=== PATIENT | male | born 1935 | race Caucasian/White ===

== ENCOUNTER 2023-03-10 18:19 | Outpatient (RCR) | payer MEDICARE, SELFPAY | END 2023-04-03 23:59 | disposition home or self-care (01) | LOC: MM 18:19 | PROVIDERS: PCP Internal Medicine; Visit Provider Internal Medicine | DX: Z51.81 Encounter for therapeutic drug level monitoring (principal); Z79.01 Long term (current) use of anticoagulants; I25.2 Old myocardial infarction | CPT/HCPCS: 85610; G0463 ==

== ENCOUNTER 2023-04-08 10:19 | Outpatient (RCR) | payer MEDICARE, SELFPAY | END 2023-05-04 17:11 | disposition home or self-care (01) | LOC: MM 10:19 | PROVIDERS: PCP Internal Medicine; Visit Provider Internal Medicine | DX: Z51.81 Encounter for therapeutic drug level monitoring (principal); Z79.01 Long term (current) use of anticoagulants; I25.2 Old myocardial infarction | CPT/HCPCS: 85610; G0463 ==

== ENCOUNTER 2023-04-20 10:55 | Emergency (ER) | payer MEDICARE, SELFPAY ==
[2023-04-20] VITALS (8 sets, daily range): BP systolic 141–191; BP diastolic 65–91; PULSE 61–67; RESP 9–20; TEMP 36.6; O2SAT 96–99; BMI 28.8
--- NOTE | 2023-04-20 11:10 | ECG_ITS ---
The [facility] Test Date: 2023-04-20 Pat Name: PURA DÍAZ Department: Room: - Gender: Male Service Member: : 1935 Requested By: SHAIKH CALISTA Order Number: [id number] Reading MD: KIRA MENDENHALL Measurements Intervals [place] Rate: 67 P: -[id number] [place]: 280 QRS: 133 QRSD: 142 T: 47 QT: 444 QTc: 459 Interpretive Statements Sinus rhythm with first degree AV block 2330 Nonspecific intraventricular conduction block 3534 Lateral myocardial infarction, age undetermined 5120 Possible right ventricular hypertrophy 9150 abnormal ECG No previous ECG available for comparison Electronically Signed On 04-21-2023 7:02:23 EDT by KIRA MENDENHALL
--- NOTE | 2023-04-20 11:10 | XR_ITS ---
The [address] [address] Patient Name: PURA DÍAZ MRN: [id number] date: 1935 Sex: M Assigned Patient Location: ER Current Patient Location: ER Accession/Order Number: [id number] Exam Date: 04/20/2023 12:28 Report Date: 04/20/2023 12:51 At the request of: BERYL MUSA Procedure: XR chest 1V EXAMINATION: XR chest 1V HISTORY: edema COMPARISON: 11/04/2022 TECHNIQUE: AP portable FINDINGS: LUNGS: No significant pulmonary parenchymal abnormalities. VASCULATURE: No increased pulmonary vasculature. PLEURA: No pneumothorax, effusion, or pleural thickening. Elevation the right hemidiaphragm CARDIAC: No cardiomegaly or cardiac silhouette abnormality. MEDIASTINUM: No visible mass or adenopathy. Left pacemaker. Aortic atherosclerosis BONES: No fracture or visible bone lesion. OTHER: Negative. XR/XR chest 1V IMPRESSION: No acute cardiopulmonary process. Electronically authenticated by: ANT SHAIKH Date: 04/20/2023 12:51
[2023-04-20 11:31] LABS: Basophils Absolute Auto 0.1 10^3/uL (0.0-0.1); Basophils Percent Auto 0.9 % (0.2-2.0); Eosinophils Absolute Auto 0.1 10^3/uL (0.0-0.7); Eosinophils Percent Auto 1.8 % (0.9-7.0); Hematocrit 49.8 % (42.0-54.0); Hemoglobin 15.6 g/dL (14.0-18.0); Immature Granulocytes Abs Auto 0.03 10^3/uL (0.00-0.03); Immature Granulocytes Pct Auto 0.4 % (0.0-0.5); Lymphocytes Absolute Auto 1.5 10^3/uL (1.2-3.8); Lymphocytes Percent Auto 20.2 % (20.5-60.0); Mean Corpuscular HGB Conc 31.3 g/dL (29.9-35.2); Mean Corpuscular Hemoglobin 24.7 pg (25.9-34.0); Mean Corpuscular Volume 78.8 fL (80.0-94.0); Mean Platelet Volume 8.9 fL (9.5-13.5); Monocytes Absolute Auto 0.6 10^3/uL (0.3-0.8); Monocytes Percent Auto 7.4 % (1.7-12.0); Neutrophils Absolute Auto 5.1 10^3/uL (1.4-6.5); Neutrophils Percent Auto 69.3 % (43.0-75.0); Platelet Count 183 10^3/uL (150-450); Red Blood Count 6.32 10^6/uL (4.70-6.10); Red Cell Distribution Width 19.9 % (11.0-15.0); White Blood Count 7.4 10^3/uL (4.0-11.0)
--- NOTE | 2023-04-20 11:38 | ED_ITS ---
HPI - General Adult General Chief complaint: Extremity Problem, Nontraumatic Stated complaint: R ARM SWOLLEN Time Seen by Provider: 04/20/23 11:07 Source: patient and family Mode of arrival: Wheelchair Limitations: no limitations History of Present Illness HPI narrative: last night the patient noticed that his right arm was a little more swollen that the left. It was much more swollen when he woke this morning. No injury to the right UE and he has no pain. he told us that his right chest, right abdomen and right leg are also more swollen than the left. PMHx includes PVD, atrial fibrillation, CHF Related Data Home Medications Medication Instructions Recorded Confirmed aspirin 81 mg capsule 81 mg PO DAILY 04/20/23 04/20/23 atorvastatin 10 mg tablet 10 mg PO DAILY 04/20/23 04/20/23 bisoprolol fumarate 10 mg tablet 10 mg PO DAILY 04/20/23 04/20/23 cholecalciferol (vitamin D3) 25 2,000 unit PO DAILY 04/20/23 04/20/23 mcg (1,000 unit) capsule cyanocobalamin (vitamin B-12) 1,000 mcg PO .3 times week 04/20/23 04/20/23 1,000 mcg capsule dapagliflozin 10 mg tablet 10 mg PO DAILY 04/20/23 04/20/23 (Farxiga) insulin aspart U-100 100 unit/mL 1 sliding scale dose subcut 04/20/23 04/20/23 (3 mL) subcutaneous pen (Novolog USEASDIRECTD FlexPen U-100 Insulin aspart) insulin detemir U-100 100 unit/mL 36 unit subcut QPM 04/20/23 04/20/23 (3 mL) subcutaneous pen (Levemir FlexPen) levothyroxine 112 mcg capsule 112 mcg PO DAILY 04/20/23 04/20/23 levothyroxine 125 mcg tablet 125 mcg PO DAILY 04/20/23 04/20/23 (Euthyrox) loratadine 10 mg tablet 10 mg PO DAILY 04/20/23 04/20/23 multivitamin 1 tab PO DAILY 04/20/23 04/20/23 primidone 50 mg tablet 50 mg PO .QHS 04/20/23 04/20/23 sacubitril 24 mg-valsartan 26 mg 1 tab PO BID 04/20/23 04/20/23 tablet (Entresto) sacubitril 97 mg-valsartan 103 mg 1 tab PO BID 04/20/23 04/20/23 tablet (Entresto) warfarin 5 mg tablet 5 mg PO .QD 04/20/23 04/20/23 Previous Rx's Medication Instructions Recorded furosemide 40 mg tablet 40 mg PO DAILY #7 tabs 04/20/23 Allergies Allergy/AdvReac Type Severity Reaction Status Date / Time iodine Allergy Intermediate Verified 04/20/23 11:13 Penicillins Allergy Intermediate Verified 04/20/23 11:13 Exam Narrative Exam Narrative: Nurses notes and vital signs reviewed and patient is not hypoxic. afebrile General: Well-appearing and in no apparent distress. Skin: Warm, dry, no pallor noted. No rash. Head: Normocephalic, atraumatic. Neck: Supple, non-tender. Eye: Pupils are equal, round and EOMI. No scleral icterus. Ears, Nose, Mouth, and Throat: Oral mucosa is moist Cardiovascular: Regular Rate and Rhythm without murmur, gallop or rub. Respiratory: No accessory muscle use or respiratory distress. Lungs are clear to auscultation, no wheezing, rales or rhonchi Musculoskeletal: normal ROM, no calf or popliteal tenderness, mild right lower extremity edema/swelling GI: Abdomen is soft, non-distended. Normal bowel sounds. No masses appreciated. No tenderness to palpation. No rebound, guarding, or rigidity noted. Neurological: A&O x4. No cranial nerve dysfunction observed. No truncal ataxia. Moves all extremities. Sensation intact. Psychiatric: Cooperative and interactive. Normal mood and affect. Constitutional Vital Signs, click to edit/add: Last Vital Signs Temp 98 F 04/20/23 11:04 Pulse 64 04/20/23 13:30 Resp 9 L 04/20/23 13:30 BP 177/89 H 04/20/23 13:50 Pulse Ox 98 04/20/23 13:30 O2 Del Method Room Air 04/20/23 11:04 Course Vital Signs Vital signs: Vital Signs Temperature 98 F 04/20/23 11:04 Pulse Rate 67 04/20/23 11:04 Respiratory Rate 18 04/20/23 11:04 Blood Pressure 141/80 H 04/20/23 11:04 Pulse Oximetry 99 04/20/23 11:04 Oxygen Delivery Method Room Air 04/20/23 11:04 Temperature 98 F 04/20/23 11:04 Pulse Rate 64 04/20/23 13:30 Respiratory Rate 9 L 04/20/23 13:30 Blood Pressure 177/89 H 04/20/23 13:50 Pulse Oximetry 98 04/20/23 13:30 Oxygen Delivery Method Room Air 04/20/23 11:04 Medical Decision Making MDM Narrative Medical decision making narrative: Patient was placed on playground monitor and EKG obtained. Blood drawn and sent for evaluation. US right UE obtained. side from an elevated BNP, the workup was unremarkable. No cephalization or central changes noted on chest x-ray. Ultrasound of the right upper extremity is without deep vein thrombosis. The case is discussed the patient's primary care provider. Dr. Haro informed me that the patient as well as taking Lasix every other day. This is not on his medication list. He will follow-up with patient on outpatient basis and asked me to prescribe seven days of Lasix 40 mg daily. Patient informed of results and discharged home. Lab Data Lab results reviewed: Yes I reviewed the patient's lab results Labs: Lab Results 04/20/23 Range/Units 11:24 WBC 7.4 (4.0-11.0) 10^3/uL RBC 6.32 H (4.70-6.10) 10^6/uL Hgb 15.6 (14.0-18.0) g/dL Hct 49.8 (42.0-54.0) % MCV 78.8 L (80.0-94.0) fL MCH 24.7 L (25.9-34.0) pg MCHC 31.3 (29.9-35.2) g/dL RDW 19.9 H (11.0-15.0) % Plt Count 183 (150-450) 10^3/uL MPV 8.9 L (9.5-13.5) fL Neut % (Auto) 69.3 (43.0-75.0) % Lymph % (Auto) 20.2 L (20.5-60.0) % [place] % (Auto) 7.4 (1.7-12.0) % Eos % (Auto) 1.8 (0.9-7.0) % Baso % (Auto) 0.9 (0.2-2.0) % Neut # (Auto) 5.1 (1.4-6.5) 10^3/uL Lymph # (Auto) 1.5 (1.2-3.8) 10^3/uL [place] # (Auto) 0.6 (0.3-0.8) 10^3/uL Eos # (Auto) 0.1 (0.0-0.7) 10^3/uL Baso # (Auto) 0.1 (0.0-0.1) 10^3/uL Abs Immat Gran (auto) 0.03 (0.00-0.03) 10^3/uL Imm/Tot Granulo (auto) 0.4 (0.0-0.5) % Sodium 142 (136-145) mmol/L Potassium 4.4 (3.5-5.1) mmol/L Chloride 107 (98-107) mmol/L Carbon Dioxide 26.1 (21.0-32.0) mmol/L Anion Gap 13.3 BUN 24.0 H (7.0-18.0) mg/dL Creatinine 1.39 H (0.70-1.30) mg/dL Est GFR ( Amer) 59 L (>=60) Est GFR (Non-Af Amer) 48 L (>=60) BUN/Creatinine Ratio 17.3 Glucose 166 H (74-106) mg/dL Calcium 8.8 (8.5-10.1) mg/dL Total Bilirubin 0.7 (0.2-1.0) mg/dL AST 18 (15-37) U/L ALT 19 (16-63) U/L Alkaline Phosphatase 93 (46-116) U/L Troponin I High Sens 10.5 (4.0-76.1) pg/mL NT-Pro-B Natriuret Pep 2027.0 H* (<=1800.0) pg/mL Total Protein 7.0 (6.4-8.2) g/dL Albumin 3.2 L (3.4-5.0) g/dL Globulin 3.8 g/dL Albumin/Globulin Ratio 0.8 Imaging Data Chest x-ray: Radiologist's impression: Patient Name: PURA DÍAZ MRN: [facility]:[id number] date: 1935 Sex: M Assigned Patient Location: ER Current Patient Location: ER Accession/Order Number: [id number] Exam Date: 04/20/2023 12:28 Report Date: 04/20/2023 12:51 At the request of: BERYL MUSA Procedure: XR chest 1V EXAMINATION: XR chest 1V HISTORY: edema COMPARISON: 11/04/2022 TECHNIQUE: AP portable FINDINGS: LUNGS: No significant pulmonary parenchymal abnormalities. VASCULATURE: No increased pulmonary vasculature. PLEURA: No pneumothorax, effusion, or pleural thickening. Elevation the right hemidiaphragm CARDIAC: No cardiomegaly or cardiac silhouette abnormality. MEDIASTINUM: No visible mass or adenopathy. Left pacemaker. Aortic atherosclerosis BONES: No fracture or visible bone lesion. OTHER: Negative. IMPRESSION: No acute cardiopulmonary process. Electronically authenticated by: ANT SHAIKH Date: 04/20/2023 12:51 us right UE: Radiologist's impression: Patient Name: PURA DÍAZ MRN: [facility]:[id number] date: 1935 Sex: M Assigned Patient Location: ED.MAIN Current Patient Location: ER Accession/Order Number: [id number] Exam Date: 04/20/2023 12:00 Report Date: 04/20/2023 12:48 At the request of: BERYL MUSA Procedure: US venous doppler UE RT EXAMINATION: US venous doppler UE RT HISTORY: right UE swelling COMPARISON: No relevant comparison available. TECHNIQUE: FINDINGS: Region: Right arm Thrombus: None Flow: Normal Augmentation: Normal Compressibility: Normal IMPRESSION: No deep or superficial vein thrombus in the right arm *Exam performed in accordance with [facility] practice guidelines- Peripheral venous ultrasound, December 29, 2009. Electronically authenticated by: ANT SHAIKH Date: 04/20/2023 12:48 ECG Data Prior ECG tracings: available for review (prior EKG 11/04/22 was similar) Interpretation: EKG interpretation: Emergency Department physician interpretation. atrial fibrillation at 67bpm. IV conduction delay, RVH. No ST segment elevation or depression. Discharge Plan Discharge Chief Complaint: Extremity Problem, Nontraumatic Clinical Impression: Edema, peripheral, Congestive heart failure Patient Disposition: Home, Self-Care Time of Disposition Decision: 13:22 Prescriptions / Home Meds: New furosemide 40 mg tablet 40 mg PO DAILY Qty: 7 0RF No Action aspirin 81 mg capsule 81 mg PO DAILY atorvastatin 10 mg tablet 10 mg PO DAILY bisoprolol fumarate 10 mg tablet 10 mg PO DAILY cholecalciferol (vitamin D3) 25 mcg (1,000 unit) capsule 2,000 unit PO DAILY Farxiga 10 mg tablet 10 mg PO DAILY Entresto 97-103 mg tablet 1 tab PO BID Levemir FlexPen 100 unit/mL (3 mL) insulin pen 36 unit subcut QPM levothyroxine 112 mcg capsule 112 mcg PO DAILY loratadine 10 mg tablet 10 mg PO DAILY multivitamin Tablet 1 tab PO DAILY primidone 50 mg tablet 50 mg PO .QHS cyanocobalamin (vitamin B-12) 1,000 mcg capsule 1,000 mcg PO .3 times week warfarin 5 mg tablet 5 mg PO .QD insulin aspart U-100 [Novolog FlexPen U-100 Insulin] 100 unit/mL (3 mL) insulin pen 1 sliding scale dose subcut USEASDIRECTD levothyroxine [Euthyrox] 125 mcg tablet 125 mcg PO DAILY Entresto 24-26 mg tablet 1 tab PO BID Instructions: Edema (ED) Stand Alone Forms: Portal Instructions Referrals: Shaikh Almazan MD [Primary Care Provider] - 1 week Discharge Date/Time: 04/20/23 14:02
[2023-04-20 11:55] LABS: Alanine Aminotransferase 19 U/L (16-63); Albumin Globulin Ratio 0.8; Albumin Level 3.2 g/dL (3.4-5.0); Alkaline Phosphatase 93 U/L (46-116); Anion Gap 13.3; Aspartate Amino Transferase 18 U/L (15-37); BUN Creatinine Ratio 17.3; Bilirubin Total 0.7 mg/dL (0.2-1.0); Calcium 8.8 mg/dL (8.5-10.1); Carbon Dioxide 26.1 mmol/L (21.0-32.0); Chloride 107 mmol/L (98-107); Estimated GFR (African America 59 (>=60); Estimated GFR (Non-African Ame 48 (>=60); Globulin 3.8 g/dL; Glucose 166 mg/dL (74-106); Potassium 4.4 mmol/L (3.5-5.1); Sodium 142 mmol/L (136-145); Troponin I High Sensitivity 10.5 pg/mL (4.0-76.1)
--- NOTE | 2023-04-20 11:55 | US_ITS ---
[place] [id number] Patient Name: PURA DÍAZ MRN: [id number] date: 1935 Sex: M Assigned Patient Location: ED.MAIN Current Patient Location: ER Accession/Order Number: [id number] Exam Date: 04/20/2023 12:00 Report Date: 04/20/2023 12:48 At the request of: BERYL MUSA Procedure: US venous doppler UE RT EXAMINATION: US venous doppler UE RT HISTORY: right UE swelling COMPARISON: No relevant comparison available. TECHNIQUE: FINDINGS: Region: Right arm Thrombus: None Flow: Normal Augmentation: Normal Compressibility: Normal US/US venous doppler UE RT IMPRESSION: No deep or superficial vein thrombus in the right arm *Exam performed in accordance with [facility] practice guidelines- Peripheral venous ultrasound, December 29, 2009. Electronically authenticated by: ANT SHAIKH Date: 04/20/2023 12:48
== END 2023-04-20 14:02 | disposition home or self-care (01) ==
PROVIDERS: Emergency Provider Emergency Medicine; PCP Internal Medicine
DX: R60.9 Edema, unspecified (principal); I50.9 Heart failure, unspecified; I48.91 Unspecified atrial fibrillation; I73.9 Peripheral vascular disease, unspecified; Z79.82 Long term (current) use of aspirin; Z79.4 Long term (current) use of insulin; Z79.899 Other long term (current) drug therapy; Z79.890 Hormone replacement therapy
CPT/HCPCS: 36415; 71045; 80053; 83880; 84484; 85025; 93005; 93971; 99285

== ENCOUNTER 2023-05-03 00:24 | Emergency (ER) | payer MEDICARE, SELFPAY ==
[2023-05-03 00:15] VITALS: BP 158/91; PULSE 64; RESP 16; TEMP 36.4; O2SAT 99; BMI 28.8
--- NOTE | 2023-05-03 00:18 | ECG_ITS ---
The 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
--- NOTE | 2023-05-03 00:28 | PC.NURSE ---
pt presents to ED because pt states that he was at home and went to stand up out of chair. pt states he fell foward and hit his head and then his glucometer alarmed him that his bs was low. was 71. ate a fig sam and juice. bs up to 120's. pt wanted to be evaluated because he is on blood thinner. small abrasion to top of head. no loc
--- NOTE | 2023-05-03 00:36 | ED_ITS ---
HPI - Fall General Chief Complaint: Fall Time Seen by Provider: 05/03/23 00:34 Source: patient Mode of arrival: ambulance History of Present Illness HPI Narrative: patient fell out of his chair and struck his forehead. No LOC. He denies other injury. Does take ASA and coumadin. Brought to the ER by squad. Denies weakness of his extremities . Has diabetic neuropathy of his feet and they are numb MD complaint: Reports fall Onset (ago): hour(s) Fall from: Reports chair Related Data Home Medications Medication Instructions Recorded Confirmed aspirin 81 mg capsule 81 mg PO DAILY 04/20/23 04/20/23 atorvastatin 10 mg tablet 10 mg PO DAILY 04/20/23 04/20/23 bisoprolol fumarate 10 mg tablet 10 mg PO DAILY 04/20/23 04/20/23 cholecalciferol (vitamin D3) 25 2,000 unit PO DAILY 04/20/23 04/20/23 mcg (1,000 unit) capsule cyanocobalamin (vitamin B-12) 1,000 mcg PO .3 times week 04/20/23 04/20/23 1,000 mcg capsule dapagliflozin propanediol 10 mg 10 mg PO DAILY 04/20/23 04/20/23 tablet (Farxiga) insulin aspart U-100 100 unit/mL 1 sliding scale dose subcut 04/20/23 04/20/23 (3 mL) subcutaneous pen (Novolog USEASDIRECTD FlexPen U-100 Insulin aspart) insulin detemir U-100 100 unit/mL 36 unit subcut QPM 04/20/23 04/20/23 (3 mL) subcutaneous pen (Levemir FlexPen) levothyroxine 112 mcg capsule 112 mcg PO DAILY 04/20/23 04/20/23 levothyroxine 125 mcg tablet 125 mcg PO DAILY 04/20/23 04/20/23 (Euthyrox) loratadine 10 mg tablet 10 mg PO DAILY 04/20/23 04/20/23 multivitamin 1 tab PO DAILY 04/20/23 04/20/23 primidone 50 mg tablet 50 mg PO .QHS 04/20/23 04/20/23 sacubitril 24 mg-valsartan 26 mg 1 tab PO BID 04/20/23 04/20/23 tablet (Entresto) warfarin 5 mg tablet 5 mg PO .QD 04/20/23 04/20/23 Previous Rx's Medication Instructions Recorded furosemide 40 mg tablet 40 mg PO DAILY #7 tabs 04/20/23 Allergies Allergy/AdvReac Type Severity Reaction Status Date / Time iodine Allergy Intermediate Verified 05/03/23 00:17 Penicillins Allergy Intermediate Verified 05/03/23 00:17 Review of Systems ROS Status of ROS 10 or more systems reviewed and unremarkable except as noted in history and below [facility] Social History Smoking status: Former smoker Exam Constitutional Vital Signs, click to edit/add: Last Vital Signs Temp 97.6 F 05/03/23 00:15 Pulse 64 05/03/23 00:15 Resp 16 05/03/23 00:15 BP 158/91 H 05/03/23 00:15 Pulse Ox 99 05/03/23 00:15 O2 Del Method Room Air 05/03/23 00:15 Common normals: no apparent distress, oriented x3, healthy appearing, alert and well nourished HENMT Other: superficial abrasion mid forehead. No swelling Eye Common normals: EOMs intact bilaterally and conjunctivae normal Neck & C-Spine Common normals: full ROM and supple Respiratory Common normals: normal respiratory effort, no retractions and no use of accessory muscles Cardio Common normals: regular rate, regular rhythm, S1 normal heart sound and S2 normal heart sound GI Common normals: soft to palpation and non-tender Extremity Other: bilat lower ext swelling(chronic per patient and family) Neuro Common normals: oriented x3, CN's II-XII intact bilaterally, moves all extremities and no focal motor deficits Psych Appearance: grossly normal Course Vital Signs Vital signs: Vital Signs Temperature 97.6 F 05/03/23 00:15 Pulse Rate 64 05/03/23 00:15 Respiratory Rate 16 05/03/23 00:15 Blood Pressure 158/91 H 05/03/23 00:15 Pulse Oximetry 99 05/03/23 00:15 Oxygen Delivery Method Room Air 05/03/23 00:15 Temperature 97.6 F 05/03/23 00:15 Pulse Rate 64 05/03/23 00:15 Respiratory Rate 16 05/03/23 00:15 Blood Pressure 158/91 H 05/03/23 00:15 Pulse Oximetry 99 05/03/23 00:15 Oxygen Delivery Method Room Air 05/03/23 00:15 MDM - Fall MDM Narrative Medical decision making narrative: patient fell out of a chair at home and struck the top of his head. No LOC. He is on blood thinners. Brought in to be checked. He states he feels ok. Exam with minor abrasion of his forehead. CTs without acute findings. Discharged home Lab Data Labs: Lab Results 05/03/23 Range/Units 00:45 WBC 6.4 (4.0-11.0) 10^3/uL RBC 6.09 (4.70-6.10) 10^6/uL Hgb 14.9 (14.0-18.0) g/dL Hct 48.0 (42.0-54.0) % MCV 78.8 L (80.0-94.0) fL MCH 24.5 L (25.9-34.0) pg MCHC 31.0 (29.9-35.2) g/dL RDW 19.9 H (11.0-15.0) % Plt Count 167 (150-450) 10^3/uL MPV 9.2 L (9.5-13.5) fL Neut % (Auto) 63.1 (43.0-75.0) % Lymph % (Auto) 23.7 (20.5-60.0) % [place] % (Auto) 9.1 (1.7-12.0) % Eos % (Auto) 2.7 (0.9-7.0) % Baso % (Auto) 1.1 (0.2-2.0) % Neut # (Auto) 4.0 (1.4-6.5) 10^3/uL Lymph # (Auto) 1.5 (1.2-3.8) 10^3/uL [place] # (Auto) 0.6 (0.3-0.8) 10^3/uL Eos # (Auto) 0.2 (0.0-0.7) 10^3/uL Baso # (Auto) 0.1 (0.0-0.1) 10^3/uL Abs Immat Gran (auto) 0.02 (0.00-0.03) 10^3/uL Imm/Tot Granulo (auto) 0.3 (0.0-0.5) % PT 21.7 H (9.0-11.6) sec INR 2.14 Sodium 140 (136-145) mmol/L Potassium 4.5 (3.5-5.1) mmol/L Chloride 109 H (98-107) mmol/L Carbon Dioxide 25.5 (21.0-32.0) mmol/L Anion Gap 10.0 BUN 25.0 H (7.0-18.0) mg/dL Creatinine 1.44 H (0.70-1.30) mg/dL Est GFR ( Amer) 56 L (>=60) Est GFR (Non-Af Amer) 47 L (>=60) BUN/Creatinine Ratio 17.4 Glucose 110 H (74-106) mg/dL Calcium 8.2 L (8.5-10.1) mg/dL Discharge Plan Discharge Chief Complaint: Fall Clinical Impression: Minor head injury Prescriptions / Home Meds: No Action aspirin 81 mg capsule 81 mg PO DAILY atorvastatin 10 mg tablet 10 mg PO DAILY bisoprolol fumarate 10 mg tablet 10 mg PO DAILY cholecalciferol (vitamin D3) 25 mcg (1,000 unit) capsule 2,000 unit PO DAILY Farxiga 10 mg tablet 10 mg PO DAILY Levemir FlexPen 100 unit/mL (3 mL) insulin pen 36 unit subcut QPM levothyroxine 112 mcg capsule 112 mcg PO DAILY loratadine 10 mg tablet 10 mg PO DAILY multivitamin Tablet 1 tab PO DAILY primidone 50 mg tablet 50 mg PO .QHS cyanocobalamin (vitamin B-12) 1,000 mcg capsule 1,000 mcg PO .3 times week warfarin 5 mg tablet 5 mg PO .QD insulin aspart U-100 [Novolog FlexPen U-100 Insulin] 100 unit/mL (3 mL) insulin pen 1 sliding scale dose subcut USEASDIRECTD levothyroxine [Euthyrox] 125 mcg tablet 125 mcg PO DAILY Entresto 24-26 mg tablet 1 tab PO BID furosemide 40 mg tablet 40 mg PO DAILY Qty: 7 0RF Instructions: Head Injury (ED) Stand Alone Forms: Portal Instructions Referrals: Shaikh Almazan MD [Primary Care Provider] - 1 week
--- NOTE | 2023-05-03 00:39 | CT_ITS ---
The [address] [address] Patient Name: PURA DÍAZ MRN: [id number] date: 1935 Sex: M Assigned Patient Location: ER Current Patient Location: Accession/Order Number: [id number] Exam Date: 05/03/2023 01:15 Report Date: 05/03/2023 01:51 At the request of: GABRIELA BACA Procedure: CT cervical spine wo con EXAM: NONCONTRAST CT HEAD EXAM: NONCONTRAST CT CERVICAL SPINE HISTORY: Trauma. 87-year-old male who fell forward hitting his head. No loss of consciousness. Small abrasion to the forehead. Complaining of headache above the left eye. TECHNIQUE: CT HEAD: Multiple axial images are taken from the level the vertex down to the base of the skull without the use of IV contrast. Images were then reconstructed in the sagittal and coronal planes. This exam was performed according to our departmental dose-optimization program which includes use of Automated Exposure Control, adjustment of the mA and/or kV according to patient size and/or use of iterative reconstruction technique. CT CERVICAL SPine: Multiple axial images are taken of the cervical spine without the use of IV contrast. Images were then reconstructed in the sagittal and coronal planes. ALARA as low as reasonably achievable CT dose technique was performed. These exams performed according to our departmental dose-optimization program which includes use of Automated Exposure Control, adjustment of the mA and/or kV according to patient size and/or use of iterative reconstruction technique. COMPARISON: None. FINDINGS: CT HEAD: Brain Parenchyma: There is global, diffuse atrophy with periventricular decreased white matter attenuation. No intracranial mass. No intracranial hemorrhage. Posterior fossa: Normal. Midline shift: None Extra-axial fluid collection: None Ventricles: Normal. Mastoid air cells: Normal. Sinuses: Normal. Cranium: No depressed skull fracture. Soft tissues: Normal. Orbits: Orbits demonstrate postoperative changes from prior cataract resection with prosthetic lens implant. CT CERVICAL SPINE: Cervical lordosis is maintained. There are large flowing syndesmophytes which is seen anterior to C4-C5 and C6. Vacuum disc phenomenon is demonstrated. Vertebral body heights are maintained. Multilevel degenerative disc disease is demonstrated. The portions of the lung apices included in the field of view are grossly unremarkable. There is no evidence for acute fracture. CT/CT cervical spine wo con IMPRESSION: CT HEAD: 1. Chronic small vessel ischemic change. If patient continues to have symptoms, or if there remains any further clinical concern, MRI may help better delineate. CT CERVICAL SPINE: 1. No CT evidence for acute fracture to the cervical spine. 2. Multilevel degenerative disc disease. If symptoms continue, an MRI would help better delineate. Electronically authenticated by: IAN LUEVANO Date: 05/03/2023 01:51
--- NOTE | 2023-05-03 00:39 | CT_ITS ---
The [address] [address] Patient Name: PURA DÍAZ MRN: [id number] date: 1935 Sex: M Assigned Patient Location: ER Current Patient Location: ER Accession/Order Number: [id number] Exam Date: 05/03/2023 01:15 Report Date: 05/03/2023 01:51 At the request of: GABRIELA BACA Procedure: CT head/brain wo con EXAM: NONCONTRAST CT HEAD EXAM: NONCONTRAST CT CERVICAL SPINE HISTORY: Trauma. 87-year-old male who fell forward hitting his head. No loss of consciousness. Small abrasion to the forehead. Complaining of headache above the left eye. TECHNIQUE: CT HEAD: Multiple axial images are taken from the level the vertex down to the base of the skull without the use of IV contrast. Images were then reconstructed in the sagittal and coronal planes. This exam was performed according to our departmental dose-optimization program which includes use of Automated Exposure Control, adjustment of the mA and/or kV according to patient size and/or use of iterative reconstruction technique. CT CERVICAL SPine: Multiple axial images are taken of the cervical spine without the use of IV contrast. Images were then reconstructed in the sagittal and coronal planes. ALARA as low as reasonably achievable CT dose technique was performed. These exams performed according to our departmental dose-optimization program which includes use of Automated Exposure Control, adjustment of the mA and/or kV according to patient size and/or use of iterative reconstruction technique. COMPARISON: None. FINDINGS: CT HEAD: Brain Parenchyma: There is global, diffuse atrophy with periventricular decreased white matter attenuation. No intracranial mass. No intracranial hemorrhage. Posterior fossa: Normal. Midline shift: None Extra-axial fluid collection: None Ventricles: Normal. Mastoid air cells: Normal. Sinuses: Normal. Cranium: No depressed skull fracture. Soft tissues: Normal. Orbits: Orbits demonstrate postoperative changes from prior cataract resection with prosthetic lens implant. CT CERVICAL SPINE: Cervical lordosis is maintained. There are large flowing syndesmophytes which is seen anterior to C4-C5 and C6. Vacuum disc phenomenon is demonstrated. Vertebral body heights are maintained. Multilevel degenerative disc disease is demonstrated. The portions of the lung apices included in the field of view are grossly unremarkable. There is no evidence for acute fracture. CT/CT head/brain wo con IMPRESSION: CT HEAD: 1. Chronic small vessel ischemic change. If patient continues to have symptoms, or if there remains any further clinical concern, MRI may help better delineate. CT CERVICAL SPINE: 1. No CT evidence for acute fracture to the cervical spine. 2. Multilevel degenerative disc disease. If symptoms continue, an MRI would help better delineate. Electronically authenticated by: IAN LUEVANO Date: 05/03/2023 01:51
[2023-05-03 00:52] LABS: Basophils Absolute Auto 0.1 10^3/uL (0.0-0.1); Basophils Percent Auto 1.1 % (0.2-2.0); Eosinophils Absolute Auto 0.2 10^3/uL (0.0-0.7); Eosinophils Percent Auto 2.7 % (0.9-7.0); Hemoglobin 14.9 g/dL (14.0-18.0); Immature Granulocytes Abs Auto 0.02 10^3/uL (0.00-0.03); Immature Granulocytes Pct Auto 0.3 % (0.0-0.5); Lymphocytes Absolute Auto 1.5 10^3/uL (1.2-3.8); Lymphocytes Percent Auto 23.7 % (20.5-60.0); Mean Corpuscular Hemoglobin 24.5 pg (25.9-34.0); Mean Corpuscular Volume 78.8 fL (80.0-94.0); Mean Platelet Volume 9.2 fL (9.5-13.5); Monocytes Absolute Auto 0.6 10^3/uL (0.3-0.8); Monocytes Percent Auto 9.1 % (1.7-12.0); Neutrophils Percent Auto 63.1 % (43.0-75.0); Platelet Count 167 10^3/uL (150-450); Red Blood Count 6.09 10^6/uL (4.70-6.10); Red Cell Distribution Width 19.9 % (11.0-15.0); White Blood Count 6.4 10^3/uL (4.0-11.0)
[2023-05-03 01:00] LABS: BUN Creatinine Ratio 17.4; Calcium 8.2 mg/dL (8.5-10.1); Carbon Dioxide 25.5 mmol/L (21.0-32.0); Chloride 109 mmol/L (98-107); Estimated GFR (African America 56 (>=60); Estimated GFR (Non-African Ame 47 (>=60); Glucose 110 mg/dL (74-106); Potassium 4.5 mmol/L (3.5-5.1); Sodium 140 mmol/L (136-145)
[2023-05-03 01:06] LABS: INR 2.14; Prothrombin Time 21.7 sec (9.0-11.6)
== END 2023-05-03 03:00 | disposition home or self-care (01) ==
PROVIDERS: Emergency Provider Internal Medicine; PCP Internal Medicine
DX: S09.90XA Unspecified injury of head, initial encounter (principal); W07.XXXA Fall from chair, initial encounter; Z79.82 Long term (current) use of aspirin; Z79.4 Long term (current) use of insulin; Z79.899 Other long term (current) drug therapy; Z79.890 Hormone replacement therapy; Z79.01 Long term (current) use of anticoagulants; Z87.891 Personal history of nicotine dependence
CPT/HCPCS: 36415; 70450; 72125; 80048; 85025; 85610; 93005; 99285

== ENCOUNTER 2023-05-05 09:52 | Outpatient (RCR) | payer MEDICARE, SELFPAY | END 2023-06-04 17:45 | disposition home or self-care (01) | LOC: MM 09:52 | PROVIDERS: PCP Internal Medicine; Visit Provider Internal Medicine | DX: Z51.81 Encounter for therapeutic drug level monitoring (principal); Z79.01 Long term (current) use of anticoagulants; I25.2 Old myocardial infarction | CPT/HCPCS: 85610; G0463 ==

== ENCOUNTER 2023-06-05 10:39 | Outpatient (RCR) | payer MEDICARE, SELFPAY | END 2023-07-03 17:04 | disposition home or self-care (01) | LOC: MM 10:39 | PROVIDERS: PCP Internal Medicine; Visit Provider Internal Medicine | DX: Z51.81 Encounter for therapeutic drug level monitoring (principal); Z79.01 Long term (current) use of anticoagulants; I25.2 Old myocardial infarction ==

== ENCOUNTER 2023-06-12 08:26 | Outpatient (OUT) | payer MEDICARE, SELFPAY ==
[2023-06-12 09:39] LABS: Anion Gap 10.2; Carbon Dioxide 27.4 mmol/L (21.0-32.0); Chloride 106 mmol/L (98-107); Glucose 156 mg/dL (74-106); Potassium 4.6 mmol/L (3.5-5.1); Sodium 139 mmol/L (136-145)
[2023-06-12 09:40] LABS: BUN Creatinine Ratio 19.5; Calcium 9.1 mg/dL (8.5-10.1); Estimated GFR (African America 54 (>=60); Estimated GFR (Non-African Ame 45 (>=60)
== END 2023-06-12 08:27 | disposition home or self-care (01) ==
LOC: LAB 08:28
PROVIDERS: PCP Internal Medicine; Visit Provider Internal Medicine
DX: I50.23 Acute on chronic systolic (congestive) heart failure (principal)
CPT/HCPCS: 36415; 80048; 83880

== ENCOUNTER 2023-07-06 03:40 | Outpatient (RCR) | payer MEDICARE, SELFPAY | END 2023-08-04 17:47 | disposition home or self-care (01) | LOC: MM 03:40 | PROVIDERS: PCP Internal Medicine; Visit Provider Internal Medicine | DX: Z51.81 Encounter for therapeutic drug level monitoring (principal); Z79.01 Long term (current) use of anticoagulants; I25.2 Old myocardial infarction ==

== ENCOUNTER 2023-08-05 00:31 | Outpatient (RCR) | payer MEDICARE, SELFPAY | END 2023-09-03 16:52 | disposition home or self-care (01) | LOC: MM 00:31 | PROVIDERS: PCP Internal Medicine; Visit Provider Internal Medicine | DX: Z51.81 Encounter for therapeutic drug level monitoring (principal); Z79.01 Long term (current) use of anticoagulants; I25.2 Old myocardial infarction | CPT/HCPCS: 85610; G0463 ==

== ENCOUNTER 2023-08-14 08:23 | Outpatient (OUT) | payer MEDICARE, SELFPAY ==
[2023-08-14 09:11] LABS: Chol HDL Ratio 2.8; Cholesterol 121 mg/dL (<=200); HDL Cholesterol 43 mg/dL (40-60); LDL Cholesterol Calculated 63.6 mg/dL; Triglycerides 72 mg/dL (<=150); VLDL CHOLESTEROL 14.4 mg/dL
== END 2023-08-14 08:24 | disposition home or self-care (01) ==
LOC: LAB 08:25
PROVIDERS: PCP Internal Medicine
DX: E11.21 Type 2 diabetes mellitus with diabetic nephropathy (principal); E78.5 Hyperlipidemia, unspecified
CPT/HCPCS: 36415; 80061

== ENCOUNTER 2023-09-04 09:38 | Outpatient (RCR) | payer MEDICARE, SELFPAY | END 2023-10-02 15:21 | disposition home or self-care (01) | LOC: MM 09:38 | PROVIDERS: PCP Internal Medicine; Visit Provider Internal Medicine | DX: Z51.81 Encounter for therapeutic drug level monitoring (principal); Z79.01 Long term (current) use of anticoagulants; I25.2 Old myocardial infarction ==

== ENCOUNTER 2023-09-24 14:27 | Inpatient (IN) | payer MEDICARE, SELFPAY ==
[2023-09-24] VITALS (29 sets, daily range): BP systolic 99–146; BP diastolic 55–82; PULSE 60–70; RESP 17–30; TEMP 36.6–39.2; O2SAT 92–99; BMI 28.8; BMI 29.4
--- OUTSIDE RECORDS SUMMARY | 2023-09-24 14:37 | XMS_ITS | CCD ---
Author Name Unknown Address [address] [place] [address] Organization [facility] Care Team Providers Care Voice Systems Engineer Name Role Phone Mapus, Tondra Unavailable Kandice, Alexa Unavailable FAWWAD, BORDEN H Primary Care Unavailable BEKAH PARKER Admitting Unavailable BEKAH PARKER Attending Unavailable FAWWAD, BORDEN H Primary Care Unavailable MISC, DR LORENZO Admitting Unavailable MISC, DR LORENZO Attending Unavailable MAPUS, TONDRA Consulting Unavailable FAWWAD, BORDEN H Primary Care Unavailable FAWWAD, BORDEN H Attending Unavailable DR BEATRIS JEAN BAPTISTE Consulting Unavailable FAWWAD, BORDEN H Admitting Unavailable GRECHNY .LEÓN Consulting Unavailabl e FAWWAD, BORDEN H Consulting Unavailable GRAZYNA PULIDO Consulting Unavaila ble KANDICE, ALEXA Attending Unavailable KANDICE, ALEXA Admitting Unavailable FAWWAD, BORDEN H Primary Care Unavailable KANDICE, ALEXA Consulting Unavailable FAWWAD, BORDEN H Primary Care Unavailable FAWWAD, BORDEN H Attending Unavailable FAWWAD, BORDEN H Admitting Unavailable FAWWAD, BORDEN H Consulting Unavailable FAWWAD, BORDEN H Primary Care Unavailable BEN RONQUILLO Admitting Unavailable BEN RONQUILLO Attending Unavailable FAWWAD, BORDEN H Primary Care Unavailable ALIRIO MARQUEZ Admitting Unavailable MONIE .LEÓN Consulting Unavailabl e ALIRIO MARQUEZ Attending Unavailable ANT SANCHEZ Consulting Unavailable BASIA YUEN Consulting Unavailable FAWWAD, BORDEN H Admitting Unavailable FAWWAD, BORDEN H Primary Care Unavailable FAWWAD, BORDEN H Attending Unavailable FAWWAD, BORDEN H Admitting Unavailable FAWWAD, BORDEN H Primary Care Unavailable FAWWAD, BORDEN H Attending Unavailable FAWWAD, BORDEN H Admitting Unavailable FAWWAD, BORDEN H Primary Care Unavailable FAWWAD, BORDEN H Attending Unavailable FAWWAD, BORDEN H Admitting Unavailable FAWWAD, BORDEN H Attending Unavailable FAWWAD, BORDEN H Primary Care Unavailable FAWWAD, BORDEN H Admitting Unavailable FAWWAD, BORDEN H Primary Care Unavailable FAWWAD, BORDEN H Attending Unavailable FAWWAD, BORDEN H Admitting Unavailable FAWWAD, BORDEN H Primary Care Unavailable FAWWAD, BORDEN H Attending Unavailable FAWWAD, BORDEN H Attending Unavailable FAWWAD, BORDEN H Primary Care Unavailable FAWWAD, BORDEN H Admitting Unavailable FAWWAD, BORDEN H Admitting Unavailable FAWWAD, BORDEN H Primary Care Unavailable FAWWAD, BORDEN H Attending Unavailable FAWWAD, BORDEN H Admitting Unavailable MISC, DR LORENZO Primary Care Unavailable FAWWAD, BORDEN H Attending Unavailable FAWWAD, BORDEN H Primary Care Unavailable FAWWAD, BORDEN H Attending Unavailable FAWWAD, BORDEN H Admitting Unavailable FAWWAD, BORDEN H Primary Care Unavailable KANDICE, ALEXA Attending Unavailable KANDICE, ALEXA Admitting Unavailable KANDICE, ALEXA Consulting Unavailable FAWWAD, BORDEN H Primary Care Unavailable MISC, DR LORENZO Consulting Unavailable MISC, DR LORENZO Attending Unavailable MISC, DR LORENZO Admitting Unavailable FAWWAD, BORDEN H Admitting Unavailable MISC, DR LORENZO Primary Care Unavailable FAWWAD, BORDEN H Attending Unavailable MISC, DR LORENZO Primary Care Unavailable [place], DR ANT Reynolds Consulting Unavailable NADERER, DR GERARD Bauman Admitting Unavailable NADERER, DR GERARD Bauman Attending Unavailable NADERER, DR GERARD Bauman Consulting Unavailable TROTTI, GIROLAMO Consulting Unavailable CRYSTAL ., ALIRIO Consulting Unavailable NO FAMILY, PHYSICIAN Primary Care Unavailable Mapus, Tondra K Admitting Unavailable Mapus, Tondra K Attending Unavailable Allergies Allergy Classification Reported Allergen(s) Allergy Type Date of Onset Reaction(s) Facility (12 sources) Linagliptin Drug Allergy vivid bad dreams [employer] [facility] Other (12 sources) Penicillins (Antibiotic) Propensity to adverse reactions hives [employer] [facility] Other (12 sources) seasonal fall allergy Propensity to adverse reactions nasal congestion, [facility] Other (12 sources) shrimp/ Propensity to adverse reactions anaphylaxis/vo miting [facility] Other (1 source) Iodine Drug Allergy 6 [facility] (1 source) Penicillins Drug allergy (disorder) 4 [facility] (1 source) Linagliptin Drug Allergy 2 [facility] (1 source) Penicillins Drug allergy (disorder) 2 [facility] (1 source) Shrimp product Drug allergy (disorder) 2 [facility] Medications Current Medications Medication Drug Class(es) Dates Sig (Normalized) Sig (Original) aspirin 81 mg chewable tablet (12 sources) Platelet Aggregation Inhibitor, Nonsteroidal Anti-inflammatory Drug take 1 tablet by mouth every twenty-four hours Aspirin 81 MG 1 tablet Orally Once a day Active atorvastatin 10 mg oral tablet (12 sources) HMG-CoA Reductase Inhibitor take 1 tablet by mouth every twenty-four hours Lipitor 10 MG 1 tablet Orally Once a day Active bisoprolol fumarate 10 mg oral tablet (12 sources) beta-Adrenergic Brooks take 1 tablet by mouth every twenty-four hours Bisoprolol Fumarate 10 MG 1 tablet Orally Once a day for 30 day(s) Active dapagliflozin 10 mg oral tablet (17 sources) Sodium-Glucose Cotransporter 2 Inhibitor take 1 tablet by mouth every twenty-four hours Farxiga 10 MG 1 tablet Orally Once a day Active fenofibrate 145 mg oral tablet (12 sources) Peroxisome Proliferator Receptor alpha Agonist take 1 tablet by mouth every twenty-four hours Fenofibrate 145 MG 1 tablet with food Orally Once a day for 30 day(s) Active furosemide 40 mg oral tablet (12 sources) Loop Diuretic Lasix 40 MG 1 tablet Orally PRN ONLY Active 3 ml insulin aspart, human 100 unt/ml pen injector (12 sources) Insulin Analog NovoLOG FlexPen 100 UNIT/ML 16-18-20-22 units ac according to meal size plus ISS 1-30 ac tid SQ As Directed for 90 day(s) (expect 80 units a day.) Active 3 ml insulin detemir 100 unt/ml pen injector (11 sources) Insulin Analog Levemir FlexTouc h 100 UNIT/ML 34 units SQ in the morning for 90 day(s) (titrate up to 50/day) Active Levemir FlexTouc h 100 UNIT/ML 34 units SQ qhs for 90 day(s) (titrate up to 50/day) Active 24 hr isosorbide mononitrate 60 mg extended release oral tablet (12 sources) Nitrate Vasodilator take 1 tablet by mouth every twenty-four hours Isosorbide Mononitrate ER 60 MG 1 tablet in the morning Orally Once a day Active Levemir FlexTouch 100 UNIT/ML (1 source) Levemir FlexTouc h 100 UNIT/ML 34 units SQ in the morning for 90 day(s) (titrate up to 50/day) Active levothyroxine sodium 0.112 mg oral tablet (12 sources) l-Thyroxine take 1 tablet by mouth once daily in the morning Levothyroxine Sodium 112 MCG 1 tablet on an empty stomach in the morning Orally Once a day Active loratadine 10 mg oral tablet (12 sources) take 1 tablet by mouth every twenty-four hours Allergy Relief 10 MG 1 tablet Orally Once a day Active Multi Vitamin/Minerals one (12 sources) Multi Vitamin/Minerals one daily Orally Active sacubitril 97 mg / valsartan 103 mg oral tablet (12 sources) Angiotensin 2 Receptor Brooks take 1 tablet by mouth every twelve hours Entresto 97-103 MG 1 tablet Orally Twice a day Active Vitamin B-12 1000 MCG (10 sources) take 1 tablet under the tongue once daily Vitamin B-12 1000 MCG 1 tablet under the tongue and allow to dissolve Sublingual Once a day for 30 day(s) Active vitamin b12 1 mg sublingual tablet (2 sources) Vitamin B12 take 1 tablet by mouth every twenty-four hours Vitamin B-12 1000 MCG 1 tablet under the tongue and allow to dissolve Sublingual Once a day for 30 day(s) Active Vitamin D (Cholecalciferol) 50 MCG (2000 UT) (12 sources) take 1 capsule by mouth once daily Vitamin D (Cholecalciferol) 50 MCG (2000 UT) 1 capsule Orally Once a day Active warfarin sodium 5 mg oral tablet (12 sources) Vitamin K Antagonist Coumadin 5 mg 1 tablet Orally Once a day and 7.5 three days a week Active Completed/Discontinued Medications Medication Drug Class(es) Dates Sig (Normalized) Sig (Original) FreeStyle Kyaw 14 Day Sensor - (1 source) Start: 06-29-2019 FreeStyle Kyaw 14 Day Sensor - 1 sensor 14 days for 60 days E11.21 25 Jun, 2019 Not-Taking Problems Active Problems Problem Classification Problem Date Documented Date Episodic/Chronic Administrative/socia l admission (20 sources) Financial problem; Translations: [Other problems related to housing and economic circumstances] Onset: 2 Resolved: 2 Episodic Cardiac dysrhythmias (2 sources) Unspecified atrial fibrillation; Translations: [Paroxysmal atrial fibrillation] Onset: 2 Chronic Chronic kidney disease (20 sources) Chronic kidney disease stage 3; Translations: [Chronic kidney disease, stage 3 (moderate)] Chronic Chronic kidney disease (9 sources) Chronic kidney disease; Translations: [Chronic kidney disease, stage 3b] Onset: 2 Resolved: 2 Conduction disorders (2 sources) Presence of automatic (implantable) cardiac defibrillator; Translations: [Presence of cardiac pacemaker] Onset: 2 Chronic Congestive heart failure; nonhypertensive (3 sources) Heart failure, unspecified; Translations: [Unspecified systolic (congestive) heart failure] Onset: 2 Chronic Coronary atherosclerosis and other heart disease (14 sources) Coronary arteriosclerosis; Translations: [CAD - Coronary Artery Disease] Onset: 3 Chronic Diabetes mellitus with complications (20 sources) Disorder of kidney due to diabetes mellitus; Translations: [Type 2 diabetes mellitus with diabetic nephropathy] Onset: 2 Resolved: 2 Chronic Diabetes mellitus without complication (1 source) Type 2 diabetes mellitus without complications; Translations: [TYPE 2 DM WITHOUT COMPLICATIONS] Onset: 2 Chronic Disorders of lipid metabolism (20 sources) Hyperlipidemia; Translations: [Hyperlipidemia, unspecified] Onset: 2 Resolved: 2 Chronic Diverticulosis and diverticulitis (12 sources) Diverticular disease of colon; Translations: [Diverticulosis of colon] Chronic Essential hypertension (19 sources) Hypertensive disorder; Translations: [Essential (primary) hypertension] Onset: 2 Resolved: 2 Chronic Gangrene (12 sources) Gangrenous disorder; Translations: [Gangrene, not elsewhere classified] Episodic Heart valve disorders (1 source) Presence of prosthetic heart valve; Translations: [PRESENCE OF PROSTHETIC HEART VALVE] Onset: 2 Chronic Hypertension with complications and secondary hypertension (20 sources) Chronic kidney disease due to hypertension; Translations: [Hypertensive chronic kidney disease with stage 1 through stage 4 chronic kidney disease, or unspecified chronic kidney disease] Onset: 2 Resolved: 2 Chronic Nutritional deficiencies (16 sources) Vitamin D deficiency; Translations: [Vitamin D deficiency, unspecified] Onset: 2 Resolved: 2 Chronic Open wounds of extremities (8 sources) Unspecified open wound, unspecified foot, initial encounter; Translations: [Open wound of toe without complication] Onset: 2 Resolved: 2 Episodic Other aftercare (20 sources) Long-term current use of insulin; Translations: [snf (current) use of insulin] Episodic Other aftercare (7 sources) 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; Translations: [HALF-WAY CURRENT USE OF INSULIN] Onset: 2 Resolved: 2 Episodic Other aftercare (1 source) intermediate school teacher (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) use of anticoagulants; Translations: [OFFICE 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 CURRNT USE ANTICOAGULANTS] Onset: 3 Episodic Other aftercare (4 sources) Encounter for therapeutic drug level monitoring; Translations: [ENC THERAPEUTC DRUG LEVL MONITORING] Onset: 3 Episodic Other diseases of kidney and ureters (12 sources) Secondary hyperparathyroidism; Translations: [Secondary hyperparathyroidism of renal origin] Chronic Other diseases of kidney and ureters (4 sources) Secondary hyperparathyroidism of renal origin; Translations: [SEC HYPERPARATHYROIDISM RENAL ORIGN] Onset: 2 Resolved: 2 Chronic Other ear and sense organ disorders (1 source) Unspecified hearing loss, unspecified ear; Translations: [UNS HEARING LOSS UNSPECIFIED EAR] Onset: 2 Chronic Other endocrine disorders (12 sources) Hypoglycemia; Translations: [Hypoglycemia, unspecified] Chronic Other endocrine disorders (3 sources) Hypoglycemia, unspecified Onset: 2 Resolved: 2 Chronic Other hereditary and degenerative nervous system conditions (1 source) Other idiopathic peripheral autonomic neuropathy; Translations: [OTH IDIO PERIPH AUTONOM NEUROPATHY] Onset: 3 Chronic Other nervous system disorders (1 source) Difficulty in walking, not elsewhere classified; Translations: [DIFFICULTY IN WALKING NEC] Onset: 3 Chronic Other nervous system disorders (1 source) Polyneuropathy, unspecified; Translations: [POLYNEUROPATHY UNSPECIFIED] Onset: 2 Chronic Other nutritional; endocrine; and metabolic disorders (20 sources) Obese class II; Translations: [Body mass index (BMI) 36.0-36.9, adult] Chronic Other nutritional; endocrine; and metabolic disorders (12 sources) Obesity; Translations: [Obesity, unspecified] Chronic Other nutritional; endocrine; and metabolic disorders (20 sources) Obese class I; Translations: [Body mass index (BMI) 33.0-33.9, adult] Chronic Other nutritional; endocrine; and metabolic disorders (3 sources) Body mass index (BMI) 33.0-33.9, adult Onset: 2 Resolved: 2 Chronic Other nutritional; endocrine; and metabolic disorders (7 sources) Body mass index 30+ - obesity; Translations: [Body mass index (BMI) 32.0-32.9, adult] Chronic Other nutritional; endocrine; and metabolic disorders (1 source) Body mass index (BMI) 32.0-32.9, adult Chronic Other nutritional; endocrine; and metabolic disorders (1 source) Body mass index (BMI) 31.0-31.9, adult Chronic Other nutritional; endocrine; and metabolic disorders (1 source) Body mass index (BMI) 30.0-30.9, adult Chronic Bozena-; endo-; and myocarditis; cardiomyopathy (except that caused by tuberculosis or sexually transmitted disease) (4 sources) Cardiomyopathy, unspecified; Translations: [CARDIOMYOPATHY UNSPECIFIED] Onset: 2 Chronic Peripheral and visceral atherosclerosis (15 sources) Peripheral vascular disease; Translations: [Peripheral vascular disease, unspecified] Onset: 3 Chronic Thyroid disorders (1 source) Hypothyroidism, unspecified; Translations: [HYPOTHYROIDISM UNSPECIFIED] Onset: 3 Chronic Unclassified (1 source) CHRN KIDNEY DISEASE STG 3 UNSP; Translations: [CHRN KIDNEY DISEASE STG 3 UNSP] Onset: 3 Unclassified (1 source) CONTACT W/AND (SUSP) EXPOS COVID-19; Translations: [CONTACT W/AND (SUSP) EXPOS COVID-19] Onset: 3 Viral infection (1 source) COVID-19; Translations: [COVID-19] Onset: 2 Past or Other Problems Problem Classification Problem Date Documented Da te Episodic/Chronic Acute and unspecified renal failure (1 source) Acute kidney failure, unspecified; Translations: [ACUTE KIDNEY FAILURE UNSPECIFIED] Onset: 11-10-2022 Episodic E Codes: Fall (1 source) Fall on same level from slipping, tripping and stumbling with subsequent striking against unspecified object, initial encounter; Translations: [FALL SAME LVL SLIP STRK UNS OBJ INT] Onset: 07-29-2022 Episodic Immunizations and screening for infectious disease (1 source) Encounter for immunization; Translations: [ENCOUNTER FOR IMMUNIZATION] Onset: 07-29-2022 Episodic Malaise and fatigue (1 source) Weakness; Translations: [WEAKNESS] Onset: 05-19-2022 Episodic Mycoses (4 sources) Tinea unguium; Translations: [TINEA UNGUIUM] Onset: 11-24-2022 Episodic Other aftercare (1 source) snf (current) use of aspirin; Translations: [HALF-WAY CURRENT USE OF ASPIRIN] Onset: 11-10-2022 Episodic Other aftercare (1 source) Other snf (current) drug therapy; Translations: [OTH OFFICE WORKFORCE PLANNER CURRENT DRUG THERAPY] Onset: 11-10-2022 Episodic Other injuries and conditions due to external causes (3 sources) Unspecified injury of head, initial encounter; Translations: [UNSPECIFIED INJURY HEAD INITIAL ENC] Onset: 07-25-2022 Episodic Other injuries and conditions due to external causes (1 source) Other specified injuries of head, initial encounter; Translations: [OTH SPEC INJURIES HEAD INITIAL ENC] Onset: 07-29-2022 Episodic Other injuries and conditions due to external causes (1 source) Other injury of unspecified body region, initial encounter; Translations: [OTHER INJURY UNS BODY REGION INIT] Onset: 07-29-2022 Episodic Other lower respiratory disease (3 sources) Shortness of breath; Translations: [SHORTNESS OF BREATH] Onset: 05-13-2022 Episodic Other non-traumatic joint disorders (1 source) Pain in left shoulder; Translations: [PAIN IN LEFT SHOULDER] Onset: 07-29-2022 Episodic Other non-traumatic joint disorders (1 source) Pain in right shoulder; Translations: [PAIN IN RIGHT SHOULDER] Onset: 07-29-2022 Episodic Other screening for suspected conditions (not mental disorders or infectious disease) (1 source) Abnormal coagulation profile; Translations: [ABNORMAL COAGULATION PROFILE] Onset: 11-10-2022 Episodic Other skin disorders (1 source) Nail dystrophy; Translations: [NAIL DYSTROPHY] Onset: 11-28-2022 Episodic Other skin disorders (1 source) Other nail disorders; Translations: [OTHER NAIL DISORDERS] Onset: 11-28-2022 Episodic Residual codes; unclassified (1 source) Acquired absence of other specified parts of digestive tract; Translations: [ACQ ABSENCE OTH PART DIGESTV TRACT] Onset: 11-10-2022 Episodic Screening and history of mental health and substance abuse codes (1 source) Personal history of nicotine dependence; Translations: [PERSONAL HISTORY OF NICOTINE DEPEND] Onset: 11-10-2022 Episodic Superficial injury; contusion (1 source) Contusion of other part of head, initial encounter; Translations: [CONTUS OTH PRT HEAD INITIAL ENCNTR] Onset: 07-29-2022 Episodic Syncope (4 sources) Syncope and collapse; Translations: [SYNCOPE AND COLLAPSE] Onset: 11-04-2022 Episodic Results Test Name Value Interpretation Reference Range Facility [facility] HEMOGLOBINon 08-18-2023 HbA1c (Bld) [Mass fraction] 7.2 % [facility] Other Glucose - FINGER STICKon Glucose [Mass/Vol] 187 mg/dL [facility] Other HbA1c (Bld) [Mass fraction]o n 08-18-2023 A1C HEMOGLOBIN [facility] Other A1C HEMOGLOBINon 05-12-2023 HbA1c (Bld) [Mass fraction] 6.9 % [facility] Other Glucose - FINGER STICKon Glucose [Mass/Vol] 142 mg/dL [facility] Other HbA1c (Bld) [Mass fraction]o n 05-12-2023 A1C HEMOGLOBIN [facility] Other PTH INTACTon 12-12-2022 PTH, Intact 60 pg/mL Normal 15-65 [facility] Comment on above: Performed By: #### L ACT #### [facility] [address] [place] [address] Dr. Katlin Ignacio HEMOGRAM AND PLATELon 2022 Hematocrit (Bld) [Volume fraction] 51.9 % Normal 42.0-54.0 [facility] Comment on above: Performed By: #### L ACT #### [facility] [address] [place] [address] Dr. Katlin Ignacio Hemoglobin (Bld) [Mass/Vol] 16.1 g/dL Normal 14.0-18.0 [facility] Comment on above: Performed By: #### L ACT #### [facility] [address] [place] [address] Dr. Katlin Ignacio MCH (RBC) [Entitic mass] 24.7 pg Critically low 25.9-34.0 [facility] Comment on above: Performed By: #### L ACT #### [facility] [address] [place] [address] Dr. Katlin Ignacio MCHC (RBC) [Mass/Vol] 31.0 g/dL Normal 29.9-35.2 [facility] Comment on above: Performed By: #### L ACT #### [facility] [address] [place] [address] Dr. Katlin Ignacio MCV (RBC) [Entitic vol] 79.6 fL Critically low 80.0-94.0 [facility] Comment on above: Performed By: #### L ACT #### [facility] [address] [place] [address] Dr. Katlin Ignacio PLT 197 103/ul Normal 150-450 [facility] Comment on above: Performed By: #### L ACT #### [facility] [address] [place] [address] Dr. Katlin Ignacio RBC 6.52 106/ul Critically high 4.70-6.10 [facility] Comment on above: Performed By: #### L ACT #### [facility] [address] [place] [address] Dr. Katlin Ignacio WBC 8.5 103/ul Normal 4.0-11.0 [facility] Comment on above: Performed By: #### L ACT #### [facility] [address] [place] [address] Dr. Katlin Ignacio MAGNESIUMon 12-11-2022 Magnesium [Mass/Vol] 1.8 mg/dL Normal 1.8-2.4 [facility] Comment on above: Performed By: #### U KATARINA, MG, RENAL #### [facility] [address] [place] [address] Dr. Katlin Ignacio RENAL FUNCTION PANELon 12-11 Albumin [Mass/Vol] 3.6 g/dL Normal 3.4-5.0 [facility] Comment on above: Performed By: #### U KATARINA, MG, RENAL #### [facility] [address] [place] [address] Dr. Katlin Ignacio Calcium [Mass/Vol] 9.1 mg/dL Normal 8.5-10.1 [facility] Comment on above: Performed By: #### U KATARINA, MG, RENAL #### [facility] [address] [place] [address] Dr. Katlin Ignacio Chloride [Moles/Vol] 107 mmol/L Normal 98-107 [facility] Comment on above: Performed By: #### U KATARINA, MG, RENAL #### [facility] [address] [place] [address] Dr. Katlin Ignacio CO2 [Moles/Vol] 26.8 mmol/L Normal 21.0-32.0 [facility] Comment on above: Performed By: #### U KATARINA, MG, RENAL #### [facility] [address] [address] [address] Katlin Ignacio Creatinine [Mass/Vol] 1.26 mg/dL Normal 0.70-1.30 [facility] Comment on above: Performed By: #### U KATARINA, MG, RENAL #### [facility] [address] [address] [address] Katlin Ignacio EGFR-AF IRISH >60 Normal >=60 [facility] Comment on above: Performed By: #### U KATARINA, MG, RENAL #### [facility] [address] [address] [address] Katlin Ignacio EGFR-NON AF IRISH 54 mL/min/1.73m2 Critically low >=60 [facility] Comment on above: Performed By: #### U KATARINA, MG, RENAL #### [facility] [address] [address] [address] Katlin Ignacio Glucose [Mass/Vol] 151 mg/dL Critically high 74-106 [facility] Comment on above: Performed By: #### U KATARINA, MG, RENAL #### [facility] [address] [address] [address] Katlin Ignacio Phosphate [Mass/Vol] 3.8 mg/dL Normal 2.6-4.7 [facility] Comment on above: Performed By: #### U KATARINA, MG, RENAL #### [facility] [address] [address] [address] Katlin Ignacio Potassium [Moles/Vol] 4.5 mmol/L Normal 3.5-5.1 [facility] Comment on above: Performed By: #### U KATARINA, MG, RENAL #### [facility] [address] [address] [address] Katlin Ignacio Sodium [Moles/Vol] 144 mmol/L Normal 136-145 [facility] Comment on above: Performed By: #### U KATARINA, MG, RENAL #### [facility] [address] [address] [address] Katlin Ignacio Urea nitrogen [Mass/Vol] 19.0 mg/dL Critically high 7.0-18.0 [facility] Comment on above: Performed By: #### U KATARINA, MG, RENAL #### [facility] [address] [address] [address] Katlin Ignacio UA RANDOM W/MICROSCOPICon BACTERIA TRACE Abnormal NONE SEEN [facility] Comment on above: Performed By: #### L ACT #### [facility] [address] [place] [address] Dr. Katlin Ignacio Bilirubin Ql (U) Negative Normal NEGATIVE [facility] Comment on above: Performed By: #### L ACT #### [facility] [address] [address] [address] Katlin Ignacio CAST NONE SEEN Normal NONE SEEN [facility] Comment on above: Performed By: #### L ACT #### [facility] [address] [place] [address] Dr. Katlin Ignacio Clarity (U) CLEAR Normal CLEAR [facility] Comment on above: Performed By: #### L ACT #### [facility] [address] [address] [address] Katlin Ignacio Color (U) YELLOW Normal YELLOW [facility] Comment on above: Performed By: #### L ACT #### [facility] [address] [place] [address] Dr. Katlin Ignacio Crystals LM Nom (Urine sed) NONE SEEN Normal NONE SEEN [facility] Comment on above: Performed By: #### L ACT #### [facility] [facility] [address] [place] [address] Dr. Katlin Ignacio Epithelial cells LM Ql (Urine sed) RARE Normal NONE SEEN /RARE [facility] Comment on above: Performed By: #### L ACT #### [facility] [address] [place] [address] Dr. Katlin Ignacio Glucose Ql (U) >1000 Abnormal NEGATIVE [facility] Comment on above: Performed By: #### L ACT #### [facility] [address] [place] [address] Dr. Katlin Ignacio Hemoglobin Ql (U) TRACE-LYSED Abnormal NEGATIVE [facility] Comment on above: Performed By: #### L ACT #### [facility] [address] [place] [address] Dr. Katlin Ignacio Ketones Ql (U) Negative Normal NEGATIVE [facility] Comment on above: Performed By: #### L ACT #### [facility] [address] [place] [address] Dr. Katlin Ignacio LEUKOCYTES SMALL Abnormal NEGATIVE [facility] Comment on above: Performed By: #### L ACT #### [facility] [address] [place] [address] Dr. Katlin Ignacio MUCOUS NONE SEEN Normal NONE SEEN [facility] Comment on above: Performed By: #### L ACT #### [facility] [address] [place] [address] Dr. Katlin Ignacio Nitrite Ql (U) Negative Normal NEGATIVE [facility] Comment on above: Performed By: #### L ACT #### [facility] [address] [place] [address] Dr. Katlin Ignacio pH (U) 6.0 [pH] Normal 5-9 [facility] Comment on above: Performed By: #### L ACT #### [facility] [address] [place] [address] Dr. Katlin Ignacio RBC 2-5 Abnormal 0-2 [facility] Comment on above: Performed By: #### L ACT #### [facility] [address] [place] [address] Dr. Katlin Ignacio SPEC GRAVITY 1.015 Normal 1.005-<=1.025 [facility] Comment on above: Performed By: #### L ACT #### [facility] [address] [place] [address] Dr. Katlin Ignacio UA PROTEIN 30 mg/dl Abnormal NEGATIVE/ TRACE [facility] Comment on above: Performed By: #### L ACT #### [facility] [address] [place] [address] Dr. Katlin Ignacio Urobilinogen Qn (U) 0.2 {Yang'U}/dL Normal 0.2 - 1.0 [facility] Comment on above: Performed By: #### L ACT #### [facility] [address] [place] [address] Dr. Katlin Ignacio WBC 10-20 Abnormal NONE SEEN [facility] Comment on above: Performed By: #### L ACT #### [facility] [address] [address] [address] Katlin Ignacio URIC ACID SERUMon 12-11-2022 Urate [Mass/Vol] 5.9 mg/dL Normal 3.5-7.2 [facility] Comment on above: Performed By: #### U KATARINA, MG, RENAL #### [facility] [address] [address] [address] Katlin Ignacio URINE T PROTEIN CREAT RATIOo n 12-11-2022 Protein (U) [Mass/Vol] 53.7 mg/dL Critically high <=12.0 [facility] Comment on above: Performed By: #### L ACT #### [facility] [address] [place] [address] Dr. Katlin Ignacio UR PROT CREAT RAT 1.04 Normal [facility] Comment on above: Performed By: #### L ACT #### [facility] [address] [place] [address] Dr. Katlin Ignacio URINE CREAT 51.68 mg/dL Normal 20.00-300.00 [facility] Comment on above: Performed By: #### L ACT #### [facility] [address] [place] [address] Dr. Katlin Ignacio VITAMIN D 25 OHon 12-11-2022 VIT D 25-OH 58.2 ng/mL Normal [facility] Comment on above: Performed By: #### U KATARINA, MG, RENAL #### [facility] [address] [place] [address] Dr. Katlin Ignacio VIT D RANGES SEE BELOW Normal [facility] Comment on above: Result Comment: <20 ng/mL Vit D deficient 20 - <30 ng/mL Vit D insufficient 30 - 100 ng/mL Vit D sufficient >100 ng/mL Potential Toxicity Performed By: #### U KATARINA, MG, RENAL #### [facility] [address] [place] [address] Dr. Katlin Ignacio ECHOCARDIO M/2D COMPLETEon 0 11-05-2022 ECHOCARDIO M/2D COMPLETE Patient: PURA DÍAZ Exam Date: 11/05/2022 : 1935 Gender:M Ordering : SHAIKH Kaycee GRIGSBY . Admission #: [id number] Family : Order #: [id number] CLICK HERE TO VIEW EXAM ECHOCARDIOGRAM REPORT PROCEDURE: CARDIO PULMONARY ECHOCARDIO M/2D COMP INDICATIONS: Syncope, pacemaker/defibrillat or, aortic valve replacement, congestive heart failure, [place] COMPARISON: None. DESCRIPTION: COMPLETE ECHOCARDIOGRAM Real-time transthoracic echocardiography with 2D, M-mode, spectral and color flow Doppler performed. QUALITY: Technical quality was fair. 72 240# BP 123/69 LEFT VENTRICLE: Normal chamber size. Thickened septal wall. Normal systolic function. Segmental wall motion cannot be accurately assessed due to poor endocardial border definition. LV EF: Normal left ventricular ejection fraction, (>55%). DIASTOLIC: ATRIAL SEPTUM: LEFT ATRIUM: Mild dilatation. RIGHT ATRIUM: Mild dilatation. RIGHT VENTRICLE: Normal chamber size. Systolic function. Pacer wire present. TRICUSPID VALVE: Normal mobility and thickness. No stenosis with trivial regurgitation. Doppler studies reveal mildly (35-45) elevated right sided pressures. RVSP 43 mmHg MITRAL VALVE: Moderately thickened with normal mobility. Moderate mitral annular calcification. No mitral regurgitation. AORTIC VALVE: Bio-Prosthetic valve appears well seated in the aortic position with normal doppler flow. No aortic regurgitation. AORTIC ROOT: Normal diameter and appearance. PULMONIC VALVE: Not well visualized. No stenosis. No regurgitation. PERICARDIUM: No evidence of pericardial effusion. IVC: Not well visualized. PLEURA: CONCLUSION: 1. Normal ventricular systolic function. LVEF is 55 to 60%. Segmental wall motion cannot be accurately assessed due to poor endocardial border definition. 2. Bioprosthetic aortic valve is well-seated in aortic position with normal Doppler flows. 3. Mildly elevated right-sided pressures. 4. Mild biatrial dilatation. 5. No significant valvular dysfunction. 6. No pericardial effusion. 7. Technically difficult study with poor sound transmission. Adult Echocardiography Procedure Report Left Ventricle LVEDD (3.7 - 5.6 cm): 5.16 cm LVESD (2.2 - 4.0 cm): 3.42 cm LVIVS thickness (0.6 - 1.2 cm): 1.28 cm LVPW thickness (0.5 - 1.0 cm): 0.97 cm e': 0.04 m/s E - e': 28.98 LVOT Max Gradient: 0.80 mm[Hg] Peak Velocity (LVOT): 0.45 m/s LVOT Diameter 2.21 cm Left Ventricular Ejection Fraction: 55-60 % Left Atrium LA Volume Index (2D A2C): 85.51 ml, 85.51 ml Left Atrium Systolic Dimension: 4.68 cm Mitral Valve MV E to A Ratio: 3.63 Mitral Valve A-Wave Peak Velocity: 0.31 m/s Mitral Valve E-Wave Peak Velocity: 1.14 m/s Right Ventricle Aorta AO Root Diam: 3.64 cm Aortic Valve AoV Area (Peak Venu): 1.60 cm2, 1.60 cm2 Peak Velocity(Antegrade Flow): 1.08 m/s Peak Gradient(Antegrade Flow): 4.64 mm[Hg] Tricuspid Valve Peak Velocity (Regurgitant Flow): 2.36 m/s, 3.17 m/s Peak Velocity: 0.42 m/s Pulmonic Valve Peak Velocity: 0.76 m/s, 0.73 m/s Peak Gradient: 2.31 mm[Hg], 2.15 mm[Hg] Right Atrium Right Atrium Systolic Pressure: 59.50 ml, 59.50 ml Dictated by: Ga Mendez M.D. on 11/05/2022 at 17:41 Approved by: Ga Mendez M.D. on 11/05/2022 at 17:46 Normal [facility] PROF CHEM 8 (BAS METB)on Anion gap [Moles/Vol] 12.5 mmol/L Normal [facility] Comment on above: Performed By: #### B MP #### [facility] [address] [address] [address] Katlin Ignacio Calcium [Mass/Vol] 8.8 mg/dL Normal 8.5-10.1 [facility] Comment on above: Performed By: #### B MP #### [facility] [address] [address] [address] Katlin Ignacio Chloride [Moles/Vol] 106 mmol/L Normal 98-107 [facility] Comment on above: Performed By: #### B MP #### [facility] [address] [address] [address] Katlin Ignacio CO2 [Moles/Vol] 23.3 mmol/L Normal 21.0-32.0 [facility] Comment on above: Performed By: #### B MP #### [facility] [address] [address] [address] Katlin Ignacio Creatinine [Mass/Vol] 1.46 mg/dL Critically high 0.70-1.30 [facility] Comment on above: Performed By: #### B MP #### [facility] [address] [address] [address] Katlin Ignacio EGFR-AF IRISH 55 mL/min/1.73m2 Critically low >=60 [facility] Comment on above: Performed By: #### B MP #### [facility] [address] [address] [address] Katlin Ignacio EGFR-NON AF IRISH 46 mL/min/1.73m2 Critically low >=60 [facility] Comment on above: Performed By: #### B MP #### [facility] [address] [address] [address] Katlin Ignacio Glucose [Mass/Vol] 129 mg/dL Critically high 74-106 [facility] Comment on above: Performed By: #### B MP #### [facility] [address] [address] [address] Katlin Ignacio Potassium [Moles/Vol] 4.8 mmol/L Normal 3.5-5.1 [facility] Comment on above: Performed By: #### B MP #### [facility] [address] [address] [address] Katlin Ignacio Sodium [Moles/Vol] 137 mmol/L Normal 136-145 [facility] Comment on above: Performed By: #### B MP #### [facility] [address] [address] [address] Katlin Ignacio Urea nitrogen [Mass/Vol] 27.0 mg/dL Critically high 7.0-18.0 [facility] Comment on above: Performed By: #### B MP #### [facility] [address] [place] [address] Dr. Katlin Ignacio Urea nitrogen/Creatini ne [Mass ratio] 18.5 mg/mg Normal [facility] Comment on above: Performed By: #### B MP #### [facility] [address] [place] [address] Dr. Katlin Ignacio PROTIMEon 11-05-2022 INR Coag (PPP) [Relative time] 2.65 {INR} Normal [facility] Comment on above: Performed By: #### U KATARINA, MG, RENAL #### [facility] [address] [place] [address] Dr. Katlin Ignacio INR GUIDELINES SEE BELOW Normal [facility] Comment on above: Result Comment: KARMA RED INR: 2.0 - 3.0 CONDITIONS NOT LISTED BELOW 2.5 - 3.5 FOR PROSTHETIC HEART VALVE REPLACEMENT 2.5 - 3.5 RECURRENT THROMBOSIS Performed By: #### U KATARINA, MG, RENAL #### [facility] [address] [place] [address] Dr. Katlin Ignacio PT Coag (PPP) [Time] 26.6 s Critically high 9.0-11.6 [facility] Comment on above: Performed By: #### U KATARINA, MG, RENAL #### [facility] [address] [place] [address] Dr. Katlin Ignacio ACETONE SERUMon 11-04-2022 ACETONE Negative Normal NEGATIVE [facility] Comment on above: Performed By: #### U KATARINA, MG, RENAL #### [facility] [address] [place] [address] Dr. Katlin Ignacio BNPon 11-04-2022 Natriuretic peptide B (Bld) [Mass/Vol] 1633.0 pg/mL Normal <=1,800.0 [facility] Comment on above: Performed By: #### L ACT #### [facility] [address] [place] [address] Dr. Katlin Ignacio CBC AUTO DIFFon 11-04-2022 BASO # 0.1 103/ul Normal 0.0-0.1 [facility] Comment on above: Performed By: #### C BC #### [facility] [address] [address] [address] Katlin Ignacio Basophils/100 WBC (Bld) 0.9 % Normal 0.2-2.0 [facility] Comment on above: Performed By: #### C BC #### [facility] [address] [address] [address] Katlin Ignacio EO # 0.1 103/ul Normal 0.0-0.7 [facility] Comment on above: Performed By: #### C BC #### [facility] [address] [address] [address] Katlin Ignacio Eosinophils/100 WBC (Bld) 1.7 % Normal 0.9-7.0 [facility] Comment on above: Performed By: #### C BC #### [facility] [address] [address] [address] Katlin Ignacio Erythrocyte distribution width (RBC) [Ratio] 19.7 % Critically high 11.0-15.0 [facility] Comment on above: Performed By: #### C BC #### [facility] [address] [place] [address] Dr. Katlin Ignacio Hematocrit (Bld) [Volume fraction] 50.6 % Normal 42.0-54.0 [facility] Comment on above: Performed By: #### C BC #### [facility] [address] [place] [address] Dr. Katlin Ignacio Hemoglobin (Bld) [Mass/Vol] 15.5 g/dL Normal 14.0-18.0 [facility] Comment on above: Performed By: #### C BC #### [facility] [address] [address] [address] Katlin Ignacio IG # 0.04 10e3/ul Critically high 0.00-0.03 [facility] Comment on above: Performed By: #### C BC #### [facility] [address] [address] [address] Katlin Ignacio IG % 0.5 % Normal 0.0-0.5 [facility] Comment on above: Performed By: #### C BC #### [facility] [address] [address] [address] Katlin Ignacio LYMPH # 1.6 103/ul Normal 1.2-3.8 [facility] Comment on above: Performed By: #### C BC #### [facility] [address] [place] [address] Dr. Katlin Ignacio Lymphocytes/100 WBC (Bld) 19.1 % Critically low 20.5-60.0 [facility] Comment on above: Performed By: #### C BC #### [facility] [address] [place] [address] Dr. Katlin Ignacio MANUAL DIFF REQ NO Normal [facility] Comment on above: Performed By: #### C BC #### [facility] [address] [place] [address] Dr. Katlin Ignacio MCH (RBC) [Entitic mass] 24.3 pg Critically low 25.9-34.0 [facility] Comment on above: Performed By: #### C BC #### [facility] [address] [place] [address] Dr. Katlin Ignacio MCHC (RBC) [Mass/Vol] 30.6 g/dL Normal 29.9-35.2 [facility] Comment on above: Performed By: #### C BC #### [facility] [address] [place] [address] Dr. Katlin Ignacio MCV (RBC) [Entitic vol] 79.3 fL Critically low 80.0-94.0 [facility] Comment on above: Performed By: #### C BC #### [facility] [address] [place] [address] Dr. Katlin Ignacio MONO # 0.6 103/ul Normal 0.3-0.8 [facility] Comment on above: Performed By: #### C BC #### [facility] [address] [place] [address] Dr. Katlin Ignacio Monocytes/100 WBC (Bld) 7.1 % Normal 1.7-12.0 [facility] Comment on above: Performed By: #### C BC #### [facility] [address] [address] [address] Katlin Ignacio NEUT # 5.8 103/ul Normal 1.4-6.5 [facility] Comment on above: Performed By: #### C BC #### [facility] [address] [address] [address] Katlin Ignacio Neutrophils/100 WBC (Bld) 70.7 % Normal 43.0-75.0 [facility] Comment on above: Performed By: #### C BC #### [facility] [address] [place] [address] Dr. Katlin Ignacio Platelet mean volume (Bld) [Entitic vol] 9.2 fL Critically low 9.5-13.5 [facility] Comment on above: Performed By: #### C BC #### [facility] [address] [place] [address] Dr. Katlin Ignacio PLT 217 103/ul Normal 150-450 [facility] Comment on above: Performed By: #### C BC #### [facility] [address] [place] [address] Dr. Katlin Ignacio RBC 6.38 106/ul Critically high 4.70-6.10 [facility] Comment on above: Performed By: #### C BC #### [facility] [address] [place] [address] Dr. Katlin Ignacio WBC 8.2 103/ul Normal 4.0-11.0 [facility] Comment on above: Performed By: #### C BC #### [facility] [address] [place] [address] HEAD WO CONon 11-04-2022 CT HEAD WO CON EXAMINATION: CT HEAD WO CON HISTORY: Syncope COMPARISON: CT head 07/25/2022. TECHNIQUE: CT examination of the head without IV contrast. Dose reduction techniques were achieved by using automated exposure control and/or adjustment of mA and/or kV according to patient size and/or use of iterative reconstruction technique. FINDINGS: Calvarium/skull base: No evidence of acute fracture or destructive lesion. Partial right mastoid effusion. Bilateral [place] ocular lens replacements. Paranasal sinuses: No air fluid levels. Brain: No acute intracranial hemorrhage. No acute large vascular territory infarct. Mild generalized parenchymal volume loss with shift prominence of the ventricular system and sulci. Similar slight asymmetric prominence of left posterior fossa extra-axial spaces unchanged from prior. No mass lesion or mass effect. No hydrocephalus. IMPRESSION: No acute intracranial process. Electronically authenticated by: GRAZYNA PULIDO Date: 2022-11-04 15:23 Normal [facility] Covid-19 PCR (CVDTBH)on 10-07 SARS-CoV-2 (COVID-19) RNA JOHN+probe Ql (Unsp spec) Not detected Normal NOT DETECTED [facility] Comment on above: Result Comment: When diagnostic testing is negative, the possibility of a false negative should be considered in the context of a patient's recent exposures and the presence of clinical signs and symptoms consistent with SARS-CoV-2. This test is not yet approved or cleared by the [place] FDA. When there are no FDA-approved or cleared tests available, and other criteria are met, FDA can make tests available under an emergency access mechanism called an Emergency Use Authorization (EUA). The EUA for this test is supported by the [employer] Specialist of Health and Human Service's declaration that circumstances exist to justify the emergency use of in vitro diagnostics for the detection and/or diagnosis of the virus that causes COVID-19. This EUA will remain in effect for the duration of the COVID-19 declaration justifying emergency of IVDs, unless it is terminated or revoked by the FDA (after which the test may no longer be used). Performed By: #### C VDTBH #### [facility] [address] [place] [address] Dr. Katlin Ignacio ER URINE PROFILEon 3 Bilirubin Ql (U) Negative Normal NEGATIVE [facility] Comment on above: Performed By: #### U KATARINA, MG, RENAL #### [facility] [address] [place] [address] Dr. Katlin Ignacio Clarity (U) CLEAR Normal CLEAR [facility] Comment on above: Performed By: #### U KATARINA, MG, RENAL #### [facility] [address] [place] [address] Dr. Katlin Ignacio Color (U) LT. YELLOW Normal YELLOW [facility] Comment on above: Performed By: #### U KATARINA, MG, RENAL #### [facility] [address] [address] [address] Katlin GRANADOS A micrscopic examination will be performed if indicated. Normal [facility] Comment on above: Performed By: #### U KATARINA, MG, RENAL #### [facility] [address] [address] [address] Katlin Ignacio Glucose Ql (U) 1000 mg/dl Abnormal NEGATIVE [facility] Comment on above: Performed By: #### U KATARINA, MG, RENAL #### [facility] [address] [address] [address] Katlin Ignacio Hemoglobin Ql (U) Negative Normal NEGATIVE [facility] Comment on above: Performed By: #### U KATARINA, MG, RENAL #### [facility] [address] [place] [address] Dr. Katlin Ignacio Ketones Ql (U) Negative Normal NEGATIVE [facility] Comment on above: Performed By: #### U KATARINA, MG, RENAL #### [facility] [address] [address] [address] Katlin Ignacio LEUKOCYTES Negative Normal NEGATIVE [facility] Comment on above: Performed By: #### U KATARINA, MG, RENAL #### [facility] [address] [place] [address] Dr. Katlin Ignacio Nitrite Ql (U) Negative Normal NEGATIVE [facility] Comment on above: Performed By: #### U KATARINA, MG, RENAL #### [facility] [address] [address] [address] Katlin Ignacio pH (U) 6.5 [pH] Normal 5-9 [facility] Comment on above: Performed By: #### U KATARINA, MG, RENAL #### [facility] [address] [address] [address] Katlin Ignacio SPEC GRAVITY 1.015 Normal 1.005-<=1.025 [facility] Comment on above: Performed By: #### U KATARINA, MG, RENAL #### [facility] [address] [place] [address] Dr. Katlin Ignacio UA PROTEIN Negative Normal NEGATIVE/ TRACE [facility] Comment on above: Performed By: #### U KATARINA, MG, RENAL #### [facility] [address] [place] [address] Dr. Katlin Ignacio UR MICRO IND NOT INDICATED Normal [facility] Comment on above: Performed By: #### U KATARINA, MG, RENAL #### [facility] [address] [place] [address] Dr. Katlin Ignacio Urobilinogen Qn (U) 1.0 {Yang'U}/dL Normal 0.2 - 1.0 [facility] Comment on above: Performed By: #### U KATARINA, MG, RENAL #### [facility] [address] [place] [address] Dr. Katlin Ignacio POINT OF CARE GLUCOSEon 10-07 Glucose [Mass/Vol] 200 mg/dL Critically high 74-106 [facility] Comment on above: Performed By: #### U AMIC #### [facility] [address] [place] [address] Dr. Katlin Ignacio PROF 14(COMP METB)on 023 Albumin [Mass/Vol] 3.4 g/dL Normal 3.4-5.0 [facility] Comment on above: Performed By: #### L ACT #### [facility] [address] [place] [address] Dr. Katlin Ignacio Albumin/Globulin [Mass ratio] 0.9 {ratio} Normal [facility] Comment on above: Performed By: #### L ACT #### [facility] [address] [place] [address] Dr. Katlin Ignacio ALP [Catalytic activity/Vol] 102 U/L Normal 46-116 [facility] Comment on above: Performed By: #### L ACT #### [facility] [address] [place] [address] Dr. Katlin Ignacio ALT [Catalytic activity/Vol] 23 U/L Normal 16-63 [facility] Comment on above: Performed By: #### L ACT #### [facility] [address] [place] [address] Dr. Katlin Ignacio Anion gap [Moles/Vol] 15.0 mmol/L Normal [facility] Comment on above: Performed By: #### L ACT #### [facility] [address] [address] [address] Katlin Ignacio AST [Catalytic activity/Vol] 26 U/L Normal 15-37 [facility] Comment on above: Performed By: #### L ACT #### [facility] [address] [address] [address] Katlin Ignacio Bilirubin [Mass/Vol] 0.6 mg/dL Normal 0.2-1.0 [facility] Comment on above: Performed By: #### L ACT #### [facility] [address] [place] [address] Dr. Katlin Ignacio Calcium [Mass/Vol] 9.0 mg/dL Normal 8.5-10.1 [facility] Comment on above: Performed By: #### L ACT #### [facility] [address] [address] [address] Katlin Ignacio Chloride [Moles/Vol] 104 mmol/L Normal 98-107 [facility] Comment on above: Performed By: #### L ACT #### [facility] [address] [place] [address] Dr. Katlin Ignacio CO2 [Moles/Vol] 24.4 mmol/L Normal 21.0-32.0 [facility] Comment on above: Performed By: #### L ACT #### [facility] [address] [address] [address] Katlin Ignacio Creatinine [Mass/Vol] 1.86 mg/dL Critically high 0.70-1.30 [facility] Comment on above: Performed By: #### L ACT #### [facility] [address] [place] [address] Dr. Katlin Ignacio EGFR-AF IRISH 42 mL/min/1.73m2 Critically low >=60 [facility] Comment on above: Performed By: #### L ACT #### [facility] [address] [address] [address] Katlin Ignacio EGFR-NON AF IRISH 35 mL/min/1.73m2 Critically low >=60 [facility] Comment on above: Performed By: #### L ACT #### [facility] [address] [address] [address] Katlin Ignacio Globulin (S) [Mass/Vol] 3.8 g/dL Normal [facility] Comment on above: Performed By: #### L ACT #### [facility] [address] [address] [address] Katlin Ignacio Glucose [Mass/Vol] 131 mg/dL Critically high 74-106 [facility] Comment on above: Performed By: #### L ACT #### [facility] [address] [address] [address] Katlin Ignacio Potassium [Moles/Vol] 5.4 mmol/L Critically high 3.5-5.1 [facility] Comment on above: Performed By: #### L ACT #### [facility] [address] [place] [address] Dr. Katlin Ignacio Protein [Mass/Vol] 7.2 g/dL Normal 6.4-8.2 [facility] Comment on above: Performed By: #### L ACT #### [facility] [address] [place] [address] Dr. Katlin Ignacio Sodium [Moles/Vol] 138 mmol/L Normal 136-145 [facility] Comment on above: Performed By: #### L ACT #### [facility] [address] [place] [address] Dr. Katlin Ignacio Urea nitrogen [Mass/Vol] 30.0 mg/dL Critically high 7.0-18.0 [facility] Comment on above: Performed By: #### L ACT #### [facility] [address] [place] [address] Dr. Katlin Ignacio Urea nitrogen/Creatini ne [Mass ratio] 16.1 mg/mg Normal [facility] Comment on above: Performed By: #### L ACT #### [facility] [address] [place], [place] [id number] Dr. Katlin Ignacio PROTIMEon 11-04-2022 INR Coag (PPP) [Relative time] 3.79 {INR} Normal [facility] Comment on above: Performed By: #### L ACT #### [facility] [address] [place] [address] Dr. Katlin Ignacio INR GUIDELINES SEE BELOW Normal [facility] Comment on above: Result Comment: KARMA RED INR: 2.0 - 3.0 CONDITIONS NOT LISTED BELOW 2.5 - 3.5 FOR PROSTHETIC HEART VALVE REPLACEMENT 2.5 - 3.5 RECURRENT THROMBOSIS Performed By: #### L ACT #### [facility] [address] [place] [address] Dr. Katlin Ignacio PT Coag (PPP) [Time] 37.3 s Critically high 9.0-11.6 [facility] Comment on above: Performed By: #### L ACT #### [facility] [address] [place] [address] Dr. Katlin Ignacio PTTon 11-04-2022 aPTT Coag (Bld) [Time] 41.8 s Critically high 22.3-36.2 [facility] Comment on above: Performed By: #### L ACT #### [facility] [address] [place] [address] Dr. Katlin Ignacio TROPONIN, HIGH SENSITIVITYon 11-04-2022 HSTROP 11.9 pg/mL Normal 4.0-76.1 [facility] Comment on above: Result Comment: CUT- OFF POINTS HAVE BEEN ESTABLISHED BASED ON THE FOURTH UNIVERSAL DEFINITIONS OF MYOCARDIAL INFARCTION. THE UPPER REFERENCE LIMIT (URL) OF TROPONIN, DEFINED THE 99TH PERCENTILE OF cTnI DISTRIBUTION IN A REFERENCE POPULATION, HAS BEEN CONFIRMED THE DECISION THRESHOLD FOR [place] DIAGNOSIS. Performed By: #### L ACT #### [facility] [address] [place] [address] Dr. Katlin Ignacio TSHon 11-04-2022 TSH 4.488 uIU/mL Critically high 0.358-3.740 [facility] Comment on above: Performed By: #### L ACT #### [facility] [address] [place] [address] Dr. Katlin Ignacio XR CHEST 2 Von 11-04-2022 XR CHEST 2 V EXAMINATION: XR CHES T 2 V HISTORY: Syncope COMPARISON: XR chest 07/25/2022 FINDINGS: LUNGS: No significant pulmonary parenchymal abnormalities. VASCULATURE: No increased pulmonary vasculature. PLEURA: No pneumothorax, effusion, or pleural thickening. CARDIAC: No cardiomegaly or cardiac silhouette abnormality. MEDIASTINUM: No visible mass or adenopathy. BONES: Marked degenerative changes of the shoulder joints. No appreciable acute abnormality. OTHER: Cardiac pacer with intact leads. IMPRESSION: 1. No acute cardiopulmonary process. Electronically authenticated by: BEATRIS JEAN BAPTISTE Date: 2022-11-04 15:26 Normal [facility] PROF CHEM 8 (BAS METB)on Anion gap [Moles/Vol] 12.1 mmol/L Normal [facility] Comment on above: Performed By: #### U AMIC #### [facility] [address] [address] [address] Katlin Ignacio Calcium [Mass/Vol] 9.3 mg/dL Normal 8.5-10.1 [facility] Comment on above: Performed By: #### U AMIC #### [facility] [address] [address] [address] Katlin Ignacio Chloride [Moles/Vol] 103 mmol/L Normal 98-107 [facility] Comment on above: Performed By: #### U AMIC #### [facility] [address] [address] [address] Katlin Ignacio CO2 [Moles/Vol] 28.7 mmol/L Normal 21.0-32.0 [facility] Comment on above: Performed By: #### U AMIC #### [facility] [address] [address] [address] Katlin Ignacio Creatinine [Mass/Vol] 2.15 mg/dL Critically high 0.70-1.30 [facility] Comment on above: Performed By: #### U AMIC #### [facility] [address] [address] [address] Katlin Ignacio EGFR-AF IRISH 35 mL/min/1.73m2 Critically low >=60 [facility] Comment on above: Performed By: #### U AMIC #### [facility] [address] [place], [place] [address] Dr. Katlin Ignacio EGFR-NON AF IRISH 29 mL/min/1.73m2 Critically low >=60 [facility] Comment on above: Performed By: #### U AMIC #### [facility] [id number] Katlin Ignacio Glucose [Mass/Vol] 81 mg/dL Normal 74-106 [facility] Comment on above: Performed By: #### U AMIC #### [facility] [address] [place], [place] [address] Dr. Katlin Ignacio Potassium [Moles/Vol] 4.8 mmol/L Normal 3.5-5.1 [facility] Comment on above: Performed By: #### U AMIC #### [facility] [address] [address] [address] Katlin Ignacio Sodium [Moles/Vol] 139 mmol/L Normal 136-145 [facility] Comment on above: Performed By: #### U AMIC #### [facility] [address] [address] [address] Katlin Ignacio Urea nitrogen [Mass/Vol] 27.0 mg/dL Critically high 7.0-18.0 [facility] Comment on above: Performed By: #### U AMIC #### [facility] [id number] Katlin Ignacio Urea nitrogen/Creatini ne [Mass ratio] 12.6 mg/mg Normal [facility] Comment on above: Performed By: #### U AMIC #### [facility] [address] [place], [place] [address] Dr. Katlin Igncaio TSHon 10-30-2022 TSH 5.069 uIU/mL Critically high 0.358-3.740 [facility] Comment on above: Performed By: #### U AMIC #### [facility] [address] [place], [place] [address] Dr. Katlin Ignacio A1C HEMOGLOBINon 10-21-2022 HbA1c (Bld) [Mass fraction] 7.3 % [facility] Other Glucose - FINGER STICKon Glucose [Mass/Vol] 87 mg/dL [facility] Other HbA1c (Bld) [Mass fraction]o n 10-21-2022 A1C HEMOGLOBIN [facility] Other LIPID PROFILEon 10-20-2022 CHOL-HDL RATIO NORM SEE BELOW Normal [facility] Comment on above: Result Comment: 3.3 - 4.4 LOW RISK 4.4 - 7.1 AVERAGE RISK 7.1 - 11.0 MODERATE RISK >11.0 HIGH RISK Performed By: #### L IPID #### [facility] [address] [address] [address] Katlin Ignacio Cholesterol [Mass/Vol] 108 mg/dL Normal <=200 [facility] Comment on above: Performed By: #### L IPID #### [facility] [address] [address] [address] Katlin Ignacio Cholesterol in HDL [Mass/Vol] 40 mg/dL Normal 40-60 [facility] Comment on above: Performed By: #### L IPID #### [facility] [address] [address] [address] Katlin Ignacio Cholesterol in LDL [Mass/Vol] 45.8 mg/dL Normal [facility] Comment on above: Performed By: #### L IPID #### [facility] [address] [address] [address] Katlin Ignacio Cholesterol.total /Cholesterol in HDL [Mass ratio] 2.7 {ratio} Normal [facility] Comment on above: Performed By: #### L IPID #### [facility] [address] [address] [address] Katlin Ignacio HDL NORMAL > or = 60 mg/dl - LO W CARDIOVASCULAR RISK <40 mg/dl - HIGH CARDIOVASCULAR RISK Normal [facility] Comment on above: Performed By: #### L IPID #### [facility] [address] [address] [address] Katlin Ignacio LDL CALC NORMAL SEE BELOW Normal [facility] Comment on above: Result Comment: <100 mg/dl OPTIMAL 100 - 129 mg/dl NEAR OR ABOVE OPTIMAL 130 - 159 mg/dl BORDERLINE HIGH 160 - 189 mg/dl HIGH >190 mg/dl VERY HIGH Performed By: #### L IPID #### [facility] [address] [place] [address] Dr. Katlin Ignacio Triglyceride [Mass/Vol] 111 mg/dL Normal <=150 [facility] Comment on above: Performed By: #### L IPID #### [facility] [address] [place] [address] Dr. Katlin Ignacio VLDL CALC 22.2 mg/dL Normal [facility] Comment on above: Performed By: #### L IPID #### [facility] [address] [place] [address] Dr. Katlin Ignacio CBC AUTO DIFFon 07-25-2022 BASO # 0.1 103/ul Normal 0.0-0.1 [facility] Comment on above: Performed By: #### L ACT #### [facility] [address] [place] [address] Dr. Katlin Ignacio Basophils/100 WBC (Bld) 1.0 % Normal 0.2-2.0 [facility] Comment on above: Performed By: #### L ACT #### [facility] [address] [place] [address] Dr. Katlin Ignacio EO # 0.1 103/ul Normal 0.0-0.7 [facility] Comment on above: Performed By: #### L ACT #### [facility] [address] [place] [address] Dr. Katlin Ignacio Eosinophils/100 WBC (Bld) 1.0 % Normal 0.9-7.0 [facility] Comment on above: Performed By: #### L ACT #### [facility] [address] [place] [address] Dr. Katlin Ignacio Erythrocyte distribution width (RBC) [Ratio] 19.9 % Critically high 11.0-15.0 [facility] Comment on above: Performed By: #### L ACT #### [facility] [address] [place] [address] Dr. Katlin Ignacio Hematocrit (Bld) [Volume fraction] 53.7 % Normal 42.0-54.0 [facility] Comment on above: Performed By: #### L ACT #### [facility] [address] [address] [address] Katlin Ignacio Hemoglobin (Bld) [Mass/Vol] 16.4 g/dL Normal 14.0-18.0 [facility] Comment on above: Performed By: #### L ACT #### [facility] [address] [address] [address] Katlin Ignacio IG # 0.04 10e3/ul Critically high 0.00-0.03 [facility] Comment on above: Performed By: #### L ACT #### [facility] [address] [place] [address] Dr. Katlin Ignacio IG % 0.4 % Normal 0.0-0.5 [facility] Comment on above: Performed By: #### L ACT #### [facility] [address] [address] [address] Katlin Ignacio LYMPH # 1.7 103/ul Normal 1.2-3.8 [facility] Comment on above: Performed By: #### L ACT #### [facility] [address] [place] [address] Dr. Katlin Ignacio Lymphocytes/100 WBC (Bld) 18.7 % Critically low 20.5-60.0 [facility] Comment on above: Performed By: #### L ACT #### [facility] [address] [address] [address] Katlin Ignacio MANUAL DIFF REQ NO Normal [facility] Comment on above: Performed By: #### L ACT #### [facility] [address] [address] [address] Katlin Ignacio MCH (RBC) [Entitic mass] 24.2 pg Critically low 25.9-34.0 [facility] Comment on above: Performed By: #### L ACT #### [facility] [address] [address] [address] Katlin Ignacio MCHC (RBC) [Mass/Vol] 30.5 g/dL Normal 29.9-35.2 [facility] Comment on above: Performed By: #### L ACT #### [facility] [address] [place] [address] Dr. Katlin Ignacio MCV (RBC) [Entitic vol] 79.2 fL Critically low 80.0-94.0 [facility] Comment on above: Performed By: #### L ACT #### [facility] [address] [place] [address] Dr. Katlin Ignacio MONO # 0.6 103/ul Normal 0.3-0.8 [facility] Comment on above: Performed By: #### L ACT #### [facility] [address] [place] [address] Dr. Katlin Ignacio Monocytes/100 WBC (Bld) 6.7 % Normal 1.7-12.0 [facility] Comment on above: Performed By: #### L ACT #### [facility] [address] [place] [address] Dr. Katlin Ignacio NEUT # 6.5 103/ul Normal 1.4-6.5 [facility] Comment on above: Performed By: #### L ACT #### [facility] [address] [place] [address] Dr. Katlin Ignacio Neutrophils/100 WBC (Bld) 72.2 % Normal 43.0-75.0 [facility] Comment on above: Performed By: #### L ACT #### [facility] [address] [place] [address] Dr. Katlin Ignacio Platelet mean volume (Bld) [Entitic vol] 9.5 fL Normal 9.5-13.5 [facility] Comment on above: Performed By: #### L ACT #### [facility] [address] [place] [address] Dr. Katlin Ignacio PLT 186 103/ul Normal 150-450 [facility] Comment on above: Performed By: #### L ACT #### [facility] [address] [place] [address] Dr. Katiln Ignacio RBC 6.78 106/ul Critically high 4.70-6.10 [facility] Comment on above: Performed By: #### L ACT #### [facility] [address] [place], [place] [address] Dr. Katlin Ignacio WBC 9.0 103/ul Normal 4.0-11.0 [facility] Comment on above: Performed By: #### L ACT #### [facility] [address] [place], [place] [address] [facility] WO CON CT CERVICAL SPINE WITHOUT IV CONTRAST. INDICATION: Unspecified fall COMPARISON: 12/20/2021 TECHNIQUE: CT of the cervical spine without contrast. Orthogonal sagittal and coronal multiplanar reformatted images were created. . FINDINGS: BONY ALIGNMENT: There is normal cervical lordosis. No spondylolisthesis. VERTEBRAL BODY: No acute fracture of the cervical spine. Moderate multilevel degenerative spondylosis. There are multiple flowing anterior syndesmophytes which can be seen with diffuse idiopathic skeletal hyperostosis. CENTRAL CANAL/NEURAL FORAMINA: No high-grade central canal stenosis. 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 There is severe left C3-C4, bilateral C4-C5, left C5-C6 and bilateral C6-C7 neural foraminal stenosis. SOFT TISSUE: No mass or inflammation. UPPER LUNGS: No acute findings. IMPRESSION: No acute cervical spinal fracture. Electronically authenticated by: BASIA YUEN Date: 2022-07-25 17:28 Normal [facility] CT [facility] BONES WO CON CT MAXILLOFACIAL WITHOUT CONTRAST. CLINICAL HISTORY: Unspecified fall COMPARISON: None. TECHNIQUE: Multidetector maxillofacial CT without contrast. Coronal and sagittal reformatted images were obtained. FINDINGS: OSSEOUS STRUCTURES: No acute fracture is seen. ORBITS: Normal orbits. No inflammation or fluid collection. ORAL CAVITY: No inflammation or fluid collection. No periapical lucency. SOFT TISSUES: No contusion or hematoma. No inflammation. VISUALIZED INTRACRANIAL CONTENTS: No acute findings. MASTOID AIR CELLS: There is mild mucosal thickening of the maxillary sinuses. PARANASAL SINUSES: Clear.. IMPRESSION: No acute maxillofacial fracture. Electronically authenticated by: BASIA YUEN Date: 2022-07-25 17:33 Normal [facility] CT HEAD WO CONon 07-25-[address] CT [address] WO CON CT HEAD WITHOUT CONTRAST. INDICATION: Unspecified fall COMPARISON: 03/28/2021 TECHNIQUE: Axial CT head images from the skull base to the vertex without IV contrast were acquired. Coronal and sagittal reformats were also obtained. FINDINGS: EXTRA-AXIAL SPACE: Age-appropriate ventricles. No acute extra-axial collection. No extra-axial mass. No midline shift. CEREBRUM: There are areas of periventricular and deep white matter low-attenuation, which is nonspecific but likely reflective of chronic microvascular ischemic disease.. No CT evidence of acute large territorial cortical infarct, hemorrhage or mass effect. CEREBELLUM: No focal abnormality. No CT evidence of acute infarct, hemorrhage or mass effect. BRAINSTEM: No focal abnormality. No CT evidence of acute infarct, hemorrhage or mass effect. EXTRACRANIAL STRUCTURES. The paranasal sinuses are clear. Mastoid air cells are clear. Orbits are unremarkable. No discrete pituitary mass. Intact calvarium. IMPRESSION: No acute intracranial abnormality. Electronically authenticated by: BASIA YUEN Date: 2022-07-25 17:25 Normal [facility] PROF CHEM 8 (BAS METB)on Anion gap [Moles/Vol] 10.5 mmol/L Normal [facility] Comment on above: Performed By: #### L ACT #### [facility] [address] [place] [address] Dr. Katlin Ignacio Calcium [Mass/Vol] 8.5 mg/dL Normal 8.5-10.1 [facility] Comment on above: Performed By: #### L ACT #### [facility] [address] [place] [address] Dr. Katlin Ignacio Chloride [Moles/Vol] 105 mmol/L Normal 98-107 [facility] Comment on above: Performed By: #### L ACT #### [facility] [address] [address] [address] Katlin Ignacio CO2 [Moles/Vol] 27.2 mmol/L Normal 21.0-32.0 [facility] Comment on above: Performed By: #### L ACT #### [facility] [address] [address] [address] Katlin Ignacio Creatinine [Mass/Vol] 1.62 mg/dL Critically high 0.70-1.30 [facility] Comment on above: Performed By: #### L ACT #### [facility] [address] [address] [address] Katlin Ignacio EGFR-AF IRISH 49 mL/min/1.73m2 Critically low >=60 [facility] Comment on above: Performed By: #### L ACT #### [facility] [address] [address] [address] Katlni Ignacio EGFR-NON AF IRISH 41 mL/min/1.73m2 Critically low >=60 [facility] Comment on above: Performed By: #### L ACT #### [facility] [address] [place] [address] Dr. Katlin gInacio Glucose [Mass/Vol] 178 mg/dL Critically high 74-106 [facility] Comment on above: Performed By: #### L ACT #### [facility] [address] [place] [address] Dr. Katlin Ignacio Potassium [Moles/Vol] 4.7 mmol/L Normal 3.5-5.1 [facility] Comment on above: Performed By: #### L ACT #### [facility] [address] [place] [address] Dr. Katlin Ignacio Sodium [Moles/Vol] 138 mmol/L Normal 136-145 [facility] Comment on above: Performed By: #### L ACT #### [facility] [address] [place] [address] Dr. Katlin Ignacio Urea nitrogen [Mass/Vol] 29.0 mg/dL Critically high 7.0-18.0 [facility] Comment on above: Performed By: #### L ACT #### [facility] [address] [place] [address] Dr. Katlin Ignacio Urea nitrogen/Creatini ne [Mass ratio] 17.9 mg/mg Normal [facility] Comment on above: Performed By: #### L ACT #### [facility] [address] [place] [address] Dr. Katlin Ignacio PROTIMEon 07-25-2022 INR Coag (PPP) [Relative time] 2.12 {INR} Normal [facility] Comment on above: Performed By: #### U AMIC #### [facility] [address] [address] [address] Katlin Ignacio INR GUIDELINES SEE BELOW Normal [facility] Comment on above: Result Comment: KARMA RED INR: 2.0 - 3.0 CONDITIONS NOT LISTED BELOW 2.5 - 3.5 FOR PROSTHETIC HEART VALVE REPLACEMENT 2.5 - 3.5 RECURRENT THROMBOSIS Performed By: #### U AMIC #### [facility] [address] [address] [address] Katlin Ignacio PT Coag (PPP) [Time] 21.8 s Critically high 9.0-11.6 [facility] Comment on above: Performed By: #### U AMIC #### [facility] [address] [address] [address] Katlin Ignacio PTTon 07-25-2022 aPTT Coag (Bld) [Time] 34.1 s Normal 22.3-36.2 [facility] Comment on above: Performed By: #### L ACT #### [facility] [address] [address] [address] Katlin Ignacio XR CHEST 1 Von 07-25-2022 XR CHEST 1 V EXAMINATION: XR CHES T 1 V HISTORY: Fall COMPARISON: 05/13/2022 portable chest TECHNIQUE: Portable chest FINDINGS: The lung parenchyma is free of consolidation or infiltrate. No pneumothorax or pleural effusion. Left-sided cardiac pacemaker. The cardiac, mediastinal and hilar contours are normal. The visualized osseous structures exhibit no gross abnormality. IMPRESSION: No acute cardiopulmonary abnormality. Electronically authenticated by: ANT SANCHEZ Date: 2022-07-25 17:46 Normal [facility] XR SHOULDER LACY 2V or >on XR SHOULDER LACY 2V or > EXAM: XR SHOULDER LACY 2V or > HISTORY: Unspecified fall COMPARISON: None. TECHNIQUE: 2 views of each shoulder respectively. FINDINGS: No fracture, dislocation or subluxation. Degenerative changes of both acromioclavicular and glenohumeral joints. No osseous lesion. IMPRESSION: Bilateral acromioclavicular and glenohumeral joint degenerative changes with no visualized acute abnormality. Electronically authenticated by: ANT SANCHEZ Date: 2022-07-25 17:48 Normal [facility] A1C HEMOGLOBINon 07-08-2022 HbA1c (Bld) [Mass fraction] 7.1 % [facility] Other Glucose - FINGER STICKon Glucose [Mass/Vol] 98 mg/dL [facility] Other HbA1c (Bld) [Mass fraction]o n 07-08-2022 A1C HEMOGLOBIN [facility] Other PTH INTACTon 06-17-2022 PTH, Intact 40 pg/mL Normal 15-65 [facility] Comment on above: Performed By: #### U KATARINA, MG, RENAL #### [facility] [address] [place], [place] [address] Dr. Katlin Ignacio VIT D 25-OH [facility] 2021 Vitamin D, 25-Hydroxy 38.3 ng/mL Normal 30.0-100.0 [facility] Comment on above: Result Comment: Lexis min D deficiency has been defined by the Indian of Medicine and an Endocrine Society practice guideline as a level of serum 25-OH vitamin D less than 20 ng/mL (1,2). The Endocrine Society went on to further define vitamin D insufficiency as a level between 21 and 29 ng/mL (2). 1. IOM ([employer] of Medicine). 2010. Dietary reference intakes for calcium and D. [place]: The National Academies Press. 2. Bismark MF, Jess NC, Dana GIBBNOS, et al. Evaluation, treatment, and prevention of vitamin D deficiency: an Endocrine Society clinical practice guideline. JCEM. 2010; 96(7):1911-30. Performed By: #### U AMIC #### [facility] [address] [place], [place] [address] Dr. Katlin Ignacio HEMOGRAM AND PLATELon 2021 Hematocrit (Bld) [Volume fraction] 55.1 % Critically high 42.0-54.0 [facility] Comment on above: Performed By: #### U KATARINA, MG, RENAL #### [facility] [address] [place] [address] Dr. Katlin Ignacio Hemoglobin (Bld) [Mass/Vol] 16.7 g/dL Normal 14.0-18.0 [facility] Comment on above: Performed By: #### U KATARINA, MG, RENAL #### [facility] [address] [place] [address] Dr. Katlin Ignacio MCH (RBC) [Entitic mass] 24.1 pg Critically low 25.9-34.0 [facility] Comment on above: Performed By: #### U KATARINA, MG, RENAL #### [facility] [address] [place] [address] Dr. Katlin Ignacio MCHC (RBC) [Mass/Vol] 30.3 g/dL Normal 29.9-35.2 [facility] Comment on above: Performed By: #### U KATARINA, MG, RENAL #### [facility] [address] [place] [address] Dr. Katlin Ignacio MCV (RBC) [Entitic vol] 79.5 fL Critically low 80.0-94.0 [facility] Comment on above: Performed By: #### U KATARINA, MG, RENAL #### [facility] [address] [place] [address] Dr. Katlin Ignacio PLT 201 103/ul Normal 150-450 [facility] Comment on above: Performed By: #### U KATARINA, MG, RENAL #### [facility] [address] [place] [address] Dr. Katlin Ignacio RBC 6.93 106/ul Critically high 4.70-6.10 [facility] Comment on above: Performed By: #### U KATARINA, MG, RENAL #### [facility] [address] [place] [address] Dr. Katlin Ignacio WBC 10.1 103/ul Normal 4.0-11.0 [facility] Comment on above: Performed By: #### U KATARINA, MG, RENAL #### [facility] [address] [place] [address] Dr. Katlin Ignacio MAGNESIUMon 06-16-2022 Magnesium [Mass/Vol] 2.2 mg/dL Normal 1.8-2.4 [facility] Comment on above: Performed By: #### U KATARINA, MG, RENAL #### [facility] [address] [address] [address] Katlin Ignacio RENAL FUNCTION PANELon 06-16 Albumin [Mass/Vol] 3.5 g/dL Normal 3.4-5.0 [facility] Comment on above: Performed By: #### U KATARINA, MG, RENAL #### [facility] [address] [place] [address] Dr. Katlin Ignacio Calcium [Mass/Vol] 9.3 mg/dL Normal 8.5-10.1 [facility] Comment on above: Performed By: #### U KATARINA, MG, RENAL #### [facility] [address] [place] [address] Dr. Katlin Ignacio Chloride [Moles/Vol] 104 mmol/L Normal 98-107 [facility] Comment on above: Performed By: #### U KATARINA, MG, RENAL #### [facility] [address] [place] [address] Dr. Katlin Ignacio CO2 [Moles/Vol] 26.8 mmol/L Normal 21.0-32.0 [facility] Comment on above: Performed By: #### U KATARINA, MG, RENAL #### [facility] [address] [place] [address] Dr. Katlin Ignacio Creatinine [Mass/Vol] 1.44 mg/dL Critically high 0.70-1.30 [facility] Comment on above: Performed By: #### U KATARINA, MG, RENAL #### [facility] [address] [place] [address] Dr. Katlin Ignacio EGFR-AF IRISH 57 mL/min/1.73m2 Critically low >=60 [facility] Comment on above: Performed By: #### U KATARINA, MG, RENAL #### [facility] [address] [place] [address] Dr. Katlin Ignacio EGFR-NON AF IRISH 47 mL/min/1.73m2 Critically low >=60 [facility] Comment on above: Performed By: #### U KATARINA, MG, RENAL #### [facility] [address] [address] [address] Katlin Ignacio Glucose [Mass/Vol] 227 mg/dL Critically high 74-106 [facility] Comment on above: Performed By: #### U KATARINA, MG, RENAL #### [facility] [address] [place] [address] Dr. Katlin Ignacio Phosphate [Mass/Vol] 3.5 mg/dL Normal 2.6-4.7 [facility] Comment on above: Performed By: #### U KATARINA, MG, RENAL #### [facility] [address] [place] [address] Dr. Katlin Ignacio Potassium [Moles/Vol] 4.7 mmol/L Normal 3.5-5.1 [facility] Comment on above: Performed By: #### U KATARINA, MG, RENAL #### [facility] [address] [place] [address] Dr. Katlin Ignacio Sodium [Moles/Vol] 141 mmol/L Normal 136-145 [facility] Comment on above: Performed By: #### U KATARINA, MG, RENAL #### [facility] [address] [place] [address] Dr. Katlin Ignacio Urea nitrogen [Mass/Vol] 23.0 mg/dL Critically high 7.0-18.0 [facility] Comment on above: Performed By: #### U KATARINA, MG, RENAL #### [facility] [address] [place] [address] Dr. Katlin Ignacio UA RANDOM W/MICROSCOPICon AMORPHOUS CRYSTALS RARE Normal [facility] Comment on above: Performed By: #### U AMIC #### [facility] [address] [place] [address] Dr. Katlin Ignacio BACTERIA TRACE Abnormal NONE SEEN [facility] Comment on above: Performed By: #### U AMIC #### [facility] [address] [place] [address] Dr. Katlin Ignacio Bilirubin Ql (U) Negative Normal NEGATIVE [facility] Comment on above: Performed By: #### U AMIC #### [facility] [address] [address] [address] Katlin Ignacio CAST NONE SEEN Normal NONE SEEN [facility] Comment on above: Performed By: #### U AMIC #### [facility] [address] [address] [address] Katlin Ignacio Clarity (U) SL CLOUDY Abnormal CLEAR [facility] Comment on above: Performed By: #### U AMIC #### [facility] [address] [address] [address] Katlin Ignacio Color (U) YELLOW Normal YELLOW [facility] Comment on above: Performed By: #### U AMIC #### [facility] [address] [address] [address] Katlin Ignacio Crystals LM Nom (Urine sed) SEEN Abnormal NONE SEEN [facility] Comment on above: Performed By: #### U AMIC #### [facility] [address] [address] [address] Katlin Ignacio Epithelial cells LM Ql (Urine sed) FEW Abnormal NONE SEEN /RARE [facility] Comment on above: Performed By: #### U AMIC #### [facility] [address] [address] [address] Katlin Ignacio Glucose Ql (U) 1000 mg/dl Abnormal NEGATIVE [facility] Comment on above: Performed By: #### U AMIC #### [facility] [address] [address] [address] Katlin Ignacio Hemoglobin Ql (U) Negative Normal NEGATIVE [facility] Comment on above: Performed By: #### U AMIC #### [facility] [address] [address] [address] Katlin Ignacio Ketones Ql (U) TRACE Abnormal NEGATIVE [facility] Comment on above: Performed By: #### U AMIC #### [facility] [address] [address] [address] Katlin Ignacio LEUKOCYTES Negative Normal NEGATIVE [facility] Comment on above: Performed By: #### U AMIC #### [facility] [address] [address] [address] Katlin Ignacio MUCOUS NONE SEEN Normal NONE SEEN [facility] Comment on above: Performed By: #### U AMIC #### [facility] [address] [address] [address] Katlin Ignacio Nitrite Ql (U) Negative Normal NEGATIVE [facility] Comment on above: Performed By: #### U AMIC #### [facility] [address] [address] [address] Katlin Ignacio pH (U) 6.0 [pH] Normal 5-9 [facility] Comment on above: Performed By: #### U AMIC #### [facility] [address] [place] [address] Dr. Katlin gInacio RBC 0-2 Normal 0-2 [facility] Comment on above: Performed By: #### U AMIC #### [facility] [address] [place] [address] Dr. Katlin Ignacio SPEC GRAVITY 1.010 Normal 1.005-<=1.025 [facility] Comment on above: Performed By: #### U AMIC #### [facility] [address] [place] [address] Dr. Katlin Ignacio UA PROTEIN Negative Normal NEGATIVE/ TRACE [facility] Comment on above: Performed By: #### U AMIC #### [facility] [address] [place] [address] Dr. Katlin Ignacio Urobilinogen Qn (U) 1.0 {Yang'U}/dL Normal 0.2 - 1.0 [facility] Comment on above: Performed By: #### U AMIC #### [facility] [address] [place] [address] Dr. Katlin Ignacio WBC 0-2 Abnormal NONE SEEN [facility] Comment on above: Performed By: #### U AMIC #### [facility] [address] [place] [address] Dr. Katlin Ignacio URIC ACID SERUMon 06-16-2022 Urate [Mass/Vol] 5.9 mg/dL Normal 3.5-7.2 [facility] Comment on above: Performed By: #### U KATARINA, MG, RENAL #### [facility] [address] [place] [address] Dr. Katlin Ignacio URINE T PROTEIN CREAT RATIOo n 06-16-2022 Protein (U) [Mass/Vol] 23.2 mg/dL Critically high <=12.0 [facility] Comment on above: Performed By: #### U KATARINA, MG, RENAL #### [facility] [address] [place] [address] Dr. Katlin Ignacio UR PROT CREAT RAT 0.38 Normal [facility] Comment on above: Performed By: #### U KATARINA, MG, RENAL #### [facility] [address] [place] [address] Dr. Katlin Ignacio URINE CREAT 61.73 mg/dL Normal 20.00-300.00 [facility] Comment on above: Performed By: #### U KATARINA, MG, RENAL #### [facility] [address] [place] [address] Dr. Katlin Ignacio CBC AUTO DIFFon 06-06-2022 BASO # 0.1 103/ul Normal 0.0-0.1 [facility] Comment on above: Performed By: #### U KATARINA, MG, RENAL #### [facility] [address] [place] [address] Dr. Katlin Ignacio Basophils/100 WBC (Bld) 0.7 % Normal 0.2-2.0 [facility] Comment on above: Performed By: #### U KATARINA, MG, RENAL #### [facility] [address] [place] [address] Dr. Katlin Ignacio EO # 0.2 103/ul Normal 0.0-0.7 [facility] Comment on above: Performed By: #### U KATARINA, MG, RENAL #### [facility] [address] [place] [address] Dr. Katlin Ignacio Eosinophils/100 WBC (Bld) 2.4 % Normal 0.9-7.0 [facility] Comment on above: Performed By: #### U KATARINA, MG, RENAL #### [facility] [address] [place] [address] Dr. Katlin Ignacio Erythrocyte distribution width (RBC) [Ratio] 19.4 % Critically high 11.0-15.0 [facility] Comment on above: Performed By: #### U KATARINA, MG, RENAL #### [facility] [address] [place] [address] Dr. Katlin Ignacio Hematocrit (Bld) [Volume fraction] 52.4 % Normal 42.0-54.0 [facility] Comment on above: Performed By: #### U KATARINA, MG, RENAL #### [facility] [address] [place] [address] Dr. Katlin Ignacio Hemoglobin (Bld) [Mass/Vol] 15.9 g/dL Normal 14.0-18.0 [facility] Comment on above: Performed By: #### U KATARINA, MG, RENAL #### [facility] [address] [place] [address] Dr. Katlin Ignacio IG # 0.03 10e3/ul Normal 0.00-0.03 [facility] Comment on above: Performed By: #### U KATARINA, MG, RENAL #### [facility] [address] [place] [address] Dr. Katlin Ignacio IG % 0.4 % Normal 0.0-0.5 [facility] Comment on above: Performed By: #### U KATARINA, MG, RENAL #### [facility] [address] [place] [address] Dr. Katlin Ignacio LYMPH # 1.8 103/ul Normal 1.2-3.8 [facility] Comment on above: Performed By: #### U KATARINA, MG, RENAL #### [facility] [address] [place] [address] Dr. Katlin Ignacio Lymphocytes/100 WBC (Bld) 23.4 % Normal 20.5-60.0 [facility] Comment on above: Performed By: #### U KATARINA, MG, RENAL #### [facility] [address] [place] [address] Dr. Katlin Ignacio MANUAL DIFF REQ NO Normal [facility] Comment on above: Performed By: #### U KATARINA, MG, RENAL #### [facility] [address] [address] [address] Katlin Ignacio MCH (RBC) [Entitic mass] 24.0 pg Critically low 25.9-34.0 [facility] Comment on above: Performed By: #### U KATARINA, MG, RENAL #### [facility] [address] [place] [address] Dr. Katlin Ignacio MCHC (RBC) [Mass/Vol] 30.3 g/dL Normal 29.9-35.2 [facility] Comment on above: Performed By: #### U KATARINA, MG, RENAL #### [facility] [address] [place] [address] Dr. Katlin Ignacio MCV (RBC) [Entitic vol] 79.2 fL Critically low 80.0-94.0 [facility] Comment on above: Performed By: #### U KATARINA, MG, RENAL #### [facility] [address] [place] [address] Dr. Katlin Ignacio MONO # 0.6 103/ul Normal 0.3-0.8 [facility] Comment on above: Performed By: #### U KATARINA, MG, RENAL #### [facility] [address] [place] [address] Dr. Katlin Ignacio Monocytes/100 WBC (Bld) 7.7 % Normal 1.7-12.0 [facility] Comment on above: Performed By: #### U KATARINA, MG, RENAL #### [facility] [address] [place] [address] Dr. Katlin Ignacio NEUT # 5.0 103/ul Normal 1.4-6.5 [facility] Comment on above: Performed By: #### U KATARINA, MG, RENAL #### [facility] [address] [place] [address] Dr. Katlin Ignacio Neutrophils/100 WBC (Bld) 65.4 % Normal 43.0-75.0 [facility] Comment on above: Performed By: #### U KATARINA, MG, RENAL #### [facility] [address] [place] [address] Dr. Katlin Ignacio Platelet mean volume (Bld) [Entitic vol] 9.3 fL Critically low 9.5-13.5 [facility] Comment on above: Performed By: #### U KATARINA, MG, RENAL #### [facility] [address] [address] [address] Katlin Ignacio PLT 184 103/ul Normal 150-450 [facility] Comment on above: Performed By: #### U KATARINA, MG, RENAL #### [facility] [address] [address] [address] Katlin Ignacio RBC 6.62 106/ul Critically high 4.70-6.10 [facility] Comment on above: Performed By: #### U KATARINA, MG, RENAL #### [facility] [address] [address] [address] Katlin Ignacio WBC 7.6 103/ul Normal 4.0-11.0 [facility] Comment on above: Performed By: #### U KATARINA, MG, RENAL #### [facility] [address] [address] [address] Katlin Ignacio LIPID PROFILEon 06-06-2022 CHOL-HDL RATIO NORM SEE BELOW Normal [facility] Comment on above: Result Comment: 3.3 - 4.4 LOW RISK 4.4 - 7.1 AVERAGE RISK 7.1 - 11.0 MODERATE RISK >11.0 HIGH RISK Performed By: #### U AMIC #### [facility] [address] [address] [address] Katlin Ignacio Cholesterol [Mass/Vol] 122 mg/dL Normal <=200 [facility] Comment on above: Performed By: #### U AMIC #### [facility] [address] [address] [address] Katlin Ignacio Cholesterol in HDL [Mass/Vol] 34 mg/dL Critically low 40-60 [facility] Comment on above: Performed By: #### U AMIC #### [facility] [address] [address] [address] Katlin Ignacio Cholesterol in LDL [Mass/Vol] 69.6 mg/dL Normal [facility] Comment on above: Performed By: #### U AMIC #### [facility] [address] [address] [address] Katlin Ignacio Cholesterol.total /Cholesterol in HDL [Mass ratio] 3.6 {ratio} Normal [facility] Comment on above: Performed By: #### U AMIC #### [facility] [address] [address] [address] Katlin Ignacio HDL NORMAL > or = 60 mg/dl - LO W CARDIOVASCULAR RISK <40 mg/dl - HIGH CARDIOVASCULAR RISK Normal [facility] Comment on above: Performed By: #### U AMIC #### [facility] [address] [address] [address] Katlin Ignacio LDL CALC NORMAL SEE BELOW Normal [facility] Comment on above: Result Comment: <100 mg/dl OPTIMAL 100 - 129 mg/dl NEAR OR ABOVE OPTIMAL 130 - 159 mg/dl BORDERLINE HIGH 160 - 189 mg/dl HIGH >190 mg/dl VERY HIGH Performed By: #### U AMIC #### [facility] [address] [address] [address] Katlin Ignacio Triglyceride [Mass/Vol] 92 mg/dL Normal <=150 [facility] Comment on above: Performed By: #### U AMIC #### [facility] [address] [address] [address] Katlin Ignacio VLDL CALC 18.4 mg/dL Normal [facility] Comment on above: Performed By: #### U AMIC #### [facility] [address] [address] [address] Katlin Ignacio MAGNESIUMon 06-06-2022 Magnesium [Mass/Vol] 2.0 mg/dL Normal 1.8-2.4 [facility] Comment on above: Performed By: #### U AMIC #### [facility] [address] [address] [address] Katlin Ignacio PROF 14(COMP METB)on 022 Albumin [Mass/Vol] 3.1 g/dL Critically low 3.4-5.0 [facility] Comment on above: Performed By: #### U AMIC #### [facility] [address] [address] [address] Katlin Ignacio Albumin/Globulin [Mass ratio] 0.8 {ratio} Normal [facility] Comment on above: Performed By: #### U AMIC #### [facility] [address] [place] [address] Dr. Katlin Ignacio ALP [Catalytic activity/Vol] 93 U/L Normal 46-116 [facility] Comment on above: Performed By: #### U AMIC #### [facility] [address] [address] [address] Katlin Ignacio ALT [Catalytic activity/Vol] 20 U/L Normal 16-63 [facility] Comment on above: Performed By: #### U AMIC #### [facility] [address] [place] [address] Dr. Katlin Ignacio Anion gap [Moles/Vol] 13.5 mmol/L Normal [facility] Comment on above: Performed By: #### U AMIC #### [facility] [address] [place] [address] Dr. Katlin Ignacio AST [Catalytic activity/Vol] 16 U/L Normal 15-37 [facility] Comment on above: Performed By: #### U AMIC #### [facility] [address] [place] [address] Dr. Katlin Ignacio Bilirubin [Mass/Vol] 0.6 mg/dL Normal 0.2-1.0 [facility] Comment on above: Performed By: #### U AMIC #### [facility] [address] [place] [address] Dr. Katlin Ignacio Calcium [Mass/Vol] 8.8 mg/dL Normal 8.5-10.1 [facility] Comment on above: Performed By: #### U AMIC #### [facility] [address] [place] [address] Dr. Katlin Ignacio Chloride [Moles/Vol] 105 mmol/L Normal 98-107 [facility] Comment on above: Performed By: #### U AMIC #### [facility] [address] [place] [address] Dr. Katlin Ignacio CO2 [Moles/Vol] 27.8 mmol/L Normal 21.0-32.0 [facility] Comment on above: Performed By: #### U AMIC #### [facility] [address] [address] [address] Katlin Ignacio Creatinine [Mass/Vol] 1.37 mg/dL Critically high 0.70-1.30 [facility] Comment on above: Performed By: #### U AMIC #### [facility] [address] [address] [address] Katlin Ignacio EGFR-AF IRISH =60 Normal >=60 [facility] Comment on above: Performed By: #### U AMIC #### [facility] [address] [address] [address] Katlin Ignacio EGFR-NON AF IRISH 49 mL/min/1.73m2 Critically low >=60 [facility] Comment on above: Performed By: #### U AMIC #### [facility] [address] [address] [address] Katlin Ignacio Globulin (S) [Mass/Vol] 3.7 g/dL Normal [facility] Comment on above: Performed By: #### U AMIC #### [facility] [address] [address] [address] Katlin Ignacio Glucose [Mass/Vol] 105 mg/dL Normal 74-106 [facility] Comment on above: Performed By: #### U AMIC #### [facility] [address] [address] [address] Katlin Ignacio Potassium [Moles/Vol] 4.3 mmol/L Normal 3.5-5.1 [facility] Comment on above: Performed By: #### U AMIC #### [facility] [address] [address] [address] Katlin Ignacio Protein [Mass/Vol] 6.8 g/dL Normal 6.4-8.2 [facility] Comment on above: Performed By: #### U AMIC #### [facility] [address] [address] [address] Katlin Ignacio Sodium [Moles/Vol] 142 mmol/L Normal 136-145 [facility] Comment on above: Performed By: #### U AMIC #### [facility] [address] [address] [address] Katlin Ignacio Urea nitrogen [Mass/Vol] 28.0 mg/dL Critically high 7.0-18.0 [facility] Comment on above: Performed By: #### U AMIC #### [facility] [address] [address] [address] Katlin Ignacio Urea nitrogen/Creatini ne [Mass ratio] 20.4 mg/mg Normal [facility] Comment on above: Performed By: #### U AMIC #### [facility] [address] [address] [address] Katlin Ignacio CBC AUTO DIFFon 05-14-2022 BASO # 0.0 103/ul Normal 0.0-0.1 [facility] Comment on above: Performed By: #### U KATARINA, MG, RENAL #### [facility] [address] [place] [address] Dr. Katlin Ignacio Basophils/100 WBC (Bld) 0.2 % Normal 0.2-2.0 [facility] Comment on above: Performed By: #### U KATARINA, MG, RENAL #### [facility] [address] [place] [address] Dr. Katlin Ignacio EO # 0.0 103/ul Normal 0.0-0.7 [facility] Comment on above: Performed By: #### U KATARINA, MG, RENAL #### [facility] [address] [address] [address] Katlin Ignacio Eosinophils/100 WBC (Bld) 0.0 % Critically low 0.9-7.0 [facility] Comment on above: Performed By: #### U KATARINA, MG, RENAL #### [facility] [address] [place] [address] Dr. Katlin Ignacio Erythrocyte distribution width (RBC) [Ratio] 19.7 % Critically high 11.0-15.0 [facility] Comment on above: Performed By: #### U KATARINA, MG, RENAL #### [facility] [address] [place] [address] Dr. Katlin Ignacio Hematocrit (Bld) [Volume fraction] 53.2 % Normal 42.0-54.0 [facility] Comment on above: Performed By: #### U KATARINA, MG, RENAL #### [facility] [address] [place] [address] Dr. Katlin Ignacio Hemoglobin (Bld) [Mass/Vol] 15.9 g/dL Normal 14.0-18.0 [facility] Comment on above: Performed By: #### U KATARINA, MG, RENAL #### [facility] [address] [place] [address] Dr. Katlin Ignacio IG # 0.05 10e3/ul Critically high 0.00-0.03 [facility] Comment on above: Performed By: #### U KATARINA, MG, RENAL #### [facility] [address] [place] [address] Dr. Katlin Ignacio IG % 0.9 % Critically high 0.0-0.5 [facility] Comment on above: Performed By: #### U KATARINA, MG, RENAL #### [facility] [address] [place] [address] Dr. Katlin Ignacio LYMPH # 0.9 103/ul Critically low 1.2-3.8 [facility] Comment on above: Performed By: #### U KATARINA, MG, RENAL #### [facility] [address] [place] [address] Dr. Katlin Ignacio Lymphocytes/100 WBC (Bld) 17.1 % Critically low 20.5-60.0 [facility] Comment on above: Performed By: #### U KATARINA, MG, RENAL #### [facility] [address] [place] [address] Dr. Katlin Ignacio MANUAL DIFF REQ NO Normal [facility] Comment on above: Performed By: #### U KATARINA, MG, RENAL #### [facility] [address] [place] [address] Dr. Katlin Ignacio MCH (RBC) [Entitic mass] 23.9 pg Critically low 25.9-34.0 [facility] Comment on above: Performed By: #### U KATARINA, MG, RENAL #### [facility] [address] [place] [address] Dr. Katlin Ignacio MCHC (RBC) [Mass/Vol] 29.9 g/dL Normal 29.9-35.2 [facility] Comment on above: Performed By: #### U KATARINA, MG, RENAL #### [facility] [address] [place] [address] Dr. Katlin Ignacio MCV (RBC) [Entitic vol] 80.0 fL Normal 80.0-94.0 [facility] Comment on above: Performed By: #### U KATARINA, MG, RENAL #### [facility] [address] [place] [address] Dr. Katlin Ignacio MONO # 0.2 103/ul Critically low 0.3-0.8 [facility] Comment on above: Performed By: #### U KATARINA, MG, RENAL #### [facility] [address] [place] [address] Dr. Katlin Ignacio Monocytes/100 WBC (Bld) 3.0 % Normal 1.7-12.0 [facility] Comment on above: Performed By: #### U KATARINA, MG, RENAL #### [facility] [address] [place] [address] Dr. Katlin Ignacio NEUT # 4.2 103/ul Normal 1.4-6.5 [facility] Comment on above: Performed By: #### U KATARINA, MG, RENAL #### [facility] [address] [place] [address] Dr. Katlin Ignacio Neutrophils/100 WBC (Bld) 78.8 % Critically high 43.0-75.0 [facility] Comment on above: Performed By: #### U KATARINA, MG, RENAL #### [facility] [address] [place] [address] Dr. Katlin Ignacio Platelet mean volume (Bld) [Entitic vol] 9.2 fL Critically low 9.5-13.5 [facility] Comment on above: Performed By: #### U KATARINA, MG, RENAL #### [facility] [address] [place] [address] Dr. Katlin Ignacio PLT 141 103/ul Critically low 150-450 [facility] Comment on above: Performed By: #### U KATARINA, MG, RENAL #### [facility] [address] [address] [address] Katlin Ignacio RBC 6.65 106/ul Critically high 4.70-6.10 [facility] Comment on above: Performed By: #### U KATARINA, MG, RENAL #### [facility] [address] [address] [address] Katlin Ignacio WBC 5.3 103/ul Normal 4.0-11.0 [facility] Comment on above: Performed By: #### U KATARINA, MG, RENAL #### [facility] [address] [place] [address] Dr. Katlin Ignacio PROF CHEM 8 (BAS METB)on Anion gap [Moles/Vol] 17.2 mmol/L Normal [facility] Comment on above: Performed By: #### U AMIC #### [facility] [address] [place] [address] Dr. Katlin Ignacio Calcium [Mass/Vol] 8.6 mg/dL Normal 8.5-10.1 [facility] Comment on above: Result Comment: resu lt to follow Previously reported as: 8.9 On 05/14/2022 09:12 By [email or web address] Performed By: #### U AMIC #### [facility] [address] [place] [address] Dr. Katlin Ignacio Chloride [Moles/Vol] 105 mmol/L Normal 98-107 [facility] Comment on above: Performed By: #### U AMIC #### [facility] [address] [place] [address] Dr. Katlin Ignacio CO2 [Moles/Vol] 23.1 mmol/L Normal 21.0-32.0 [facility] Comment on above: Performed By: #### U AMIC #### [facility] [address] [place] [address] Dr. Katlin Ignacio Creatinine [Mass/Vol] 1.59 mg/dL Critically high 0.70-1.30 [facility] Comment on above: Performed By: #### U AMIC #### [facility] [address] [address] [address] Katlin Ignacio EGFR-AF IRISH 50 mL/min/1.73m2 Critically low >=60 [facility] Comment on above: Performed By: #### U AMIC #### [facility] [address] [address] [address] Katlin Ignacio EGFR-NON AF IRISH 42 mL/min/1.73m2 Critically low >=60 [facility] Comment on above: Performed By: #### U AMIC #### [facility] [address] [address] [address] Katlin Ignacio Glucose [Mass/Vol] 271 mg/dL Critically high 74-106 [facility] Comment on above: Performed By: #### U AMIC #### [facility] [address] [address] [address] Katlin Ignacio Potassium [Moles/Vol] 5.3 mmol/L Critically high 3.5-5.1 [facility] Comment on above: Performed By: #### U AMIC #### [facility] [address] [address] [address] Katlin Ignacio Sodium [Moles/Vol] 140 mmol/L Normal 136-145 [facility] Comment on above: Performed By: #### U AMIC #### [facility] [address] [address] [address] Katlin Ignacio Urea nitrogen [Mass/Vol] 34.0 mg/dL Critically high 7.0-18.0 [facility] Comment on above: Performed By: #### U AMIC #### [facility] [address] [address] [address] Katlin Ignacio Urea nitrogen/Creatini ne [Mass ratio] 21.4 mg/mg Normal [facility] Comment on above: Performed By: #### U AMIC #### [facility] [address] [address] [address] Katlin Ignacio BNPon 05-13-2022 Natriuretic peptide B (Bld) [Mass/Vol] 2170.0 pg/mL Critically high <=1,800.0 [facility] Comment on above: Performed By: #### L ACT #### [facility] [address] [place] [address] Dr. Katlin Ignacio CARDIAC CARMEN ADMITon 022 CK [Catalytic activity/Vol] 64 U/L Normal 39-308 [facility] Comment on above: Performed By: #### L ACT #### [facility] [address] [address] [address] Katlin Ignacio CK.MB [Mass/Vol] 1.69 ng/mL Normal <=3.60 [facility] Comment on above: Performed By: #### L ACT #### [facility] [address] [place] [address] Dr. Katlin Ignacio HSTROP 29.2 pg/mL Normal 4.0-76.1 [facility] Comment on above: Result Comment: CUT- OFF POINTS HAVE BEEN ESTABLISHED BASED ON THE FOURTH UNIVERSAL DEFINITIONS OF MYOCARDIAL INFARCTION. THE UPPER REFERENCE LIMIT (URL) OF TROPONIN, DEFINED THE 99TH PERCENTILE OF cTnI DISTRIBUTION IN A REFERENCE POPULATION, HAS BEEN CONFIRMED THE DECISION THRESHOLD FOR [place] DIAGNOSIS. Performed By: #### L ACT #### [facility] [address] [place] [address] Dr. Katlin Ignacio SHAY 98 ng/mL Critically high 16-96 [facility] Comment on above: Performed By: #### L ACT #### [facility] [address] [place], [place] [id number] Dr. Katlin Ignacio CBC AUTO DIFFon 05-13-2022 BASO # 0.1 103/ul Normal 0.0-0.1 [facility] Comment on above: Performed By: #### U AMIC #### [facility] [address] [place] [address] Dr. Katlin Ignacio Basophils/100 WBC (Bld) 0.5 % Normal 0.2-2.0 [facility] Comment on above: Performed By: #### U AMIC #### [facility] [address] [place] [address] Dr. Katlin Ignacio EO # 0.0 103/ul Normal 0.0-0.7 [facility] Comment on above: Performed By: #### U AMIC #### [facility] [address] [place] [address] Dr. Katlin Ignacio Eosinophils/100 WBC (Bld) 0.4 % Critically low 0.9-7.0 [facility] Comment on above: Performed By: #### U AMIC #### [facility] [address] [place] [address] Dr. Katlin Ignacio Erythrocyte distribution width (RBC) [Ratio] 20.1 % Critically high 11.0-15.0 [facility] Comment on above: Performed By: #### U AMIC #### [facility] [address] [place] [address] Dr. Katlin Ignacio Hematocrit (Bld) [Volume fraction] 56.2 % Critically high 42.0-54.0 [facility] Comment on above: Performed By: #### U AMIC #### [facility] [address] [place] [address] Dr. Katlin Ignacio Hemoglobin (Bld) [Mass/Vol] 17.1 g/dL Normal 14.0-18.0 [facility] Comment on above: Performed By: #### U AMIC #### [facility] [address] [place] [address] Dr. Katlin Ignacio IG # 0.06 10e3/ul Critically high 0.00-0.03 [facility] Comment on above: Performed By: #### U AMIC #### [facility] [address] [place] [address] Dr. Katlin Ignacio IG % 0.6 % Critically high 0.0-0.5 [facility] Comment on above: Performed By: #### U AMIC #### [facility] [address] [place] [address] Dr. Katlin Ignacio LYMPH # 1.2 103/ul Normal 1.2-3.8 [facility] Comment on above: Performed By: #### U AMIC #### [facility] [address] [place] [address] Dr. Katlin Ignacio Lymphocytes/100 WBC (Bld) 11.5 % Critically low 20.5-60.0 [facility] Comment on above: Performed By: #### U AMIC #### [facility] [address] [place] [address] Dr. Katlin Ignacio MANUAL DIFF REQ NO Normal [facility] Comment on above: Performed By: #### U AMIC #### [facility] [address] [place] [address] Dr. Katlin Ignacio MCH (RBC) [Entitic mass] 23.9 pg Critically low 25.9-34.0 [facility] Comment on above: Performed By: #### U AMIC #### [facility] [address] [place] [address] Dr. Katlin Ignacio MCHC (RBC) [Mass/Vol] 30.4 g/dL Normal 29.9-35.2 [facility] Comment on above: Performed By: #### U AMIC #### [facility] [address] [place] [address] Dr. Katlin Ignacio MCV (RBC) [Entitic vol] 78.6 fL Critically low 80.0-94.0 [facility] Comment on above: Performed By: #### U AMIC #### [facility] [address] [place] [address] Dr. Katlin Ignacio MONO # 0.6 103/ul Normal 0.3-0.8 [facility] Comment on above: Performed By: #### U AMIC #### [facility] [address] [place] [address] Dr. Katlin Ignacio Monocytes/100 WBC (Bld) 5.8 % Normal 1.7-12.0 [facility] Comment on above: Performed By: #### U AMIC #### [facility] [address] [place] [address] Dr. Katlin Ignacio NEUT # 8.2 103/ul Critically high 1.4-6.5 [facility] Comment on above: Performed By: #### U AMIC #### [facility] [address] [place] [address] Dr. Katlin Ignacio Neutrophils/100 WBC (Bld) 81.2 % Critically high 43.0-75.0 [facility] Comment on above: Performed By: #### U AMIC #### [facility] [address] [address] [address] Katlin Ignacio Platelet mean volume (Bld) [Entitic vol] 9.5 fL Normal 9.5-13.5 [facility] Comment on above: Performed By: #### U AMIC #### [facility] [address] [place] [address] Dr. Katlin Ignacio PLT 173 103/ul Normal 150-450 [facility] Comment on above: Performed By: #### U AMIC #### [facility] [address] [place] [address] Dr. Katlin Ignacio RBC 7.15 106/ul Critically high 4.70-6.10 [facility] Comment on above: Performed By: #### U AMIC #### [facility] [address] [place] [address] Dr. Katlin Ignacio WBC 10.1 103/ul Normal 4.0-11.0 [facility] Comment on above: Performed By: #### U AMIC #### [facility] [address] [place] [address] Dr. Katlin Ignacio CTA CHEST WO W CONon 05-13-2 022 CTA CHEST WO W CON CT SCAN OF THE CHEST WITH CONTRAST FOR CT PULMONARY ANGIOGRAPHY, 05/13/2022 2:14 PM EDT: COMPARISON: None. CLINICAL HISTORY: SHORTNESS OF BREATH with elevated d-dimer and positive Covid. TECHNIQUE: 3 mm axial images performed through the chest following intravenous administration of 5 mL of Isovue-300. 8 mm sagittal and coronal MPR and coronal and sagittal MIP (maximum intensity projection) CTA reconstructions performed through the chest. 3D coronal reconstructions also performed. Dose reduction techniques were achieved by using automated exposure control and/or adjustment of mA and/or kV according to patient size and/or use of iterative reconstruction technique. FINDINGS: Patient was unable to elevate their arms over the head resulting in some bony streaking artifacts over the chest and upper abdomen. Slight motion is also present especially over the lower lung zone. No acute PE is identified. Main pulmonary artery is distended measuring 3.6 cm in largest diameter. Fusiform aneurysmal dilatation of descending thoracic aorta measuring 3.1 x 3 cm (image #50, series 4). Cardiomegaly with severe atherosclerotic calcific changes of coronary arterial vasculature. Patient has had TAVR. Pacing leads are present. No significant pericardial effusion. Bronchial wall thickening seen bilaterally with some mild subtle mucoid impaction suspected in the lower lobes bilaterally. Minimal atelectasis in the lower lung zones bilaterally. Prior cholecystectomy. Age-related visualized pancreatic atrophy. No acute osseous abnormality. Diffuse idiopathic skeletal hyperostosis of the thoracic spinal multilevel degenerative changes present. IMPRESSION: 1. No clear acute PE is identified. Main pulmonary artery is distended raising possibly pulmonary hypertension. 2. Cardiomegaly with severe atherosclerotic calcific changes of coronary arterial vasculature. TAVR. Pacing leads present. 3. Borderline fusiform aneurysmal dilatation of descending thoracic aorta measuring 3.1 x 3 cm. 4. Some mild bronchial wall thickening seen bilaterally with some minimal distal mucoid impaction suspected in the lower lobes bilaterally. Minimal bibasilar atelectasis. Electronically authenticated by: Rigo JANSEN Date: 2022-05-13 17:00 Normal [facility] CULTURE BLOODon 05-13-2022 Microscopic examination of blood, culture Culture Observations: NO GROWTH AT 5 DAYS. Normal [facility] Comment on above: Performed By: #### L ACT #### [facility] [address] [address] [address] Katlin Ignacio Microscopic examination of blood, culture Culture Observations: NO GROWTH AT 5 DAYS. Normal [facility] Comment on above: Performed By: #### L ACT #### [facility] [id number] Katlin Ignacio [facility]on SARS-CoV-2 (COVID-19) RNA JOHN+probe Ql (Unsp spec) Detected Critically abnormal NOT DETECTED [facility] Comment on above: Result Comment: This test is not yet approved or cleared by the [place] FDA. When there are no FDA-approved or cleared tests available, and other criteria are met, FDA can make tests available under an emergency access mechanism called an Emergency Use Authorization (EUA). The EUA for this test is supported by the [employer] Specialist of Health and Human Service's declaration that circumstances exist to justify the emergency use of in vitro diagnostics for the detection and/or diagnosis of the virus that causes COVID-19. This EUA will remain in effect for the duration of the COVID-19 declaration justifying emergency of IVDs, unless it is terminated or revoked by the FDA (after which the test may no longer be used). Performed By: #### U KATARINA, MG, RENAL #### [facility] [address] [place] [address] Dr. Katlin Ignacio D-DIMERon 05-13-2022 D-DIMER 1.53 mg/L FEU Critically high <=0.59 [facility] Comment on above: Performed By: #### U KATARINA, MG, RENAL #### [facility] [address] [place] [address] Dr. Katlin Ignacio D-DIMER COMMENTS SEE BELOW Normal [facility] Comment on above: Result Comment: Incr eases in D-Dimer concentration observed with thromboembolic events can be variable due to localization, size, and age of the thrombus. Therefore, a thromboembolic event cannot be diagnosed with certainty on the basis of the reference range. D-Dimers may also be elevated for a variety of disorders including: advanced age, , coronary disease, cancer, liver disease, infection, inflammation, hematoma, DIC, trauma, post-surgery, diabetes, thrombolytic or anticoagulant therapy, stress, and generalized hospitalization. Performed By: #### U KATARINA, MG, RENAL #### [facility] [address] [place] [address] Dr. Katlin Ignacio LACTATE/LACTIC ACIDon 2021 Lactate [Moles/Vol] 1.4 mmol/L Normal 0.4-1.9 [facility] Comment on above: Performed By: #### L ACT #### [facility] [address] [place] [address] Dr. Katlin Ignacio Lactate [Moles/Vol] 2.3 mmol/L Critically high 0.4-1.9 [facility] Comment on above: Result Comment: repe ated Performed By: #### L ACT #### [facility] [address] [place], [place] [id number] Dr. Katlin Ignacio Lactate [Moles/Vol] 2.3 mmol/L Critically high 0.4-1.9 [facility] Comment on above: Performed By: #### L ACT #### [facility] [address] [place] [address] Dr. Katlin Ignacio POINT OF CARE GLUCOSEon 080 Glucose [Mass/Vol] 233 mg/dL Critically high 74-106 [facility] Comment on above: Performed By: #### U KATARINA, MG, RENAL #### [facility] [address] [place] [address] Dr. Katlin Ignacio PROF 14(COMP METB)on 022 Albumin [Mass/Vol] 3.7 g/dL Normal 3.4-5.0 [facility] Comment on above: Performed By: #### L ACT #### [facility] [address] [place] [address] Dr. Katlin Ignacio Albumin/Globulin [Mass ratio] 0.9 {ratio} Normal [facility] Comment on above: Performed By: #### L ACT #### [facility] [address] [place] [address] Dr. Katlin Ignacio ALP [Catalytic activity/Vol] 108 U/L Normal 46-116 [facility] Comment on above: Performed By: #### L ACT #### [facility] [address] [place] [address] Dr. Katlin Ignacio ALT [Catalytic activity/Vol] 20 U/L Normal 16-63 [facility] Comment on above: Performed By: #### L ACT #### [facility] [address] [place] [address] Dr. Katlin Ignacio Anion gap [Moles/Vol] 11.6 mmol/L Normal [facility] Comment on above: Performed By: #### L ACT #### [facility] [address] [place] [address] Dr. Katlin Ignacio AST [Catalytic activity/Vol] 20 U/L Normal 15-37 [facility] Comment on above: Performed By: #### L ACT #### [facility] [address] [address] [address] Katlin Ignacio Bilirubin [Mass/Vol] 1.5 mg/dL Critically high 0.2-1.0 [facility] Comment on above: Performed By: #### L ACT #### [facility] [address] [address] [address] Katlin Ignacio Calcium [Mass/Vol] 8.9 mg/dL Normal 8.5-10.1 [facility] Comment on above: Performed By: #### L ACT #### [facility] [address] [address] [address] Katlin Ignacio Chloride [Moles/Vol] 103 mmol/L Normal 98-107 [facility] Comment on above: Performed By: #### L ACT #### [facility] [address] [address] [address] Katlin Ignacio CO2 [Moles/Vol] 26.8 mmol/L Normal 21.0-32.0 [facility] Comment on above: Performed By: #### L ACT #### [facility] [address] [address] [address] Katlin Ignacio Creatinine [Mass/Vol] 1.63 mg/dL Critically high 0.70-1.30 [facility] Comment on above: Performed By: #### L ACT #### [facility] [address] [address] [address] Katlin Ignacio EGFR-AF IRISH 49 mL/min/1.73m2 Critically low >=60 [facility] Comment on above: Performed By: #### L ACT #### [facility] [address] [address] [address] Katlin Ignacio EGFR-NON AF IRISH 40 mL/min/1.73m2 Critically low >=60 [facility] Comment on above: Performed By: #### L ACT #### [facility] [address] [address] [address] Katlin Ignacio Globulin (S) [Mass/Vol] 3.9 g/dL Normal [facility] Comment on above: Performed By: #### L ACT #### [facility] [address] [address] [address] Katlin Ignacio Glucose [Mass/Vol] 229 mg/dL Critically high 74-106 [facility] Comment on above: Performed By: #### L ACT #### [facility] [address] [address] [address] Katlin Ignacio Potassium [Moles/Vol] 4.4 mmol/L Normal 3.5-5.1 [facility] Comment on above: Performed By: #### L ACT #### [facility] [address] [address] [address] Katlin Ignacio Protein [Mass/Vol] 7.6 g/dL Normal 6.4-8.2 [facility] Comment on above: Performed By: #### L ACT #### [facility] [address] [address] [address] Katlin Ignacio Sodium [Moles/Vol] 137 mmol/L Normal 136-145 [facility] Comment on above: Performed By: #### L ACT #### [facility] [address] [address] [address] Katlin Ignacio Urea nitrogen [Mass/Vol] 27.0 mg/dL Critically high 7.0-18.0 [facility] Comment on above: Performed By: #### L ACT #### [facility] [address] [address] [address] Katlin Ignacio Urea nitrogen/Creatini ne [Mass ratio] 16.6 mg/mg Normal [facility] Comment on above: Performed By: #### L ACT #### [facility] [address] [address] [address] Katlin Ignacio PROTIMEon 05-13-2022 INR Coag (PPP) [Relative time] 1.14 {INR} Normal [facility] Comment on above: Performed By: #### U KATARINA, MG, RENAL #### [facility] [address] [address] [address] Katlin Ignacio INR GUIDELINES SEE BELOW Normal [facility] Comment on above: Result Comment: KARMA RED INR: 2.0 - 3.0 CONDITIONS NOT LISTED BELOW 2.5 - 3.5 FOR PROSTHETIC HEART VALVE REPLACEMENT 2.5 - 3.5 RECURRENT THROMBOSIS Performed By: #### U KATARINA, MG, RENAL #### [facility] [address] [address] [address] Katlin Ignacio PT Coag (PPP) [Time] 12.2 s Critically high 9.0-11.6 [facility] Comment on above: Performed By: #### U KATARINA, MG, RENAL #### [facility] [id number] Katlin Ignacio PTTon 05-13-2022 aPTT Coag (Bld) [Time] 28.5 s Normal 22.3-36.2 [facility] Comment on above: Performed By: #### U KATARINA, MG, RENAL #### [facility] [address] [address] [address] Katlin Ignacio XR CHEST 1 Von 05-13-2022 XR CHEST 1 V EXAMINATION: XR CHES T 1 V HISTORY: SHORTNESS OF BREATH COMPARISON: 02/01/2021 TECHNIQUE: AP portable erect FINDINGS: LUNGS: No significant pulmonary parenchymal abnormalities. VASCULATURE: No increased pulmonary vasculature. PLEURA: Elevated right hemidiaphragm CARDIAC: Prominent cardiac silhouette possibly related to portable technique MEDIASTINUM: No visible mass or adenopathy. Left pacemaker BONES: No fracture or visible bone lesion. OTHER: Negative. IMPRESSION: Clear lungs Electronically authenticated by: ANT SHAIKH Date: 2022-05-13 12:52 Normal [facility] A1C HEMOGLOBINon 04-01-2022 HbA1c (Bld) [Mass fraction] 7.5 % [facility] Glucose - FINGER ST[facility]on Glucose [Mass/Vol] 181 mg/dL [facility] Other HbA1c (Bld) [Mass fraction]o n 04-01-2022 A1C HEMOGLOBIN [facility] Other A1C HEMOGLOBINon 12-11-2021 HbA1c (Bld) [Mass fraction] 7.2 % [facility] Glucose - FINGER STICKon Glucose [Mass/Vol] 150 mg/dL [facility] Other HbA1c (Bld) [Mass fraction]o n 12-11-2021 A1C HEMOGLOBIN [facility] Other Vital Signs Date Time Vital Sign Value Performing Clinician Facility 08-18-2023 10:45-0500 Body height 182.88 cm Tondra Mapus Other [facility] Other 08-18-2023 10:45-0500 Body mass index (BMI) [Ratio] 30.8 kg/m2 Tondra Mapus Other [facility] Other 08-18-2023 10:45-0500 Body weight 103.01 kg Tondra Mapus Other [facility] Other 08-18-2023 10:45-0500 Diastolic blood pressure 49 mm[Hg] Tondra Mapus Other [facility] Other 08-18-2023 10:45-0500 Respiratory rate 18 /min Tondra Mapus Other [facility] Other 08-18-2023 10:45-0500 SaO2% (BldA) [Mass fraction] 95 % Tondra Mapus Other [facility] Other 08-18-2023 10:45-0500 Systolic blood pressure 117 mm[Hg] Tondra Mapus Other [facility] Other 05-12-2023 09:15-0400 Body height 182.88 cm Tondra Mapus Other [facility] Other 05-12-2023 09:15-0400 Body mass index (BMI) [Ratio] 31.58 kg/m2 Tondra Mapus Other [facility] Other 05-12-2023 09:15-0400 Body weight 105.64 kg Tondra Mapus Other [facility] Other 05-12-2023 09:15-0400 Diastolic blood pressure 77 mm[Hg] Tondra Mapus Other [facility] Other 05-12-2023 09:15-0400 Respiratory rate 18 /min Tondra Mapus Other [facility] Other 05-12-2023 09:15-0400 SaO2% (BldA) [Mass fraction] 97 % Tondra Mapus Other [facility] Other 05-12-2023 09:15-0400 Systolic blood pressure 144 mm[Hg] Tondra Mapus Other [facility] Other 12-23-2022 11:20-0400 Body height 182.88 cm Alexa Kandice Other [facility] Other 12-23-2022 11:20-0400 Body mass index (BMI) [Ratio] 32.57 kg/m2 Alexa Kandice Other [facility] Other 12-23-2022 11:20-0400 Body temperature 97.7 [degF] Alexa Kandice Other [facility] Other 12-23-2022 11:20-0400 Body weight 108.95 kg Alexa Kandice Other [facility] Other 12-23-2022 11:20-0400 Diastolic blood pressure 75 mm[Hg] Alexa Kandice Other [facility] 12-23-2022 11:20-0400 Respiratory rate 18 /min Alexa Kandice Other [facility] 12-23-2022 11:20-0400 SaO2% (BldA) [Mass fraction] 97 % Alexa Kandice Other [facility] 12-23-2022 11:20-0400 Systolic blood pressure 135 mm[Hg] Alexa Kandice Other [facility] 10-21-2022 12:30-0500 Body height 182.88 cm Tondra Mapus Other [facility] 10-21-2022 12:30-0500 Body mass index (BMI) [Ratio] 32.65 kg/m2 Tondra Mapus Other [facility] 10-21-2022 12:30-0500 Body weight 109.23 kg Tondra Mapus Other [facility] 10-21-2022 12:30-0500 Diastolic blood pressure 48 mm[Hg] Tondra Mapus Other [facility] 10-21-2022 12:30-0500 Respiratory rate 18 /min Tondra Mapus Other [facility] 10-21-2022 12:30-0500 SaO2% (BldA) [Mass fraction] 96 % Tondra Map[facility] Other [facility] 10-21-2022 12:30-0500 Systolic blood pressure 96 mm[Hg] Tondra Mapus Other [facility] 07-08-2022 10:15-0400 Body height 182.88 cm Tondra Mapus Other [facility] 07-08-2022 10:15-0400 Body mass index (BMI) [Ratio] 33.22 kg/m2 Tondra Mapus Other [facility] 07-08-2022 10:15-0400 Body weight 111.13 kg Tondra Mapus Other [facility] 07-08-2022 10:15-0400 Diastolic blood pressure 78 mm[Hg] Tondra Mapus Other [facility] 07-08-2022 10:15-0400 Respiratory rate 20 /min Tondra Mapus Other [facility] 07-08-2022 10:15-0400 SaO2% (BldA) [Mass fraction] 98 % Tondra Mapus Other [facility] 07-08-2022 10:15-0400 Systolic blood pressure 113 mm[Hg] Tondra Mapus Other [facility] 06-17-2022 10:20-0400 Body height 182.88 cm Alexa Kandice Other [facility] 06-17-2022 10:20-0400 Body mass index (BMI) [Ratio] 33.12 kg/m2 Alexa Kandice Other [facility] 06-17-2022 10:20-0400 Body temperature 96.7 [degF] Alexa Kandice Other [facility] 06-17-2022 10:20-0400 Body weight 110.77 kg Aleax Kandice Other [facility] 06-17-2022 10:20-0400 Diastolic blood pressure 79 mm[Hg] Alexa Kandice Other [facility] 06-17-2022 10:20-0400 Respiratory rate 20 /min Alexa Kandice Other [facility] 06-17-2022 10:20-0400 SaO2% (BldA) [Mass fraction] 98 % Alexa Kandice Other [facility] 06-17-2022 10:20-0400 Systolic blood pressure 124 mm[Hg] Alexa Kandice Other [facility] 04-01-2022 09:15-0400 Body height 182.88 cm Tondra Mapus Other [facility] 04-01-2022 09:15-0400 Body mass index (BMI) [Ratio] 33.63 kg/m2 Tondra Mapus Other [facility] 04-01-2022 09:15-0400 Body weight 112.49 kg Tondra Mapus Other [facility] 04-01-2022 09:15-0400 Diastolic blood pressure 80 mm[Hg] Tondra Mapus Other [facility] 04-01-2022 09:15-0400 Respiratory rate 20 /min Tondra Mapus Other [facility] 04-01-2022 09:15-0400 SaO2% (BldA) [Mass fraction] 99 % Tondra Mapus Other [facility] 04-01-2022 09:15-0400 Systolic blood pressure 129 mm[Hg] Tondra Mapus Other [facility] 12-11-2021 10:20-0500 Body height 182.88 cm Alexa Kandice Other [facility] 12-11-2021 10:20-0500 Body mass index (BMI) [Ratio] 33.77 kg/m2 Alexa Kandice Other [facility] 12-11-2021 10:20-0500 Body temperature 97 [degF] Alexa Kandice Other [facility] 12-11-2021 10:20-0500 Body weight 112.95 kg Alexa Kandice Other [facility] 12-11-2021 10:20-0500 Diastolic blood pressure 60 mm[Hg] Alexa Kandice Other [facility] 12-11-2021 10:20-0500 Respiratory rate 20 /min Alexa Kandice Other [facility] 12-11-2021 10:20-0500 SaO2% (BldA) [Mass fraction] 94 % Alexa Kandice Other [facility] 12-11-2021 10:20-0500 Systolic blood pressure 90 mm[Hg] Alexa Kandice Other [facility] 12-11-2021 08:45-0500 Body height 182.88 cm Tondra Mapus Other [facility] 12-11-2021 08:45-0500 Body mass index (BMI) [Ratio] 33.77 kg/m2 Tondra Mapus Other [facility] 12-11-2021 08:45-0500 Body weight 112.95 kg Tondra Mapus Other [facility] 12-11-2021 08:45-0500 Diastolic blood pressure 70 mm[Hg] Tondra Mapus Other [facility] 12-11-2021 08:45-0500 Respiratory rate 20 /min Tondra Mapus Other [facility] 12-11-2021 08:45-0500 SaO2% (BldA) [Mass fraction] 99 % Tondra Mapus Other [facility] 12-11-2021 08:45-0500 Systolic blood pressure 106 mm[Hg] Tondra Mapus Other [facility] Other Encounters Encounter Date Encounter Type Care Provider Facility Start: 08-18-2023 (DM) Diabetes Tondra Mapus [facility] Start: 08-18-2023 End: 08-18-2023 ambulatory PHYSICIAN [facility] Other Start: 05-12-2023 (DM) Diabetes Tondra Sandhyaus [facility] Start: 05-12-2023 End: 05-12-2023 ambulatory Tondra Mapus Other [facility] Other Start: 02-02-2023 End: 03-04-2023 ambulatory BORDEN H FAWWAD Facility:[facility] Start: 01-05-2023 End: 01-30-2023 ambulatory BORDEN H FAWWAD Facility:[facility] Start: 12-23-2022 End: 12-23-2022 ambulatory Alexa Kandice Other [facility] Other Start: 12-23-2022 Office outpatient visit 25 minutes Alexa Kandice [facility] Start: 12-11-2022 End: 12-12-2022 ambulatory ALEXA KANDICE Facility:[facility] Start: 12-10-2022 End: 12-10-2022 ambulatory Tondra Mapus Other [facility] Other Start: 12-10-2022 Telephone encounter Tondra Mapus [facility] Start: 12-03-2022 End: 01-02-2023 ambulatory BORDEN H FAWWAD Facility:[facility] Start: 11-24-2022 End: 11-25-2022 ambulatory BORDEN H FAWWAD Facility:[facility] Start: 11-13-2022 End: 11-13-2022 ambulatory Alexa Kandice Other [facility] Other Start: 11-13-2022 Telephone encounter Alexa Kandice [facility] Start: 11-10-2022 End: 11-11-2022 ambulatory BORDEN H FAWWAD Facility:[facility] Start: 11-05-2022 End: 12-03-2022 ambulatory BORDEN H FAWWAD Facility:[facility] Start: 11-04-2022 End: 11-05-2022 ambulatory BORDEN H FAWWAD Facility:[facility] Start: 10-30-2022 End: 10-31-2022 ambulatory BORDEN H FAWWAD Facility:[facility] Start: 10-21-2022 (DM) Diabetes Tondra Mapus [facility] Start: 10-21-2022 End: 10-21-2022 ambulatory Tondra Mapus Other [facility] Start: 10-20-2022 End: 10-21-2022 ambulatory BORDEN H FAWWAD Facility:[facility] Start: 10-06-2022 End: 11-05-2022 ambulatory BORDEN H FAWWAD Facility:[facility] Start: 09-04-2022 End: 10-05-2022 ambulatory BORDEN H FAWWAD Facility:[facility] Start: 08-05-2022 End: 09-03-2022 ambulatory BORDEN H FAWWAD Facility:[facility] Start: 07-25-2022 End: 07-25-2022 ambulatory BORDEN H FAWWAD Facility:[facility] Start: 07-08-2022 (DM) [facility] Start: 07-08-2022 End: 07-08-2022 ambulatory Tondra Mapus Other [facility] Start: 07-06-2022 End: 08-04-2022 ambulatory BORDEN H FAWWAD Facility:[facility] Start: 06-17-2022 End: 06-17-2022 ambulatory Alexa Kandice Other [facility] Other Start: 06-17-2022 Office outpatient visit 25 minutes Alexa Kandice [facility] Start: 06-16-2022 End: 06-17-2022 ambulatory BORDEN H FAWWAD Facility:[facility] Start: 06-06-2022 End: 06-07-2022 ambulatory BORDEN H FAWWAD Facility:[facility] Start: 06-05-2022 End: 07-05-2022 ambulatory SHAIKH Homer GRIGSBY Facility:[facility] Start: 05-13-2022 End: 05-14-[address] DOCTOR APONTE Facility:[facility] Start: 05-05-2022 End: 06-04-2022 ambulatory SHAIKH Homer FAElizabethWAD Facility:[facility] Start: 04-04-2022 End: 05-02-2022 ambulatory SHAIKH Homer FAFRANKLIND Facility:[facility] Start: 04-01-2022 (DM) Diabetes Tondra Mapus [facility] Start: 04-01-2022 End: 04-01-2022 ambulatory Tondra Mapus Other [facility] Other Start: 12-11-2021 (DM) Diabetes Tondra Mapus [facility] Start: 12-11-2021 End: 12-11-2021 ambulatory Tondra Mapus Other [facility] Other Start: 12-11-2021 Office outpatient visit 25 minutes Alexa Lozada [facility] Start: 09-04-2021 End: 09-04-2021 ambulatory Tondra Mapus Other [facility] Other Start: 09-04-2021 Telephone encounter Tondra Mapus [facility] Payers Date Payer Category Payer Self-pay 1958 Medicare [id number] 2.1 [id number] 1958 Unknown [id number] 2.1 [id number] 1936 Unknown [id number] 2.16.84 0.1.201818.3.579.2.593 1936 Unknown [id number] 2.16.84 0.1.106379.3.579.2.593 1936 Unknown [id number] 2.16.84 0.1.113049.3.579.2.593 1936 Unknown [id number] 2.16.84 0.1.905824.3.579.2.593 1936 Unknown [id number] 2.16.84 0.1.961197.3.579.2.593 1936 Unknown [id number] 2.16.84 0.1.039730.3.579.2.593 1936 Unknown [id number] 2.16.84 0.1.215490.3.579.2.593 1936 Unknown [id number] 2.16.84 0.1.562041.3.579.2.593 1936 Unknown [id number] 2.16.84 0.1.769740.3.579.2.593 1936 Unknown [id number] 2.16.84 0.1.973602.3.579.2.593 1936 Unknown [id number] 2.16.84 0.1.595114.3.579.2.593 1936 Unknown [id number] 2.16.84 0.1.064307.3.579.2.593 1936 Unknown [id number] 2.16.84 0.1.819893.3.579.2.593 1936 Unknown [id number] 2.16.84 0.1.197986.3.579.2.593 1936 Unknown [id number] 2.16.84 0.1.360576.3.579.2.593 1936 Unknown [id number] 2.16.84 0.1.506951.3.579.2.593 1936 Unknown [id number] 2.16.84 0.1.969972.3.579.2.593 1936 Unknown [id number] 2.16.84 0.1.897667.3.579.2.593 1936 Unknown [id number] 2.16.84 0.1.742160.3.579.2.593 1936 Unknown [id number] 2.16.84 0.1.736078.3.579.2.593 1936 Unknown [id number] 2.16.84 0.1.118515.3.579.2.593 Unknown [id number] 2.16.8 40.1.290358.3.579.2.531 Social History Date Type Detail Facility Unknown if ever smoked [facility] Other Sex Assigned At Sex Assigned At Bir th [facility] Other Medical Equipment Procedure Code Equipment Code Equipment Original Text Equi pment Identifier Dates Pen [place] 12/18 31G X 5 MM Clinical Notes 12-11-2021 to 08-18-2023 Note Date & Type Note Facility 08-18-2023 Evaluation note Encounter Date Diagnosis Assessment Notes Aug, Dietary counseling and surveillance (ICD-10 - Z71.3) Eat well, exercise well, be well: dietary and fitness guidelines material was printed see above Aug, 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 Hypoglycemia material was printed 1. Controlled, Type 2 diabetes with A1c of 7.2% for age/comorbiditie s. 2. Blood glucose levels slightly higher. According to [facility] cgm download 08/05/2023-2022: Average glucose 156. >250-1%, >180-27%, 70-180-71%, <70-1%, <54-0%. CV 27.2%. Reviewed download with pt, infrequent incidence of hypoglcyemia from overestimation of insulin for carb load. Reviewed with pt if meal to meal glucose <100 would recommend he reduce meal dose by 2 units. Reviewed how to titrate basal insulin according to fasting am glucose. Pt verbalizes understanding. 3. Patient is alert, oriented and receptive to making changes or counseling. Notes: Seen for an assessment of current glucose pattern, changes in treatment plan, counseling and coordination of care related to diabetes, risks, and benefits of treatment, medications, and side effects. TOPICS REVIEWED: 1. Time was spent reviewing: a. Basic concepts of diabetes, progressive beta cell , concepts of basal/bolus/durga ective insulin requirements. Basal: The goal is fasting blood glucose of 100-150mg. IF fasting blood glucose starts to run under 100mg 3x's/ week, decrease dose by 10%. Bolus: The goal is to hold the blood glucose level steady meal to meal. If pt. is going to have increased physical activity after a meal, decrease the schedule meal dose prior to the activity by 30-50%. If pt. skips a meal do not take this dose. Correction: The goal is to correct an elevated glucose back into the 100-150mg range b. Nutrition: Concepts of healthy diet, encouraged to decrease saturated fat in diet and increase non-starchy vegetables and fruits in diet. BMI: Pt. needs to select one small change to decrease caloric intake or increase physical activity to help decrease weight. c. Correct treatment of hypoglycemia, carry a glucose source at all times on your person, in vehicles, and at bedside. Can use glucose tablets/4, four ounces of pop or juice equal to 15 G of carbohydrate. Blood glucose should be 100 mg/dl or higher when driving. d. ADA glucose goals for age and medical complexity reviewed e. Patient questions addressed 2. Activity/exercis e: Encouraged to start any form of physical activity. Start low level and increase slowly to a minimal goal of 150 minutes/week. Limit activity to what is allowed by other issues such as cardiac, pulmonary or orthopedic restrictions. 3. Standards of care: Reminded to have an annual dilated eye exam, A1C every 3 months, urine testing for microalbumin once/year, check feet daily and report any cuts or sores that do not appear to be healing. 4. Meter: Plan to check blood glucose: Please check blood glucose levels 4 times/day. Back to back meals reveal effectiveness of bolus dosing. 5. [facility] Contact office if any issues or concerns with patterns of hypoglycemia, hyperglycemia, or diabetes medication issues. 6. Prescriptions: None at this time. 7. Prescriptions will not be filled unless you are compliant with follow up appointments or have a follow up appointment scheduled as ordered by your provider. Refills should be requested at the time of your visit. 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 Hypoglycemia material was printed 1. Controlled, Type 2 diabetes with A1c of 6.9% 2. Blood glucose levels improved from last visit. According to [facility] cgm download 04/29/2023-05/12/2023: Average glucose 144. >250-0%, >180-15%, 70-180-84%, <70-1%, <54-0%. CV 24.7%. Reviewed download with pt, infrequent incidence of hypoglcyemia from overestimation of insulin for carb load. Reviewed with pt if meal to meal glucose <100 would recommend he reduce meal dose by 2 units. Reviewed how to titrate basal insulin according to fasting am glucose. Pt verbalizes understanding. 3. Patient is alert, oriented and receptive to making changes or counseling. Notes: Seen for an assessment of current glucose pattern, changes in treatment plan, counseling and coordination of care related to diabetes, risks, and benefits of treatment, medications, and side effects. TOPICS REVIEWED: 1. Time was spent reviewing: a. Basic concepts of diabetes, progressive beta cell , concepts of basal/bolus/correct christian insulin requirements. Basal: The goal is fasting blood glucose of 100-150mg. IF fasting blood glucose starts to run under 100mg 3x's/ week, decrease dose by 10%. Bolus: The goal is to hold the blood glucose level steady meal to meal. If pt. is going to have increased physical activity after a meal, decrease the schedule meal dose prior to the activity by 30-50%. If pt. skips a meal do not take this dose. Correction: The goal is to correct an elevated glucose back into the 100-150mg range b. Nutrition: Concepts of healthy diet, encouraged to decrease saturated fat in diet and increase non-starchy vegetables and fruits in diet. BMI: Pt. needs to select one small change to decrease caloric intake or increase physical activity to help decrease weight. c. Correct treatment of hypoglycemia, carry a glucose source at all times on your person, in vehicles, and at bedside. Can use glucose tablets/4, four ounces of pop or juice equal to 15 G of carbohydrate. Blood glucose should be 100 mg/dl or higher when driving. d. ADA glucose goals for age and medical complexity reviewed e. Patient questions addressed 2. Activity/exercise: Encouraged to start any form of physical activity. Start low level and increase slowly to a minimal goal of 150 minutes/week. Limit activity to what is allowed by other issues such as cardiac, pulmonary or orthopedic restrictions. 3. Standards of care: Reminded to have an annual dilated eye exam, A1C every 3 months, urine testing for microalbumin once/year, check feet daily and report any cuts or sores that do not appear to be healing. 4. Meter: Plan to check blood glucose: Please check blood glucose levels 4 times/day. Back to back meals reveal effectiveness of bolus dosing. 5. [facility]. Contact office if any issues or concerns with patterns of hypoglycemia, hyperglycemia, or diabetes medication issues. 6. Prescriptions: None at this time. 7. Prescriptions will not be filled unless you are compliant with follow up appointments or have a follow up appointment scheduled as ordered by your provider. Refills should be requested at the time of your visit. 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 He appears to be euvolemic. Continue current dose of the Entresto, Lasix and bisoprolol. I have advised him to monitor his weight and if he gains more than 2 pounds in 24 hours or 5 pounds in a week he should call our office. Dec, Chronic kidney disea se, stage III (moderate) (ICD-10 - N18.30) He has a CKD due to longstanding diabetes mellitus with hypertension. His baseline serum creatinine is 1.2-1.4 mg/dL and has microalbuminuria. His renal US showed mild trophy. I have discussed with the importance of good DM and HTN control to slow down the progression of CKD. Dec, Diabetes mellitus wi th chronic kidney disease (ICD-10 - E11.22) His blood sugars are controlled. Continue to follow with the DM clinic for his DM management. He has microalbuminuria likely due to the diabetic nephropathy. He has unremarkable work-up for paraproteinemia.He is on Entresto for renal protection. We'll continue that. Dec, Vitamin D deficiency (ICD-10 - E55.9) His calcium and vitamin D are within normal limit.Continue oral vitamin D . Dec, Secondary hyperparathyroidism (ICD-10 - N25.81) MBD parameters including PTH, calcium, phosphorus are within the goal. 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 Hypoglycemia material was printed Jessica Ashford 10/21/2022 11:30:24 AM >4oz apple juice provided for blood sugar of 87 Jessica Ashford 10/21/2022 11:51:35 AM >4oz orange juice provided for repeat blood sugar of 77 Jessica Ashford 10/21/2022 12:08:25 PM >Repeat blood sugar 97 1. Controlled, Type 2 diabetes with A1c of 7.3% for age/comorbidities 2. Blood glucose levels improved from last visit. According to [facility] cgm download 10/08/2022-10/21/2022 : Average glucose 166. >250-3%, >180-29%, 70-180-68%, <70-0%, <54-0%. CV 24.7%. Reviewed download with pt, overall glucose pattern stable. Glucose 87 during visit, pt reports he had taken novolog 18 units for breakfast sandwhich a couple of tator tots- reviewed with pt if meal to meal glucose <100 would recommend he reduce meal dose by 2 units. Pt verbalizes understanding. 3. Patient is alert, oriented and receptive to making changes or counseling. Notes: Seen for an assessment of current glucose pattern, changes in treatment plan, counseling and coordination of care related to diabetes, risks, and benefits of treatment, medications, and side effects. TOPICS REVIEWED: 1. Time was spent reviewing: a. Basic concepts of diabetes, progressive beta cell , concepts of basal/bolus/correc tive insulin requirements. Basal: The goal is fasting blood glucose of 90-130mg. IF fasting blood glucose starts to run under 100mg 3x's/ week, decrease dose by 10%. Bolus: The goal is to hold the blood glucose level steady meal to meal. If pt. is going to have increased physical activity after a meal, decrease the schedule meal dose prior to the activity by 30-50%. If pt. skips a meal do not take this dose. Correction: The goal is to correct an elevated glucose back into the 100-150mg range b. Nutrition: Concepts of healthy diet, encouraged to decrease saturated fat in diet and increase non-starchy vegetables and fruits in diet. BMI: Pt. needs to select one small change to decrease caloric intake or increase physical activity to help decrease weight. c. Correct treatment of hypoglycemia, carry a glucose source at all times on your person, in vehicles, and at bedside. Can use glucose tablets/4, four ounces of pop or juice equal to 15 G of carbohydrate. Blood glucose should be 100 mg/dl or higher when driving. d. ADA glucose goals for age and medical complexity reviewed e. Patient questions addressed 2. Activity/exercise: Encouraged to start any form of physical activity. Start low level and increase slowly to a minimal goal of 150 minutes/week. Limit activity to what is allowed by other issues such as cardiac, pulmonary or orthopedic restrictions. 3. Standards of care: Reminded to have an annual dilated eye exam, A1C every 3 months, urine testing for microalbumin once/year, check feet daily and report any cuts or sores that do not appear to be healing. 4. Meter: Plan to check blood glucose: Please check blood glucose levels 4 times/day. Back to back meals reveal effectiveness of bolus dosing. 5. [facility]. Contact office if any issues or concerns with patterns of hypoglycemia, hyperglycemia, or diabetes medication issues. 6. Prescriptions: None at this time. 7. Prescriptions will not be filled unless you are compliant with follow up appointments or have a follow up appointment scheduled as ordered by your provider. Refills should be requested at the time of your visit. Oct, Hyperlipidemia (ICD-10 - E78.5) High cholesterol material was printed 10/2022 ldl 45.8 at target- on statin Oct, HTN (hypertension) (ICD-10 - I10) About hypertension material was printed Oct, snf current use of insulin (ICD-10 - Z79.4) Oct, BMI 32.0-32.9,adult (ICD-10 - Z68.32) Deciphering the nutrition facts label material was printed 5 pound weight loss from last visit, continue with weight loss efforts Oct, Nail avulsion of toe (ICD-10 - S91.209A) referral to podiatry [facility] 10-04-2022 Evaluation note* Encounter Date Diagnosis Assessment Notes Treatment Notes Treatment Clinical Notes Jul, Dietary counseling and surveillance (ICD-10 - Z71.3) Eat well, exercise well, be well: dietary and fitness guidelines material was printed see above Jul, 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 Controlled, Type 2 diabetes with A1c of 7.1% for age/comorbidities 2. Blood glucose levels improved from last visit. According to [facility] cgm download 06/25/2022- 2: Average glucose 151. >250-2%, >180-22%, 70-180-75%, <70-1%, <54-0%. CV 28.1%. Reviewed download with pt, noted incidence of hypoglcyemia early am from using correction insulin at bedtime. Recommend he not use correction insulin at bedtime to reduce risk of hypoglycemia. Will modify levemir change from bedtime to am. Recommend he increase meal insulin at supper 1-2 units for target hs glucose 150/180. Pt verbalizes understanding. 3. Patient is alert, oriented and receptive to making changes or counseling. Notes: Seen for an assessment of current glucose pattern, changes in treatment plan, counseling and coordination of care related to diabetes, risks, and benefits of treatment, medications, and side effects. TOPICS REVIEWED: 1. Time was spent reviewing: a. Basic concepts of diabetes, progressive beta cell , concepts of basal/bolus/correc tive insulin requirements. Basal: The goal is fasting blood glucose of 90-130mg. IF fasting blood glucose starts to run under 100mg 3x's/ week, decrease dose by 10%. Bolus: The goal is to hold the blood glucose level steady meal to meal. If pt. is going to have increased physical activity after a meal, decrease the schedule meal dose prior to the activity by 30-50%. If pt. skips a meal do not take this dose. Correction: The goal is to correct an elevated glucose back into the 100-150mg range b. Nutrition: Concepts of healthy diet, encouraged to decrease saturated fat in diet and increase non-starchy vegetables and fruits in diet. BMI: Pt. needs to select one small change to decrease caloric intake or increase physical activity to help decrease weight. c. Correct treatment of hypoglycemia, carry a glucose source at all times on your person, in vehicles, and at bedside. Can use glucose tablets/4, four ounces of pop or juice equal to 15 G of carbohydrate. Blood glucose should be 100 mg/dl or higher when driving. d. ADA glucose goals for age and medical complexity reviewed e. Patient questions addressed 2. Activity/exercise: Encouraged to start any form of physical activity. Start low level and increase slowly to a minimal goal of 150 minutes/week. Limit activity to what is allowed by other issues such as cardiac, pulmonary or orthopedic restrictions. 3. Standards of care: Reminded to have an annual dilated eye exam, A1C every 3 months, urine testing for microalbumin once/year, check feet daily and report any cuts or sores that do not appear to be healing. 4. Meter: Plan to check blood glucose: Please check blood glucose levels 4 times/day. Back to back meals reveal effectiveness of bolus dosing. 5. [facility] Contact office if any issues or concerns with patterns of hypoglycemia, hyperglycemia, or diabetes medication issues. 6. Prescriptions: Will call when needed. 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 His baseline serum creatinine is 1.4-1.7 mg/dL and has microalbuminuria. His renal US showed mild trophy. I have discussed with the importance of good DM and HTN control to slow down the progression of CKD. 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 He appears to be euvolemic. Continue current dose of the Entresto, Lasix and bisoprolol. I have advised him to monitor his weight and if he gains more than 2 pounds in 24 hours or 5 pounds in a week he should call our office. Jun, Diabetes mellitus wi th chronic kidney disease (ICD-10 - E11.22) His blood sugars are controlled. Continue to follow with the DM clinic for his DM management. He has microalbuminuria likely due to the diabetic nephropathy. He has unremarkable work-up for paraproteinemia.He is on Entresto for renal protection. We'll continue that. Jun, Vitamin D deficiency (ICD-10 - E55.9) His calcium and vitamin D are within normal limit.Continue oral vitamin D . Jun, Secondary hyperparathyroidism (ICD-10 - N25.81) MBD parameters including PTH, calcium, phosphorus are within the goal. 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 Controlled, Type 2 diabetes with A1c of 7.5% for age/comorbidities 2. Blood glucose levels improved from last visit. According to [facility] cgm download 03/19/2022-04/01/2022 : Average glucose 158. >250-2%, >180-27%, 70-180-71%, <70-0%, <54-0%. CV 25.4%. Reviewed download with pt, overall glucose pattern stable. Infrequent incidence of hypoglcyemia after overestimation of insulin for carbs. Reviewed if eating smaller meal reduce meal insulin dose by 2 units. Pt verbalizes understanding. 3. Patient is alert, oriented and receptive to making changes or counseling. Notes: Seen for an assessment of current glucose pattern, changes in treatment plan, counseling and coordination of care related to diabetes, risks, and benefits of treatment, medications, and side effects. TOPICS REVIEWED: 1. Time was spent reviewing: a. Basic concepts of diabetes, progressive beta cell , concepts of basal/bolus/correct christian insulin requirements. Basal: The goal is fasting blood glucose of 90-130mg. IF fasting blood glucose starts to run under 100mg 3x's/ week, decrease dose by 10%. Bolus: The goal is to hold the blood glucose level steady meal to meal. If pt. is going to have increased physical activity after a meal, decrease the schedule meal dose prior to the activity by 30-50%. If pt. skips a meal do not take this dose. Correction: The goal is to correct an elevated glucose back into the 100-150mg range b. Nutrition: Concepts of healthy diet, encouraged to decrease saturated fat in diet and increase non-starchy vegetables and fruits in diet. BMI: Pt. needs to select one small change to decrease caloric intake or increase physical activity to help decrease weight. c. Correct treatment of hypoglycemia, carry a glucose source at all times on your person, in vehicles, and at bedside. Can use glucose tablets/4, four ounces of pop or juice equal to 15 G of carbohydrate. Blood glucose should be 100 mg/dl or higher when driving. d. ADA glucose goals for age and medical complexity reviewed e. Patient questions addressed 2. Activity/exercise: Encouraged to start any form of physical activity. Start low level and increase slowly to a minimal goal of 150 minutes/week. Limit activity to what is allowed by other issues such as cardiac, pulmonary or orthopedic restrictions. 3. Standards of care: Reminded to have an annual dilated eye exam, A1C every 3 months, urine testing for microalbumin once/year, check feet daily and report any cuts or sores that do not appear to be healing. 4. Meter: Plan to check blood glucose: Please check blood glucose levels 4 times/day. Back to back meals reveal effectiveness of bolus dosing. 5. [facility]. Contact office if any issues or concerns with patterns of hypoglycemia, hyperglycemia, or diabetes medication issues. 6. Prescriptions: Will call when needed. Mar, Hyperlipidemia (ICD-10 - E78.5) High cholesterol material was printed 09/2021 ldl 86- on statin Mar, HTN (hypertension) (ICD-10 - I10) About hypertension material was printed Mar, snf current use of insulin (ICD-10 - Z79.4) Mar, Hypoglycemia (ICD-10 - E16.2) Hypoglycemia material was printed see above Mar, BMI 33.0-33.9,adult (ICD-10 - Z68.33) Deciphering the nutrition facts label material was printed 1 pound weight loss from last visit, continue with weight loss efforts Mar, Wound of foot (ICD-10 - S91.309A) apt with [facility] 04/03/2022 at 10am [facility] Other 03-09-2022 Evaluation note* Encounter Date Diagnosis Assessment Notes Treatment Notes Treatment Clinical Notes Dec, Chronic kidney disea se, stage 3b (ICD-10 - N18.32) He has a CKD due to longstanding diabetes mellitus with hypertension. His baseline serum creatinine is 1.7-1.9 mg/dL and has microalbuminuria. His renal US showed mild trophy. I have discussed with the importance of good DM and HTN control to slow down the progression of CKD. 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 He appears to be euvolemic. Continue current dose of the Entresto, Lasix and bisoprolol. I have advised him to monitor his weight and if he gains more than 2 pounds in 24 hours or 5 pounds in a week he should call our office. Dec, Diabetes mellitus wi th chronic kidney disease (ICD-10 - E11.22) His blood sugars are controlled. Continue to follow with the DM clinic for his DM management. He has microalbuminuria likely due to the diabetic nephropathy. He has unremarkable work-up for paraproteinemia.He is on Entresto for renal protection. We'll continue that. Dec, Vitamin D deficiency (ICD-10 - E55.9) His calcium and vitamin D are within normal limit.Continue oral vitamin D . Dec, Secondary hyperparathyroidism (ICD-10 - N25.81) MBD parameters including PTH, calcium, phosphorus are within the goal. 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 Controlled, Type 2 diabetes with A1c of 7.2% for age/comorbidities 2. Blood glucose levels improved from last visit. According to [facility] cgm download 11/28/2021-12/11/2021 : Average glucose 155. >250-1%, >180-26%, 70-180-73%, <70-0%, <54-0%. CV 25.4%. Reviewed download with pt, overall glucose pattern stable. Isolated incident of hypoglcyemia after overestimation of insulin for carbs. Reviewed if eating smaller meal reduce meal insulin dose by 2 units. Pt verbalizes understanding. 3. Patient is alert, oriented and receptive to making changes or counseling. Notes: Seen for an assessment of current glucose pattern, changes in treatment plan, counseling and coordination of care related to diabetes, risks, and benefits of treatment, medications, and side effects. TOPICS REVIEWED: 1. Time was spent reviewing: a. Basic concepts of diabetes, progressive beta cell , concepts of basal/bolus/correc tive insulin requirements. Basal: The goal is fasting blood glucose of 90-130mg. IF fasting blood glucose starts to run under 100mg 3x's/ week, decrease dose by 10%. Bolus: The goal is to hold the blood glucose level steady meal to meal. If pt. is going to have increased physical activity after a meal, decrease the schedule meal dose prior to the activity by 30-50%. If pt. skips a meal do not take this dose. Correction: The goal is to correct an elevated glucose back into the 100-150mg range b. Nutrition: Concepts of healthy diet, encouraged to decrease saturated fat in diet and increase non-starchy vegetables and fruits in diet. BMI: Pt. needs to select one small change to decrease caloric intake or increase physical activity to help decrease weight. c. Correct treatment of hypoglycemia, carry a glucose source at all times on your person, in vehicles, and at bedside. Can use glucose tablets/4, four ounces of pop or juice equal to 15 G of carbohydrate. Blood glucose should be 100 mg/dl or higher when driving. d. ADA glucose goals for age and medical complexity reviewed e. Patient questions addressed 2. Activity/exercise: Encouraged to start any form of physical activity. Start low level and increase slowly to a minimal goal of 150 minutes/week. Limit activity to what is allowed by other issues such as cardiac, pulmonary or orthopedic restrictions. 3. Standards of care: Reminded to have an annual dilated eye exam, A1C every 3 months, urine testing for microalbumin once/year, check feet daily and report any cuts or sores that do not appear to be healing. 4. Meter: Plan to check blood glucose: Please check blood glucose levels 4 times/day. Back to back meals reveal effectiveness of bolus dosing. 5. [facility]. Contact office if any issues or concerns with patterns of hypoglycemia, hyperglycemia, or diabetes medication issues. 6. Prescriptions: Will call when needed. 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) Dec, Hypoglycemia (ICD-10 - E16.2) Hypoglycemia material was printed see above Dec, BMI 33.0-33.9,adult (ICD-10 - Z68.33) Deciphering the nutrition facts label material was printed 3 pound weight loss from last visit, continue with weight loss efforts Mar[facility] Other Evaluation noteNo InformationNort [email or web address] Other Hisjfvu general Narrative - Reported* Type Description Date Medical History Hyperlipedemia ,mixed Medical History W[place] Medical History Pacemaker inserted Medical History HTN Medical History DM2 Medical History vit d dif Medical History CHF Medical History 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 Medical History 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 Medical History Valve Replacement Medical History atrial fibrillation Medical History cellulitis right lower leg Surgical History Cardiac Stents x 6 2002 Surgical History cholecystectomy 2007 Surgical History defib 05/30/15 Surgical History Aortic Valve replacement 01/21 Surgical History I&D ON THE ABDOMINAL AREA FROM AN ABCESS 10/2020 Hospitalization History CHF 2011 Hospitalization History bronchitis 07/2017 Hospitalization History Aortic Valve 01/21 Hospitalization History Cellulitis right lower e xtremity-[place] 03/2021 [facility] Other History general Narrative - Reported* Type Description Date Medical History Hyperlipedemia ,mixed Medical History W[place] Medical History Pacemaker inserted Medical History HTN Medical History DM2 Medical History vit d dif Medical History CHF Medical History 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 Medical History 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 Medical History Valve Replacement Medical History atrial fibrillation Medical History cellulitis right lower leg Medical History COVID 05/2022 Surgical History Cardiac Stents x 6 2002 Surgical History cholecystectomy 2008 Surgical History defib 05/30/15 Surgical History Aortic Valve replacement 01/21 Surgical History I&D ON THE ABDOMINAL AREA FROM AN ABCESS 10/2020 Hospitalization History CHF 2012 Hospitalization History bronchitis 07/2017 Hospitalization History Aortic Valve 01/21 Hospitalization History Cellulitis right lower e xtremity-[facility] 03/2021 Hospitalization History COVID 05/2022 [facility] Other History general Narrative - Reported* Type Description Date Medical History Hyperlipedemia ,mixed Medical History [place] Medical History Pacemaker inserted Medical History HTN Medical History DM2 Medical History vit d dif Medical History CHF Medical History 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 Medical History 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 Medical History Valve Replacement Medical History atrial fibrillation Medical History cellulitis right lower leg Medical History COVID 05/2022 Surgical History Cardiac Stents x 6 2002 Surgical History cholecystectomy 2008 Surgical History defib 05/30/15 Surgical History Aortic Valve replacement 01/21 Surgical History I&D ON THE ABDOMINAL AREA FROM AN ABCESS 10/2020 Surgical History PACEMAKER BATTERY REPLACEMENT 1 11/2021 Hospitalization History CHF 2012 Hospitalization History bronchitis 07/2017 Hospitalization History Aortic Valve 01/21 Hospitalization History Cellulitis right lower e xtremity-[facility] 03/2021 Hospitalization History COVID 05/2022 Hospitalization History FALLS [facility] HOME AT [facility] Other Reason for Referral Reason Nail Avulsion of rig ht great toenail Diagnosis 1 Type 2 diabetes isidoro itus with diabetic nephropathy (E11.21) Diagnosis 2 Nail avulsion of toe (S91.209A) Referral Organization [facility] Referring Provider First Name Leticia Referring Provider Last Name Radha Referring Provider Specialty Nurse Pract itioner Referred Organization [facility] Referred Provider Ben Ronquillo Referred Address [address] [place], [place],[address] Referred Provider Specialty Podiatry - S urgical Chiropody Referral Priority Routine Referral Appointment Date 2022-10-23 General Notes Jessica Ashford 10/05 01:45:07 PM >Patient to see LEÓN Egan on 10/23/22 at 11:15am. Patient informed of appt date and time. Jessica Ashford 10/31/2022 08:03:31 AM >Call placed to Harriett at Dr. Ronquillo's office. Patient was seen and she will fax Consult Notes. Jessica Ashford 10/31/2022 11:18:33 AM >Notes received. 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, BC-ADMDM 3 month follow up, Type 2 IDDM kyaw 2 FOLLOW UP with [employer], [employer]AT BU[employer]DER-C, BC-ADM, review labsNo InformationTKM refill requestCKD and HTNDM 3 month follow up, Type 2 IDDM kyaw 2 FOLLOW UP with [employer], 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 This clinical summary was aggregated from multiple sources. Caution should be exercised in using it in the provision of clinical care. This summary normalizes information from multiple sources, and as a consequence, information in this document may materially change the coding, format and clinical context of patient data. In addition, data may be omitted in some cases. CLINICAL DECISIONS SHOULD BE BASED ON THE PRIMARY CLINICAL RECORDS. [employer] [facility]. provides no warranty or guarantee of the accuracy or completeness of information in this document.
--- NOTE | 2023-09-24 14:42 | ECG_ITS ---
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
--- NOTE | 2023-09-24 14:42 | XR_ITS ---
The [address] [address] Patient Name: PURA DÍAZ MRN: [id number] date: 1935 Sex: M Assigned Patient Location: ER Current Patient Location: ER Accession/Order Number: [id number] Exam Date: 09/24/2023 14:55 Report Date: 09/24/2023 15:09 At the request of: IRIS OROZCO Procedure: XR chest 1V EXAMINATION: XR chest 1V HISTORY: SOB COMPARISON: XR chest 04/20/2023 FINDINGS: LUNGS: Obscuration of the left diaphragm margin and lateral costophrenic angle suggesting pleural fluid and/or atelectasis. VASCULATURE: No increased pulmonary vasculature. PLEURA: No pneumothorax. CARDIAC: No cardiomegaly or cardiac silhouette abnormality. MEDIASTINUM: No visible mass or adenopathy. BONES: No fracture or visible bone lesion. OTHER: cardiac pacer. XR/XR chest 1V IMPRESSION: 1. New [id number] left pleural effusion and likely passive atelectasis or infiltrates within left lung base. Electronically authenticated by: BEATRIS JEAN BAPTISTE Date: 09/24/2023 15:09
--- NOTE | 2023-09-24 14:43 | ED.SOB1 ---
HPI - SOB/Dyspnea General Chief Complaint: Shortness of Breath/Dyspnea Stated Complaint: SHORTNESS OF BREATH Time Seen by Provider: 09/24/23 14:31 History of Present Illness HPI Narrative: 88 year old male presents to the ED via EMS for SOB, tremors, N/V. Onset was this afternoon. He had an epsiode of emesis just [facility]. He states he felt like his blood sugar was low; he checked his sugar and it was 70. States he ate crackers and had some juice. Denies fever, cough, CP, dizziness, GIBBONS. Denies abd pain, urinary sx. He feels like he needs to have a bowel movement. Denies pain at this time. MD elicited complaint: shortness of breath Related Data Home Medications Medication Instructions Recorded Confirmed aspirin 81 mg capsule 81 mg PO DAILY 04/20/23 09/24/23 atorvastatin 10 mg tablet 10 mg PO DAILY 04/20/23 09/24/23 bisoprolol fumarate 10 mg tablet 10 mg PO DAILY 04/20/23 09/24/23 cholecalciferol (vitamin D3) 25 2,000 unit PO DAILY 04/20/23 09/24/23 mcg (1,000 unit) capsule cyanocobalamin (vitamin B-12) 1,000 mcg PO .3 times week 04/20/23 04/20/23 1,000 mcg capsule dapagliflozin propanediol 10 mg 10 mg PO DAILY 04/20/23 09/24/23 tablet (Farxiga) insulin aspart U-100 100 unit/mL 1 sliding scale dose subcut 04/20/23 09/24/23 (3 mL) subcutaneous pen (Novolog USEASDIRECTD FlexPen U-100 Insulin aspart) insulin detemir U-100 100 unit/mL 36 unit subcut QPM 04/20/23 09/24/23 (3 mL) subcutaneous pen (Levemir FlexPen) levothyroxine 112 mcg capsule 112 mcg PO DAILY 04/20/23 09/24/23 levothyroxine 125 mcg tablet 125 mcg PO DAILY 04/20/23 04/20/23 (Euthyrox) loratadine 10 mg tablet 10 mg PO DAILY 04/20/23 09/24/23 multivitamin 1 tab PO DAILY 04/20/23 09/24/23 primidone 50 mg tablet 50 mg PO .QHS 04/20/23 09/24/23 sacubitril 24 mg-valsartan 26 mg 1 tab PO BID 04/20/23 09/24/23 tablet (Entresto) warfarin 5 mg tablet 5 mg PO .QD 04/20/23 09/24/23 furosemide 40 mg tablet 40 mg PO DAILY PRN weight gain 09/24/23 09/24/23 Allergies Allergy/AdvReac Type Severity Reaction Status Date / Time iodine Allergy Intermediate Verified 09/24/23 14:28 Penicillins Allergy Intermediate Verified 09/24/23 14:28 Review of Systems ROS Constitutional Reports: chills; Denies: fever Eyes Denies: change in vision Ears, nose, mouth, and throat Denies: throat pain or neck pain Cardiovascular Denies: chest pain or edema Respiratory Reports: shortness of breath; Denies: cough or wheezing Gastrointestinal Reports: nausea and vomiting; Denies: abdominal pain, diarrhea or constipation Genitourinary Denies: painful urination, urinary frequency or urinary urgency Musculoskeletal Denies: back pain or neck pain Integumentary/Breast Denies: rash Neurological Denies: headache, numbness in extremities, weakness in extremities, lack of coordination, dizziness or slurred speech [facility] Medical History (Updated 09/24/23 @ 17:13 by Susanna Aaron NP) Afib ?I48.91 - Unspecified atrial fibrillation (ICD-10) Hypothyroidism ?E03.9 - Hypothyroidism, unspecified (ICD-10) DM2 (diabetes mellitus, type 2) ?E11.9 - Type 2 diabetes mellitus without complications (ICD-10) Minor head injury ?S09.90XA - Unspecified injury of head, initial encounter (ICD-10) Edema, peripheral ?R60.9 - Edema, unspecified (ICD-10) Congestive heart failure ?I50.9 - Heart failure, unspecified (ICD-10) Social History Smoking status: Former smoker Exam Constitutional Vital Signs, click to edit/add: Last Vital Signs Temp 98.3 F 09/24/23 15:30 Pulse 61 09/24/23 15:50 Resp 24 09/24/23 15:50 BP 133/82 09/24/23 14:29 Pulse Ox 92 L 09/24/23 16:08 O2 Del Method Nasal Cannula 09/24/23 16:08 O2 Flow Rate 2 12/21/23 16:08 Common normals: no apparent distress and oriented x3 General appearance: cooperative; not ill appearing [facility] Common normals: normocephalic Face and sinus: normal facial exam Nose: external nose normal Mouth: oral and palatal mucosa normal, lip normal and tongue normal Eye Common normals: PERRL, EOMs intact bilaterally, conjunctivae normal and no scleral icterus Neck & C-Spine Common normals: supple Chest Common normals: inspection of chest normal Chest: symmetrical chest wall rise Respiratory Effort & inspection: able to speak in complete sentences, symmetric chest movement and tachypneic; no pursed lip breathing, no grunting and no stridor Auscultation: diminished lung sounds Cardio Common normals: regular rate Rhythm: abnormal rhythm GI Common normals: Normal to inspection, nondistended, normoactive bowel sounds present, soft to palpation and non-tender Extremity Common normals: normal to inspection, full ROM and normal capillary refill Neuro Common normals: oriented x3, CN's II-XII intact bilaterally, moves all extremities and no focal motor deficits Speech: speech normal Motor exam: strength 5/5 throughout Course Vital Signs Vital signs: Vital Signs Temperature 97.8 F 09/24/23 14:29 Pulse Rate 64 09/24/23 14:29 Respiratory Rate 24 09/24/23 14:29 Blood Pressure 133/82 09/24/23 14:29 Pulse Oximetry 95 09/24/23 14:29 Oxygen Delivery Method Room Air 09/24/23 14:29 Temperature 98.3 F 09/24/23 15:30 Pulse Rate 61 09/24/23 15:50 Respiratory Rate 24 09/24/23 15:50 Blood Pressure 133/82 09/24/23 14:29 Pulse Oximetry 92 L 09/24/23 16:08 Oxygen Delivery Method Nasal Cannula 09/24/23 16:08 Oxygen Delivery Flow Rate 2 09/24/23 16:08 MDM - SOB/Dyspnea MDM Narrative Medical decision making narrative: The patient presented tachypneic. Chest x-ray showed new [id number] left pleural effusion and likely passive atelectasis or infiltrates within left lung base. His BNP was 1525 which was improved from the previous. WBC count was 7.9. Influenza and Covid-19 were negative. Lactic acid was elevated. He was started on IV antibiotics. He will be admitted for further evaluation and treatment. I spoke with Dr. Guzman who accepted the patient for admission. Differential Diagnosis Differential diagnosis: Likely congestive heart failure, community acquired pneumonia and other (Covid-19, influenza) Medical Records Attestation: I reviewed the patient's medical records. Lab Data Attestation: I reviewed the patient's lab results. Labs: Lab Results 09/24/23 09/24/23 Range/Units 14:39 14:56 WBC 7.9 (4.0-11.0) 10^3/uL RBC 6.63 H (4.70-6.10) 10^6/uL Hgb 16.2 (14.0-18.0) g/dL Hct 53.6 (42.0-54.0) % MCV 80.8 (80.0-94.0) fL MCH 24.4 L (25.9-34.0) pg MCHC 30.2 (29.9-35.2) g/dL RDW 19.2 H (11.0-15.0) % Plt Count 159 (150-450) 10^3/uL MPV 9.8 (9.5-13.5) fL Seg Neuts % (Manual) 91.0 Band Neutrophils % 2.0 (0-5) % Lymphocytes % (Manual) 3.0 L (20.5-60.0) % Monocytes % (Manual) 3.0 (1.7-12.0) % Eosinophils % (Manual) 1.0 (0.9-7.0) % Basophils % (Manual) 0.0 L (0.2-2.0) % Neutrophils # (Manual) 7.18 H (1.4-6.5) 10^3/uL Band Neutrophils # 0.2 (0.0-0.3) 10^3/uL Lymphocytes # (Manual) 0.23 L (1.20-3.80) 10^3/uL Monocytes # (Manual) 0.23 L (0.30-0.80) 10^3/uL Eosinophils # (Manual) 0.07 (0.00-0.70) 10^3/uL Basophils # (Manual) 0.00 (0.00-0.10) 10^3/uL Anisocytosis 1+ Microcytosis 1+ PT 23.4 H (9.0-11.6) sec INR 2.31 Sodium 141 (136-145) mmol/L Potassium 4.0 (3.5-5.1) mmol/L Chloride 105 (98-107) mmol/L Carbon Dioxide 25.1 (21.0-32.0) mmol/L Anion Gap 14.9 BUN 26.0 H (7.0-18.0) mg/dL Creatinine 1.58 H (0.70-1.30) mg/dL Est GFR ( Amer) 51 L (>=60) Est GFR (Non-Af Amer) 42 L (>=60) BUN/Creatinine Ratio 16.5 Glucose 75 (74-106) mg/dL Lactate 3.9 H* (0.4-2.0) mmol/L Calcium 9.2 (8.5-10.1) mg/dL Total Bilirubin 1.0 (0.2-1.0) mg/dL AST 28 (15-37) U/L ALT 25 (16-63) U/L Alkaline Phosphatase 102 (46-116) U/L Troponin I High Sens 18.7 (4.0-76.1) pg/mL NT-Pro-B Natriuret Pep 1525.0 (<=1800.0) pg/mL Total Protein 7.1 (6.4-8.2) g/dL Albumin 3.4 (3.4-5.0) g/dL Globulin 3.7 g/dL Albumin/Globulin Ratio 0.9 SARS-CoV-2 (PCR) Negative (NEGATIVE) Influenza Type A Ag Negative Influenza Type B Ag Negative Imaging Data Chest x-ray: Attestation: I have reviewed the pertinent imaging results. Radiologist's impression: Procedure: XR chest 1V EXAMINATION: XR chest 1V HISTORY: SOB COMPARISON: XR chest 04/20/2023 FINDINGS: LUNGS: Obscuration of the left diaphragm margin and lateral costophrenic angle suggesting pleural fluid and/or atelectasis. VASCULATURE: No increased pulmonary vasculature. PLEURA: No pneumothorax. CARDIAC: No cardiomegaly or cardiac silhouette abnormality. MEDIASTINUM: No visible mass or adenopathy. BONES: No fracture or visible bone lesion. OTHER: cardiac pacer. XR/XR chest 1V IMPRESSION: 1. New [id number] left pleural effusion and likely passive atelectasis or infiltrates within left lung base. Electronically authenticated by: BEATRIS JEAN BAPTISTE Date: 09/24/2023 15:09 ECG Data Attestation: ?I have reviewed the pertinent ECG results. Interpretation: Measurements Intervals [place] Rate: 66 P: -46538 VT: -44271 QRS: 147 QRSD: 118 T: -70 QT: 368 QTc: 381 Interpretive Statements 01341 Atrial fibrillation with aberrant conduction, or ventricular premature complexes 2440 Incomplete right bundle branch block 3532 Lateral myocardial infarction, probably recent [address] depression, possible subendocardial injury or digitalis effect 5134 Right ventricular hypertrophy with repolarization abnormality 9150 abnormal ECG No previous ECG available for comparison Discharge Plan Discharge Chief Complaint: Shortness of Breath/Dyspnea Clinical Impression: Community acquired pneumonia, Pleural effusion Patient Disposition: Admitted as Observation Time of Disposition Decision: 16:28 Condition: Good
[2023-09-24 15:04] LABS: Hematocrit 53.6 % (42.0-54.0); Hemoglobin 16.2 g/dL (14.0-18.0); Mean Corpuscular HGB Conc 30.2 g/dL (29.9-35.2); Mean Corpuscular Hemoglobin 24.4 pg (25.9-34.0); Mean Corpuscular Volume 80.8 fL (80.0-94.0); Mean Platelet Volume 9.8 fL (9.5-13.5); Platelet Count 159 10^3/uL (150-450); Red Blood Count 6.63 10^6/uL (4.70-6.10); Red Cell Distribution Width 19.2 % (11.0-15.0); White Blood Count 7.9 10^3/uL (4.0-11.0)
[2023-09-24 15:22] LABS: Alanine Aminotransferase 25 U/L (16-63); Albumin Globulin Ratio 0.9; Albumin Level 3.4 g/dL (3.4-5.0); Alkaline Phosphatase 102 U/L (46-116); Anion Gap 14.9; Anisocytosis 1+; Aspartate Amino Transferase 28 U/L (15-37); BUN Creatinine Ratio 16.5; Band Neutrophils Absolute 0.2 10^3/uL (0.0-0.3); Calcium 9.2 mg/dL (8.5-10.1); Carbon Dioxide 25.1 mmol/L (21.0-32.0); Chloride 105 mmol/L (98-107); Eosinophils Absolute Manual 0.07 10^3/uL (0.00-0.70); Estimated GFR (African America 51 (>=60); Estimated GFR (Non-African Ame 42 (>=60); Globulin 3.7 g/dL; Glucose 75 mg/dL (74-106); Lymphocytes Absolute Manual 0.23 10^3/uL (1.20-3.80); Microcytosis 1+; Monocytes Absolute Manual 0.23 10^3/uL (0.30-0.80); Segmented Neut Absolute Manual 7.18 10^3/uL (1.4-6.5); Sodium 141 mmol/L (136-145); Total Protein 7.1 g/dL (6.4-8.2)
[2023-09-24 15:28] LABS: Troponin I High Sensitivity 18.7 pg/mL (4.0-76.1)
[2023-09-24 15:44] LABS: Influenza Virus A Antigen Negative; Influenza Virus B Antigen Negative; Internal Control Within Normal Limits; SARS-CoV-2 Ag NEGATIVE (NEGATIVE)
[2023-09-24 16:26] LABS: INR 2.31; Prothrombin Time 23.4 sec (9.0-11.6)
[2023-09-24 16:35] LABS: Lactate/Lactic Acid 3.9 mmol/L (0.4-2.0)
--- NOTE | 2023-09-24 16:37 | P.HP_ITS ---
<Statement entered by Reinier Guzman MD - 09/27/23 07:15> Pt seen and evaluated, family present - agree withinput and plan of care from TEST CELL TECHNICIAN added Dx: Hypertensive urgency leading to acute combined CHF with pleurall effusion - This documentation has been reviewed and approved. H&P: HPI History of Present Illness Chief complaint: SHORTNESS OF BREATH, Pneumonia, Pleural Effusion Narrative: 09/24/23 5101 This is an 88-year-old male patient with a past medical history as outlined below including CHF, DM2 on insulin, A-fib on warfarin, hypertension, and hyperlipidemia; who presented to the ED complaining of acute onset of shortness of breath this afternoon. He reports making lunch for his and becoming significantly short of breath with this activity. His shortness of breath persisted and he became very shaky and had chills. He checked his temperature and BP and these were both normal. His continuous glucose monitor showed that his blood sugar was 76 mg/dL. He drank juice and pop and his continuous glucose monitor did not change. He rechecked with his fingerstick glucometer and his blood sugar was 255. As his shortness of breath persisted he presented to the ED for further evaluation. Workup in the ED with labs that were mostly unremarkable except for renal f unction slightly worse than his baseline CKD3 and a lactic acid that was added on later and was elevated at 3.9. His INR was therapeutic at 2.31. Unremarkable HS Troponin. Chest x-ray showed new small to moderate left pleural effusion with passive atelectasis versus infectious infiltrate. The patient was notably tachypneic and dyspneic on arrival to the ED with respiratory rate in the 30s and O2 sats down to 90 on room air. His respiratory rate improved after the addition of O2 at 2 L. COVID and Influenza swabs were negative. He is being admitted to the hospitalist service in observation for suspected left lower lobe pneumonia and hypoxia. At the time of my exam the patient is resting in the cart in the ED. He continues to be mildly dyspneic with conversation, mild abdominal accessory use noted and 5-7 word sentences between breaths. He reports taking all of his medications as prescribed including his diuretics. The ED reports complaints of nausea and vomiting prior to arrival but the patient denies nausea vomiting to me. He denies CP, increased cough or URI symptoms or recent sick contacts. Review of Systems ROS Status of ROS 10 or more systems reviewed and unremark able except as noted in history and below [facility] Medical History (Updated 09/25/23 @ 07:16 by Susanna Aaron NP) CKD (chronic kidney disease) stage 3, GFR 30-59 ml/min ?N18.30 - Chronic kidney disease, stage 3 unspecified (ICD-10) Essential tremor ?G25.0 - Essential tremor (ICD-10) Hyperlipidemia ?E78.5 - Hyperlipidemia, unspecified (ICD-10) HTN (hypertension) ?I10 - Essential (primary) hypertension (ICD-10) Afib ?I48.91 - Unspecified atrial fibrillation (ICD-10) Hypothyroidism ?E03.9 - Hypothyroidism, unspecified (ICD-10) DM2 (diabetes mellitus, type 2) ?E11.9 - Type 2 diabetes mellitus without complications (ICD-10) Minor head injury ?S09.90XA - Unspecified injury of head, initial encounter (ICD-10) Edema, peripheral ?R60.9 - Edema, unspecified (ICD-10) Congestive heart failure ?I50.9 - Heart failure, unspecified (ICD-10) Social History Smoking status: Former smoker Meds Home Medications and Allergies Home Medications Medication Instructions Recorded Confirmed Type aspirin 81 mg capsule 81 mg PO DAILY 04/20/23 09/24/23 History atorvastatin 10 mg tablet 10 mg PO QPM 04/20/23 09/24/23 History bisoprolol fumarate 10 mg tablet 10 mg PO DAILY 04/20/23 09/24/23 History cholecalciferol (vitamin D3) 25 2,000 unit PO DAILY 04/20/23 09/24/23 History mcg (1,000 unit) capsule cyanocobalamin (vitamin B-12) 1,000 mcg PO .3 times week 04/20/23 09/24/23 History 1,000 mcg capsule dapagliflozin propanediol 10 mg 10 mg PO DAILY 04/20/23 09/24/23 History tablet (Farxiga) insulin aspart U-100 100 unit/mL 1 sliding scale dose subcut 04/20/23 09/24/23 History (3 mL) subcutaneous pen (Novolog USEASDIRECTD FlexPen U-100 Insulin aspart) insulin detemir U-100 100 unit/mL 36 unit subcut QPM 04/20/23 09/24/23 History (3 mL) subcutaneous pen (Levemir FlexPen) levothyroxine 125 mcg tablet 125 mcg PO DAILY 04/20/23 09/24/23 History (Euthyrox) loratadine 10 mg tablet 10 mg PO DAILY 04/20/23 09/24/23 History multivitamin 1 tab PO DAILY 04/20/23 09/24/23 History primidone 50 mg tablet 50 mg PO .QHS 04/20/23 09/24/23 History sacubitril 24 mg-valsartan 26 mg 1 tab PO BID 04/20/23 09/24/23 History tablet (Entresto) warfarin 5 mg tablet 5 mg PO .QD 04/20/23 09/24/23 History furosemide 40 mg tablet 40 mg PO DAILY PRN weight gain 09/24/23 09/24/23 History Allergies Allergy/AdvReac Type Severity Reaction Status Date / Time iodine Allergy Intermediate Verified 09/24/23 14:28 Penicillins Allergy Intermediate Verified 09/24/23 14:28 Exam Constitutional Vital Signs, click to edit/add: Last Vital Signs Temp 98.3 F 09/24/23 15:30 Pulse 61 09/24/23 15:50 Resp 24 09/24/23 15:50 BP 133/82 09/24/23 14:29 Pulse Ox 92 L 09/24/23 16:08 O2 Del Method Nasal Cannula 09/24/23 16:08 O2 Flow Rate 2 09/24/23 16:08 Common normals: oriented x3, alert and well nourished General appearance: cooperative Orientation/consciousness: Yes awake [facility] Common normals: normocephalic, head/scalp atraumatic, hearing grossly normal bilaterally, external nose normal and moist oral mucous membranes Face and sinus: normal facial exam Mouth: tongue abnormal fissured Teeth and gingiva: poor dentition Eye Common normals: PERRL, EOMs intact bilaterally, conjunctivae normal and no scleral icterus Alignment: alignment normal Eyelid: eyelids normal Neck & C-Spine Common normals: full ROM, supple and no JVD Chest Common normals: inspection of chest normal Chest: symmetrical chest wall rise Respiratory Common normals: no retractions Effort & inspection: tachypneic and uses accessory muscles Cardio Common normals: no JVD, regular rate, regular rhythm, S1 normal heart sound, S2 normal heart sound, no gallops, no clicks, no murmurs, no rub and peripheral p ulses 2+ throughout Other: Distant HT GI Common normals: Normal to inspection, nondistended, normoactive bowel sounds present, soft to palpation, non-tender, no hepatosplenomegaly, no masses and no bruits Bladder/kidney exam: bladder normal to palpation Back & Pelvis Common normals: thoracic and lumbar spine normal to inspection Extremity Common normals: normal capillary refill General: normal exam except as noted, edema (Mid villalobos to toes, Tr-1+ edema) and other findings (BLE venous stasis dermatitis); no clubbing and no cyanosis Neuro [place] Coma Scale: GCS not evaluated Common normals: CN's II-XII intact bilaterally, moves all extremities, no focal motor deficits and no sensory deficits noted Speech: speech normal Psych Common normals: mental status grossly normal, thought process normal, affect normal and activity/motor behavior normal Results Labs Labs: Short CBC 09/24/23 Range/Units 14:39 WBC 7.9 (4.0-11.0) 10^3/uL Hgb 16.2 (14.0-18.0) g/dL Hct 53.6 (42.0-54.0) % Plt Count 159 (150-450) 10^3/uL BMP 09/24/23 14:39 Sodium 141 Potassium 4.0 Chloride 105 Carbon Dioxide 25.1 BUN 26.0 H Creatinine 1.58 H Glucose 75 Calcium 9.2 Liver Function 09/24/23 Range/Units 14:39 Total Bilirubin 1.0 (0.2-1.0) mg/dL AST 28 (15-37) U/L ALT 25 (16-63) U/L Alkaline Phosphatase 102 (46-116) U/L Albumin 3.4 (3.4-5.0) g/dL Pulse Oximetry Attestation: I have reviewed the pertinent pulse oximetry results. ECG Interpretation: Atrial fibrillation with aberrant conduction, or ventricular premature complexes Incomplete right bundle branch block Lateral myocardial infarction, probably recent Marked ST depression, possible subendocardial injury or digitalis effect RV hypertrophy with repolarization abnormality Abnormal ECG Compared to ECG 05/03/2023 Ventricular premature complexes now present Incomplete right bundle branch block now present ST-T wave deviation now present Right ventricular hypertrophy not present Early repolarization now present Right bundle branch block no longer present Myocardial infarct finding still present Imaging Chest x-ray: Attestation: I have reviewed the pertinent imaging results. Radiologist's impression: IMPRESSION: 1. New [id number] left pleural effusion and likely passive atelectasis or infiltrates within left lung base. Assessment and Plan Assessment and Plan (1) Community acquired pneumonia: Assessment and Plan: ACUTE * Adm observation * CXR equivocal for LLL PNA vs pleural effusion w/ atelectasis - clinically suspect early CAP * Levaquin IVPB q24h * Guaifenisen BID and OPEP for sputum mobilization * Lactic acid elevated at 3.9, but otherwise no significant concern for sepsis. BP stable, afebrile, normal mentation * Add PCT to ED labs * COVID and Flu swabs negative * Gentle IVF at 75/hr x 1 liter - pt appears clinically dry * Repeat CXR in AM * See respiratory failure * CBC, CMP daily (2) Acute hypoxic respiratory failure: Assessment and Plan: ACUTE * 2/2 early CAP vs mild AECHF w/ sm to mod pleural effusion on CXR vs infiltrate * See CAP above * 2D Echo in AM to assess for worsening HF - no known recent echo in chart * Clinically appears a little dry - hold PRN furosemide for now * O2 to keep sats above 90% * PRN Duonebs for SOB/Wheezing * Low suspicion of PE w/ therapeutic INR (3) Lactic acidosis: Assessment and Plan: ACUTE * Likely hypoxic lactic acidosis in setting of acute resp failure * No clear indication of sepsis at this time (afebrile, no leukocytosis, stable BP), but pt remains at risk w/ suspected pneumonia * PCT ordered - pending * Low threshold to increase IVFs * See Pneumonia (4) Pleural effusion: Assessment and Plan: ACUTE * Equivocal pleural effusion vs infiltrate on CXR * Clinically suspect CAP * Repeat CXR in AM - low threshold to obtain CT chest pending clinical course (5) Congestive heart failure: Assessment and Plan: CHRONIC * Hold PRN lasix for now - appears clinically dry * Daily wt, strict I&O * Continue home entresto * 2D Echo tomorrow (6) CKD (chronic kidney disease) stage 3, GFR 30-59 ml/min: Assessment and Plan: CHRONIC * Slight worsening in labs from baseline but not yet to NAT threshold * Gentle IVF x 1 liter in setting of CHF * At risk for sepsis and worsening renal function * Repeat CMP in AM (7) DM2 (diabetes mellitus, type 2): Assessment and Plan: CHRONIC * Continue home Levemir and SSI for correction * Continue home farxiga * ACHS glucometer checks * Med CC diet Qualifiers: Chronic kidney disease stage: stage 3 (moderate) Chronic kidney disease stage 3 subtype: unspecified whether 3a or 3b Diabetes mellitus complication detail: with chronic kidney disease Diabetes mellitus complication status: with kidney complications Diabetes mellitus mcc insulin use: with emt intermediate use Qualified Code(s): E11.22 - Type 2 diabetes mellitus with diabetic chronic kidney disease; N18.30 - Chronic kidney disease, stage 3 unspecified; Z79.4 - FPC (current) use of insulin (8) HTN (hypertension): Assessment and Plan: CHRONIC * Continue home bisoprolol and entresto - Hold if pt develops hypotension Qualifiers: Hypertension type: unspecified Qualified Code(s): I10 - Essential (primary) hypertension (9) Afib: Assessment and Plan: CHRONIC * Continue home bisoprolol for rate control * HR well controlled at this time * Continue home warfarin for CVA prevention * Daily INR Qualifiers: Atrial fibrillation type: permanent Qualified Code(s): I48.21 - Permanent atrial fibrillation (10) Hypothyroidism: Assessment and Plan: CHRONIC * Continue home levothyroxine once dosing confirmed by pharmacy (11) Essential tremor: Assessment and Plan: CHRONIC * Continue home primidone (12) Hyperlipidemia: Assessment and Plan: CHRONIC * Continue home statin
[2023-09-24] MEDS: LEVOFLOXACIN IN DEXTROSE 5 % 500 MG/100 ML PIGGYBACK 100 MG IV (16:56)
--- OUTSIDE RECORDS SUMMARY | 2023-09-24 17:50 | XMS_ITS | CCD ---
Author Name Unknown Address [address] [place] [address] Organization [facility] Care Team Providers Care Line Welder Name Role Phone Mapus, Tondra Unavailable Kandice, [...] Unavailable MISC, DR LORENZO Primary Care Unavailable CLARINGTON, DR ANT [employer] Unavailable NADERER, DR [...] sources) Linagliptin Drug Allergy vivid bad dreams [facility] [employer] [facility] Other (12 sources) Penicillins (Antibiotic) Propensity to adverse reactions hives [facility] [employer] [facility] Other (12 sources) seasonal fall allergy Propensity to adverse reactions nasal congestion, [employer] Other (12 sources) shrimp/ Propensity to adverse reactions anaphylaxis/vo miting [employer] Other (1 source) Iodine Drug Allergy 6 [facility] Rep[facility] (1 source) Penicillins Drug allergy (disorder) 4 [facility] (1 source) Linagliptin Drug Allergy 2 [facility] Rep[facility] (1 source) Penicillins Drug allergy (disorder) 2 [facility] (1 source) Shrimp product Drug allergy (disorder) 2 [facility] Medications Current Medications Medication Drug [...] sources) Long-term current use of insulin; Translations: [correction (current) use of insulin] Episodic Other aftercare (7 sources) terminologist (current) use of insulin; Translations: [PENITENTIARY CURRENT USE OF INSULIN] Onset: 2 Resolved: 2 Episodic Other aftercare (1 source) terminologist (current) use of anticoagulants; Translations: [CORRECTIONS SPECIALIST CURRNT USE ANTICOAGULANTS] Onset: 3 Episodic Other [...] Onset: 11-24-2022 Episodic Other aftercare (1 source) correction (current) use of aspirin; Translations: [PENITENTIARY CURRENT USE OF ASPIRIN] Onset: 11-10-2022 Episodic Other aftercare (1 source) Other prison (current) drug therapy; Translations: [OTH CORRECTIONS SPECIALIST CURRENT DRUG THERAPY] Onset: 11-10-2022 Episodic Other [...] 08-18-2023 HbA1c (Bld) [Mass fraction] 7.2 % [employer] Other Glucose - FINGER STICKon Glucose [Mass/Vol] 187 mg/dL [employer] Other HbA1c (Bld) [Mass fraction]o n 08-18-2023 A1C HEMOGLOBIN [employer] Other A1C HEMOGLOBINon 05-12-2023 HbA1c (Bld) [Mass fraction] 6.9 % [employer] Other Glucose - FINGER STICKon Glucose [Mass/Vol] 142 mg/dL [employer] Other HbA1c (Bld) [Mass fraction]o n 05-12-2023 A1C HEMOGLOBIN [employer] Other PTH INTACTon 12-12-2022 PTH, Intact 60 pg/mL Normal 15-65 [facility] Comment on above: Performed By: #### L ACT #### [facility] [address] [place] [address] Dr. Katlin Ignacio HEMOGRAM AND PLATELon 2022 Hematocrit (Bld) [Volume fraction] 51.9 % Normal 42.0-54.0 [facility] Comment on above: Performed By: #### L ACT #### [facility] [address] [place] [address] Dr. Katlin Ignacio Hemoglobin (Bld) [Mass/Vol] 16.1 g/dL Normal 14.0-18.0 [facility] Comment on above: Performed By: #### L ACT #### [facility] [address] [place] [address] Dr. Katlin Ignacio MCH (RBC) [Entitic mass] 24.7 pg Critically low 25.9-34.0 [facility] Comment on above: Performed By: #### L ACT #### [facility] [address] [place] [address] Dr. Katlin Ignacio MCHC (RBC) [Mass/Vol] 31.0 g/dL Normal 29.9-35.2 [facility] Comment on above: Performed By: #### L ACT #### [facility] [address] [place] [address] Dr. Katlin Ignacio MCV (RBC) [Entitic vol] 79.6 fL Critically low 80.0-94.0 [facility] Comment on above: Performed By: #### L ACT #### [facility] [address] [place] [address] Dr. Katlin Ignacio PLT 197 103/ul Normal 150-450 [facility] Comment on above: Performed By: #### L ACT #### [facility] [address] [place] [address] Dr. Katlin Ignacio RBC 6.52 106/ul Critically high 4.70-6.10 [facility] Comment on above: Performed By: #### L ACT #### [facility] [address] [place] [address] Dr. Katlin Ignacio WBC 8.5 103/ul Normal 4.0-11.0 [facility] Comment on above: Performed By: #### L ACT #### [facility] [address] [place] [address] Dr. Katlin Ignacio MAGNESIUMon 12-11-2022 Magnesium [Mass/Vol] 1.8 mg/dL Normal 1.8-2.4 [facility] Comment on above: Performed By: #### U KATARINA, MG, RENAL #### [facility] [address] [place] [address] Dr. Katlin Ignacio RENAL FUNCTION PANELon 12-11 Albumin [Mass/Vol] 3.6 g/dL Normal 3.4-5.0 [facility] Comment on above: Performed By: #### U KATARINA, MG, RENAL #### [facility] [address] [place] [address] Dr. Katlin Ignacio Calcium [Mass/Vol] 9.1 mg/dL Normal 8.5-10.1 [facility] Comment on above: Performed By: #### U KATARINA, MG, RENAL #### [facility] [address] [place] [address] Dr. Katlin Ignacio Chloride [Moles/Vol] 107 mmol/L Normal 98-107 [facility] Comment on above: Performed By: #### U KATARINA, MG, RENAL #### [facility] [address] [place] [address] Dr. Katlin Ignacio CO2 [Moles/Vol] 26.8 mmol/L Normal 21.0-32.0 [facility] Comment on above: Performed By: #### U KATARINA, MG, RENAL #### [facility] [address] [address] [address] Katlin Ignacio Creatinine [Mass/Vol] 1.26 mg/dL Normal 0.70-1.30 [facility] Comment on above: Performed By: #### U KATARINA, MG, RENAL #### [facility] [address] [address] [address] Katlin Ignacio EGFR-AF ARMENIAN >60 Normal >=60 [facility] Comment on above: Performed By: #### U KATARINA, MG, RENAL #### [facility] [address] [address] [address] Katlin Ignacio EGFR-NON AF ARMENIAN 54 mL/min/1.73m2 Critically low >=60 [facility] Comment on above: Performed By: #### U KATARINA, MG, RENAL #### [facility] [address] [address] [address] Katlin Ignacio Glucose [Mass/Vol] 151 mg/dL Critically high 74-106 [facility] Comment on above: Performed By: #### U KATARINA, MG, RENAL #### [facility] [address] [address] [address] Katlin Ignacio Phosphate [Mass/Vol] 3.8 mg/dL Normal 2.6-4.7 [facility] Comment on above: Performed By: #### U KATARINA, MG, RENAL #### [facility] [address] [address] [address] Katlin Ignacio Potassium [Moles/Vol] 4.5 mmol/L Normal 3.5-5.1 [facility] Comment on above: Performed By: #### U KATARINA, MG, RENAL #### [facility] [address] [address] [address] Katlin Ignacio Sodium [Moles/Vol] 144 mmol/L Normal 136-145 [facility] Comment on above: Performed By: #### U KATARINA, MG, RENAL #### [facility] [address] [address] [address] Katlin Ignacio Urea nitrogen [Mass/Vol] 19.0 mg/dL Critically high 7.0-18.0 [facility] Comment on above: Performed By: #### U KATARINA, MG, RENAL #### [facility] [address] [address] [address] Katlin Ignacio UA RANDOM W/MICROSCOPICon BACTERIA TRACE Abnormal NONE SEEN [facility] Comment on above: Performed By: #### L ACT #### [facility] [address] [place] [address] Dr. Katlin Ignacio Bilirubin Ql (U) Negative Normal NEGATIVE [facility] Comment on above: Performed By: #### L ACT #### [facility] [address] [address] [address] Katlin Ignacio CAST NONE SEEN Normal NONE SEEN [facility] Comment on above: Performed By: #### L ACT #### [facility] [address] [place] [address] Dr. Katlin Ignacio Clarity (U) CLEAR Normal CLEAR [facility] Comment on above: Performed By: #### L ACT #### [facility] [address] [address] [address] Katlin Ignacio Color (U) YELLOW Normal YELLOW [facility] Comment on above: Performed By: #### L ACT #### [facility] [address] [place] [address] Dr. Katlin Ignacio Crystals LM Nom (Urine sed) NONE SEEN Normal NONE SEEN [facility] Comment on above: Performed By: #### L ACT #### [facility] [address] [place] [address] Dr. Katlin Ignacio Epithelial cells LM Ql (Urine sed) RARE Normal NONE SEEN /RARE [facility] Comment on above: Performed By: #### L ACT #### [facility] [address] [place] [address] Dr. Katlin Ignacio Glucose Ql (U) >1000 Abnormal NEGATIVE [facility] Comment on above: Performed By: #### L ACT #### [facility] [address] [place] [address] Dr. Katlin Ignacio Hemoglobin Ql (U) TRACE-LYSED Abnormal NEGATIVE [facility] Comment on above: Performed By: #### L ACT #### [facility] [address] [place] [address] Dr. Katlin Ignacio Ketones Ql (U) Negative Normal NEGATIVE [facility] Comment on above: Performed By: #### L ACT #### [facility] [address] [place] [address] Dr. Katlin Ignacio LEUKOCYTES SMALL Abnormal NEGATIVE [facility] Comment on above: Performed By: #### L ACT #### [facility] [address] [place] [address] Dr. Katlin Ignacio MUCOUS NONE SEEN Normal NONE SEEN [facility] Comment on above: Performed By: #### L ACT #### [facility] [address] [place] [address] Dr. Katlin Ignacio Nitrite Ql (U) Negative Normal NEGATIVE [facility] Comment on above: Performed By: #### L ACT #### [facility] [address] [place] [address] Dr. Katlin Ignacio pH (U) 6.0 [pH] Normal 5-9 [facility] Comment on above: Performed By: #### L ACT #### [facility] [address] [place] [address] Dr. Katlin Ignacio RBC 2-5 Abnormal 0-2 [facility] Comment on above: Performed By: #### L ACT #### [facility] [address] [place] [address] Dr. Katlin Ignacio SPEC GRAVITY 1.015 Normal 1.005-<=1.025 [facility] Comment on above: Performed By: #### L ACT #### [facility] [address] [place] [address] Dr. Katlin Ignacio UA PROTEIN 30 mg/dl Abnormal NEGATIVE/ TRACE [facility] Comment on above: Performed By: #### L ACT #### [facility] [address] [place] [address] Dr. Katlin Ignacio Urobilinogen Qn (U) 0.2 {Yang'U}/dL Normal 0.2 - 1.0 [facility] Comment on above: Performed By: #### L ACT #### [facility] [address] [place] [address] Dr. Katlin Ignacio WBC 10-20 Abnormal NONE SEEN [facility] Comment on above: Performed By: #### L ACT #### [facility] [address] [address] [address] Katlin Ignacio URIC ACID SERUMon 12-11-2022 Urate [Mass/Vol] 5.9 mg/dL Normal 3.5-7.2 [facility] Comment on above: Performed By: #### U KATARINA, MG, RENAL #### [facility] [address] [address] [address] Katlin Ignacio URINE T PROTEIN CREAT RATIOo n 12-11-2022 Protein (U) [Mass/Vol] 53.7 mg/dL Critically high <=12.0 [facility] Comment on above: Performed By: #### L ACT #### [facility] [address] [place] [address] Dr. Katlin Ignacio UR PROT CREAT RAT 1.04 Normal [facility] Comment on above: Performed By: #### L ACT #### [facility] [address] [place] [address] Dr. Katlin Ignacio URINE CREAT 51.68 mg/dL Normal 20.00-300.00 [facility] Comment on above: Performed By: #### L ACT #### [facility] [address] [place] [address] Dr. Katlin Ignacio VITAMIN D 25 OHon 12-11-2022 VIT D 25-OH 58.2 ng/mL Normal [facility] Comment on above: Performed By: #### U KATARINA, MG, RENAL #### [facility] [address] [place] [address] Dr. Katlin Ignacio VIT D RANGES SEE BELOW Normal [facility] Comment on above: Result Comment: <20 ng/mL Vit D deficient 20 - <30 ng/mL Vit D insufficient 30 - 100 ng/mL Vit D sufficient >100 ng/mL Potential Toxicity Performed By: #### U KATARINA, MG, RENAL #### [facility] [address] [place] [address] Dr. Katlin Ignacio ECHOCARDIO M/2D COMPLETEon 0 11-05-2022 ECHOCARDIO M/2D COMPLETE Patient: PURA DÍAZ Exam Date: 11/05/2022 : 1935 Gender:M Ordering : SHAIKH Kaycee GRIGSBY . Admission #: [id number] Family : Order #: [id number] CLICK HERE TO VIEW EXAM ECHOCARDIOGRAM REPORT PROCEDURE: CARDIO PULMONARY ECHOCARDIO M/2D COMP INDICATIONS: Syncope, pacemaker/defibrillat or, aortic valve replacement, congestive heart failure, [place] COMPARISON: None. DESCRIPTION: COMPLETE ECHOCARDIOGRAM Real-time transthoracic [...] M.D. on 11/05/2022 at 17:46 Normal [facility] PROF CHEM 8 (BAS METB)on Anion gap [Moles/Vol] 12.5 mmol/L Normal [facility] Comment on above: Performed By: #### B MP #### [facility] [address] [address] [address] Katlin Ignacio Calcium [Mass/Vol] 8.8 mg/dL Normal 8.5-10.1 [facility] Comment on above: Performed By: #### B MP #### [facility] [address] [address] [address] Katlin Ignacio Chloride [Moles/Vol] 106 mmol/L Normal 98-107 [facility] Comment on above: Performed By: #### B MP #### [facility] [address] [address] [address] Katlin Ignacio CO2 [Moles/Vol] 23.3 mmol/L Normal 21.0-32.0 [facility] Comment on above: Performed By: #### B MP #### [facility] [address] [address] [address] Katlin Ignacio Creatinine [Mass/Vol] 1.46 mg/dL Critically high 0.70-1.30 [facility] Comment on above: Performed By: #### B MP #### [facility] [address] [address] [address] Katlin Ignacio EGFR-AF ARMENIAN 55 mL/min/1.73m2 Critically low >=60 [facility] Comment on above: Performed By: #### B MP #### [facility] [address] [address] [address] Katlin Ignacio EGFR-NON AF ARMENIAN 46 mL/min/1.73m2 Critically low >=60 [facility] Comment on above: Performed By: #### B MP #### [facility] [address] [address] [address] Katlin Ignacio Glucose [Mass/Vol] 129 mg/dL Critically high 74-106 [facility] Comment on above: Performed By: #### B MP #### [facility] [address] [address] [address] Katlin Ignacio Potassium [Moles/Vol] 4.8 mmol/L Normal 3.5-5.1 [facility] Comment on above: Performed By: #### B MP #### [facility] [address] [address] [address] Katlin Ignacio Sodium [Moles/Vol] 137 mmol/L Normal 136-145 [facility] Comment on above: Performed By: #### B MP #### [facility] [address] [address] [address] Katlin Ignacio Urea nitrogen [Mass/Vol] 27.0 mg/dL Critically high 7.0-18.0 [facility] Comment on above: Performed By: #### B MP #### [facility] [address] [place] [address] Dr. Katlin Ignacio Urea nitrogen/Creatini ne [Mass ratio] 18.5 mg/mg Normal [facility] Comment on above: Performed By: #### B MP #### [facility] [address] [place] [address] Dr. Katlin Ignacio PROTIMEon 11-05-2022 INR Coag (PPP) [Relative time] 2.65 {INR} Normal [facility] Comment on above: Performed By: #### U KATARINA, MG, RENAL #### [facility] [address] [place] [address] Dr. Katlin Ignacio INR GUIDELINES SEE BELOW Normal [facility] Comment on above: Result Comment: KARMA RED INR: 2.0 - 3.0 CONDITIONS NOT LISTED BELOW 2.5 - 3.5 FOR PROSTHETIC HEART VALVE REPLACEMENT 2.5 - 3.5 RECURRENT THROMBOSIS Performed By: #### U KATARINA, MG, RENAL #### [facility] [address] [place] [address] Dr. Katlin Ignacio PT Coag (PPP) [Time] 26.6 s Critically high 9.0-11.6 [facility] Comment on above: Performed By: #### U KATARINA, MG, RENAL #### [facility] [address] [place] [address] Dr. Katlin Ignacio ACETONE SERUMon 11-04-2022 ACETONE Negative Normal NEGATIVE [facility] Comment on above: Performed By: #### U KATARINA, MG, RENAL #### [facility] [address] [place] [address] Dr. Katlin Ignacio BNPon 11-04-2022 Natriuretic peptide B (Bld) [Mass/Vol] 1633.0 pg/mL Normal <=1,800.0 [facility] Comment on above: Performed By: #### L ACT #### [facility] [address] [place] [address] Dr. Katlin Ignacio CBC AUTO DIFFon 11-04-2022 BASO # 0.1 103/ul Normal 0.0-0.1 [facility] Comment on above: Performed By: #### C BC #### [facility] [address] [address] [address] Katlin Ignacio Basophils/100 WBC (Bld) 0.9 % Normal 0.2-2.0 [facility] Comment on above: Performed By: #### C BC #### [facility] [address] [address] [address] Katlin Ignacio EO # 0.1 103/ul Normal 0.0-0.7 [facility] Comment on above: Performed By: #### C BC #### [facility] [address] [address] [address] Katlin Ignacio Eosinophils/100 WBC (Bld) 1.7 % Normal 0.9-7.0 [facility] Comment on above: Performed By: #### C BC #### [facility] [address] [address] [address] Katlin Ignacio Erythrocyte distribution width (RBC) [Ratio] 19.7 % Critically high 11.0-15.0 [facility] Comment on above: Performed By: #### C BC #### [facility] [address] [place] [address] Dr. Katlin Ignacio Hematocrit (Bld) [Volume fraction] 50.6 % Normal 42.0-54.0 [facility] Comment on above: Performed By: #### C BC #### [facility] [address] [place] [address] Dr. Katlin Ignacio Hemoglobin (Bld) [Mass/Vol] 15.5 g/dL Normal 14.0-18.0 [facility] Comment on above: Performed By: #### C BC #### [facility] [address] [address] [address] Katlin Ignacio IG # 0.04 10e3/ul Critically high 0.00-0.03 [facility] Comment on above: Performed By: #### C BC #### [facility] [address] [address] [address] Katlin Ignacio IG % 0.5 % Normal 0.0-0.5 [facility] Comment on above: Performed By: #### C BC #### [facility] [address] [address] [address] Katlin Ignacio LYMPH # 1.6 103/ul Normal 1.2-3.8 [facility] Comment on above: Performed By: #### C BC #### [facility] [address] [place] [address] Dr. Katlin Ignacio Lymphocytes/100 WBC (Bld) 19.1 % Critically low 20.5-60.0 [facility] Comment on above: Performed By: #### C BC #### [facility] [address] [place] [address] Dr. Katlin Ignacio MANUAL DIFF REQ NO Normal [facility] Comment on above: Performed By: #### C BC #### [facility] [address] [place] [address] Dr. Katlin Ignacio MCH (RBC) [Entitic mass] 24.3 pg Critically low 25.9-34.0 [facility] Comment on above: Performed By: #### C BC #### [facility] [address] [place] [address] Dr. Katlin Ignacio MCHC (RBC) [Mass/Vol] 30.6 g/dL Normal 29.9-35.2 [facility] Comment on above: Performed By: #### C BC #### [facility] [address] [place] [address] Dr. Katlin Ignacio MCV (RBC) [Entitic vol] 79.3 fL Critically low 80.0-94.0 [facility] Comment on above: Performed By: #### C BC #### [facility] [address] [place] [address] Dr. Katlin Ignacio MONO # 0.6 103/ul Normal 0.3-0.8 [facility] Comment on above: Performed By: #### C BC #### [facility] [address] [place] [address] Dr. Katlin Ignacio Monocytes/100 WBC (Bld) 7.1 % Normal 1.7-12.0 [facility] Comment on above: Performed By: #### C BC #### [facility] [address] [address] [address] Katlin Ignacio NEUT # 5.8 103/ul Normal 1.4-6.5 [facility] Comment on above: Performed By: #### C BC #### [facility] [address] [address] [address] Katlin Ignacio Neutrophils/100 WBC (Bld) 70.7 % Normal 43.0-75.0 [facility] Comment on above: Performed By: #### C BC #### [facility] [address] [place] [address] Dr. Katlin Ignacio Platelet mean volume (Bld) [Entitic vol] 9.2 fL Critically low 9.5-13.5 [facility] Comment on above: Performed By: #### C BC #### [facility] [address] [place] [address] Dr. Katlin Ignacio PLT 217 103/ul Normal 150-450 [facility] Comment on above: Performed By: #### C BC #### [facility] [address] [place] [address] Dr. Katlin Ignacio RBC 6.38 106/ul Critically high 4.70-6.10 [facility] Comment on above: Performed By: #### C BC #### [facility] [address] [place] [address] Dr. Katlin Ignacio WBC 8.2 103/ul Normal 4.0-11.0 [facility] Comment on above: Performed By: #### C BC #### [facility] [address] [place] [address] HEAD WO CONon [...] destructive lesion. Partial right mastoid effusion. Bilateral [place] ocular lens replacements. Paranasal sinuses: No air [...] GRAZYNA PULIDO Date: 2022-11-04 15:23 Normal [facility] Covid-19 PCR (CVDTBH)on 10-07 SARS-CoV-2 (COVID-19) RNA JOHN+probe Ql (Unsp spec) Not detected Normal NOT DETECTED [facility] Comment on above: Result Comment: When diagnostic [...] for this test is supported by the Psychology Assistant of Health and Human Service's declaration that [...] used). Performed By: #### C VDTBH #### [facility] [address] [place] [address] Dr. Katlin Ignacio ER URINE PROFILEon 3 Bilirubin Ql (U) Negative Normal NEGATIVE [facility] Comment on above: Performed By: #### U KATARINA, MG, RENAL #### [facility] [address] [place] [address] Dr. Katlin Ignacio Clarity (U) CLEAR Normal CLEAR [facility] Comment on above: Performed By: #### U KATARINA, MG, RENAL #### [facility] [address] [place] [address] Dr. Katlin Ignacio Color (U) LT. YELLOW Normal YELLOW [facility] Comment on above: Performed By: #### U KATARINA, MG, RENAL #### [facility] [address] [address] [address] Katlin GRANADOS A micrscopic examination will be performed if indicated. Normal [facility] Comment on above: Performed By: #### U KATARINA, MG, RENAL #### [facility] [address] [address] [address] Katlin Ignacio Glucose Ql (U) 1000 mg/dl Abnormal NEGATIVE [facility] Comment on above: Performed By: #### U KATARINA, MG, RENAL #### [facility] [address] [address] [address] Katlin Ignacio Hemoglobin Ql (U) Negative Normal NEGATIVE [facility] Comment on above: Performed By: #### U KATARINA, MG, RENAL #### [facility] [address] [place] [address] Dr. Katlin Ignacio Ketones Ql (U) Negative Normal NEGATIVE [facility] Comment on above: Performed By: #### U KATARINA, MG, RENAL #### [facility] [address] [address] [address] Katlin Ignacio LEUKOCYTES Negative Normal NEGATIVE [facility] Comment on above: Performed By: #### U KATARINA, MG, RENAL #### [facility] [address] [place] [address] Dr. Katlin Ignacio Nitrite Ql (U) Negative Normal NEGATIVE [facility] Comment on above: Performed By: #### U KATARINA, MG, RENAL #### [facility] [address] [address] [address] Katlin Ignacio pH (U) 6.5 [pH] Normal 5-9 [facility] Comment on above: Performed By: #### U KATARINA, MG, RENAL #### [facility] [address] [address] [address] Katlin Ignacio SPEC GRAVITY 1.015 Normal 1.005-<=1.025 [facility] Comment on above: Performed By: #### U KATARINA, MG, RENAL #### [facility] [address] [place] [address] Dr. Katlin Ignacio UA PROTEIN Negative Normal NEGATIVE/ TRACE [facility] [facility] Comment on above: Performed By: #### U KATARINA, MG, RENAL #### [facility] [address] [place] [address] Dr. Katlin Ignacio UR MICRO IND NOT INDICATED Normal [facility] Comment on above: Performed By: #### U KATARINA, MG, RENAL #### [facility] [address] [place] [address] Dr. Katlin Ignacio Urobilinogen Qn (U) 1.0 {Yang'U}/dL Normal 0.2 - 1.0 [facility] Comment on above: Performed By: #### U KATARINA, MG, RENAL #### [facility] [address] [place] [address] Dr. Katlin Ignacio POINT OF CARE GLUCOSEon 10-07 Glucose [Mass/Vol] 200 mg/dL Critically high 74-106 [facility] Comment on above: Performed By: #### U AMIC #### [facility] [address] [place] [address] Dr. Katlin Ignacio PROF 14(COMP METB)on 023 Albumin [Mass/Vol] 3.4 g/dL Normal 3.4-5.0 [facility] Comment on above: Performed By: #### L ACT #### [facility] [address] [place] [address] Dr. Katlin Ignacio Albumin/Globulin [Mass ratio] 0.9 {ratio} Normal [facility] Comment on above: Performed By: #### L ACT #### [facility] [address] [place] [address] Dr. Katlin Ignacio ALP [Catalytic activity/Vol] 102 U/L Normal 46-116 [facility] Comment on above: Performed By: #### L ACT #### [facility] [address] [place] [address] Dr. Katlin Ignacio ALT [Catalytic activity/Vol] 23 U/L Normal 16-63 [facility] Comment on above: Performed By: #### L ACT #### [facility] [address] [place] [address] Dr. Katlin Ignacio Anion gap [Moles/Vol] 15.0 mmol/L Normal [facility] Comment on above: Performed By: #### L ACT #### [facility] [address] [address] [address] Katlin Ignacio AST [Catalytic activity/Vol] 26 U/L Normal 15-37 [facility] Comment on above: Performed By: #### L ACT #### [facility] [address] [address] [address] Katlin Ignacio Bilirubin [Mass/Vol] 0.6 mg/dL Normal 0.2-1.0 [facility] Comment on above: Performed By: #### L ACT #### [facility] [address] [place] [address] Dr. Katlin Ignacio Calcium [Mass/Vol] 9.0 mg/dL Normal 8.5-10.1 [facility] Comment on above: Performed By: #### L ACT #### [facility] [address] [address] [address] Katlin Ignacio Chloride [Moles/Vol] 104 mmol/L Normal 98-107 [facility] Comment on above: Performed By: #### L ACT #### [facility] [address] [place] [address] Dr. Katlin Ignacio CO2 [Moles/Vol] 24.4 mmol/L Normal 21.0-32.0 [facility] Comment on above: Performed By: #### L ACT #### [facility] [address] [address] [address] Katlin Ignacio Creatinine [Mass/Vol] 1.86 mg/dL Critically high 0.70-1.30 [facility] Comment on above: Performed By: #### L ACT #### [facility] [address] [place] [address] Dr. Katlin Ignacio EGFR-AF ARMENIAN 42 mL/min/1.73m2 Critically low >=60 [facility] Comment on above: Performed By: #### L ACT #### [facility] [address] [address] [address] Katlin Ignacio EGFR-NON AF ARMENIAN 35 mL/min/1.73m2 Critically low >=60 [facility] Comment on above: Performed By: #### L ACT #### [facility] [address] [address] [address] Katlin Ignacio Globulin (S) [Mass/Vol] 3.8 g/dL Normal [facility] Comment on above: Performed By: #### L ACT #### [facility] [address] [address] [address] Katlin Ignacio Glucose [Mass/Vol] 131 mg/dL Critically high 74-106 [facility] Comment on above: Performed By: #### L ACT #### [facility] [address] [address] [address] Katlin Ignacio Potassium [Moles/Vol] 5.4 mmol/L Critically high 3.5-5.1 [facility] Comment on above: Performed By: #### L ACT #### [facility] [address] [place] [address] Dr. Katlin Ignacio Protein [Mass/Vol] 7.2 g/dL Normal 6.4-8.2 [facility] Comment on above: Performed By: #### L ACT #### [facility] [address] [place] [address] Dr. Katlin Ignacio Sodium [Moles/Vol] 138 mmol/L Normal 136-145 [facility] Comment on above: Performed By: #### L ACT #### [facility] [address] [place] [address] Dr. Katlin Ignacio Urea nitrogen [Mass/Vol] 30.0 mg/dL Critically high 7.0-18.0 [facility] Comment on above: Performed By: #### L ACT #### [facility] [address] [place] [address] Dr. Katlin Ignacio Urea nitrogen/Creatini ne [Mass ratio] 16.1 mg/mg Normal [facility] Comment on above: Performed By: #### L ACT #### [facility] [address] [place], [place] [id number] Dr. Katlin Ignacio PROTIMEon 11-04-2022 INR Coag (PPP) [Relative time] 3.79 {INR} Normal [facility] Comment on above: Performed By: #### L ACT #### [facility] [address] [place] [address] Dr. Katlin Ignacio INR GUIDELINES SEE BELOW Normal [facility] Comment on above: Result Comment: KARMA RED INR: 2.0 - 3.0 CONDITIONS NOT LISTED BELOW 2.5 - 3.5 FOR PROSTHETIC HEART VALVE REPLACEMENT 2.5 - 3.5 RECURRENT THROMBOSIS Performed By: #### L ACT #### [facility] [address] [place] [address] Dr. Katlin Ignacio PT Coag (PPP) [Time] 37.3 s Critically high 9.0-11.6 [facility] Comment on above: Performed By: #### L ACT #### [facility] [address] [place] [address] Dr. Katlin Ignacio PTTon 11-04-2022 aPTT Coag (Bld) [Time] 41.8 s Critically high 22.3-36.2 [facility] Comment on above: Performed By: #### L ACT #### [facility] [address] [place] [address] Dr. Katlin Ignacio TROPONIN, HIGH SENSITIVITYon 11-04-2022 HSTROP 11.9 pg/mL Normal 4.0-76.1 [facility] Comment on above: Result Comment: CUT- OFF POINTS HAVE BEEN ESTABLISHED BASED ON THE FOURTH UNIVERSAL DEFINITIONS OF MYOCARDIAL INFARCTION. THE UPPER REFERENCE LIMIT (URL) OF TROPONIN, DEFINED THE 99TH PERCENTILE OF cTnI DISTRIBUTION IN A REFERENCE POPULATION, HAS BEEN CONFIRMED THE DECISION THRESHOLD FOR [place] DIAGNOSIS. Performed By: #### L ACT #### [facility] [address] [place] [address] Dr. Katlin Ignacio TSHon 11-04-2022 TSH 4.488 uIU/mL Critically high 0.358-3.740 [facility] Comment on above: Performed By: #### L ACT #### [facility] [address] [place] [address] Dr. Katlin Ignacio XR CHEST 2 Von [...] JEAN BAPTISTE Date: 2022-11-04 15:26 Normal [facility] PROF CHEM 8 (BAS METB)on Anion gap [Moles/Vol] 12.1 mmol/L Normal [facility] Comment on above: Performed By: #### U AMIC #### [facility] [address] [address] [address] Katlin Ignacio Calcium [Mass/Vol] 9.3 mg/dL Normal 8.5-10.1 [facility] Comment on above: Performed By: #### U AMIC #### [facility] [address] [address] [address] Katlin Ignacio Chloride [Moles/Vol] 103 mmol/L Normal 98-107 [facility] Comment on above: Performed By: #### U AMIC #### [facility] [address] [address] [address] Katlin Ignacio CO2 [Moles/Vol] 28.7 mmol/L Normal 21.0-32.0 [facility] Comment on above: Performed By: #### U AMIC #### [facility] [address] [address] [address] Katlin Ignacio Creatinine [Mass/Vol] 2.15 mg/dL Critically high 0.70-1.30 [facility] Comment on above: Performed By: #### U AMIC #### [facility] [address] [address] [address] Katlin Ignacio EGFR-AF ARMENIAN 35 mL/min/1.73m2 Critically low >=60 [facility] Comment on above: Performed By: #### U AMIC #### [facility] [address] [place], [place] [address] Dr. Katlin Ignacio EGFR-NON AF ARMENIAN 29 mL/min/1.73m2 Critically low >=60 [facility] Comment on above: Performed By: #### U AMIC #### [facility] [address] [id number] [address] Katlin Ignacio Glucose [Mass/Vol] 81 mg/dL Normal 74-106 [facility] Comment on above: Performed By: #### U AMIC #### [facility] [address] [place], [place] [address] Dr. Katlin Ignacio Potassium [Moles/Vol] 4.8 mmol/L Normal 3.5-5.1 [facility] Comment on above: Performed By: #### U AMIC #### [facility] [address] [address] [address] Katlin Ignacio Sodium [Moles/Vol] 139 mmol/L Normal 136-145 [facility] Comment on above: Performed By: #### U AMIC #### [facility] [address] [address] [address] Katlin Ignacio Urea nitrogen [Mass/Vol] 27.0 mg/dL Critically high 7.0-18.0 [facility] Comment on above: Performed By: #### U AMIC #### [facility] [address] [id number] [address] Katlin Ignacio Urea nitrogen/Creatini ne [Mass ratio] 12.6 mg/mg Normal [facility] Comment on above: Performed By: #### U AMIC #### [facility] [address] [place], [place] [address] Dr. Katlin Ignacio TSHon 10-30-2022 TSH 5.069 uIU/mL Critically high 0.358-3.740 [facility] Comment on above: Performed By: #### U AMIC #### [facility] [address] [place], [place] [address] Dr. Katlin Ignacio A1C HEMOGLOBINon 10-21-2022 HbA1c (Bld) [Mass fraction] 7.3 % [employer] Other Glucose - FINGER STICKon Glucose [Mass/Vol] 87 mg/dL [employer] Other HbA1c (Bld) [Mass fraction]o n 10-21-2022 A1C HEMOGLOBIN [employer] ([employer]) Other LIPID PROFILEon 10-20-2022 CHOL-HDL RATIO NORM SEE BELOW Normal [facility] Comment on above: Result Comment: 3.3 - 4.4 LOW RISK 4.4 - 7.1 AVERAGE RISK 7.1 - 11.0 MODERATE RISK >11.0 HIGH RISK Performed By: #### L IPID #### [facility] [address] [address] [address] Katlin Ignacio Cholesterol [Mass/Vol] 108 mg/dL Normal <=200 [facility] Comment on above: Performed By: #### L IPID #### [facility] [address] [address] [address] Katlin Ignacio Cholesterol in HDL [Mass/Vol] 40 mg/dL Normal 40-60 [facility] Comment on above: Performed By: #### L IPID #### [facility] [address] [address] [address] Katlin Ignacio Cholesterol in LDL [Mass/Vol] 45.8 mg/dL Normal [facility] Comment on above: Performed By: #### L IPID #### [facility] [address] [address] [address] Katlin Ignacio Cholesterol.total /Cholesterol in HDL [Mass ratio] 2.7 {ratio} Normal [facility] Comment on above: Performed By: #### L IPID #### [facility] [address] [address] [address] Katlin Ignacio HDL NORMAL > or = 60 mg/dl - LO W CARDIOVASCULAR RISK <40 mg/dl - HIGH CARDIOVASCULAR RISK Normal [facility] Comment on above: Performed By: #### L IPID #### [facility] [address] [address] [address] Katlin Ignacio LDL CALC NORMAL SEE BELOW Normal [facility] Comment on above: Result Comment: <100 mg/dl OPTIMAL 100 - 129 mg/dl NEAR OR ABOVE OPTIMAL 130 - 159 mg/dl BORDERLINE HIGH 160 - 189 mg/dl HIGH >190 mg/dl VERY HIGH Performed By: #### L IPID #### [facility] [address] [place] [address] Dr. Katlin Ignacio Triglyceride [Mass/Vol] 111 mg/dL Normal <=150 [facility] Comment on above: Performed By: #### L IPID #### [facility] [address] [place] [address] Dr. Katlin Ignacio VLDL CALC 22.2 mg/dL Normal [facility] Comment on above: Performed By: #### L IPID #### [facility] [address] [place] [address] Dr. Katlin Ignacio CBC AUTO DIFFon 07-25-2022 BASO # 0.1 103/ul Normal 0.0-0.1 [facility] Comment on above: Performed By: #### L ACT #### [facility] [address] [place] [address] Dr. Katlin Ignacio Basophils/100 WBC (Bld) 1.0 % Normal 0.2-2.0 [facility] Comment on above: Performed By: #### L ACT #### [facility] [address] [place] [address] Dr. Katlin Ignacio EO # 0.1 103/ul Normal 0.0-0.7 [facility] Comment on above: Performed By: #### L ACT #### [facility] [address] [place] [address] Dr. Katlin Ignacio Eosinophils/100 WBC (Bld) 1.0 % Normal 0.9-7.0 [facility] Comment on above: Performed By: #### L ACT #### [facility] [address] [place] [address] Dr. Katlin Ignacio Erythrocyte distribution width (RBC) [Ratio] 19.9 % Critically high 11.0-15.0 [facility] Comment on above: Performed By: #### L ACT #### [facility] [address] [place] [address] Dr. Katlin Ignacio Hematocrit (Bld) [Volume fraction] 53.7 % Normal 42.0-54.0 [facility] Comment on above: Performed By: #### L ACT #### [facility] [address] [address] [address] Katlin Ignacio Hemoglobin (Bld) [Mass/Vol] 16.4 g/dL Normal 14.0-18.0 [facility] Comment on above: Performed By: #### L ACT #### [facility] [address] [address] [address] Katlin Ignacio IG # 0.04 10e3/ul Critically high 0.00-0.03 [facility] Comment on above: Performed By: #### L ACT #### [facility] [address] [place] [address] Dr. Katlin Ignacio IG % 0.4 % Normal 0.0-0.5 [facility] Comment on above: Performed By: #### L ACT #### [facility] [address] [address] [address] Katlin Ignacio LYMPH # 1.7 103/ul Normal 1.2-3.8 [facility] Comment on above: Performed By: #### L ACT #### [facility] [address] [place] [address] Dr. Katlin Ignacio Lymphocytes/100 WBC (Bld) 18.7 % Critically low 20.5-60.0 [facility] Comment on above: Performed By: #### L ACT #### [facility] [address] [address] [address] Katlin Ignacio MANUAL DIFF REQ NO Normal [facility] Comment on above: Performed By: #### L ACT #### [facility] [address] [address] [address] Katlin Ignacio MCH (RBC) [Entitic mass] 24.2 pg Critically low 25.9-34.0 [facility] Comment on above: Performed By: #### L ACT #### [facility] [address] [address] [address] Katlin Ignacio MCHC (RBC) [Mass/Vol] 30.5 g/dL Normal 29.9-35.2 [facility] Comment on above: Performed By: #### L ACT #### [facility] [address] [place] [address] Dr. Katlin Ignacio MCV (RBC) [Entitic vol] 79.2 fL Critically low 80.0-94.0 [facility] Comment on above: Performed By: #### L ACT #### [facility] [address] [place] [address] Dr. Katlin Ignacio MONO # 0.6 103/ul Normal 0.3-0.8 [facility] Comment on above: Performed By: #### L ACT #### [facility] [address] [place] [address] Dr. Katlin Ignacio Monocytes/100 WBC (Bld) 6.7 % Normal 1.7-12.0 [facility] Comment on above: Performed By: #### L ACT #### [facility] [address] [place] [address] Dr. Katlin Ignacio NEUT # 6.5 103/ul Normal 1.4-6.5 [facility] Comment on above: Performed By: #### L ACT #### [facility] [address] [place] [address] Dr. Katlin Ignacio Neutrophils/100 WBC (Bld) 72.2 % Normal 43.0-75.0 [facility] Comment on above: Performed By: #### L ACT #### [facility] [address] [place] [address] Dr. Katlin Ignacio Platelet mean volume (Bld) [Entitic vol] 9.5 fL Normal 9.5-13.5 [facility] Comment on above: Performed By: #### L ACT #### [facility] [address] [place] [address] Dr. Katlin Ignacio PLT 186 103/ul Normal 150-450 [facility] Comment on above: Performed By: #### L ACT #### [facility] [address] [place] [address] Dr. Katlin Ignacio RBC 6.78 106/ul Critically high 4.70-6.10 [facility] Comment on above: Performed By: #### L ACT #### [facility] [address] [place], [place] [address] Dr. Katlin Ignacio WBC 9.0 103/ul Normal 4.0-11.0 [facility] Comment on above: Performed By: #### L ACT #### [facility] [address] [place], [place] [address] [facility] CON CT CERVICAL [...] BASIA YUEN Date: 2022-07-25 17:28 Normal [facility] CON CT MAXILLOFACIAL [...] BASIA YUEN Date: 2022-07-25 17:33 Normal [facility] CT HEAD WO CONon 07-25-2022 CT HEAD [...] BASIA YUEN Date: 2022-07-25 17:25 Normal [facility] PROF CHEM 8 (BAS METB)on Anion gap [Moles/Vol] 10.5 mmol/L Normal [facility] Comment on above: Performed By: #### L ACT #### [facility] [address] [place] [address] Dr. Katlin Ignacio Calcium [Mass/Vol] 8.5 mg/dL Normal 8.5-10.1 [facility] Comment on above: Performed By: #### L ACT #### [facility] [address] [place] [address] Dr. Katlin Ignacio Chloride [Moles/Vol] 105 mmol/L Normal 98-107 [facility] Comment on above: Performed By: #### L ACT #### [facility] [address] [address] [address] Katlin Ignacio CO2 [Moles/Vol] 27.2 mmol/L Normal 21.0-32.0 [facility] Comment on above: Performed By: #### L ACT #### [facility] [address] [address] [address] Katlin Ignacio Creatinine [Mass/Vol] 1.62 mg/dL Critically high 0.70-1.30 [facility] Comment on above: Performed By: #### L ACT #### [facility] [address] [address] [address] Katlin Ignacio EGFR-AF ARMENIAN 49 mL/min/1.73m2 Critically low >=60 [facility] Comment on above: Performed By: #### L ACT #### [facility] [address] [address] [address] Katlin Ignacio EGFR-NON AF ARMENIAN 41 mL/min/1.73m2 Critically low >=60 [facility] Comment on above: Performed By: #### L ACT #### [facility] [address] [place] [address] Dr. Katlin Ignacio Glucose [Mass/Vol] 178 mg/dL Critically high 74-106 [facility] Comment on above: Performed By: #### L ACT #### [facility] [address] [place] [address] Dr. Katlin Ignacio Potassium [Moles/Vol] 4.7 mmol/L Normal 3.5-5.1 [facility] Comment on above: Performed By: #### L ACT #### [facility] [address] [place] [address] Dr. Katlin Ignacio Sodium [Moles/Vol] 138 mmol/L Normal 136-145 [facility] Comment on above: Performed By: #### L ACT #### [facility] [address] [place] [address] Dr. Katlin Ignacio Urea nitrogen [Mass/Vol] 29.0 mg/dL Critically high 7.0-18.0 [facility] Comment on above: Performed By: #### L ACT #### [facility] [address] [place] [address] Dr. Katlin Ignacio Urea nitrogen/Creatini ne [Mass ratio] 17.9 mg/mg Normal [facility] Comment on above: Performed By: #### L ACT #### [facility] [address] [place] [address] Dr. Katlin Ignacio PROTIMEon 07-25-2022 INR Coag (PPP) [Relative time] 2.12 {INR} Normal [facility] Comment on above: Performed By: #### U AMIC #### [facility] [address] [address] [address] Katlin Ignacio INR GUIDELINES SEE BELOW Normal [facility] Comment on above: Result Comment: KARMA RED INR: 2.0 - 3.0 CONDITIONS NOT LISTED BELOW 2.5 - 3.5 FOR PROSTHETIC HEART VALVE REPLACEMENT 2.5 - 3.5 RECURRENT THROMBOSIS Performed By: #### U AMIC #### [facility] [address] [address] [address] Katlin Ignacio PT Coag (PPP) [Time] 21.8 s Critically high 9.0-11.6 [facility] Comment on above: Performed By: #### U AMIC #### [facility] [address] [address] [address] Katlin Ignacio PTTon 07-25-2022 aPTT Coag (Bld) [Time] 34.1 s Normal 22.3-36.2 [facility] Comment on above: Performed By: #### L ACT #### [facility] [address] [address] [address] Katlin Ignacio XR CHEST 1 Von [...] ANT SANCHEZ Date: 2022-07-25 17:46 Normal [facility] XR SHOULDER LACY 2V or >on XR [...] ANT SANCHEZ Date: 2022-07-25 17:48 Normal [facility] A1C HEMOGLOBINon 07-08-2022 HbA1c (Bld) [Mass fraction] 7.1 % [employer] Other Glucose - FINGER STICKon Glucose [Mass/Vol] 98 mg/dL [facility] [employer] Other HbA1c (Bld) [Mass fraction]o n 07-08-2022 A1C HEMOGLOBIN [facility] [employer] ([employer] Other PTH INTACTon 06-17-2022 PTH, Intact 40 pg/mL Normal 15-65 [facility] Comment on above: Performed By: #### U KATARINA, MG, RENAL #### [facility] [address] [place], [place] [address] Dr. Katlin Ignacio VIT D 25-OH [facility] 2021 Vitamin D, 25-Hydroxy 38.3 ng/mL Normal 30.0-100.0 [facility] Comment on above: Result Comment: Lexis min D deficiency has been defined by the [place] [employer] and an Endocrine Society practice guideline as a level of serum 25-OH vitamin D less than 20 ng/mL (1,2). The Endocrine Society went on to further define vitamin D insufficiency as a level between 21 and 29 ng/mL (2). 1. IOM ([place] [employer]). 2010. Dietary reference intakes for calcium and D. [place]: The National Academies Press. 2. Bismark MF, Jess [place], Dana GIBBONS, et al. Evaluation, treatment, and prevention of vitamin D deficiency: an Endocrine Society clinical practice guideline. JCEM. 2010; 96(7):1911-30. Performed By: #### U AMIC #### [facility] [address] [place], [place] [address] Dr. Katlin Ignacio HEMOGRAM AND PLATELon 2021 Hematocrit (Bld) [Volume fraction] 55.1 % Critically high 42.0-54.0 [facility] Comment on above: Performed By: #### U KATARINA, MG, RENAL #### [facility] [address] [place] [address] Dr. Katlin Ignacio Hemoglobin (Bld) [Mass/Vol] 16.7 g/dL Normal 14.0-18.0 [facility] Comment on above: Performed By: #### U KATARINA, MG, RENAL #### [facility] [address] [place] [address] Dr. Katlin Ignacio MCH (RBC) [Entitic mass] 24.1 pg Critically low 25.9-34.0 [facility] Comment on above: Performed By: #### U KATARINA, MG, RENAL #### [facility] [address] [place] [address] Dr. Katlin Ignacio MCHC (RBC) [Mass/Vol] 30.3 g/dL Normal 29.9-35.2 [facility] Comment on above: Performed By: #### U KATARINA, MG, RENAL #### [facility] [address] [place] [address] Dr. Katlin Ignacio MCV (RBC) [Entitic vol] 79.5 fL Critically low 80.0-94.0 [facility] Comment on above: Performed By: #### U KATARINA, MG, RENAL #### [facility] [address] [place] [address] Dr. Katlin Ignacio PLT 201 103/ul Normal 150-450 [facility] Comment on above: Performed By: #### U KATARINA, MG, RENAL #### [facility] [address] [place] [address] Dr. Katlin Ignacio RBC 6.93 106/ul Critically high 4.70-6.10 [facility] Comment on above: Performed By: #### U KATARINA, MG, RENAL #### [facility] [address] [place] [address] Dr. Katlin Ignacio WBC 10.1 103/ul Normal 4.0-11.0 [facility] Comment on above: Performed By: #### U KATARINA, MG, RENAL #### [facility] [address] [place] [address] Dr. Katlin Ignacio MAGNESIUMon 06-16-2022 Magnesium [Mass/Vol] 2.2 mg/dL Normal 1.8-2.4 [facility] Comment on above: Performed By: #### U KATARINA, MG, RENAL #### [facility] [address] [address] [address] Katlin Ignacio RENAL FUNCTION PANELon 06-16 Albumin [Mass/Vol] 3.5 g/dL Normal 3.4-5.0 [facility] Comment on above: Performed By: #### U KATARINA, MG, RENAL #### [facility] [address] [place] [address] Dr. Katlin Ignacio Calcium [Mass/Vol] 9.3 mg/dL Normal 8.5-10.1 [facility] Comment on above: Performed By: #### U KATARINA, MG, RENAL #### [facility] [address] [place] [address] Dr. Katlin Ignacio Chloride [Moles/Vol] 104 mmol/L Normal 98-107 [facility] Comment on above: Performed By: #### U KATARINA, MG, RENAL #### [facility] [address] [place] [address] Dr. Katlin Ignacio CO2 [Moles/Vol] 26.8 mmol/L Normal 21.0-32.0 [facility] Comment on above: Performed By: #### U KATARINA, MG, RENAL #### [facility] [address] [place] [address] Dr. Katlin Ignacio Creatinine [Mass/Vol] 1.44 mg/dL Critically high 0.70-1.30 [facility] Comment on above: Performed By: #### U KATARINA, MG, RENAL #### [facility] [address] [place] [address] Dr. Katlin Ignacio EGFR-AF ARMENIAN 57 mL/min/1.73m2 Critically low >=60 [facility] Comment on above: Performed By: #### U KATARINA, MG, RENAL #### [facility] [address] [place] [address] Dr. Katlin Ignacio EGFR-NON AF ARMENIAN 47 mL/min/1.73m2 Critically low >=60 [facility] Comment on above: Performed By: #### U KATARINA, MG, RENAL #### [facility] [address] [address] [address] Katlin Ignacio Glucose [Mass/Vol] 227 mg/dL Critically high 74-106 [facility] Comment on above: Performed By: #### U KATARINA, MG, RENAL #### [facility] [address] [place] [address] Dr. Katlin Ignacio Phosphate [Mass/Vol] 3.5 mg/dL Normal 2.6-4.7 [facility] Comment on above: Performed By: #### U KATARINA, MG, RENAL #### [facility] [address] [place] [address] Dr. Katlin Ignacio Potassium [Moles/Vol] 4.7 mmol/L Normal 3.5-5.1 [facility] Comment on above: Performed By: #### U KATARINA, MG, RENAL #### [facility] [address] [place] [address] Dr. Katlin Ignacio Sodium [Moles/Vol] 141 mmol/L Normal 136-145 [facility] Comment on above: Performed By: #### U KATARINA, MG, RENAL #### [facility] [address] [place] [address] Dr. Katlin Ignacio Urea nitrogen [Mass/Vol] 23.0 mg/dL Critically high 7.0-18.0 [facility] Comment on above: Performed By: #### U KATARINA, MG, RENAL #### [facility] [address] [place] [address] Dr. Katlin Ignacio UA RANDOM W/MICROSCOPICon AMORPHOUS CRYSTALS RARE Normal [facility] Comment on above: Performed By: #### U AMIC #### [facility] [address] [place] [address] Dr. Katlin Ignacio BACTERIA TRACE Abnormal NONE SEEN [facility] Comment on above: Performed By: #### U AMIC #### [facility] [address] [place] [address] Dr. Katlin Ignacio Bilirubin Ql (U) Negative Normal NEGATIVE [facility] Comment on above: Performed By: #### U AMIC #### [facility] [address] [address] [address] Katlin Ignacio CAST NONE SEEN Normal NONE SEEN [facility] Comment on above: Performed By: #### U AMIC #### [facility] [address] [address] [address] Katlin Ignacio Clarity (U) SL CLOUDY Abnormal CLEAR [facility] Comment on above: Performed By: #### U AMIC #### [facility] [address] [address] [address] Katlin Ignacio Color (U) YELLOW Normal YELLOW [facility] Comment on above: Performed By: #### U AMIC #### [facility] [address] [address] [address] Katlin Ignacio Crystals LM Nom (Urine sed) SEEN Abnormal NONE SEEN [facility] Comment on above: Performed By: #### U AMIC #### [facility] [address] [address] [address] Katlin Ignacio Epithelial cells LM Ql (Urine sed) FEW Abnormal NONE SEEN /RARE [facility] Comment on above: Performed By: #### U AMIC #### [facility] [address] [address] [address] Katlin Ignacio Glucose Ql (U) 1000 mg/dl Abnormal NEGATIVE [facility] Comment on above: Performed By: #### U AMIC #### [facility] [address] [address] [address] Katlin Ignacio Hemoglobin Ql (U) Negative Normal NEGATIVE [facility] Comment on above: Performed By: #### U AMIC #### [facility] [address] [address] [address] Katlin Ignacio Ketones Ql (U) TRACE Abnormal NEGATIVE [facility] Comment on above: Performed By: #### U AMIC #### [facility] [address] [address] [address] Katlin Ignacio LEUKOCYTES Negative Normal NEGATIVE [facility] Comment on above: Performed By: #### U AMIC #### [facility] [address] [address] [address] Katlin Ignacio MUCOUS NONE SEEN Normal NONE SEEN [facility] Comment on above: Performed By: #### U AMIC #### [facility] [address] [address] [address] Katlin Ignacio Nitrite Ql (U) Negative Normal NEGATIVE [facility] Comment on above: Performed By: #### U AMIC #### [facility] [address] [address] [address] Katlin Ignacio pH (U) 6.0 [pH] Normal 5-9 [facility] Comment on above: Performed By: #### U AMIC #### [facility] [address] [place] [address] Dr. Katlin Ignacio RBC 0-2 Normal 0-2 [facility] Comment on above: Performed By: #### U AMIC #### [facility] [address] [place] [address] Dr. Katlin Ignacio SPEC GRAVITY 1.010 Normal 1.005-<=1.025 [facility] Comment on above: Performed By: #### U AMIC #### [facility] [address] [place] [address] Dr. Katlin Ignacio UA PROTEIN Negative Normal NEGATIVE/ TRACE [facility] Comment on above: Performed By: #### U AMIC #### [facility] [address] [place] [address] Dr. Katlin Ignacio Urobilinogen Qn (U) 1.0 {Yang'U}/dL Normal 0.2 - 1.0 [facility] Comment on above: Performed By: #### U AMIC #### [facility] [address] [place] [address] Dr. Katlin Ignacio WBC 0-2 Abnormal NONE SEEN [facility] Comment on above: Performed By: #### U AMIC #### [facility] [address] [place] [address] Dr. Katlin Ignacio URIC ACID SERUMon 06-16-2022 Urate [Mass/Vol] 5.9 mg/dL Normal 3.5-7.2 [facility] Comment on above: Performed By: #### U KATARINA, MG, RENAL #### [facility] [address] [place] [address] Dr. Katlin Ignacio URINE T PROTEIN CREAT RATIOo n 06-16-2022 Protein (U) [Mass/Vol] 23.2 mg/dL Critically high <=12.0 [facility] Comment on above: Performed By: #### U KATARINA, MG, RENAL #### [facility] [address] [place] [address] Dr. Katlin Ignacio UR PROT CREAT RAT 0.38 Normal [facility] Comment on above: Performed By: #### U KATARINA, MG, RENAL #### [facility] [address] [place] [address] Dr. Katlin Ignacio URINE CREAT 61.73 mg/dL Normal 20.00-300.00 [facility] Comment on above: Performed By: #### U KATARINA, MG, RENAL #### [facility] [address] [place] [address] Dr. Katlin Ignacio CBC AUTO DIFFon 06-06-2022 BASO # 0.1 103/ul Normal 0.0-0.1 [facility] Comment on above: Performed By: #### U KATARINA, MG, RENAL #### [facility] [address] [place] [address] Dr. Katlin Ignacio Basophils/100 WBC (Bld) 0.7 % Normal 0.2-2.0 [facility] Comment on above: Performed By: #### U KATARINA, MG, RENAL #### [facility] [address] [place] [address] Dr. Katlin Ignacio EO # 0.2 103/ul Normal 0.0-0.7 [facility] Comment on above: Performed By: #### U KATARINA, MG, RENAL #### [facility] [address] [place] [address] Dr. Katlin Ignacio Eosinophils/100 WBC (Bld) 2.4 % Normal 0.9-7.0 [facility] Comment on above: Performed By: #### U KATARINA, MG, RENAL #### [facility] [address] [place] [address] Dr. Katlin Ignacio Erythrocyte distribution width (RBC) [Ratio] 19.4 % Critically high 11.0-15.0 [facility] Comment on above: Performed By: #### U KATARINA, MG, RENAL #### [facility] [address] [place] [address] Dr. Katlin Ignacio Hematocrit (Bld) [Volume fraction] 52.4 % Normal 42.0-54.0 [facility] Comment on above: Performed By: #### U KATARINA, MG, RENAL #### [facility] [address] [place] [address] Dr. Katlin Ignacio Hemoglobin (Bld) [Mass/Vol] 15.9 g/dL Normal 14.0-18.0 [facility] Comment on above: Performed By: #### U KATARINA, MG, RENAL #### [facility] [address] [place] [address] Dr. Katlin Ignacio IG # 0.03 10e3/ul Normal 0.00-0.03 [facility] Comment on above: Performed By: #### U KATARINA, MG, RENAL #### [facility] [address] [place] [address] Dr. Katlin Ignacio IG % 0.4 % Normal 0.0-0.5 [facility] Comment on above: Performed By: #### U KATARINA, MG, RENAL #### [facility] [address] [place] [address] Dr. Katlin Ignacio LYMPH # 1.8 103/ul Normal 1.2-3.8 [facility] Comment on above: Performed By: #### U KATARINA, MG, RENAL #### [facility] [address] [place] [address] Dr. Katlin Ignacio Lymphocytes/100 WBC (Bld) 23.4 % Normal 20.5-60.0 [facility] Comment on above: Performed By: #### U KATARINA, MG, RENAL #### [facility] [address] [place] [address] Dr. Katlin Ignacio MANUAL DIFF REQ NO Normal [facility] Comment on above: Performed By: #### U KATARINA, MG, RENAL #### [facility] [address] [address] [address] Katlin Ignacio MCH (RBC) [Entitic mass] 24.0 pg Critically low 25.9-34.0 [facility] Comment on above: Performed By: #### U KATARINA, MG, RENAL #### [facility] [address] [place] [address] Dr. Katlin Ignacio MCHC (RBC) [Mass/Vol] 30.3 g/dL Normal 29.9-35.2 [facility] Comment on above: Performed By: #### U KATARINA, MG, RENAL #### [facility] [address] [place] [address] Dr. Katlin Ignacio MCV (RBC) [Entitic vol] 79.2 fL Critically low 80.0-94.0 [facility] Comment on above: Performed By: #### U KATARINA, MG, RENAL #### [facility] [address] [place] [address] Dr. Katlin Ignacio MONO # 0.6 103/ul Normal 0.3-0.8 [facility] Comment on above: Performed By: #### U KATARINA, MG, RENAL #### [facility] [address] [place] [address] Dr. Katlin Ignacio Monocytes/100 WBC (Bld) 7.7 % Normal 1.7-12.0 [facility] Comment on above: Performed By: #### U KATARINA, MG, RENAL #### [facility] [address] [place] [address] Dr. Katlin Ignacio NEUT # 5.0 103/ul Normal 1.4-6.5 [facility] Comment on above: Performed By: #### U KATARINA, MG, RENAL #### [facility] [address] [place] [address] Dr. Katlin Ignacio Neutrophils/100 WBC (Bld) 65.4 % Normal 43.0-75.0 [facility] Comment on above: Performed By: #### U KATARINA, MG, RENAL #### [facility] [address] [place] [address] Dr. Katlin Ignacio Platelet mean volume (Bld) [Entitic vol] 9.3 fL Critically low 9.5-13.5 [facility] Comment on above: Performed By: #### U KATARINA, MG, RENAL #### [facility] [address] [address] [address] Katlin Ignacio PLT 184 103/ul Normal 150-450 [facility] Comment on above: Performed By: #### U KATARINA, MG, RENAL #### [facility] [address] [address] [address] Katlin Ignacio RBC 6.62 106/ul Critically high 4.70-6.10 [facility] Comment on above: Performed By: #### U KATARINA, MG, RENAL #### [facility] [address] [address] [address] Katlin Ignacio WBC 7.6 103/ul Normal 4.0-11.0 [facility] Comment on above: Performed By: #### U KATARINA, MG, RENAL #### [facility] [address] [address] [address] Katlin Ignacio LIPID PROFILEon 06-06-2022 CHOL-HDL RATIO NORM SEE BELOW Normal [facility] Comment on above: Result Comment: 3.3 - 4.4 LOW RISK 4.4 - 7.1 AVERAGE RISK 7.1 - 11.0 MODERATE RISK >11.0 HIGH RISK Performed By: #### U AMIC #### [facility] [address] [address] [address] Katlin Ignacio Cholesterol [Mass/Vol] 122 mg/dL Normal <=200 [facility] Comment on above: Performed By: #### U AMIC #### [facility] [address] [address] [address] Katlin Ignacio Cholesterol in HDL [Mass/Vol] 34 mg/dL Critically low 40-60 [facility] Comment on above: Performed By: #### U AMIC #### [facility] [address] [address] [address] Katlin Ignacio Cholesterol in LDL [Mass/Vol] 69.6 mg/dL Normal [facility] Comment on above: Performed By: #### U AMIC #### [facility] [address] [address] [address] Katlin Ignacio Cholesterol.total /Cholesterol in HDL [Mass ratio] 3.6 {ratio} Normal [facility] Comment on above: Performed By: #### U AMIC #### [facility] [address] [address] [address] Katlin Ignacio HDL NORMAL > or = 60 mg/dl - LO W CARDIOVASCULAR RISK <40 mg/dl - HIGH CARDIOVASCULAR RISK Normal [facility] Comment on above: Performed By: #### U AMIC #### [facility] [address] [address] [address] Katlin Ignacio LDL CALC NORMAL SEE BELOW Normal [facility] Comment on above: Result Comment: <100 mg/dl OPTIMAL 100 - 129 mg/dl NEAR OR ABOVE OPTIMAL 130 - 159 mg/dl BORDERLINE HIGH 160 - 189 mg/dl HIGH >190 mg/dl VERY HIGH Performed By: #### U AMIC #### [facility] [address] [address] [address] Katlin Ignacio Triglyceride [Mass/Vol] 92 mg/dL Normal <=150 [facility] Comment on above: Performed By: #### U AMIC #### [facility] [address] [address] [address] Katlin Ignacio VLDL CALC 18.4 mg/dL Normal [facility] Comment on above: Performed By: #### U AMIC #### [facility] [address] [address] [address] Katlin Ignacio MAGNESIUMon 06-06-2022 Magnesium [Mass/Vol] 2.0 mg/dL Normal 1.8-2.4 [facility] Comment on above: Performed By: #### U AMIC #### [facility] [address] [address] [address] Katlin Ignacio PROF 14(COMP METB)on 022 Albumin [Mass/Vol] 3.1 g/dL Critically low 3.4-5.0 [facility] Comment on above: Performed By: #### U AMIC #### [facility] [address] [address] [address] Katlin Ignacio Albumin/Globulin [Mass ratio] 0.8 {ratio} Normal [facility] Comment on above: Performed By: #### U AMIC #### [facility] [address] [place] [address] Dr. Katlin Ignacio ALP [Catalytic activity/Vol] 93 U/L Normal 46-116 [facility] Comment on above: Performed By: #### U AMIC #### [facility] [address] [address] [address] Katlin Ignacio ALT [Catalytic activity/Vol] 20 U/L Normal 16-63 [facility] Comment on above: Performed By: #### U AMIC #### [facility] [address] [place] [address] Dr. Katlin Ignacio Anion gap [Moles/Vol] 13.5 mmol/L Normal [facility] Comment on above: Performed By: #### U AMIC #### [facility] [address] [place] [address] Dr. Katlin Ignacio AST [Catalytic activity/Vol] 16 U/L Normal 15-37 [facility] Comment on above: Performed By: #### U AMIC #### [facility] [address] [place] [address] Dr. Katlin Ignacio Bilirubin [Mass/Vol] 0.6 mg/dL Normal 0.2-1.0 [facility] Comment on above: Performed By: #### U AMIC #### [facility] [address] [place] [address] Dr. Katlin Ignacio Calcium [Mass/Vol] 8.8 mg/dL Normal 8.5-10.1 [facility] Comment on above: Performed By: #### U AMIC #### [facility] [address] [place] [address] Dr. Katlin Ignacio Chloride [Moles/Vol] 105 mmol/L Normal 98-107 [facility] Comment on above: Performed By: #### U AMIC #### [facility] [address] [place] [address] Dr. Katlin Ignacio CO2 [Moles/Vol] 27.8 mmol/L Normal 21.0-32.0 [facility] Comment on above: Performed By: #### U AMIC #### [facility] [address] [address] [address] Katlin Ignacio Creatinine [Mass/Vol] 1.37 mg/dL Critically high 0.70-1.30 [facility] Comment on above: Performed By: #### U AMIC #### [facility] [address] [address] [address] Katlin Ignacio EGFR-AF ARMENIAN =60 Normal >=60 [facility] Comment on above: Performed By: #### U AMIC #### [facility] [address] [address] [address] Katlin Ignacio EGFR-NON AF ARMENIAN 49 mL/min/1.73m2 Critically low >=60 [facility] Comment on above: Performed By: #### U AMIC #### [facility] [address] [address] [address] Katlin Ignacio Globulin (S) [Mass/Vol] 3.7 g/dL Normal [facility] Comment on above: Performed By: #### U AMIC #### [facility] [address] [address] [address] Katlin Ignacio Glucose [Mass/Vol] 105 mg/dL Normal 74-106 [facility] Comment on above: Performed By: #### U AMIC #### [facility] [address] [address] [address] Katlin Ignacio Potassium [Moles/Vol] 4.3 mmol/L Normal 3.5-5.1 [facility] Comment on above: Performed By: #### U AMIC #### [facility] [address] [address] [address] Katlin Ignacio Protein [Mass/Vol] 6.8 g/dL Normal 6.4-8.2 [facility] Comment on above: Performed By: #### U AMIC #### [facility] [address] [address] [address] Katlin Ignacio Sodium [Moles/Vol] 142 mmol/L Normal 136-145 [facility] Comment on above: Performed By: #### U AMIC #### [facility] [address] [address] [address] Katlin Ignacio Urea nitrogen [Mass/Vol] 28.0 mg/dL Critically high 7.0-18.0 [facility] Comment on above: Performed By: #### U AMIC #### [facility] [address] [address] [address] Katlin Ignacio Urea nitrogen/Creatini ne [Mass ratio] 20.4 mg/mg Normal [facility] Comment on above: Performed By: #### U AMIC #### [facility] [address] [address] [address] Katlin Ignacio CBC AUTO DIFFon 05-14-2022 BASO # 0.0 103/ul Normal 0.0-0.1 [facility] Comment on above: Performed By: #### U KATARINA, MG, RENAL #### [facility] [address] [place] [address] Dr. Katlin Ignacio Basophils/100 WBC (Bld) 0.2 % Normal 0.2-2.0 [facility] Comment on above: Performed By: #### U KATARINA, MG, RENAL #### [facility] [address] [place] [address] Dr. Katlin Ignacio EO # 0.0 103/ul Normal 0.0-0.7 [facility] Comment on above: Performed By: #### U KATARINA, MG, RENAL #### [facility] [address] [address] [address] Katlin Ignacio Eosinophils/100 WBC (Bld) 0.0 % Critically low 0.9-7.0 [facility] Comment on above: Performed By: #### U KATARINA, MG, RENAL #### [facility] [address] [place] [address] Dr. Katlin Ignacio Erythrocyte distribution width (RBC) [Ratio] 19.7 % Critically high 11.0-15.0 [facility] Comment on above: Performed By: #### U KATARINA, MG, RENAL #### [facility] [address] [place] [address] Dr. Katlin Ignacio Hematocrit (Bld) [Volume fraction] 53.2 % Normal 42.0-54.0 [facility] Comment on above: Performed By: #### U KATARINA, MG, RENAL #### [facility] [address] [place] [address] Dr. Katlin Ignacio Hemoglobin (Bld) [Mass/Vol] 15.9 g/dL Normal 14.0-18.0 [facility] Comment on above: Performed By: #### U KATARINA, MG, RENAL #### [facility] [address] [place] [address] Dr. Katlin Ignacio IG # 0.05 10e3/ul Critically high 0.00-0.03 [facility] Comment on above: Performed By: #### U KATARINA, MG, RENAL #### [facility] [address] [place] [address] Dr. Katlin Ignacio IG % 0.9 % Critically high 0.0-0.5 [facility] Comment on above: Performed By: #### U KATARINA, MG, RENAL #### [facility] [address] [place] [address] Dr. Katlin Ignacio LYMPH # 0.9 103/ul Critically low 1.2-3.8 [facility] Comment on above: Performed By: #### U KATARINA, MG, RENAL #### [facility] [address] [place] [address] Dr. Katlin Ignacio Lymphocytes/100 WBC (Bld) 17.1 % Critically low 20.5-60.0 [facility] Comment on above: Performed By: #### U KATARINA, MG, RENAL #### [facility] [address] [place] [address] Dr. Katlin Ignacio MANUAL DIFF REQ NO Normal [facility] Comment on above: Performed By: #### U KATRAINA, MG, RENAL #### [facility] [address] [place] [address] Dr. Katlin Ignacio MCH (RBC) [Entitic mass] 23.9 pg Critically low 25.9-34.0 [facility] Comment on above: Performed By: #### U KATARINA, MG, RENAL #### [facility] [address] [place] [address] Dr. Katlin Ignacio MCHC (RBC) [Mass/Vol] 29.9 g/dL Normal 29.9-35.2 [facility] Comment on above: Performed By: #### U KATARINA, MG, RENAL #### [facility] [address] [place] [address] Dr. Katlin Ignacio MCV (RBC) [Entitic vol] 80.0 fL Normal 80.0-94.0 [facility] Comment on above: Performed By: #### U KATARINA, MG, RENAL #### [facility] [address] [place] [address] Dr. Katlin Ignacio MONO # 0.2 103/ul Critically low 0.3-0.8 [facility] Comment on above: Performed By: #### U KATARINA, MG, RENAL #### [facility] [address] [place] [address] Dr. Katlin Ignacio Monocytes/100 WBC (Bld) 3.0 % Normal 1.7-12.0 [facility] Comment on above: Performed By: #### U KATARINA, MG, RENAL #### [facility] [address] [place] [address] Dr. Katlin Ignacio NEUT # 4.2 103/ul Normal 1.4-6.5 [facility] Comment on above: Performed By: #### U KATARINA, MG, RENAL #### [facility] [address] [place] [address] Dr. Katlin Ignacio Neutrophils/100 WBC (Bld) 78.8 % Critically high 43.0-75.0 [facility] Comment on above: Performed By: #### U KATARINA, MG, RENAL #### [facility] [address] [place] [address] Dr. Katlin Ignacio Platelet mean volume (Bld) [Entitic vol] 9.2 fL Critically low 9.5-13.5 [facility] Comment on above: Performed By: #### U KATARINA, MG, RENAL #### [facility] [address] [place] [address] Dr. Katlin Ignacio PLT 141 103/ul Critically low 150-450 [facility] Comment on above: Performed By: #### U KATARINA, MG, RENAL #### [facility] [address] [address] [address] Katlin Ignacio RBC 6.65 106/ul Critically high 4.70-6.10 [facility] Comment on above: Performed By: #### U KATARINA, MG, RENAL #### [facility] [address] [address] [address] Katlin Ignacio WBC 5.3 103/ul Normal 4.0-11.0 [facility] Comment on above: Performed By: #### U KATARINA, MG, RENAL #### [facility] [address] [place] [address] Dr. Katlin Ignacio PROF CHEM 8 (BAS METB)on Anion gap [Moles/Vol] 17.2 mmol/L Normal [facility] Comment on above: Performed By: #### U AMIC #### [facility] [address] [place] [address] Dr. Katlin Ignacio Calcium [Mass/Vol] 8.6 mg/dL Normal 8.5-10.1 [facility] Comment on above: Result Comment: resu lt to follow Previously reported as: 8.9 On 05/14/2022 09:12 By [email or web address] Performed By: #### U AMIC #### [facility] [address] [place] [address] Dr. Katlin Ignacio Chloride [Moles/Vol] 105 mmol/L Normal 98-107 [facility] Comment on above: Performed By: #### U AMIC #### [facility] [address] [place] [address] Dr. Katlin Ignacio CO2 [Moles/Vol] 23.1 mmol/L Normal 21.0-32.0 [facility] Comment on above: Performed By: #### U AMIC #### [facility] [address] [place] [address] Dr. Katlin Ignacio Creatinine [Mass/Vol] 1.59 mg/dL Critically high 0.70-1.30 [facility] Comment on above: Performed By: #### U AMIC #### [facility] [address] [place] [address] Dr. Katlin Ignacio EGFR-AF ARMENIAN 50 mL/min/1.73m2 Critically low >=60 [facility] Comment on above: Performed By: #### U AMIC #### [facility] [address] [address] [address] Ktalin Ignacio EGFR-NON AF ARMENIAN 42 mL/min/1.73m2 Critically low >=60 [facility] Comment on above: Performed By: #### U AMIC #### [facility] [address] [address] [address] Katlin Ignacio Glucose [Mass/Vol] 271 mg/dL Critically high 74-106 [facility] Comment on above: Performed By: #### U AMIC #### [facility] [address] [address] [address] Katlin Ignacio Potassium [Moles/Vol] 5.3 mmol/L Critically high 3.5-5.1 [facility] Comment on above: Performed By: #### U AMIC #### [facility] [address] [address] [address] Katlin Ignacio Sodium [Moles/Vol] 140 mmol/L Normal 136-145 [facility] Comment on above: Performed By: #### U AMIC #### [facility] [address] [address] [address] Katlin Ignacio Urea nitrogen [Mass/Vol] 34.0 mg/dL Critically high 7.0-18.0 [facility] Comment on above: Performed By: #### U AMIC #### [facility] [address] [address] [address] Katlin Ignacio Urea nitrogen/Creatini ne [Mass ratio] 21.4 mg/mg Normal [facility] Comment on above: Performed By: #### U AMIC #### [facility] [address] [address] [address] Katlin Ignacio BNPon 05-13-2022 Natriuretic peptide B (Bld) [Mass/Vol] 2170.0 pg/mL Critically high <=1,800.0 [facility] Comment on above: Performed By: #### L ACT #### [facility] [address] [place] [address] Dr. Katlin Ignacio CARDIAC CARMEN ADMITon 022 CK [Catalytic activity/Vol] 64 U/L Normal 39-308 [facility] Comment on above: Performed By: #### L ACT #### [facility] [address] [address] [address] Katlin Ignacio CK.MB [Mass/Vol] 1.69 ng/mL Normal <=3.60 [facility] Comment on above: Performed By: #### L ACT #### [facility] [address] [place] [address] Dr. Katlin Ignacio HSTROP 29.2 pg/mL Normal 4.0-76.1 [facility] Comment on above: Result Comment: CUT- OFF POINTS HAVE BEEN ESTABLISHED BASED ON THE FOURTH UNIVERSAL DEFINITIONS OF MYOCARDIAL INFARCTION. THE UPPER REFERENCE LIMIT (URL) OF TROPONIN, DEFINED THE 99TH PERCENTILE OF cTnI DISTRIBUTION IN A REFERENCE POPULATION, HAS BEEN CONFIRMED THE DECISION THRESHOLD FOR OH DIAGNOSIS. Performed By: #### L ACT #### [facility] [address] [place] [address] Dr. Katlin Ignacio SHAY 98 ng/mL Critically high 16-96 [facility] Comment on above: Performed By: #### L ACT #### [facility] [address] [place], [place] [id number] Dr. Katlin Ignacio CBC AUTO DIFFon 05-13-2022 BASO # 0.1 103/ul Normal 0.0-0.1 [facility] Comment on above: Performed By: #### U AMIC #### [facility] [address] [place] [address] Dr. Katlin Ignacio Basophils/100 WBC (Bld) 0.5 % Normal 0.2-2.0 [facility] Comment on above: Performed By: #### U AMIC #### [facility] [address] [place] [address] Dr. Katlin Ignacio EO # 0.0 103/ul Normal 0.0-0.7 [facility] Comment on above: Performed By: #### U AMIC #### [facility] [address] [place] [address] Dr. Katlin Ignacio Eosinophils/100 WBC (Bld) 0.4 % Critically low 0.9-7.0 [facility] Comment on above: Performed By: #### U AMIC #### [facility] [address] [place] [address] Dr. Katlin Ignacio Erythrocyte distribution width (RBC) [Ratio] 20.1 % Critically high 11.0-15.0 [facility] Comment on above: Performed By: #### U AMIC #### [facility] [address] [place] [address] Dr. Katlin Ignacio Hematocrit (Bld) [Volume fraction] 56.2 % Critically high 42.0-54.0 [facility] Comment on above: Performed By: #### U AMIC #### [facility] [address] [place] [address] Dr. Katlin Ignacio Hemoglobin (Bld) [Mass/Vol] 17.1 g/dL Normal 14.0-18.0 [facility] Comment on above: Performed By: #### U AMIC #### [facility] [address] [place] [address] Dr. Katlin Ignacio IG # 0.06 10e3/ul Critically high 0.00-0.03 [facility] Comment on above: Performed By: #### U AMIC #### [facility] [address] [place] [address] Dr. Katlin Ignacio IG % 0.6 % Critically high 0.0-0.5 [facility] Comment on above: Performed By: #### U AMIC #### [facility] [address] [place] [address] Dr. Katlin Ignacio LYMPH # 1.2 103/ul Normal 1.2-3.8 [facility] Comment on above: Performed By: #### U AMIC #### [facility] [address] [place] [address] Dr. Katlin Ignacio Lymphocytes/100 WBC (Bld) 11.5 % Critically low 20.5-60.0 [facility] Comment on above: Performed By: #### U AMIC #### [facility] [address] [place] [address] Dr. Katlin Ignacio MANUAL DIFF REQ NO Normal [facility] Comment on above: Performed By: #### U AMIC #### [facility] [address] [place] [address] Dr. Katlin Ignacio MCH (RBC) [Entitic mass] 23.9 pg Critically low 25.9-34.0 [facility] Comment on above: Performed By: #### U AMIC #### [facility] [address] [place] [address] Dr. Katlin Ignacio MCHC (RBC) [Mass/Vol] 30.4 g/dL Normal 29.9-35.2 [facility] Comment on above: Performed By: #### U AMIC #### [facility] [address] [place] [address] Dr. Katlin Ignacio MCV (RBC) [Entitic vol] 78.6 fL Critically low 80.0-94.0 [facility] Comment on above: Performed By: #### U AMIC #### [facility] [address] [place] [address] Dr. Katlin Ignacio MONO # 0.6 103/ul Normal 0.3-0.8 [facility] Comment on above: Performed By: #### U AMIC #### [facility] [address] [place] [address] Dr. Katlin Ignacio Monocytes/100 WBC (Bld) 5.8 % Normal 1.7-12.0 [facility] Comment on above: Performed By: #### U AMIC #### [facility] [address] [place] [address] Dr. Katlin Ignacio NEUT # 8.2 103/ul Critically high 1.4-6.5 [facility] Comment on above: Performed By: #### U AMIC #### [facility] [address] [place] [address] Dr. Katlin Ignacio Neutrophils/100 WBC (Bld) 81.2 % Critically high 43.0-75.0 [facility] Comment on above: Performed By: #### U AMIC #### [facility] [address] [address] [address] Katlin Ignacio Platelet mean volume (Bld) [Entitic vol] 9.5 fL Normal 9.5-13.5 [facility] Comment on above: Performed By: #### U AMIC #### [facility] [address] [place] [address] Dr. Katlin Ignacio PLT 173 103/ul Normal 150-450 [facility] Comment on above: Performed By: #### U AMIC #### [facility] [address] [place] [address] Dr. Katlin Ignacio RBC 7.15 106/ul Critically high 4.70-6.10 [facility] Comment on above: Performed By: #### U AMIC #### [facility] [address] [place] [address] Dr. Katlin Ignacio WBC 10.1 103/ul Normal 4.0-11.0 [facility] Comment on above: Performed By: #### U AMIC #### [facility] [address] [place] [address] Dr. Katlin Ignacio CTA CHEST WO W [...] Rigo JANSEN Date: 2022-05-13 17:00 Normal [facility] CULTURE BLOODon 05-13-2022 Microscopic examination of blood, culture Culture Observations: NO GROWTH AT 5 DAYS. Normal [facility] Comment on above: Performed By: #### L ACT #### [facility] [address] [address] [address] Katlin Ignacio Microscopic examination of blood, culture Culture Observations: NO GROWTH AT 5 DAYS. Normal [facility] Comment on above: Performed By: #### L ACT #### [facility] [id number] Katlin Ignacio Cov[facility] ([facility]on SARS-CoV-2 (COVID-19) RNA JOHN+probe Ql (Unsp spec) Detected Critically abnormal NOT DETECTED [facility] Comment on above: Result Comment: This test is not yet approved or cleared by the [place] FDA. When there are no FDA-approved or cleared tests available, and other criteria are met, FDA can make tests available under an emergency access mechanism called an Emergency Use Authorization (EUA). The EUA for this test is supported by the Psychology Assistant of Health and Human Service's declaration that [...] By: #### U KATARINA, MG, RENAL #### [facility] [address] [place] [address] Dr. Katlin Ignacio D-DIMERon 05-13-2022 D-DIMER 1.53 mg/L FEU Critically high <=0.59 [facility] Comment on above: Performed By: #### U KATARINA, MG, RENAL #### [facility] [address] [place] [address] Dr. Katlin Ignacio D-DIMER COMMENTS SEE BELOW Normal [facility] Comment on above: Result Comment: Incr eases [...] By: #### U KATARINA, MG, RENAL #### [facility] [address] [place] [address] Dr. Katlin Ignacio LACTATE/LACTIC ACIDon 2021 Lactate [Moles/Vol] 1.4 mmol/L Normal 0.4-1.9 [facility] Comment on above: Performed By: #### L ACT #### [facility] [address] [place] [address] Dr. Katlin Ignacio Lactate [Moles/Vol] 2.3 mmol/L Critically high 0.4-1.9 [facility] Comment on above: Result Comment: repe ated Performed By: #### L ACT #### [facility] [address] [place], [place] [id number] Dr. Katlin Ignacio Lactate [Moles/Vol] 2.3 mmol/L Critically high 0.4-1.9 [facility] Comment on above: Performed By: #### L ACT #### [facility] [address] [place] [address] Dr. Katlin Ignacio POINT OF CARE GLUCOSEon 080 Glucose [Mass/Vol] 233 mg/dL Critically high 74-106 [facility] Comment on above: Performed By: #### U KATARINA, MG, RENAL #### [facility] [address] [place] [address] Dr. Katlin Ignacio PROF 14(COMP METB)on 022 Albumin [Mass/Vol] 3.7 g/dL Normal 3.4-5.0 [facility] Comment on above: Performed By: #### L ACT #### [facility] [address] [place] [address] Dr. Katlin Ignacio Albumin/Globulin [Mass ratio] 0.9 {ratio} Normal [facility] Comment on above: Performed By: #### L ACT #### [facility] [address] [place] [address] Dr. Katlin Ignacio ALP [Catalytic activity/Vol] 108 U/L Normal 46-116 [facility] Comment on above: Performed By: #### L ACT #### [facility] [address] [place] [address] Dr. Katlin Ignacio ALT [Catalytic activity/Vol] 20 U/L Normal 16-63 [facility] Comment on above: Performed By: #### L ACT #### [facility] [address] [place] [address] Dr. Katlin Ignacio Anion gap [Moles/Vol] 11.6 mmol/L Normal [facility] Comment on above: Performed By: #### L ACT #### [facility] [address] [place] [address] Dr. Katlin Ignacio AST [Catalytic activity/Vol] 20 U/L Normal 15-37 [facility] Comment on above: Performed By: #### L ACT #### [facility] [address] [address] [address] Katlin Ignacio Bilirubin [Mass/Vol] 1.5 mg/dL Critically high 0.2-1.0 [facility] Comment on above: Performed By: #### L ACT #### [facility] [address] [address] [address] Katlin Ignacio Calcium [Mass/Vol] 8.9 mg/dL Normal 8.5-10.1 [facility] Comment on above: Performed By: #### L ACT #### [facility] [address] [address] [address] Katlin Ignacio Chloride [Moles/Vol] 103 mmol/L Normal 98-107 [facility] Comment on above: Performed By: #### L ACT #### [facility] [address] [address] [address] Katlin Ignacio CO2 [Moles/Vol] 26.8 mmol/L Normal 21.0-32.0 [facility] Comment on above: Performed By: #### L ACT #### [facility] [address] [address] [address] Katlin Ignacio Creatinine [Mass/Vol] 1.63 mg/dL Critically high 0.70-1.30 [facility] Comment on above: Performed By: #### L ACT #### [facility] [address] [address] [address] Katlin Ignacio EGFR-AF ARMENIAN 49 mL/min/1.73m2 Critically low >=60 [facility] Comment on above: Performed By: #### L ACT #### [facility] [address] [address] [address] Katlin Ignacio EGFR-NON AF ARMENIAN 40 mL/min/1.73m2 Critically low >=60 [facility] Comment on above: Performed By: #### L ACT #### [facility] [address] [address] [address] Katlin Ignacio Globulin (S) [Mass/Vol] 3.9 g/dL Normal [facility] Comment on above: Performed By: #### L ACT #### [facility] [address] [address] [address] Katlin Ignacio Glucose [Mass/Vol] 229 mg/dL Critically high 74-106 [facility] Comment on above: Performed By: #### L ACT #### [facility] [address] [address] [address] Katlin Ignacio Potassium [Moles/Vol] 4.4 mmol/L Normal 3.5-5.1 [facility] Comment on above: Performed By: #### L ACT #### [facility] [address] [address] [address] Katlin Ignacio Protein [Mass/Vol] 7.6 g/dL Normal 6.4-8.2 [facility] Comment on above: Performed By: #### L ACT #### [facility] [address] [address] [address] Katlin Ignacio Sodium [Moles/Vol] 137 mmol/L Normal 136-145 [facility] Comment on above: Performed By: #### L ACT #### [facility] [address] [address] [address] Katlin Ignacio Urea nitrogen [Mass/Vol] 27.0 mg/dL Critically high 7.0-18.0 [facility] Comment on above: Performed By: #### L ACT #### [facility] [address] [address] [address] Katlin Ignacio Urea nitrogen/Creatini ne [Mass ratio] 16.6 mg/mg Normal [facility] Comment on above: Performed By: #### L ACT #### [facility] [address] [address] [address] Katlin Ignacio PROTIMEon 05-13-2022 INR Coag (PPP) [Relative time] 1.14 {INR} Normal [facility] Comment on above: Performed By: #### U KATARINA, MG, RENAL #### [facility] [address] [address] [address] Katlin Ignacio INR GUIDELINES SEE BELOW Normal [facility] Comment on above: Result Comment: KARMA RED INR: 2.0 - 3.0 CONDITIONS NOT LISTED BELOW 2.5 - 3.5 FOR PROSTHETIC HEART VALVE REPLACEMENT 2.5 - 3.5 RECURRENT THROMBOSIS Performed By: #### U KATARINA, MG, RENAL #### [facility] [address] [address] [address] Katlin Ignacio PT Coag (PPP) [Time] 12.2 s Critically high 9.0-11.6 [facility] Comment on above: Performed By: #### U KATARINA, MG, RENAL #### [facility] [id number] Katlin Ignacio PTTon 05-13-2022 aPTT Coag (Bld) [Time] 28.5 s Normal 22.3-36.2 [facility] Comment on above: Performed By: #### U KATARINA, MG, RENAL #### [facility] [address] [address] [address] Katlin Ignacio XR CHEST 1 Von [...] ANT SHAIKH Date: 2022-05-13 12:52 Normal [facility] A1C HEMOGLOBINon 04-01-2022 HbA1c (Bld) [Mass fraction] 7.5 % [facility] Other Glucose - FINGER STICKon Glucose [Mass/Vol] 181 mg/dL [facility] Other HbA1c (Bld) [Mass fraction]o n 04-01-2022 A1C HEMOGLOBIN [facility] Other A1C HEMOGLOBINon 12-11-2021 HbA1c (Bld) [Mass fraction] 7.2 % [facility] Other Glucose - FINGER STICKon Glucose [Mass/Vol] 150 mg/dL [facility] Other HbA1c (Bld) [Mass fraction]o n 12-11-2021 A1C HEMOGLOBIN [facility] [employer] Other Vital Signs Date Time Vital Sign Value Performing Clinician Facility 08-18-2023 10:45-0500 Body height 182.88 cm Tondra Mapus Other [facility] Other 08-18-2023 10:45-0500 Body mass index (BMI) [Ratio] 30.8 kg/m2 Tondra Mapus Other [facility] Other 08-18-2023 10:45-0500 Body weight 103.01 kg Tondra Mapus Other [facility] Other 08-18-2023 10:45-0500 Diastolic blood pressure 49 mm[Hg] Tondra Mapus Other [facility] Other 08-18-2023 10:45-0500 Respiratory rate 18 /min Tondra Mapus Other [facility] Other 08-18-2023 10:45-0500 SaO2% (BldA) [Mass fraction] 95 % Tondra Mapus Other [facility] Other 08-18-2023 10:45-0500 Systolic blood pressure 117 mm[Hg] Tondra Mapus Other [facility] Other 05-12-2023 09:15-0400 Body height 182.88 cm Tondra Mapus Other [facility] Other 05-12-2023 09:15-0400 Body mass index (BMI) [Ratio] 31.58 kg/m2 Tondra Mapus Other [facility] Other 05-12-2023 09:15-0400 Body weight 105.64 kg Tondra Mapus Other [facility] Other 05-12-2023 09:15-0400 Diastolic blood pressure 77 mm[Hg] Tondra Mapus Other [facility] Other 05-12-2023 09:15-0400 Respiratory rate 18 /min Tondra Mapus Other [facility] Other 05-12-2023 09:15-0400 SaO2% (BldA) [Mass fraction] 97 % Tondra Mapus Other [facility] Other 05-12-2023 09:15-0400 Systolic blood pressure 144 mm[Hg] Tondra Mapus Other [facility] Other 12-23-2022 11:20-0400 Body height 182.88 cm Alexa Kandice Other [facility] Other 12-23-2022 11:20-0400 Body mass index (BMI) [Ratio] 32.57 kg/m2 Alexa Kandice Other [facility] Other 12-23-2022 11:20-0400 Body temperature 97.7 [degF] Alexa Kandice Other [facility] Other 12-23-2022 11:20-0400 Body weight 108.95 kg Alexa Kandice Other [facility] Other 12-23-2022 11:20-0400 Diastolic blood pressure 75 mm[Hg] Alexa Kandice Other [facility] Other 12-23-2022 11:20-0400 Respiratory rate 18 /min Alexa Kandice Other [facility] Other 12-23-2022 11:20-0400 SaO2% (BldA) [Mass fraction] 97 % Alexa Kandice Other [facility] Other 12-23-2022 11:20-0400 Systolic blood pressure 135 mm[Hg] Alexa Kandice Other [facility] Other 10-21-2022 12:30-0500 Body height 182.88 cm Tondra Mapus Other [facility] Other 10-21-2022 12:30-0500 Body mass index (BMI) [Ratio] 32.65 kg/m2 Tondra Mapus Other [facility] Other 10-21-2022 12:30-0500 Body weight 109.23 kg Tondra Mapus Other [facility] Other 10-21-2022 12:30-0500 Diastolic blood pressure 48 mm[Hg] Tondra Mapus Other [facility] Other 10-21-2022 12:30-0500 Respiratory rate 18 /min Tondra Mapus Other [facility] Other 10-21-2022 12:30-0500 SaO2% (BldA) [Mass fraction] 96 % Tondra Mapus Other [facility] Other 10-21-2022 12:30-0500 Systolic blood pressure 96 mm[Hg] Tondra Mapus Other [facility] Other 07-08-2022 10:15-0400 Body height 182.88 cm Tondra Mapus Other [facility] Other 07-08-2022 10:15-0400 Body mass index (BMI) [Ratio] 33.22 kg/m2 Tondra Mapus Other [facility] Other 07-08-2022 10:15-0400 Body weight 111.13 kg Tondra Mapus Other [facility] Other 07-08-2022 10:15-0400 Diastolic blood pressure 78 mm[Hg] Tondra Mapus Other [facility] Other 07-08-2022 10:15-0400 Respiratory rate 20 /min Tondra Mapus Other [facility] Other 07-08-2022 10:15-0400 SaO2% (BldA) [Mass fraction] 98 % Tondra Mapus Other [facility] Other 07-08-2022 10:15-0400 Systolic blood pressure 113 mm[Hg] Tondra Mapus Other [facility] Other 06-17-2022 10:20-0400 Body height 182.88 cm Alexa Kandice Other [facility] Other 06-17-2022 10:20-0400 Body mass index (BMI) [Ratio] 33.12 kg/m2 Alexa Kandice Other [facility] Other 06-17-2022 10:20-0400 Body temperature 96.7 [degF] Alexa Kandice Other [facility] Other 06-17-2022 10:20-0400 Body weight 110.77 kg Alexa Kandice Other [facility] Other 06-17-2022 10:20-0400 Diastolic blood pressure 79 mm[Hg] Alexa Kandice Other [facility] Other 06-17-2022 10:20-0400 Respiratory rate 20 /min Alexa Kandice Other [facility] Other 06-17-2022 10:20-0400 SaO2% (BldA) [Mass fraction] 98 % Alexa Kandice Other [facility] Other 06-17-2022 10:20-0400 Systolic blood pressure 124 mm[Hg] Alexa Kandice Other [facility] Other 04-01-2022 09:15-0400 Body height 182.88 cm Tondra Mapus Other [facility] Other 04-01-2022 09:15-0400 Body mass index (BMI) [Ratio] 33.63 kg/m2 Tondra Mapus Other [facility] Other 04-01-2022 09:15-0400 Body weight 112.49 kg Tondra Mapus Other [facility] Other 04-01-2022 09:15-0400 Diastolic blood pressure 80 mm[Hg] Tondra Mapus Other [facility] Other 04-01-2022 09:15-0400 Respiratory rate 20 /min Tondra Mapus Other [facility] Other 04-01-2022 09:15-0400 SaO2% (BldA) [Mass fraction] 99 % Tondra Mapus Other [facility] Other 04-01-2022 09:15-0400 Systolic blood pressure 129 mm[Hg] Tondra Mapus Other [facility] Other 12-11-2021 10:20-0500 Body height 182.88 cm Alexa Kandice Other [facility] Other 12-11-2021 10:20-0500 Body mass index (BMI) [Ratio] 33.77 kg/m2 Alexa Kandice Other [facility] Other 12-11-2021 10:20-0500 Body temperature 97 [degF] Alexa Kandice Other [facility] Other 12-11-2021 10:20-0500 Body weight 112.95 kg Alexa Kandice Other [facility] Other 12-11-2021 10:20-0500 Diastolic blood pressure 60 mm[Hg] Alexa Kandice Other [facility] Other 12-11-2021 10:20-0500 Respiratory rate 20 /min Alexa Kandice Other [facility] Other 12-11-2021 10:20-0500 SaO2% (BldA) [Mass fraction] 94 % Alexa Kandice Other [facility] Other 12-11-2021 10:20-0500 Systolic blood pressure 90 mm[Hg] Alexa Kandice Other [facility] Other 12-11-2021 08:45-0500 Body height 182.88 cm Tondra Mapus Other [facility] Other 12-11-2021 08:45-0500 Body mass index (BMI) [Ratio] 33.77 kg/m2 Tondra Mapus Other [facility] Other 12-11-2021 08:45-0500 Body weight 112.95 kg Tondra Mapus Other [facility] Other 12-11-2021 08:45-0500 Diastolic blood pressure 70 mm[Hg] Tondra Mapus Other [facility] Other 12-11-2021 08:45-0500 Respiratory rate 20 /min Tondra Mapus Other [facility] Other 12-11-2021 08:45-0500 SaO2% (BldA) [Mass fraction] 99 % Tondra Mapus Other [facility] Other 12-11-2021 08:45-0500 Systolic blood pressure 106 mm[Hg] Tondra Mapus Other [facility] Other Encounters Encounter Date Encounter Type Care Provider Facility Start: 08-18-2023 (DM) Diabetes Tondra Mapus [facility] Start: 08-18-2023 End: 08-18-2023 ambulatory PHYSICIAN NO FAMILY [place] [employer] Other Start: 05-12-2023 (DM) Diabetes Tondra Sandhyaus [facility] Start: 05-12-2023 End: 05-12-2023 ambulatory Tondra Mapus Other [facility] Other Start: 02-02-2023 End: 03-04-2023 ambulatory BORDEN H FAWWAD Facility:[facility] Start: 01-05-2023 End: 01-30-2023 ambulatory BORDEN H FAWWAD Facility:[facility] Start: 12-23-2022 End: 12-23-2022 ambulatory Alexa Kandice Other [facility] Other Start: 12-23-2022 Office outpatient visit 25 minutes Alexa Kandice [facility] Start: 12-11-2022 End: 12-12-2022 ambulatory ALEXA KANDICE Facility:[facility] Start: 12-10-2022 End: 12-10-2022 ambulatory Tondra Mapus Other [facility] Other Start: 12-10-2022 Telephone encounter Tondra Mapus [facility] Start: 12-03-2022 End: 01-02-2023 ambulatory BORDEN H FAWWAD Facility:[facility] Start: 11-24-2022 End: 11-25-2022 ambulatory BORDEN H FAWWAD Facility:[facility] Start: 11-13-2022 End: 11-13-2022 ambulatory Alexa Kandice Other [facility] Other Start: 11-13-2022 Telephone encounter Alexa Kandice [facility] Start: 11-10-2022 End: 11-11-2022 ambulatory BORDEN H FAWWAD Facility:[facility] Start: 11-05-2022 End: 12-03-2022 ambulatory BORDEN H FAWWAD Facility:[facility] Start: 11-04-2022 End: 11-05-2022 ambulatory BORDEN H FAWWAD Facility:[facility] Start: 10-30-2022 End: 10-31-2022 ambulatory BORDEN H FAWWAD Facility:[facility] Start: 10-21-2022 (DM) Diabetes Tondra Mapus [facility] Start: 10-21-2022 End: 10-21-2022 ambulatory Tondra Mapus Other [facility] Other Start: 10-20-2022 End: 10-21-2022 ambulatory BORDEN H FAWWAD Facility:[facility] Start: 10-06-2022 End: 11-05-2022 ambulatory BORDEN H FAWWAD Facility:[facility] Start: 09-04-2022 End: 10-05-2022 ambulatory BORDEN H FAWWAD Facility:[facility] Start: 08-05-2022 End: 09-03-2022 ambulatory BORDEN H FAWWAD Facility:[facility] Start: 07-25-2022 End: 07-25-2022 ambulatory BORDEN H FAWWAD Facility:[facility] Start: 07-08-2022 (DM) Diabetes Tondra Resnick [facility] Start: 07-08-2022 End: 07-08-2022 ambulatory Tondra Mapus Other [facility] Other Start: 07-06-2022 End: 08-04-2022 ambulatory BORDEN H FAWWAD Facility:[facility] Start: 06-17-2022 End: 06-17-2022 ambulatory Alexa Kandice Other [facility] Other Start: 06-17-2022 Office outpatient visit 25 [...] Facility:H1 Start: 04-01-2022 (DM) Diabetes Tondra Mapus [facility] Start: 04-01-2022 End: 04-01-2022 ambulatory Tondra Mapus Other [facility] Other Start: 12-11-2021 (DM) Diabetes Tondra Mapus [facility] Start: 12-11-2021 End: 12-11-2021 ambulatory Tondra Mapus Other [facility] Other Start: 12-11-2021 Office outpatient visit 25 minutes Alexa Lozada [facility] Start: 09-04-2021 End: 09-04-2021 ambulatory Tondra Mapus Other [facility] Other Start: 09-04-2021 Telephone encounter Tondra Mapus [facility] Payers Date Payer Category Payer Self-pay 1958 Medicare [id number] 2.1 [id number] 1959 Unknown [id number] 2.1 [id number] 1936 Unknown [id number] 2.16.84 0.1.655903.3.579.2.593 1936 Unknown [id number] 2.16.84 0.1.639209.3.579.2.593 1936 Unknown [id number] 2.16.84 0.1.793433.3.579.2.593 1936 Unknown [id number] 2.16.84 0.1.069233.3.579.2.593 1936 Unknown [id number] 2.16.84 0.1.466800.3.579.2.593 1936 Unknown [id number] 2.16.84 0.1.850615.3.579.2.593 1936 Unknown [id number] 2.16.84 0.1.973023.3.579.2.593 1936 Unknown [id number] 2.16.84 0.1.950033.3.579.2.593 1936 Unknown [id number] 2.16.84 0.1.787998.3.579.2.593 1936 Unknown [id number] 2.16.84 0.1.461703.3.579.2.593 1936 Unknown [id number] 2.16.84 0.1.085248.3.579.2.593 1936 Unknown [id number] 2.16.84 0.1.972743.3.579.2.593 1936 Unknown [id number] 2.16.84 0.1.416428.3.579.2.593 1936 Unknown [id number] 2.16.84 0.1.060743.3.579.2.593 1936 Unknown [id number] 2.16.84 0.1.240890.3.579.2.593 1936 Unknown [id number] 2.16.84 0.1.290811.3.579.2.593 1936 Unknown [id number] 2.16.84 0.1.062153.3.579.2.593 1936 Unknown [id number] 2.16.84 0.1.825741.3.579.2.593 1936 Unknown [id number] 2.16.84 0.1.541761.3.579.2.593 1936 Unknown [id number] 2.16.84 0.1.624576.3.579.2.593 1936 Unknown [id number] 2.16.84 0.1.394998.3.579.2.593 Unknown [id number] 2.16.8 40.1.093322.3.579.2.531 Social History Date Type Detail Facility Unknown if ever smoked [facility] Other Sex Assigned At Sex Assigned At Bir th [facility] Other Medical Equipment Procedure Code Equipment Code Equipment Original Text Equi pment Identifier Dates Pen [place] 12/18 31G X 5 MM Clinical Notes [...] Blood glucose levels slightly higher. According to [employer] cgm download 08/05/2023-2022: Average glucose 156. >250-1%, [...] hypertension material was printed on arb Aug, terminologist current use of insulin (ICD-10 - Z79.4) Aug, BMI 30.0-30.9,adult (ICD-10 - Z68.30) Deciphering the nutrition facts label material was printed 5 pound weight loss from last visit, continue with weight loss efforts [facility] Other 08-08-2023 Evaluation note* Encounter Date Diagnosis [...] levels improved from last visit. According to [employer] cgm download 04/29/2023-05/12/2023: Average glucose 144. >250-0%, [...] hypertension material was printed on arb May, terminologist current use of insulin (ICD-10 - Z79.4) May, BMI 31.0-31.9,adult (ICD-10 - Z68.31) Deciphering the nutrition facts label material was printed 3 pound weight loss from last visit, continue with weight loss efforts [facility] Other 03-21-2023 Evaluation note* Encounter Date Diagnosis [...] PTH, calcium, phosphorus are within the goal. 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 According to [employer] cgm download 10/08/2022-10/21/2022 : Average glucose 166. [...] I10) About hypertension material was printed Oct, correction current use of insulin (ICD-10 - Z79.4) Oct, BMI 32.0-32.9,adult (ICD-10 - Z68.32) Deciphering the nutrition facts label material was printed 5 pound weight loss from last visit, continue with weight loss efforts Oct, Nail avulsion of toe (ICD-10 - S91.209A) referral to podiatry [facility] Other 10-04-2022 Evaluation note* Encounter Date Diagnosis [...] I10) About hypertension material was printed Jul, terminologist current use of insulin (ICD-10 - Z79.4) Jul, Hypoglycemia (ICD-10 - E16.2) Hypoglycemia material was printed see above Jul, BMI 33.0-33.9,adult (ICD-10 - Z68.33) Deciphering the nutrition facts label material was printed 3 pound weight loss from last visit, continue with weight loss efforts [facility] Other 09-13-2022 Evaluation note* Encounter Date Diagnosis [...] PTH, calcium, phosphorus are within the goal. [facility] Other 06-28-2022 Evaluation note* Encounter Date Diagnosis [...] I10) About hypertension material was printed Mar, correction current use of insulin (ICD-10 - Z79.4) Mar, Hypoglycemia (ICD-10 - E16.2) Hypoglycemia material was printed see above Mar, BMI 33.0-33.9,adult (ICD-10 - Z68.33) Deciphering the nutrition facts label material was printed 1 pound weight loss from last visit, continue with weight loss efforts Mar, Wound of foot (ICD-10 - S91.309A) apt with [facility] 04/03/2022 at 10am [facility] Other 03-09-2022 Evaluation note* Encounter Date Diagnosis [...] PTH, calcium, phosphorus are within the goal. [facility] Other 03-09-2022 Evaluation note* Encounter Date Diagnosis [...] I10) About hypertension material was printed Dec, terminologist current use of insulin (ICD-10 - Z79.4) Dec, Hypoglycemia (ICD-10 - E16.2) Hypoglycemia material was printed see above Dec, BMI 33.0-33.9,adult (ICD-10 - Z68.33) Deciphering the nutrition facts label material was printed 3 pound weight loss from last visit, continue with weight loss efforts [facility] Other Evaluation noteNo InformationNort eXenSa Other Hishwzl general Narrative - Reported* Type Description Date Medical History Hyperlipedemia ,mixed Medical History [place] Medical History Pacemaker inserted Medical History HTN [...] 01/21 Hospitalization History Cellulitis right lower e xtremity-Mcrae 03/2021 [facility] Other History general Narrative - Reported* Type Description Date Medical History Hyperlipedemia ,mixed Medical History [place] Medical History Pacemaker inserted Medical History HTN [...] e xtremity-Simran 03/2021 Hospitalization History COVID 05/2022 [facility] Other History general Narrative - Reported* Type Description Date Medical History Hyperlipedemia ,mixed Medical History [place] Medical History Pacemaker inserted Medical History HTN [...] 05/2022 Hospitalization History FALLS AT HOME AT [facility] [employer] Other Reason for Referral Reason Nail Avulsion of rig ht great toenail Diagnosis 1 Type 2 diabetes isidoro itus with diabetic nephropathy (E11.21) Diagnosis 2 Nail avulsion of toe (S91.209A) Referral Organization [facility] Referring Provider First Name Leticia Referring Provider Last Name Radha Referring Provider Specialty Nurse Pract itioner Referred Organization [facility] Referred Provider Ben Ronquillo Referred Address [address], [place],[address] Referred Provider Specialty Podiatry - S urgical [...] IDDM kyaw 2 FOLLOW UP with [facility] EXERCISE INSTRUCT, BREAKDOWN MAN-C, BC-ADMlab resultsCKDDM 3 month follow up, Type 2 IDDM kyaw 2 FOLLOW UP with [facility] EXERCISE INSTRUCT, BREAKDOWN MAN-C, BC-ADMCKD and HTNDM 3 month follow up, Type 2 IDDM kyaw 2 FOLLOW UP with [facility] EXERCISE INSTRUCT, BREAKDOWN MAN-C, BC-ADMDM 3 month follow up, Type 2 IDDM kyaw 2 FOLLOW UP with [facility] EXERCISE INSTRUCT, BREAKDOWN MAN-C, BC-ADM, review labsNo InformationTKM refill requestCKD and HTNDM 3 month follow up, Type 2 IDDM kyaw 2 FOLLOW UP with [facility] EXERCISE INSTRUCT, BREAKDOWN MAN-C, BC-ADMDM 3 month follow up, Type 2 IDDM kyaw 2 FOLLOW UP with [facility] EXERCISE INSTRUCT, BREAKDOWN MAN- C, BC-ADM (unrecognized sect ion and content) No Status Records FoundNo Status Records Found INFORMATION SOURCE (unrecogn ized section and content) DATE CREATED AUTHOR 03/13/2023 [facility] DATE CREATED AUTHOR 'S ORGANIZ ATION 08/19/2023 [facility] FOR RECORDS PERTAINING TO PATIENTS WHO ARE [...] BE BASED ON THE PRIMARY CLINICAL RECORDS. [facility]. provides no warranty or guarantee of the accuracy or completeness of information in this document.
[2023-09-24 18:09] LABS: Creatine Kinase 126 U/L (39-308); Creatine Kinase MB 1.66 ng/mL (<=3.60)
[2023-09-24 18:12] LABS: PROCALCITONIN 7.52 ng/mL (0.00-0.50)
[2023-09-24 18:17] LABS: Troponin I High Sensitivity 84.7 pg/mL (4.0-76.1)
[2023-09-24 18:33] LABS: Adenovirus NOT DETECTED (NOT DETECTE); Bordetella parapertussis NOT DETECTED (NOT DETECTE); Coronavirus 229E NOT DETECTED (NOT DETECTE); Coronavirus HKU1 NOT DETECTED (NOT DETECTE); Coronavirus NL63 NOT DETECTED (NOT DETECTE); Coronavirus OC43 NOT DETECTED (NOT DETECTE); Human Metapneumovirus NOT DETECTED (NOT DETECTE); Human Rhinovirus/Enterovirus NOT DETECTED (NOT DETECTE); Influenza A NOT DETECTED (NOT DETECTE); Influenza B NOT DETECTED (NOT DETECTE); Mycoplasma pneumoniae NOT DETECTED (NOT DETECTE); Parainfluenza Virus 1 NOT DETECTED (NOT DETECTE); Parainfluenza Virus 2 NOT DETECTED (NOT DETECTE); Parainfluenza Virus 3 NOT DETECTED (NOT DETECTE); Parainfluenza Virus 4 NOT DETECTED (NOT DETECTE); Respiratory Syncytial Virus NOT DETECTED (NOT DETECTE); SARS-CoV-2 NOT DETECTED (NOT DETECTE)
[2023-09-24] MEDS: GUAIFENESIN 600 MG TAB.ER.12H PO (18:52)
[2023-09-24] MEDS: LACTATED RINGER'S SOLUTION 1,000 ML 75 ML IV (18:52)
[2023-09-24] MEDS: ACETAMINOPHEN 500 MG TABLET 1000 MG PO (18:52)
[2023-09-24] MEDS: WARFARIN SODIUM 5 MG TABLET PO (19:03)
[2023-09-24 19:49] LABS: Glucometer 85 mg/dL (74-106)
[2023-09-24 20:19] LABS: Lactate/Lactic Acid 1.9 mmol/L (0.4-2.0)
[2023-09-24] MEDS: ATORVASTATIN CALCIUM 10 MG TABLET PO (20:26)
[2023-09-24] MEDS: SACUBITRIL/VALSARTAN 24 MG-26 MG TABLET 1 TAB PO (20:26)
[2023-09-24 21:41] LABS: Troponin I High Sensitivity 110.4 pg/mL (4.0-76.1)
[2023-09-24 22:57] LABS: Troponin I High Sensitivity 142.9 pg/mL (4.0-76.1)
[2023-09-24] MEDS: PRIMIDONE 50 MG TABLET PO (23:31)
[2023-09-25] VITALS (20 sets, daily range): BP systolic 85–108; BP diastolic 44–60; PULSE 60–69; RESP 18–24; TEMP 36.6–37; O2SAT 71–100
[2023-09-25] MEDS: ACETAMINOPHEN 500 MG TABLET 1000 MG PO ×2 (01:14→23:39)
[2023-09-25 02:19] LABS: Troponin I High Sensitivity 149.3 pg/mL (4.0-76.1)
--- NOTE | 2023-09-25 04:00 | XR_ITS ---
The [place] [id number] Patient Name: PURA DÍAZ MRN: [id number] date: 1935 Sex: M Assigned Patient Location: MS Current Patient Location: MS Accession/Order Number: [id number] Exam Date: 09/25/2023 06:12 Report Date: 09/25/2023 07:38 At the request of: MIR RODRIGUEZ Procedure: XR chest 1V CLINICAL HISTORY: SOB. EXAMINATION: Portable AP upright chest: 09/25/2023 at 0548 hours. COMPARISON: Portable chest 09/24/2023. FINDINGS: There is a pacer device with electrode leads in the distribution of right atrium, right ventricle, coronary sinus. Patient is somewhat lordotic. The visualized soft tissues are normal. There is slightly elevated right hemidiaphragm. The heart size seems mildly enlarged. The aorta has normal contour. There are mild atherosclerotic changes of the aorta. There is increased density at left base with some blunting of left costophrenic angle probably due to small effusion, atelectasis. The remaining lungs appear clear. There is no pneumothorax. XR/XR chest 1V IMPRESSION: Minimal atelectasis with small effusion at the left lung base, unchanged; otherwise no significant interval change or new findings. Electronically authenticated by: SOLA GOMEZ Date: 09/25/2023 07:38
[2023-09-25 05:15] LABS: Basophils Absolute Auto 0.1 10^3/uL (0.0-0.1); Basophils Percent Auto 0.3 % (0.2-2.0); Eosinophils Absolute Auto 0.5 10^3/uL (0.0-0.7); Eosinophils Percent Auto 2.6 % (0.9-7.0); Hematocrit 47.2 % (42.0-54.0); Hemoglobin 14.7 g/dL (14.0-18.0); Immature Granulocytes Abs Auto 0.15 10^3/uL (0.00-0.03); Immature Granulocytes Pct Auto 0.8 % (0.0-0.5); Lymphocytes Absolute Auto 0.2 10^3/uL (1.2-3.8); Lymphocytes Percent Auto 1.1 % (20.5-60.0); Mean Corpuscular HGB Conc 31.1 g/dL (29.9-35.2); Mean Corpuscular Hemoglobin 24.8 pg (25.9-34.0); Mean Corpuscular Volume 79.7 fL (80.0-94.0); Mean Platelet Volume 10.4 fL (9.5-13.5); Monocytes Absolute Auto 0.7 10^3/uL (0.3-0.8); Monocytes Percent Auto 3.3 % (1.7-12.0); Neutrophils Absolute Auto 18.1 10^3/uL (1.4-6.5); Neutrophils Percent Auto 91.9 % (43.0-75.0); Platelet Count 135 10^3/uL (150-450); Red Blood Count 5.92 10^6/uL (4.70-6.10); Red Cell Distribution Width 19.4 % (11.0-15.0); White Blood Count 19.7 10^3/uL (4.0-11.0)
[2023-09-25 05:26] LABS: INR 2.84; Prothrombin Time 28.4 sec (9.0-11.6)
[2023-09-25 05:33] LABS: Alanine Aminotransferase 30 U/L (16-63); Albumin Globulin Ratio 0.7; Albumin Level 2.4 g/dL (3.4-5.0); Alkaline Phosphatase 62 U/L (46-116); Anion Gap 16.7; Aspartate Amino Transferase 67 U/L (15-37); BUN Creatinine Ratio 19.2; Bilirubin Total 1.4 mg/dL (0.2-1.0); Calcium 8.6 mg/dL (8.5-10.1); Carbon Dioxide 19.4 mmol/L (21.0-32.0); Chloride 103 mmol/L (98-107); Estimated GFR (African America 39 (>=60); Estimated GFR (Non-African Ame 32 (>=60); Globulin 3.5 g/dL; Glucose 207 mg/dL (74-106); Potassium 4.1 mmol/L (3.5-5.1); Sodium 135 mmol/L (136-145); Total Protein 5.9 g/dL (6.4-8.2)
[2023-09-25 05:42] LABS: Thyroid Stimulating Hormone 0.853 uIU/mL (0.358-3.740)
[2023-09-25 05:57] LABS: Troponin I High Sensitivity 152.4 pg/mL (4.0-76.1)
[2023-09-25] MEDS: GUAIFENESIN 600 MG TAB.ER.12H PO ×2 (06:24→17:48)
--- NOTE | 2023-09-25 07:00 | CA_ITS ---
Patient Name: PURA DÍAZ MR#: [id number] : 1935 Exam Date: 09/25/2023 Ordering Doctor: MIR RODRIGUEZ ECHOCARDIOGRAM REPORT PROCEDURE: CA ECHO DOPPLER COMPLETE INDICATIONS: Hypoxia, Pleural effusion, BNP >10,000, elevated TROP, [place] Leung aortic valve, AICD, congestive heart failure, hypertension, diabetes COMPARISON: None. DESCRIPTION: COMPLETE ECHOCARDIOGRAM Real-time transthoracic echocardiography with 2D, M-mode, spectral and color flow Doppler performed. QUALITY: Technical quality was adequate. 74 , 229#, BSA 2.3 m2 LEFT VENTRICLE: Normal chamber size. Borderline left ventricular hypertrophy. LV EF: Global left ventricular systolic function is difficult to assess but appears reduced; visually estimated ejection fraction is 40-45%. Unable to assess regional wall motion abnormalities; consider contrast study for better delineation of endocardial borders. DIASTOLIC: Diastolic dysfunction. ATRIAL SEPTUM: Inadequately seen. LEFT ATRIUM: Mild dilatation. RIGHT ATRIUM: Mild dilatation. RIGHT VENTRICLE: Poorly seen. Normal chamber size. Systolic function appears reduced. Pacer wire present. TRICUSPID VALVE: Normal mobility and thickness. No stenosis with trivial regurgitation. Doppler studies reveal mildly (35-45) elevated right sided pressures. RVSP 44 mmHg MITRAL VALVE: Mildly thickened with normal mobility. Mild mitral annular calcification. Trivial mitral regurgitation. AORTIC VALVE: Bio-Prosthetic valve appears well seated in the aortic position with normal Doppler flow. No aortic regurgitation. AORTIC ROOT: Not well-visualized. PULMONIC VALVE: Not well visualized. PERICARDIUM: No evidence of pericardial effusion. IVC: IVC is dilated (2.3 cm) with no collapse. CONCLUSION: 1. Global left ventricular systolic function is difficult to assess but appears reduced; visually estimated ejection fraction is 40 to 45% 2. The right ventricle is poorly seen; appears normal in size with reduced systolic function 3. Diastolic dysfunction 4. Biatrial enlargement 5. 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 Mildly elevated right ventricular systolic pressure; RVSP 44 mmHg Adult Echocardiography Procedure Report Left Ventricle LVEDD (3.7 - 5.6 cm): 4.80 cm LVESD (2.2 - 4.0 cm): 4.29 cm LVIVS thickness (0.6 - 1.2 cm): 1.12 cm LVPW thickness (0.5 - 1.0 cm): 1.08 cm e': 0.06 m/s LVOT Max Gradient: 1.94 mm[Hg] LVOT Area (cm2): 0.70 m/s Peak Velocity (LVOT): 0.70 m/s Mean Velocity (LVOT): 0.53 m/s LVOT Diameter 2.15 cm Left Atrium LA Volume Index (2D A2C): 38.83 ml/m2 Left Atrium Systolic Dimension: 3.37 cm Mitral Valve Mitral Valve E-Wave Peak Velocity: 1.04 m/s Right Ventricle Aorta AO Root Diam: 2.46 cm Aortic Valve AoV Area (Peak Venu): 1.58 cm2, 1.58 cm2 AoV Area (VTI): 1.50 cm2, 1.50 cm2 Peak Velocity(Antegrade Flow): 1.59 m/s Peak Gradient(Antegrade Flow): 10.16 mm[Hg] Mean Velocity(Antegrade Flow): 1.12 m/s Mean Gradient(Antegrade Flow): 5.76 mm[Hg] Velocity Time Integral: 31.06 cm Tricuspid Valve Peak Velocity (Regurgitant Flow): 2.69 m/s Pulmonic Valve Peak Velocity: 0.77 m/s Peak Gradient: 2.40 mm[Hg] Right Atrium Right Atrium Systolic Pressure: 63.21 ml, 63.21 ml Dictated by: Devang Garcia M.D. on 09/25/2023 at 12:40 Approved by: Devang Garcia M.D. on 09/25/2023 at 12:59
--- NOTE | 2023-09-25 07:00 | ECG_ITS ---
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1935 Requested By: 2022 Order Number: [id number] Reading MD: KARLEE ANN Measurements Intervals [place] Rate: 60 P: ND: QRS: 152 QRSD: 158 T: 76 QT: 458 QTc: 458 Interpretive Statements ELECTRONIC VENTRICULAR PACEMAKER ABNORMAL RHYTHM ECG Compared to ECG 09/24/2023 14:30:44 Atrial fibrillation no longer present Aberrant conduction of supraventricular beat(s) no longer present Incomplete right bundle-branch block no longer present Myocardial infarct finding no longer present ST (T wave) deviation no longer present Possible ischemia no longer present Right ventricular hypertrophy no longer present Early repolarization no longer present Electronically Signed On 09-29-2023 7:51:38 EST by KARLEE ANN
--- NOTE | 2023-09-25 07:43 | CM.NOTE ---
Rounds made with Dr. Guzman, echo today. PT and OT will evaluate pt today.
[2023-09-25 07:50] LABS: A. calcoaceticus-baumannii Cpx NOT DETECTED (NOT DETECTE); Bacteroides fragilis NOT DETECTED (NOT DETECTE); Candida albicans NOT DETECTED (NOT DETECTE); Candida auris NOT DETECTED (NOT DETECTE); Candida glabrata NOT DETECTED (NOT DETECTE); Candida krusei NOT DETECTED (NOT DETECTE); Candida parapsilosis NOT DETECTED (NOT DETECTE); Candida tropicalis NOT DETECTED (NOT DETECTE); Cryptococcus neoformans/gattii NOT DETECTED (NOT DETECTE); Enterobacter cloacae complex NOT DETECTED (NOT DETECTE); Enterobacterales NOT DETECTED (NOT DETECTE); Enterococcus faecalis NOT DETECTED (NOT DETECTE); Enterococcus faecium NOT DETECTED (NOT DETECTE); Haemophilus influenzae NOT DETECTED (NOT DETECTE); Klebsiella aerogenes NOT DETECTED (NOT DETECTE); Klebsiella pneumoniae group NOT DETECTED (NOT DETECTE); Listeria monocytogenes NOT DETECTED (NOT DETECTE); Neisseria meningitidis NOT DETECTED (NOT DETECTE); Proteus spp. NOT DETECTED (NOT DETECTE); Pseudomonas aeruginosa NOT DETECTED (NOT DETECTE); Salmonella spp. NOT DETECTED (NOT DETECTE); Serratia marcescens NOT DETECTED (NOT DETECTE); Staphylococcus epidermidis NOT DETECTED (NOT DETECTE); Staphylococcus lugdunensis NOT DETECTED (NOT DETECTE); Stenotrophomonas maltophilia NOT DETECTED (NOT DETECTE); Streptococcus agalactiae NOT DETECTED (NOT DETECTE); Streptococcus pneumoniae NOT DETECTED (NOT DETECTE); Streptococcus pyogenes NOT DETECTED (NOT DETECTE); Streptococcus spp. NOT DETECTED (NOT DETECTE)
[2023-09-25] MEDS: ASPIRIN 81 MG TAB.CHEW PO (08:59)
[2023-09-25] MEDS: LEVOTHYROXINE SODIUM 125 MCG TABLET PO (08:59)
[2023-09-25 09:09] LABS: Source Blood; Staphylococcus spp. DETECTED (NOT DETECTE); mecA/C and MREJ (MRSA) DETECTED (NOT DETECTE)
[2023-09-25 09:19] LABS: Glucometer 240 mg/dL (74-106)
[2023-09-25] MEDS: INSULIN ASPART 300 UNIT/3 ML PEN SUBQ ×3 (09:24→16:27)
--- NOTE | 2023-09-25 09:25 | CM.NOTE ---
Important message From Medicare discussed with pt, pt verbalizes understanding and signs paper. Original given to pt and copy placed on pt's chart.
[2023-09-25] MEDS: BUMETANIDE 10 MG in 0.9 % SODIUM CHLORIDE 160 ML 20 MG IV (09:26)
--- NOTE | 2023-09-25 09:34 | P.PN_ITS ---
Progress Note: Subjective Subjective Interval history: States he does feel little bit better than the previous day but the numbers would not support that. Although at the time I saw him yesterday he was having a fever spike. Exam Constitutional Vital Signs, click to edit/add: Last Vital Signs Temp 97.9 F 09/25/23 07:53 Pulse 68 09/25/23 08:00 Resp 20 09/25/23 07:53 BP 108/57 09/25/23 07:53 Pulse Ox 94 L 09/25/23 07:53 O2 Del Method Nasal Cannula 09/25/23 07:53 O2 Flow Rate 2 09/25/23 07:53 Documenting provider has reviewed patient's vital signs: yes Common normals: apparent distress (Mild respiratory distress) Chest Common normals: inspection of chest normal Respiratory Common normals: normal respiratory effort and no retractions Auscultation: rales and rhonchi Cardio Rate: regular rate Rhythm: regular rhythm Extremity Common normals: abnormal to inspection (Edema) Progress Note: Objective Labs Labs: Short CBC 09/24/23 09/25/23 Range/Units 14:39 05:04 WBC 7.9 19.7 H (4.0-11.0) 10^3/uL Hgb 16.2 14.7 (14.0-18.0) g/dL Hct 53.6 47.2 (42.0-54.0) % Plt Count 159 135 L (150-450) 10^3/uL BMP 09/24/23 09/25/23 14:39 05:04 Sodium 141 135 L Potassium 4.0 4.1 Chloride 105 103 Carbon Dioxide 25.1 19.4 L BUN 26.0 H 38.0 H Creatinine 1.58 H 1.98 H Glucose 75 207 H Calcium 9.2 8.6 Cardiac Enzymes 09/24/23 Range/Units 17:38 Total Creatine Kinase 126 (39-308) U/L CK-MB (CK-2) 1.66 (<=3.60) ng/mL Liver Function 09/24/23 09/25/23 Range/Units 14:39 05:04 Total Bilirubin 1.0 1.4 H (0.2-1.0) mg/dL AST 28 67 H (15-37) U/L ALT 25 30 (16-63) U/L Alkaline Phosphatase 102 62 (46-116) U/L Albumin 3.4 2.4 L (3.4-5.0) g/dL Progress Note: A&P Assessment and Plan (1) Community acquired pneumonia: (2) Acute hypoxic respiratory failure: (3) Lactic acidosis: (4) Pleural effusion: (5) Congestive heart failure: (6) CKD (chronic kidney disease) stage 3, GFR 30-59 ml/min: (7) DM2 (diabetes mellitus, type 2): Qualifiers: Diabetes mellitus alf insulin use: with alf use Diabetes mellitus complication status: with kidney complications Diabetes mellitus complication detail: with chronic kidney disease Chronic kidney disease stage: stage 3 (moderate) Chronic kidney disease stage 3 subtype: unspecified whether 3a or 3b Qualified Code(s): E11.22 - Type 2 diabetes mellitus with diabetic chronic kidney disease; N18.30 - Chronic kidney disease, stage 3 unspecified; Z79.4 - MCFP (current) use of insulin (8) HTN (hypertension): Qualifiers: Hypertension type: unspecified Qualified Code(s): I10 - Essential (primary) hypertension (9) Afib: Qualifiers: Atrial fibrillation type: permanent Qualified Code(s): I48.21 - Permanent atrial fibrillation (10) Hypothyroidism: (11) Essential tremor: (12) Hyperlipidemia: Plan Respiratory distress, fever, leukocytosis, acute kidney injury, severe hyperglycemia, acute elevation of high-sensitivity troponin and BNP secondary to left lower lobe pneumonia with resulting in severe sepsis with multisystem organ dysfunction(lungs, heart, kidney) -IV antibiotics, initial blood cultures possibly positive for staph. Add clindamycin to the Levaquin. 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 Bumex drip today. His BNP is significantly elevated. High-sensitivity troponin elevation likely secondary to demand ischemia with a poor ejection fraction. Blood pressure low this morning we will hold off on medications-did not add heparin secondary to already anticoagulated with therapeutic dose of Coumadin-ECG with possible inferior lateral ischemia but this is chronic for him. May restart Entresto and bisoprolol depending on blood pressure response tomorrow Hypertension by history-hold off on medications secondary to hypotension this morning Left lower lobe pneumonia as outlined above-continue with antibiotics Atrial fibrillation-rate controlled, continue with anticoagulation Chronic kidney disease stage III-up somewhat today. Needs diuresis. Likely to get worse with that but needs a diuresis. Hyponatremia likely secondary to fluid status is outlined above-monitor daily Poor control diabetes mellitus-insulin sliding scale will continue to adjust Discussed with family/Patient request to be DNR-cc. Continue current treatment plan as outlined above, chart signed, paperwork signed
[2023-09-25] MEDS: CLINDAMYCIN PHOSPHATE/D5W 600 MG/50 ML PIGGYBACK 100 MG IV ×3 (10:42→23:17)
--- NOTE | 2023-09-25 11:21 | RESP.RT ---
increased to 3
[2023-09-25 11:47] LABS: Glucometer 232 mg/dL (74-106)
--- NOTE | 2023-09-25 15:33 | CM.NOTE ---
Clinical faxed to [facility] for services at discharge. Called pt's daughter after pt decided company and she was in agreement. Pt's has used [facility] in the past. [facility] did accept pt and updated nurse and daughter.
[2023-09-25 16:08] LABS: Glucometer 253 mg/dL (74-106)
--- NOTE | 2023-09-25 16:26 | RESP.RT ---
decreased to 30%
[2023-09-25] MEDS: WARFARIN SODIUM 5 MG TABLET PO (17:48)
[2023-09-25] MEDS: INSULIN DETEMIR 300 UNIT/3 ML INSULN.PEN 36 UNIT SUBQ (20:13)
[2023-09-25] MEDS: ATORVASTATIN CALCIUM 10 MG TABLET PO (20:13)
[2023-09-25] MEDS: SACUBITRIL/VALSARTAN 24 MG-26 MG TABLET 1 TAB PO (20:13)
[2023-09-25 20:57] LABS: Glucometer 125 mg/dL (74-106)
[2023-09-25] MEDS: PRIMIDONE 50 MG TABLET PO (22:45)
[2023-09-26] VITALS (9 sets, daily range): BP systolic 96–147; BP diastolic 57–100; PULSE 62–118; RESP 18–22; TEMP 36.2–37.1; O2SAT 91–96
[2023-09-26] MEDS: GUAIFENESIN 600 MG TAB.ER.12H PO ×2 (04:52→18:05)
[2023-09-26] MEDS: CLINDAMYCIN PHOSPHATE/D5W 600 MG/50 ML PIGGYBACK 100 MG IV (04:52)
[2023-09-26 05:53] LABS: Basophils Absolute Auto 0.1 10^3/uL (0.0-0.1); Basophils Percent Auto 0.5 % (0.2-2.0); Eosinophils Absolute Auto 0.2 10^3/uL (0.0-0.7); Eosinophils Percent Auto 1.5 % (0.9-7.0); Hematocrit 44.9 % (42.0-54.0); Hemoglobin 13.9 g/dL (14.0-18.0); Immature Granulocytes Abs Auto 0.07 10^3/uL (0.00-0.03); Immature Granulocytes Pct Auto 0.5 % (0.0-0.5); Lymphocytes Absolute Auto 1.8 10^3/uL (1.2-3.8); Lymphocytes Percent Auto 14.1 % (20.5-60.0); Mean Corpuscular Hemoglobin 24.2 pg (25.9-34.0); Mean Corpuscular Volume 78.1 fL (80.0-94.0); Mean Platelet Volume 10.2 fL (9.5-13.5); Monocytes Absolute Auto 0.7 10^3/uL (0.3-0.8); Monocytes Percent Auto 5.5 % (1.7-12.0); Neutrophils Absolute Auto 10.1 10^3/uL (1.4-6.5); Neutrophils Percent Auto 77.9 % (43.0-75.0); Platelet Count 107 10^3/uL (150-450); Red Blood Count 5.75 10^6/uL (4.70-6.10); Red Cell Distribution Width 18.9 % (11.0-15.0)
[2023-09-26 06:09] LABS: INR 3.68; Prothrombin Time 36.2 sec (9.0-11.6)
[2023-09-26 06:39] LABS: Troponin I High Sensitivity 67.7 pg/mL (4.0-76.1)
[2023-09-26] MEDS: LEVOTHYROXINE SODIUM 125 MCG TABLET PO (07:03)
--- NOTE | 2023-09-26 07:55 | RESP.RT ---
pt found on room air with vapotherm cannula laying on the bed. SpO2 94% on room air
[2023-09-26 08:27] LABS: Glucometer 81 mg/dL (74-106)
--- NOTE | 2023-09-26 09:41 | XR_ITS ---
The [address] [address] Patient Name: PURA DÍAZ MRN: [id number] date: 1935 Sex: M Assigned Patient Location: MS Current Patient Location: MS Accession/Order Number: [id number] Exam Date: 09/26/2023 10:45 Report Date: 09/26/2023 11:32 At the request of: SHAIKH CALISTA Procedure: XR chest 1V EXAM: XR chest 1V HISTORY: SOB COMPARISON: Chest radiographs from 09/25/2023 TECHNIQUE: AP radiograph of the chest. FINDINGS: Left-sided cardiac pacing generator with leads at right atrium and right ventricle coronary sinus. Cardiomegaly. The lungs are without focal consolidation, pneumothorax, or pleural effusion. No acute osseous abnormality. Moderate degenerative changes of the acromioclavicular joints. Degenerative changes of bilateral humeral joints. The spine is not well visualized. XR/XR chest 1V IMPRESSION: 1. Cardiomegaly without acute pulmonary abnormality. Electronically authenticated by: SARAI CHIN Date: 09/26/2023 11:32
[2023-09-26] MEDS: ASPIRIN 81 MG TAB.CHEW PO (10:25)
[2023-09-26 11:17] LABS: Glucometer 72 mg/dL (74-106)
--- NOTE | 2023-09-26 11:26 | PT.DAILY ---
Physical Therapy Daily Note PT Daily Note/Assess Start: 09/26/23 11:20 Freq: Status: Active Protocol: Document 09/26/23 09:55 ESHUTAYLOR (Rec: 09/26/23 11:25 ESHUTAYLOR [id number]) Physical Therapy Daily Note/Assessment Time In/Time Out Time In 09:55 Time Out 10:10 Subjective Subjective Patient reports feeling better . Denies SOB, dizziness or fatigue pre or post RX. Therapeutic Activity Time Therapeutic Activity Minutes (minutes) 15 Therapeutic Activity Units 1 Therapeutic Activity Treatment Bed Mobility Ability Standby Assistance Chair Transfer Ability Standby Assistance Therapeutic Activity Comments SPO2 92 percent at start of RX . Patient is SBA with use of RW. Gait 120 ft. with RW SBA. SPO2 85 percent post ambulation but does rebound to 94 percent within 30-60 seconds of seated rest break and cues for breathing technique. Patient did plop onto bed post ambulation demonstrating fatigue but denies fatigue or SOB. Total Physical Therapy Time Total Therapy Minutes 15 Total Physical Therapy Units 1 Summary Daily Note Summary Progression of gait distance with fair response today. SPO2 did decreased but quickly rebounded with patient on room air. Patient is SBA for all activities for safety. Would recommend PT at DC for patient to continue to build strength and promote home safety once DC from acute care stay.
[2023-09-26 11:58] LABS: Alanine Aminotransferase 33 U/L (16-63); Albumin Globulin Ratio 0.6; Albumin Level 2.3 g/dL (3.4-5.0); Alkaline Phosphatase 60 U/L (46-116); Anion Gap 16.3; Aspartate Amino Transferase 65 U/L (15-37); BUN Creatinine Ratio 22.4; Bilirubin Total 0.8 mg/dL (0.2-1.0); Calcium 8.7 mg/dL (8.5-10.1); Chloride 101 mmol/L (98-107); Estimated GFR (African America 30 (>=60); Estimated GFR (Non-African Ame 25 (>=60); Globulin 3.6 g/dL; Glucose 55 mg/dL (74-106); Potassium 3.3 mmol/L (3.5-5.1); Sodium 137 mmol/L (136-145); Total Protein 5.9 g/dL (6.4-8.2)
--- NOTE | 2023-09-26 12:47 | CT_ITS ---
The [address] [address] Patient Name: PURA DÍAZ MRN: [id number] date: 1935 Sex: M Assigned Patient Location: MS Current Patient Location: MS Accession/Order Number: [id number] Exam Date: 09/26/2023 13:20 Report Date: 09/26/2023 14:38 At the request of: SHAIKH CALISTA Procedure: CT chest wo con EXAM: CT chest wo con HISTORY: sob COMPARISON: 05/13/2022 TECHNIQUE: Axial CT imaging was performed through the chest without intravenous contrast. Multiplanar reformats were performed. Dose reduction techniques were achieved by using automated exposure control and/or adjustment of mA and/or kV according to patient size and/or use of iterative reconstruction technique. FINDINGS: Lungs: No pneumothorax or effusion. There are bilateral lower lobes consolidation and tree-in-bud opacities, representing a suspicion of pneumonia. Airways: Normal. Mediastinum: No adenopathy. Aorta: No aneurysm. Cardiac: Normal size. No pericardial effusion. Left-sided AICD is in place. Status post aortic valve replacement. Pulmonary vasculature: Normal morphology. Bones: No acute bony abnormality. Axilla: No adenopathy. Thyroid gland: No abnormality demonstrated on provided imaging. Soft tissues: Unremarkable. Upper abdomen: Small hiatal hernia. Other findings: None. CT/CT chest wo con IMPRESSION: CT evidence of aspiration pneumonia as described above. Small hiatal hernia. Electronically authenticated by: MAGDALENA JOHNSON Date: 09/26/2023 14:38
--- NOTE | 2023-09-26 12:54 | PM.IMPN1 ---
Progress Note: A&P Assessment and Plan (1) Community acquired pneumonia: Assessment and Plan: CXR on admission - no consolidation seen. Patient has been on Clindamycin/levaquin for CAP. Switched to Zyvox. Asked pharmacy if patient has received cephalosporins in the past as he is allergic to pcn. Trying to avoid Levaquin due to his age, renal function CT chest ordered to assess lung anatomy Qualifiers: Laterality: unspecified laterality Qualified Code(s): J18.9 - Pneumonia, unspecified organism (2) Staphylococcus aureus bacteremia: Assessment and Plan: Started on Zyvox. Repeat blood culture ordered. Sensitivity is pending. At high risk of poor outcome, as patient has bioprosthetic heart valve. (3) Acute hypoxic respiratory failure: Assessment and Plan: Back to baseline. On RA. Monitor. (4) Lactic acidosis: Assessment and Plan: Resolved (5) Pleural effusion: Assessment and Plan: Ordered CT chest to assess lung anatomy (6) Congestive heart failure: Assessment and Plan: Was diuressed but appears dry on exam today. d/c enstresto. Qualifiers: Heart failure type: systolic Heart failure chronicity: acute on chronic Qualified Code(s): I50.23 - Acute on chronic systolic (congestive) heart failure (7) CKD (chronic kidney disease) stage 3, GFR 30-59 ml/min: Assessment and Plan: Monitor renal function closely. Has developed NAT. 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 C/w Bisoprolol Qualifiers: Hypertension type: unspecified Qualified Code(s): I10 - Essential (primary) hypertension (10) Afib: Assessment and Plan: On coumadin for AC. In NSR. Qualifiers: Atrial fibrillation type: permanent Qualified Code(s): I48.21 - Permanent atrial fibrillation (11) Hypothyroidism: Assessment and Plan: c/w levothyroxine Qualifiers: Hypothyroidism type: unspecified Qualified Code(s): E03.9 - Hypothyroidism, unspecified (12) Essential tremor: Assessment and Plan: On primidone (13) Hyperlipidemia: Assessment and Plan: c/w statin Qualifiers: Hyperlipidemia type: unspecified Qualified Code(s): E78.5 - Hyperlipidemia, unspecified (14) NAT (acute kidney injury): Assessment and Plan: Worsening renal function. Started on gentle IVF Hold enstresto. Internal Medicine - PN: Subj Subjective Interval history: Seen and examined, Doing well. On RA today. Feels well but still weak and tired. Exam Constitutional Vital Signs, click to edit/add: Last Vital Signs Temp 98.8 F 09/26/23 06:00 Pulse 64 09/26/23 08:00 Resp 18 09/26/23 10:01 BP 96/57 09/26/23 06:00 Pulse Ox 94 L 09/26/23 12:07 O2 Del Method Room Air 09/26/23 12:07 O2 Flow Rate 30 09/26/23 06:00 FiO2 28 09/26/23 04:13 Documenting provider has reviewed patient's vital signs: yes Common normals: no apparent distress and oriented x3 General appearance: cooperative Respiratory Common normals: normal respiratory effort and clear to auscultation bilaterally Effort & inspection: able to speak in complete sentences Auscultation: clear to auscultation bilaterally Cardio Common normals: regular rate, S1 normal heart sound and S2 normal heart sound Rate: regular rate Heart sounds: S1 normal and S2 normal Extremity Common normals: no clubbing, cyanosis or edema Neuro Common normals: oriented x3, moves all extremities and no focal motor deficits Internal Medicine - PN: Obj Da Labs Labs: Laboratory Results - last 24 hr 09/25/23 09/25/23 09/26/23 16:07 20:56 04:59 WBC 13.0 H RBC 5.75 Hgb 13.9 L Hct 44.9 MCV 78.1 L MCH 24.2 L MCHC 31.0 RDW 18.9 H Plt Count 107 L MPV 10.2 Neut % (Auto) 77.9 H Lymph % (Auto) 14.1 L [place] % (Auto) 5.5 Eos % (Auto) 1.5 Baso % (Auto) 0.5 Neut # (Auto) 10.1 H Lymph # (Auto) 1.8 [place] # (Auto) 0.7 Eos # (Auto) 0.2 Baso # (Auto) 0.1 Abs Immat Gran (auto) 0.07 H Imm/Tot Granulo (auto) 0.5 PT 36.2 H INR 3.68 Sodium 137 Potassium 3.3 L Chloride 101 Carbon Dioxide 23.0 Anion Gap 16.3 BUN 56.0 H Creatinine 2.50 H Est GFR ( Amer) 30 L Est GFR (Non-Af Amer) 25 L BUN/Creatinine Ratio 22.4 Glucose 55 L Calcium 8.7 Total Bilirubin 0.8 AST 65 H ALT 33 Alkaline Phosphatase 60 Troponin I High Sens 67.7 NT-Pro-B Natriuret Pep 8097.0 H* Total Protein 5.9 L Albumin 2.3 L Globulin 3.6 Albumin/Globulin Ratio 0.6 POC Glucose 253 H 125 H 09/26/23 09/26/23 08:26 11:16 WBC RBC Hgb Hct MCV MCH MCHC RDW Plt Count MPV Neut % (Auto) Lymph % (Auto) [place] % (Auto) Eos % (Auto) Baso % (Auto) Neut # (Auto) Lymph # (Auto) [place] # (Auto) Eos # (Auto) Baso # (Auto) Abs Immat Gran (auto) Imm/Tot Granulo (auto) PT INR Sodium Potassium Chloride Carbon Dioxide Anion Gap BUN Creatinine Est GFR ( Amer) Est GFR (Non-Af Amer) BUN/Creatinine Ratio Glucose Calcium Total Bilirubin AST ALT Alkaline Phosphatase Troponin I High Sens NT-Pro-B Natriuret Pep Total Protein Albumin Globulin Albumin/Globulin Ratio POC Glucose 81 72 L
[2023-09-26] MEDS: LACTATED RINGER'S SOLUTION 1,000 ML 50 ML IV (15:28)
[2023-09-26] MEDS: LINEZOLID IN DEXTROSE 5% 600 MG/300 ML PIGGYBACK 300 MG IV (15:29)
[2023-09-26 16:30] LABS: Glucometer 164 mg/dL (74-106)
[2023-09-26] MEDS: INSULIN ASPART 300 UNIT/3 ML PEN SUBQ ×2 (16:48→22:00)
[2023-09-26] MEDS: CEFTRIAXONE 1,000 MG in 0.9 % SODIUM CHLORIDE 50 ML 100 MG IV (18:06)
[2023-09-26 20:14] LABS: Glucometer 175 mg/dL (74-106)
[2023-09-26] MEDS: PRIMIDONE 50 MG TABLET PO (21:03)
[2023-09-26] MEDS: ATORVASTATIN CALCIUM 10 MG TABLET PO (21:03)
[2023-09-26] MEDS: INSULIN DETEMIR 300 UNIT/3 ML INSULN.PEN 36 UNIT SUBQ (21:04)
[2023-09-27] VITALS (7 sets, daily range): BP systolic 127–161; BP diastolic 70–81; PULSE 61–69; RESP 18–20; TEMP 36.3–36.6; O2SAT 91–96
[2023-09-27] MEDS: LINEZOLID IN DEXTROSE 5% 600 MG/300 ML PIGGYBACK 150 MG IV (02:04)
[2023-09-27 02:45] LABS: Glucometer 89 mg/dL (74-106)
[2023-09-27 05:30] LABS: Basophils Absolute Auto 0.1 10^3/uL (0.0-0.1); Basophils Percent Auto 0.5 % (0.2-2.0); Eosinophils Absolute Auto 0.3 10^3/uL (0.0-0.7); Eosinophils Percent Auto 2.5 % (0.9-7.0); Hematocrit 46.1 % (42.0-54.0); Hemoglobin 14.5 g/dL (14.0-18.0); Immature Granulocytes Abs Auto 0.06 10^3/uL (0.00-0.03); Immature Granulocytes Pct Auto 0.5 % (0.0-0.5); Lymphocytes Absolute Auto 0.9 10^3/uL (1.2-3.8); Lymphocytes Percent Auto 7.9 % (20.5-60.0); Mean Corpuscular HGB Conc 31.5 g/dL (29.9-35.2); Mean Corpuscular Hemoglobin 24.5 pg (25.9-34.0); Mean Corpuscular Volume 77.7 fL (80.0-94.0); Mean Platelet Volume 10.2 fL (9.5-13.5); Monocytes Absolute Auto 0.6 10^3/uL (0.3-0.8); Monocytes Percent Auto 4.7 % (1.7-12.0); Neutrophils Absolute Auto 9.7 10^3/uL (1.4-6.5); Neutrophils Percent Auto 83.9 % (43.0-75.0); Platelet Count 107 10^3/uL (150-450); Red Blood Count 5.93 10^6/uL (4.70-6.10); Red Cell Distribution Width 19.1 % (11.0-15.0); White Blood Count 11.6 10^3/uL (4.0-11.0)
[2023-09-27 05:43] LABS: INR 3.61; Prothrombin Time 35.6 sec (9.0-11.6)
[2023-09-27] MEDS: GUAIFENESIN 600 MG TAB.ER.12H PO ×2 (05:48→16:49)
[2023-09-27] MEDS: LEVOTHYROXINE SODIUM 125 MCG TABLET PO (05:48)
[2023-09-27 06:00] LABS: Alanine Aminotransferase 35 U/L (16-63); Albumin Globulin Ratio 0.6; Albumin Level 2.3 g/dL (3.4-5.0); Alkaline Phosphatase 85 U/L (46-116); Anion Gap 12.3; Aspartate Amino Transferase 50 U/L (15-37); Bilirubin Total 0.6 mg/dL (0.2-1.0); Calcium 9.1 mg/dL (8.5-10.1); Carbon Dioxide 25.3 mmol/L (21.0-32.0); Chloride 101 mmol/L (98-107); Estimated GFR (African America 39 (>=60); Estimated GFR (Non-African Ame 33 (>=60); Glucose 155 mg/dL (74-106); Potassium 3.6 mmol/L (3.5-5.1); Sodium 135 mmol/L (136-145); Total Protein 6.3 g/dL (6.4-8.2)
[2023-09-27 07:47] LABS: Glucometer 99 mg/dL (74-106)
[2023-09-27] MEDS: ASPIRIN 81 MG TAB.CHEW PO (08:48)
[2023-09-27 11:35] LABS: Glucometer 154 mg/dL (74-106)
[2023-09-27] MEDS: INSULIN ASPART 300 UNIT/3 ML PEN SUBQ ×2 (11:35→20:55)
--- NOTE | 2023-09-27 11:55 | P.IMPN_ITS ---
Progress Note: A&P Assessment and Plan (1) Community acquired pneumonia: Assessment and Plan: Aspiration PNA, likely culprit is MRSA as blood cultures are positive. Improving from resp point of view. Qualifiers: Laterality: unspecified laterality Qualified Code(s): J18.9 - Pneumonia, unspecified organism (2) Staphylococcus aureus bacteremia: Assessment and Plan: Repeat blood cultures ordered n 09/26/23. Blood cultures need to be negative for 48 hours. Due to hx of prostethic valve, he will need to be treated with minimum of 2 weeks of IV vancoymcin plus 2 weeks of PO abx with activity againts MRSA. (3) Acute hypoxic respiratory failure: Assessment and Plan: Resolved. On RA now (4) Lactic acidosis: Assessment and Plan: Resolved. (5) Pleural effusion: Assessment and Plan: Resolved (6) Congestive heart failure: Assessment and Plan: Initially treated for acute on chronic systolic HF But was give gentle IV hydration yesterday. Qualifiers: Heart failure chronicity: acute on chronic Heart failure type: systolic Qualified Code(s): I50.23 - Acute on chronic systolic (congestive) heart failure (7) CKD (chronic kidney disease) stage 3, GFR 30-59 ml/min: Assessment and Plan: Renal function worse than baseline but improved some with IV hydration. D/c fluids as fear of volume overload and closely monitor. 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 C/w bisoprolol Qualifiers: Hypertension type: unspecified Qualified Code(s): I10 - Essential (primary) hypertension (10) Afib: Assessment and Plan: in NSR. Coumadin for ac. Qualifiers: Atrial fibrillation type: permanent Qualified Code(s): I48.21 - Permanent atrial fibrillation (11) Hypothyroidism: Assessment and Plan: c/w levothyroxine Qualifiers: Hypothyroidism type: unspecified Qualified Code(s): E03.9 - Hypothyroidism, unspecified (12) Essential tremor: Assessment and Plan: C/w primidone (13) Hyperlipidemia: Assessment and Plan: c/w statin Qualifiers: Hyperlipidemia type: unspecified Qualified Code(s): E78.5 - Hyperlipidemia, unspecified (14) NAT (acute kidney injury): Assessment and Plan: Improved with hydration. D/c IVF as risk of volume overload. Monitor Plan At high risk of poor clinical outcome due to MRSA bacteremia in the setting of prosthetic heart valve. Closely monitor. Internal Medicine - PN: Subj Subjective Interval history: Seen and examined, Doing well. On RA today No overnight events. Exam Constitutional Vital Signs, click to edit/add: Last Vital Signs Temp 97.7 F 09/27/23 05:46 Pulse 69 09/27/23 07:50 Resp 18 09/27/23 07:50 BP 158/79 H 09/27/23 07:50 Pulse Ox 96 09/27/23 05:46 O2 Del Method Room Air 09/27/23 05:46 O2 Flow Rate 30 09/26/23 06:00 FiO2 28 09/26/23 04:13 Documenting provider has reviewed patient's vital signs: yes Common normals: no apparent distress and oriented x3 General appearance: cooperative Respiratory Common normals: normal respiratory effort and clear to auscultation bilaterally Effort & inspection: able to speak in complete sentences Auscultation: clear to auscultation bilaterally Cardio Common normals: regular rate, S1 normal heart sound and S2 normal heart sound Rate: regular rate Heart sounds: S1 normal and S2 normal Extremity Common normals: no clubbing, cyanosis or edema Neuro Common normals: oriented x3, moves all extremities and no focal motor deficits Internal Medicine - PN: Obj Da Labs Labs: Laboratory Results - last 24 hr 09/26/23 09/26/23 09/26/23 04:59 16:30 20:09 WBC RBC Hgb Hct MCV MCH MCHC RDW Plt Count MPV Neut % (Auto) Lymph % (Auto) [place] % (Auto) Eos % (Auto) Baso % (Auto) Neut # (Auto) Lymph # (Auto) [place] # (Auto) Eos # (Auto) Baso # (Auto) Abs Immat Gran (auto) Imm/Tot Granulo (auto) PT INR Sodium 137 Potassium 3.3 L Chloride 101 Carbon Dioxide 23.0 Anion Gap 16.3 BUN 56.0 H Creatinine 2.50 H Est GFR ( Amer) 30 L Est GFR (Non-Af Amer) 25 L BUN/Creatinine Ratio 22.4 Glucose 55 L Calcium 8.7 Total Bilirubin 0.8 AST 65 H ALT 33 Alkaline Phosphatase 60 NT-Pro-B Natriuret Pep Total Protein 5.9 L Albumin 2.3 L Globulin 3.6 Albumin/Globulin Ratio 0.6 POC Glucose 164 H 175 H 09/27/23 09/27/23 09/27/23 02:44 05:02 07:46 WBC 11.6 H RBC 5.93 Hgb 14.5 Hct 46.1 MCV 77.7 L MCH 24.5 L MCHC 31.5 RDW 19.1 H Plt Count 107 L MPV 10.2 Neut % (Auto) 83.9 H Lymph % (Auto) 7.9 L [place] % (Auto) 4.7 Eos % (Auto) 2.5 Baso % (Auto) 0.5 Neut # (Auto) 9.7 H Lymph # (Auto) 0.9 L [place] # (Auto) 0.6 Eos # (Auto) 0.3 Baso # (Auto) 0.1 Abs Immat Gran (auto) 0.06 H Imm/Tot Granulo (auto) 0.5 PT 35.6 H INR 3.61 Sodium 135 L Potassium 3.6 Chloride 101 Carbon Dioxide 25.3 Anion Gap 12.3 BUN 51.0 H Creatinine 1.96 H Est GFR ( Amer) 39 L Est GFR (Non-Af Amer) 33 L BUN/Creatinine Ratio 26.0 Glucose 155 H Calcium 9.1 Total Bilirubin 0.6 AST 50 H ALT 35 Alkaline Phosphatase 85 NT-Pro-B Natriuret Pep 3724.0 H* Total Protein 6.3 L Albumin 2.3 L Globulin 4.0 Albumin/Globulin Ratio 0.6 POC Glucose 89 99 09/27/23 11:34 WBC RBC Hgb Hct MCV MCH MCHC RDW Plt Count MPV Neut % (Auto) Lymph % (Auto) [place] % (Auto) Eos % (Auto) Baso % (Auto) Neut # (Auto) Lymph # (Auto) [place] # (Auto) Eos # (Auto) Baso # (Auto) Abs Immat Gran (auto) Imm/Tot Granulo (auto) PT INR Sodium Potassium Chloride Carbon Dioxide Anion Gap BUN Creatinine Est GFR ( Amer) Est GFR (Non-Af Amer) BUN/Creatinine Ratio Glucose Calcium Total Bilirubin AST ALT Alkaline Phosphatase NT-Pro-B Natriuret Pep Total Protein Albumin Globulin Albumin/Globulin Ratio POC Glucose 154 H
[2023-09-27] MEDS: VANCOMYCIN HCL 1,500 MG in 0.9 % SODIUM CHLORIDE 500 ML 250 MG IV (13:34)
--- NOTE | 2023-09-27 15:43 | PC.NURSE ---
patient spit out medication.
--- NOTE | 2023-09-27 15:44 | PC.NURSE ---
patient combative at this time. attempting to get out of bed. patient grabbing at staffing and attempting to hit staff. commercial lines underwriter and rn assisted patient back in bed. attempted to give patient prn xanaax. patient spit medication out. patient is talking about scripture and believes staff are the devil. rn notifying dr lantigua.
[2023-09-27] MEDS: HALOPERIDOL LACTATE 5 MG/ML VIAL IV (15:54)
[2023-09-27 16:28] LABS: A. calcoaceticus-baumannii Cpx NOT DETECTED (NOT DETECTE); Bacteroides fragilis NOT DETECTED (NOT DETECTE); Candida albicans NOT DETECTED (NOT DETECTE); Candida auris NOT DETECTED (NOT DETECTE); Candida glabrata NOT DETECTED (NOT DETECTE); Candida krusei NOT DETECTED (NOT DETECTE); Candida parapsilosis NOT DETECTED (NOT DETECTE); Candida tropicalis NOT DETECTED (NOT DETECTE); Cryptococcus neoformans/gattii NOT DETECTED (NOT DETECTE); Enterobacter cloacae complex NOT DETECTED (NOT DETECTE); Enterobacterales NOT DETECTED (NOT DETECTE); Enterococcus faecalis NOT DETECTED (NOT DETECTE); Enterococcus faecium NOT DETECTED (NOT DETECTE); Haemophilus influenzae NOT DETECTED (NOT DETECTE); Klebsiella aerogenes NOT DETECTED (NOT DETECTE); Klebsiella pneumoniae group NOT DETECTED (NOT DETECTE); Listeria monocytogenes NOT DETECTED (NOT DETECTE); Neisseria meningitidis NOT DETECTED (NOT DETECTE); Proteus spp. NOT DETECTED (NOT DETECTE); Pseudomonas aeruginosa NOT DETECTED (NOT DETECTE); Salmonella spp. NOT DETECTED (NOT DETECTE); Serratia marcescens NOT DETECTED (NOT DETECTE); Staphylococcus epidermidis NOT DETECTED (NOT DETECTE); Staphylococcus lugdunensis NOT DETECTED (NOT DETECTE); Stenotrophomonas maltophilia NOT DETECTED (NOT DETECTE); Streptococcus agalactiae NOT DETECTED (NOT DETECTE); Streptococcus pneumoniae NOT DETECTED (NOT DETECTE); Streptococcus pyogenes NOT DETECTED (NOT DETECTE); Streptococcus spp. NOT DETECTED (NOT DETECTE)
[2023-09-27 16:41] LABS: Glucometer 154 mg/dL (74-106)
[2023-09-27] MEDS: CEFTRIAXONE 1,000 MG in 0.9 % SODIUM CHLORIDE 50 ML 100 MG IV (16:48)
[2023-09-27 18:57] LABS: mecA/C and MREJ (MRSA) DETECTED (NOT DETECTE)
[2023-09-27 18:58] LABS: Staphylococcus spp. DETECTED (NOT DETECTE)
[2023-09-27 19:34] LABS: Glucometer 185 mg/dL (74-106)
[2023-09-27] MEDS: PRIMIDONE 50 MG TABLET PO (20:54)
[2023-09-27] MEDS: ATORVASTATIN CALCIUM 10 MG TABLET PO (20:54)
[2023-09-27] MEDS: INSULIN DETEMIR 300 UNIT/3 ML INSULN.PEN 36 UNIT SUBQ (20:54)
[2023-09-28] VITALS (11 sets, daily range): BP systolic 94–186; BP diastolic 62–87; PULSE 59–69; RESP 16–20; TEMP 36.2–36.6; O2SAT 90–98
[2023-09-28] MEDS: ALPRAZOLAM 0.5 MG TABLET PO ×2 (02:53→20:56)
[2023-09-28 05:33] LABS: Basophils Absolute Auto 0.1 10^3/uL (0.0-0.1); Basophils Percent Auto 0.8 % (0.2-2.0); Eosinophils Absolute Auto 0.2 10^3/uL (0.0-0.7); Eosinophils Percent Auto 1.6 % (0.9-7.0); Hematocrit 47.3 % (42.0-54.0); Hemoglobin 15.2 g/dL (14.0-18.0); Immature Granulocytes Abs Auto 0.08 10^3/uL (0.00-0.03); Immature Granulocytes Pct Auto 0.8 % (0.0-0.5); Lymphocytes Absolute Auto 1.4 10^3/uL (1.2-3.8); Lymphocytes Percent Auto 13.1 % (20.5-60.0); Mean Corpuscular HGB Conc 32.1 g/dL (29.9-35.2); Mean Corpuscular Hemoglobin 24.6 pg (25.9-34.0); Mean Corpuscular Volume 76.5 fL (80.0-94.0); Mean Platelet Volume 10.5 fL (9.5-13.5); Monocytes Absolute Auto 0.7 10^3/uL (0.3-0.8); Monocytes Percent Auto 6.9 % (1.7-12.0); Neutrophils Percent Auto 76.8 % (43.0-75.0); Platelet Count 132 10^3/uL (150-450); Red Blood Count 6.18 10^6/uL (4.70-6.10); Red Cell Distribution Width 18.6 % (11.0-15.0); White Blood Count 10.4 10^3/uL (4.0-11.0)
[2023-09-28 05:46] LABS: Prothrombin Time 21.3 sec (9.0-11.6)
[2023-09-28 05:56] LABS: Alanine Aminotransferase 24 U/L (16-63); Albumin Globulin Ratio 0.6; Albumin Level 2.4 g/dL (3.4-5.0); Alkaline Phosphatase 82 U/L (46-116); Aspartate Amino Transferase 35 U/L (15-37); Calcium 9.1 mg/dL (8.5-10.1); Carbon Dioxide 25.3 mmol/L (21.0-32.0); Chloride 103 mmol/L (98-107); Estimated GFR (African America 58 (>=60); Estimated GFR (Non-African Ame 48 (>=60); Glucose 79 mg/dL (74-106); Potassium 3.3 mmol/L (3.5-5.1); Sodium 136 mmol/L (136-145); Total Protein 6.4 g/dL (6.4-8.2)
[2023-09-28 07:36] LABS: Glucometer 72 mg/dL (74-106)
[2023-09-28] MEDS: BENZONATATE 100 MG CAPSULE 200 MG PO ×2 (09:20→20:56)
[2023-09-28] MEDS: ASPIRIN 81 MG TAB.CHEW PO (09:21)
[2023-09-28] MEDS: POTASSIUM CHLORIDE 10 MEQ ER TABLET 40 MEQ PO (09:21)
[2023-09-28 11:38] LABS: Glucometer 142 mg/dL (74-106)
--- NOTE | 2023-09-28 12:51 | P.IMPN_ITS ---
Progress Note: A&P Assessment and Plan (1) Metabolic encephalopathy: Assessment and Plan: likely due to staph bacteremia, sepsis. Hospice consulted/ Cw abx for now. (2) Community acquired pneumonia: Assessment and Plan: Aspiration PNA, likely culprit is MRSA as blood cultures are positive. On Vancomycin for it. Qualifiers: Laterality: unspecified laterality Qualified Code(s): J18.9 - Pneumonia, unspecified organism (3) Staphylococcus aureus bacteremia: Assessment and Plan: Repeat blood cultures ordered n 09/26/23. 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 This along with worsening clinical status with confusion, delirium indicate poor outcome given his age, comorbidities. Discussed with patients Priyanka KIMBROUGH, who asked for a hospice consult. C/w Abx for now but will discontinue daily labs, PO medicaions and this was discussed with Estela and she was in agreement with it. (4) Acute hypoxic respiratory failure: Assessment and Plan: Resolved. On RA now (5) Lactic acidosis: Assessment and Plan: Resolved. (6) Pleural effusion: Assessment and Plan: Resolved (7) Congestive heart failure: Assessment and Plan: Initially treated for acute on chronic systolic HF but likely dehydrated as little to now PO intake since last evening due to confusion Qualifiers: Heart failure chronicity: acute on chronic Heart failure type: systolic Qualified Code(s): I50.23 - Acute on chronic systolic (congestive) heart failure (8) CKD (chronic kidney disease) stage 3, GFR 30-59 ml/min: Assessment and Plan: Renal function worse than baseline but improved some with IV hydration. Qualifiers: Chronic kidney disease stage 3 subtype: stage 3a (GFR 45-59) Qualified Code(s): N18.31 - Chronic kidney disease, stage 3a (9) DM2 (diabetes mellitus, type 2): Assessment and Plan: Decrease Levemir to 20 units as patent has poor PO intake. 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 Hold Entresto Qualifiers: Hypertension type: unspecified Qualified Code(s): I10 - Essential (primary) hypertension (11) Afib: Assessment and Plan: in NSR. D/c coumadin as patient now consulted for hospice evaluation Qualifiers: Atrial fibrillation type: permanent Qualified Code(s): I48.21 - Perm anent atrial fibrillation (12) Hypothyroidism: Assessment and Plan: c/w levothyroxine Qualifiers: Hypothyroidism type: unspecified Qualified Code(s): E03.9 - Hypothyroidism, unspecified (13) Essential tremor: Assessment and Plan: C/w primidone (14) Hyperlipidemia: Assessment and Plan: D/c statin Qualifiers: Hyperlipidemia type: unspecified Qualified Code(s): E78.5 - Hyperlipidemia, unspecified (15) NAT (acute kidney injury): Assessment and Plan: Improved with hydration. Plan At high risk of poor clinical outcome due to persistent MRSA bacteremia in the setting of prosthetic heart valve. Worsening clinical status, now with metabolic encephalopathy. Poor prognosis. Hospice consulted. Internal Medicine - PN: Subj Subjective Interval history: Seen and examined. Confused, disoriented since last evening. Periodic agitation. Exam Constitutional Vital Signs, click to edit/add: Last Vital Signs Temp 97.1 F L 09/28/23 09:00 Pulse 63 09/28/23 09:00 Resp 18 09/28/23 09:00 BP 94/62 09/28/23 09:00 Pulse Ox 97 09/28/23 09:00 O2 Del Method Room Air 09/28/23 09:00 O2 Flow Rate 30 09/26/23 06:00 FiO2 28 09/26/23 04:13 Documenting provider has reviewed patient's vital signs: yes Exam limitations: altered mental status General appearance: ill appearing and frail appearing HENPA Common normals: normocephalic and head/scalp atraumatic Respiratory Effort & inspection: abnormal respiratory pattern and tachypneic Auscultation: wheezes and diminished lung sounds Cardio Common normals: regular rate, regular rhythm, S1 normal heart sound and S2 theodora l heart sound Heart sounds: murmur Extremity Common normals: no clubbing, cyanosis or edema Neuro Common normals: moves all extremities, no focal motor deficits and no sensory deficits noted Sensorium/orientation: orientation impaired and lethargic Speech: abnormal speech Internal Medicine - PN: Obj Da Labs Labs: Laboratory Results - last 24 hr 09/26/23 09/27/23 09/27/23 13:15 16:41 19:23 WBC RBC Hgb Hct MCV MCH MCHC RDW Plt Count MPV Neut % (Auto) Lymph % (Auto) [place] % (Auto) Eos % (Auto) Baso % (Auto) Neut # (Auto) Lymph # (Auto) [place] # (Auto) Eos # (Auto) Baso # (Auto) Abs Immat Gran (auto) Imm/Tot Granulo (auto) PT INR Sodium Potassium Chloride Carbon Dioxide Anion Gap BUN Creatinine Est GFR ( Amer) Est GFR (Non-Af Amer) BUN/Creatinine Ratio Glucose Calcium Total Bilirubin AST ALT Alkaline Phosphatase NT-Pro-B Natriuret Pep Total Protein Albumin Globulin Albumin/Globulin Ratio Solomon H. influenza (PCR) Not detected A.calcoaceticus-baumannii cmplx PCR Not detected Bacteroides fragilis Not detected Gloria albicans (PCR) Not detected Gloria auris (PCR) Not detected C. glabrata (PCR) Not detected C. krusei (PCR) Not detected C. parapsilosis (PCR) Not detected C. tropicalis (PCR) Not detected C. neoform/gattii (PCR) Not detected Enterobacterales (PCR) Not detected E. cloacae complex PCR Not detected Enterococc faecalis PCR Not detected Enterococc faecium PCR Not detected E. coli (PCR) Not detected Klebsiella aerogenes (PCR) Not detected Klebsiella oxytoca PCR Not detected K. pneumoniae group (PCR) Not detected List. monocytogenes PCR Not detected N. meningitidis (PCR) Not detected Proteus spp. (copies/mL) Not detected Salmonella spp. (PCR) Not detected Serratia marcescens PCR Not detected Staphylococcus sp PCR Detected A* Staph aureus (PCR) Detected A* mecA/C & MREJ Resist Gene Detected A* mecA/C-Methicil Resis Gene Not applicable mcr-1 Colistin Res Gene PCR Not applicable Staph epidermidis (PCR) Not detected Staph lugdunensis (TEM-PCR) Not detected S. maltophilia (PCR) Not detected Streptococcus sp PCR Not detected Strep agalactiae (PCR) Not detected Strep pneumoniae (PCR) Not detected S. pyogenes (PCR) Not detected P. aeruginosa (PCR) Not detected Latha/B-Vanco Res Genes Not applicable blaIMP Car res Gene PCR Not applicable KPC (blaKPC) Detect PCR Not applicable NDM (blaNDM) Detect PCR Not applicable OXA-48 Carbapenem Resis Gene (PCR) Not applicable blaVIM Car Res Gene PCR Not applicable CTX-M ESBL (PCR) Not applicable POC Glucose 154 H 185 H 09/28/23 09/28/23 09/28/23 04:50 07:35 11:38 WBC 10.4 RBC 6.18 H Hgb 15.2 Hct 47.3 MCV 76.5 L MCH 24.6 L MCHC 32.1 RDW 18.6 H Plt Count 132 L MPV 10.5 Neut % (Auto) 76.8 H Lymph % (Auto) 13.1 L [place] % (Auto) 6.9 Eos % (Auto) 1.6 Baso % (Auto) 0.8 Neut # (Auto) 8.0 H Lymph # (Auto) 1.4 [place] # (Auto) 0.7 Eos # (Auto) 0.2 Baso # (Auto) 0.1 Abs Immat Gran (auto) 0.08 H Imm/Tot Granulo (auto) 0.8 H PT 21.3 H INR 2.10 Sodium 136 Potassium 3.3 L Chloride 103 Carbon Dioxide 25.3 Anion Gap 11.0 BUN 38.0 H Creatinine 1.41 H Est GFR ( Amer) 58 L Est GFR (Non-Af Amer) 48 L BUN/Creatinine Ratio 27.0 Glucose 79 Calcium 9.1 Total Bilirubin 1.0 AST 35 ALT 24 Alkaline Phosphatase 82 NT-Pro-B Natriuret Pep 53911.0 H* Total Protein 6.4 Albumin 2.4 L Globulin 4.0 Albumin/Globulin Ratio 0.6 Solomon H. influenza (PCR) A.calcoaceticus-baumannii cmplx PCR Bacteroides fragilis Gloria albicans (PCR) Glorai auris (PCR) C. glabrata (PCR) C. krusei (PCR) C. parapsilosis (PCR) C. tropicalis (PCR) C. neoform/gattii (PCR) Enterobacterales (PCR) E. cloacae complex PCR Enterococc faecalis PCR Enterococc faecium PCR E. coli (PCR) Klebsiella aerogenes (PCR) Klebsiella oxytoca PCR K. pneumoniae group (PCR) List. monocytogenes PCR N. meningitidis (PCR) Proteus spp. (copies/mL) Salmonella spp. (PCR) Serratia marcescens PCR Staphylococcus sp PCR Staph aureus (PCR) mecA/C & MREJ Resist Gene mecA/C-Methicil Resis Gene mcr-1 Colistin Res Gene PCR Staph epidermidis (PCR) Staph lugdunensis (TEM-PCR) S. maltophilia (PCR) Streptococcus sp PCR Strep agalactiae (PCR) Strep pneumoniae (PCR) S. pyogenes (PCR) P. aeruginosa (PCR) Latha/B-Vanco Res Genes blaIMP Car res Gene PCR KPC (blaKPC) Detect PCR NDM (blaNDM) Detect PCR OXA-48 Carbapenem Resis Gene (PCR) blaVIM Car Res Gene PCR CTX-M ESBL (PCR) POC Glucose 72 L 142 H
[2023-09-28 14:31] LABS: Source BLOOD
[2023-09-28 16:30] LABS: Glucometer 118 mg/dL (74-106)
[2023-09-28] MEDS: GUAIFENESIN 600 MG TAB.ER.12H PO (17:09)
[2023-09-28] MEDS: CEFTRIAXONE 1,000 MG in 0.9 % SODIUM CHLORIDE 50 ML 100 MG IV (17:17)
[2023-09-28] MEDS: 0.9 % SODIUM CHLORIDE 250 ML IV.SOLN IV (17:17)
[2023-09-28 20:23] LABS: Glucometer 173 mg/dL (74-106)
--- NOTE | 2023-09-28 20:40 | PC.NURSE ---
Bladder scanned pt. for 498 patient able to urinate 200ml notified physician
[2023-09-28] MEDS: QUETIAPINE FUMARATE 25 MG TABLET PO (20:56)
[2023-09-28] MEDS: PRIMIDONE 50 MG TABLET PO (20:56)
[2023-09-28] MEDS: INSULIN ASPART 300 UNIT/3 ML PEN SUBQ (20:56)
--- NOTE | 2023-09-28 22:05 | PC.NURSE ---
Linda cath placed after attempt to do a straight cath but catheter from kit too rigid. #16 linda inserted with much difficulty d/t foreskin restricting visualization of meatus/head of penis. Linda was inserted slowly and gently and had return of clear irma. Urine drained into straight cath kit tray (200cc) then attached to a linda drainage bag for another 400cc. Tele hospitalist aware and order put in for linda cath. Secure cath applied and linda continues to drain. consult also ordered for urology
--- NOTE | 2023-09-28 22:08 | PC.NURSE ---
called to bedside because primary nurse having difficulty straight cathing pt after being bladder scanned for 498cc. Pt foreskin very constricted and unable to visualize head of penis. Several attempts made to visualize head of the penis then after using a #16 linda cath and gently inserting while putting traction on penis and attempting to retract the foreskin, irma urine noted from catheter. 200cc noted immediately in staight cath kit. Catheter then attached to a drainage bag and allowed to drain. 600cc noted total (200 in straight kit container and then an additional 400cc in drainage bag) Tele hospitalist made aware and linda left in place. Secure cath placed and linda balloon inflated.
[2023-09-29] VITALS (7 sets, daily range): BP systolic 134–173; BP diastolic 75–92; PULSE 60–68; RESP 18–21; TEMP 36.3–36.5; O2SAT 91–98
[2023-09-29] MEDS: VANCOMYCIN HCL 1,500 MG in 0.9 % SODIUM CHLORIDE 500 ML 125 MG IV (00:30)
[2023-09-29] MEDS: IPRATROPIUM/ALBUTEROL SULFATE 3 ML AMPUL.NEB IH (00:52)
--- NOTE | 2023-09-29 00:56 | XR_ITS ---
The [address] [address] Patient Name: PURA DÍAZ MRN: [id number] date: 1935 Sex: M Assigned Patient Location: [place] Current Patient Location: Accession/Order Number: [id number] Exam Date: 09/29/2023 01:00 Report Date: 09/29/2023 02:37 At the request of: SHUN VIDAL Procedure: XR chest 1V EXAMINATION:XR chest 1V INDICATION:SOB COMPARISON:09/26/2023 TECHNIQUE:A single frontal view of the chest is submitted. FINDINGS: The cardiomediastinal silhouette is not enlarged. A left-sided pacemaker is in place. There is a degree of vascular congestion in the chest. Patchy airspace disease is present in left greater than right lung bases concerning for superimposed infection. There is a probable small left pleural effusion. Right costophrenic angle is not blunted. XR/XR chest 1V IMPRESSION: Findings concerning for vascular congestion with bibasilar infiltrates, left greater than right. There may also be a small left pleural effusion. Electronically authenticated by: АНДРЕЙ HAYES Date: 09/29/2023 02:37
[2023-09-29] MEDS: FUROSEMIDE 40 MG/4 ML VIAL IVP ×2 (03:06→14:59)
--- NOTE | 2023-09-29 05:32 | PC.NURSE ---
urine noted light pale red color with a small clot
[2023-09-29 07:38] LABS: Glucometer 182 mg/dL (74-106)
--- NOTE | 2023-09-29 09:56 | CM.NOTE ---
[facility] has been consulted for pt, clinical copied for Mikie upon arrival.
--- NOTE | 2023-09-29 10:56 | CM.NOTE ---
Rounds made with Dr. Almazan. Hospice was consulted and is currently at hospital to visit patient and to determine if appropriate for home w hospice or inpatient hospice. Awaiting Hospice recommendations for discharge plan. Dr. Almazan cancelled urology consult that was made earlier.
[2023-09-29 11:09] LABS: Glucometer 180 mg/dL (74-106)
--- NOTE | 2023-09-29 11:43 | P.DS_ITS ---
DS: Providers Provider Date of admission: 09/25/23 07:19 Primary care physician: Shaikh Tha MD Consults: 09/25/23 Occupational Therapy Eval and Treat Routine Reason for consultation: weakness Physical Therapy Eval and Treat Routine Reason for consultation: weakness 09/28/23 11:17 Consult to Hospice Routine Reason for consultation: End of life care Attending physician on discharge: Shaikh Tha Discharging clinician: Shaikh Tha Anticipated date of discharge: 09/29/23 DS: Diagnosis Discharge Diagnosis (1) Metabolic encephalopathy: Assessment and plan: due to MRSA bacteremia. (2) Community acquired pneumonia: Assessment and plan: On RA but declining with persistent bacteremai and likely has underlying endocarditis. Discharged to inpatient hospice. Qualifiers: Laterality: unspecified laterality Qualified Code(s): J18.9 - Pneumonia, unspecified organism (3) Staphylococcus aureus bacteremia: Assessment and plan: persistent, and in light of prosthetic heart valve - poor prognosis, given his age. Discharge to inpatient hospice. (4) Acute hypoxic respiratory failure: Assessment and plan: Resolved on RA. (5) Lactic acidosis: Assessment and plan: Due to sepsis (6) Congestive heart failure: Assessment and plan: initially treated for acute HF but later on required IVF Qualifiers: Heart failure chronicity: acute on chronic Heart failure type: systolic Qualified Code(s): I50.23 - Acute on chronic systolic (congestive) heart failure (7) CKD (chronic kidney disease) stage 3, GFR 30-59 ml/min: Assessment and plan: Due to CHF, HTN and T2 DM Qualifiers: Chronic kidney disease stage 3 subtype: stage 3a (GFR 45-59) Qualified Code(s): N18.31 - Chronic kidney disease, stage 3a (8) DM2 (diabetes mellitus, type 2): Assessment and plan: poor PO intake, will need lower doses of basal insulin Qualifiers: Diabetes mellitus group home insulin use: with dividing machine operator use Diabetes mellitus complication status: with kidney complications Diabetes mellitus complication detail: with chronic kidney disease Chronic kidney disease stage: stage 3 (moderate) Chronic kidney disease stage 3 subtype: unspecified whether 3a or 3b Qualified Code(s): E11.22 - Type 2 diabetes mellitus with diabetic chronic kidney disease; N18.30 - Chronic kidney disease, stage 3 unspecified; 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 Qualifiers: Hypertension type: unspecified Qualified Code(s): I10 - Essential (primary) hypertension (10) Afib: Assessment and plan: In NSR. Coumadin on hold now as patient is hospice. Qualifiers: Atrial fibrillation type: permanent Qualified Code(s): I48.21 - Permanent atrial fibrillation (11) Hypothyroidism: Assessment and plan: PO meds on hold Qualifiers: Hypothyroidism type: unspecified Qualified Code(s): E03.9 - Hypothyroidism, unspecified (12) Essential tremor: Assessment and plan: PO meds on hold (13) Hyperlipidemia: Assessment and plan: PO meds on hold Qualifiers: Hyperlipidemia type: unspecified Qualified Code(s): E78.5 - Hyperlipidemia, unspecified (14) NAT (acute kidney injury): Assessment and plan: rsolved DS: Summary Hospital Course Hospital Course: 88 y o male presented with worsenig SOB, and was admitted for pneumonia and acute on chronic systolic HF. He was treated with IV abx, and diuresed with improvement in his symptoms and seemed like he was recovering well. His w/u indicated MRSA bacteremia that remained persistent despite appropriate abx and with hx of prostehtic heart valve,it seems likekely that he has developed endocarditis. Patient's clinical status gradually worsened with confusion and now today, he was obtunded with and very confused. Family was made aware and yesterday, his POA decided to pursue hospice care. Patient was evaluated by hospice and will be discharged to inpatient hospice today. Status at Discharge Functional status at discharge: bed bound Overall status at discharge: patient is not back to baseline Time Spent with Patient Time attestation: Total time spent providing and/or coordinating discharge services: Time spent: greater than 30 minutes Exam Constitutional Vital Signs, click to edit/add: Last Vital Signs Temp 97.5 F L 09/29/23 07:38 Pulse 68 09/29/23 07:38 Resp 18 09/29/23 08:10 BP 173/92 H 09/29/23 07:38 Pulse Ox 98 09/29/23 10:51 O2 Del Method Room Air 09/29/23 10:51 O2 Flow Rate 30 09/26/23 06:00 FiO2 28 09/26/23 04:13 Documenting provider has reviewed patient's vital signs: yes Exam limitations: altered mental status General appearance: lethargic and ill appearing Nutritional appearance: obese Orientation/consciousness: Yes obtunded Respiratory Common normals: no use of accessory muscles Effort & inspection: decreased respiratory effort Auscultation: rales Cardio Common normals: regular rate, regular rhythm, S1 normal heart sound and S2 normal heart sound Neuro Common normals: moves all extremities Sensorium/orientation: lethargic and somnolent Psych Speech: incoherent Thought process: confused Attention/concentration: concentration grossly impaired Memory/cognition: cognition grossly impaired Insight: poor Judgement: poor DS: Data Data Completed and Pending Labs on day of discharge: Labs from last 24 hours 09/29/23 09/29/23 09/28/23 11:08 07:37 20:22 POC Glucose 180 H 182 H 173 H 09/28/23 16:30 POC Glucose 118 H Preliminary micro results at discharge 09/26/23 13:19 - Preliminary Blood NO GROWTH AT 36-48 HOURS. FINAL TO FOLLOW. 09/26/23 13:15 Blood Culture Result 1 - Preliminary Blood NO GROWTH AT 36-48 HOURS. FINAL TO FOLLOW. Discharge Plan Discharge Disposition: Hospice - Medical Facility Condition: Good Discharge Medications: New Levemir FlexPen 100 unit/mL (3 mL) Insulin Pen 25 unit subcut QPM 30 Days Qty: 7.5 0RF Continued bisoprolol fumarate 10 mg tablet 10 mg PO DAILY primidone 50 mg tablet 50 mg PO .QHS insulin aspart U-100 [Novolog FlexPen U-100 Insulin] 100 unit/mL (3 mL) insulin pen 1 sliding scale dose subcut USEASDIRECTD Discontinued aspirin 81 mg capsule 81 mg PO DAILY atorvastatin 10 mg tablet 10 mg PO QPM cholecalciferol (vitamin D3) 25 mcg (1,000 unit) capsule 2,000 unit PO DAILY Farxiga 10 mg tablet 10 mg PO DAILY Levemir FlexPen 100 unit/mL (3 mL) insulin pen 36 unit subcut QPM loratadine 10 mg tablet 10 mg PO DAILY multivitamin Tablet 1 tab PO DAILY cyanocobalamin (vitamin B-12) 1,000 mcg capsule 1,000 mcg PO .3 times week warfarin 5 mg tablet 5 mg PO .QD levothyroxine [Euthyrox] 125 mcg tablet 125 mcg PO DAILY Entresto 24-26 mg tablet 1 tab PO BID Activity: increase activity as tolerated Diet: advance to your usual diet Forms: Portal Instructions
--- NOTE | 2023-09-29 13:23 | CM.NOTE ---
Pt will be going [facility].
--- NOTE | 2023-09-29 15:30 | CM.NOTE ---
2nd Notice of Important Message From Medicare discussed with daughter, denies any questions or concerns. Pt going inpt hospice.
[2023-09-29] MEDS: CEFTRIAXONE 1,000 MG in 0.9 % SODIUM CHLORIDE 50 ML 100 MG IV (15:53)
[2023-09-29 15:59] LABS: Glucometer 170 mg/dL (74-106)
--- NOTE | 2023-09-29 16:04 | CM.NOTE ---
Notified [facility] that pt would be transferring to inpatient hospice. They will cancel HH services.
== END 2023-09-29 17:02 | disposition hospice, inpatient (51) | DRG 871 ==
LOC: ER 16:28 → MS 17:48
PROVIDERS: Family Medicine; Internal Medicine; Nurse Practitioner; Nurse Practitioner Family; Admitting Provider Internal Medicine; Emergency Provider Emergency Medicine; PCP Internal Medicine; Visit Provider Internal Medicine
DX: A41.02 Sepsis due to Methicillin resistant Staphylococcus aureus (principal); G93.41 Metabolic encephalopathy; I50.23 Acute on chronic systolic (congestive) heart failure; J18.9 Pneumonia, unspecified organism; J96.01 Acute respiratory failure with hypoxia; I13.0 Hypertensive heart and chronic kidney disease with heart failure and stage 1 through stage 4 chronic kidney disease, or unspecified chronic kidney disease; I48.21 Permanent atrial fibrillation; N17.9 Acute kidney failure, unspecified; E87.1 Hypo-osmolality and hyponatremia; I38 Endocarditis, valve unspecified; Z66 Do not resuscitate; N18.30 Chronic kidney disease, stage 3 unspecified; E11.22 Type 2 diabetes mellitus with diabetic chronic kidney disease; Z79.4 Long term (current) use of insulin; R65.20 Severe sepsis without septic shock; G25.0 Essential tremor; E03.9 Hypothyroidism, unspecified; I16.0 Hypertensive urgency; E78.5 Hyperlipidemia, unspecified; Z95.2 Presence of prosthetic heart valve; Z79.84 Long term (current) use of oral hypoglycemic drugs; Z79.82 Long term (current) use of aspirin; Z79.899 Other long term (current) drug therapy; Z79.890 Hormone replacement therapy; Z79.01 Long term (current) use of anticoagulants; Z88.0 Allergy status to penicillin; Z88.8 Allergy status to other drugs, medicaments and biological substances; Z87.891 Personal history of nicotine dependence
CPT/HCPCS: 0202U; 36415; 51702; 51798; 71045; 71250; 80053; 82550; 82553; 82948; 83605; 83880; 84145; 84443; 84484; 85007; 85025; 85027; 85610; 87040; 87070; 87150; 87186; 87635; 87804; 87811; 93005; 93306; 93356; 94640; 94667; 94668; 94761; 94799; 96365; 96366; 96367; 96368; 96375; 96376; 97163; 97530; 99285; G0378; J2020; J3370; Q3014

== ENCOUNTER 2023-10-05 02:37 | Outpatient (RCR) | payer MEDICARE, SELFPAY | END 2023-11-04 17:05 | disposition home or self-care (01) | LOC: MM 02:37 | PROVIDERS: PCP Internal Medicine; Visit Provider Internal Medicine | DX: Z51.81 Encounter for therapeutic drug level monitoring (principal); Z79.01 Long term (current) use of anticoagulants; I25.2 Old myocardial infarction ==

== ENCOUNTER 2023-11-05 01:41 | Outpatient (RCR) | payer MEDICARE, SELFPAY | END 2023-12-03 17:37 | disposition home or self-care (01) | LOC: MM 01:41 | PROVIDERS: PCP Internal Medicine; Visit Provider Internal Medicine | DX: Z51.81 Encounter for therapeutic drug level monitoring (principal); Z79.01 Long term (current) use of anticoagulants; I21.3 ST elevation (STEMI) myocardial infarction of unspecified site ==

== ENCOUNTER 2023-12-04 03:43 | Outpatient (RCR) | payer MEDICARE, SELFPAY | END 2024-01-01 14:18 | disposition home or self-care (01) | LOC: MM 03:43 | PROVIDERS: PCP Internal Medicine; Visit Provider Internal Medicine | DX: Z51.81 Encounter for therapeutic drug level monitoring (principal); Z79.01 Long term (current) use of anticoagulants; I25.2 Old myocardial infarction ==

== ENCOUNTER 2024-01-04 02:58 | Outpatient (RCR) | payer MEDICARE, SELFPAY | END 2024-02-02 18:05 | disposition home or self-care (01) | LOC: MM 02:58 | PROVIDERS: PCP Internal Medicine; Visit Provider Internal Medicine | DX: Z51.81 Encounter for therapeutic drug level monitoring (principal); Z79.01 Long term (current) use of anticoagulants; I25.2 Old myocardial infarction ==

== ENCOUNTER 2024-02-03 04:40 | Outpatient (RCR) | payer MEDICARE, SELFPAY | END 2024-03-04 12:02 | disposition home or self-care (01) | LOC: MM 04:40 | PROVIDERS: PCP Internal Medicine; Visit Provider Internal Medicine | DX: Z51.81 Encounter for therapeutic drug level monitoring (principal); Z79.01 Long term (current) use of anticoagulants; I25.2 Old myocardial infarction ==

== ENCOUNTER 2024-03-07 03:13 | Outpatient (RCR) | payer MEDICARE, SELFPAY | END 2024-04-01 10:27 | disposition home or self-care (01) | LOC: MM 03:13 | PROVIDERS: PCP Internal Medicine; Visit Provider Internal Medicine | DX: Z51.81 Encounter for therapeutic drug level monitoring (principal); Z79.01 Long term (current) use of anticoagulants; I25.2 Old myocardial infarction ==

== ENCOUNTER 2024-04-04 00:30 | Outpatient (RCR) | payer MEDICARE, SELFPAY | END 2024-05-04 23:59 | disposition home or self-care (01) | LOC: MM 00:30 | PROVIDERS: PCP Internal Medicine; Visit Provider Internal Medicine | DX: Z51.81 Encounter for therapeutic drug level monitoring (principal); Z79.01 Long term (current) use of anticoagulants; I25.2 Old myocardial infarction ==